=== PATIENT | male | born 1970 | race Caucasian/White ===

== ENCOUNTER 2021-05-27 17:41 | Emergency (ER) | payer OTHER ==
[2021-05-27] MEDS ORDERED: cephALEXin 250 MG CAPSULE PO STA (18:12)
[2021-05-27] MEDS ORDERED: SULFAMETH/TRIMETH DS 800/160 MG TABLET PO STA (18:12)
[2021-05-27] MEDS ORDERED: HYDROcod/ACETAM 5/325 MG TABLET PO STA (18:12)
[2021-05-27] MEDS ORDERED: BUPIVACAINE 0.5% PF 10 ML VIAL SUBQ STA (18:13)
--- NOTE | 2021-05-27 18:38 | ED Physician Documentation ---
History of Present Illness - Stated complaint Stated Complaint: RT THUMB INJ - Chief complaint Chief Complaint: Laceration - History obtained from History obtained from: Patient - History of Present Illness Timing: Yesterday Pain level max: 8 Pain level now: 6 - Additonal information Additional information: 50-year-old male with a right thumb injury on a computer desk drawer. He states that a plastic splinter was in his hand he removed it. Today the thumb is red, swollen and streaks of red or going up the forearm. He went to the walk-in clinic and they sent him here for further evaluation. Unknown last tetanus. No fevers. No chills. Worse with movement, better with rest. Review of Systems Constitutional: denies: Fever, Chills GI: denies: Vomiting, Diarrhea Musculoskeletal: denies: Neck pain, Back pain Neurologic: denies: Headache PD PAST MEDICAL HISTORY - Past Medical History Past Medical History: Yes - Past Surgical History Past Surgical History: Yes - Present Medications Home Medications: Ambulatory Orders Medication Instructions Recorded Confirmed HYDROcod/ACETAM 5/325 [Vicodin 1 - 2 ea PO Q6H PRN #15 tablet 05/21/14 5/325] Ceasar/Polymyx B Sulf/Dexameth 2 drops EACHEYE TID #5 ml 05/21/14 [Maxitrol Eye Drops] Sertraline HCl [Zoloft] 200 mg QPM 05/21/14 05/21/14 HYDROcod/ACETAM 5/325 [[place] 5/325] 1 - 2 ea PO Q6H PRN #14 tablet 05/27/21 Sulfamethox/Trimeth 800/160 1 each PO BID #14 tablet 05/27/21 [Bactrim Ds 800/160] cephALEXin [Keflex] 500 mg PO Q6H #28 cap 05/27/21 - Allergies Allergies/Adverse Reactions: Allergies Allergy/AdvReac Type Severity Reaction Status Date / Time doxycycline Allergy Nausea Verified 05/21/14 17:19 - Social History Does the pt smoke?: No Smoking Status: Never smoker Does the pt drink ETOH?: No - Immunizations Immunizations are current?: Yes PD ED PE NORMAL - Vitals Vital signs reviewed: Yes - General General: Alert and oriented X 3, No acute distress - Derm Derm: Warm and dry - Extremities Extremities: Other (Erythema and swelling to the right thumb, mainly over the distal aspect of the thumb, medial surface. There are faint red streaks going up the forearm to about the mid forearm. There is a small pustule on the medial aspect of the thumb. Neurovascularly intact.) - Neuro Neuro: Alert and oriented X 3 - Psych Psych: Normal mood Results - Vitals Vitals: Vital Signs - 24 hr 05/27/21 05/27/21 17:51 18:49 Temperature 36.8 C 36.3 C L Heart Rate 128 H 101 H Respiratory 14 16 Rate Blood Pressure 148/100 H 143/99 H O2 Saturation 98 97 Oxygen O2 Source Room air Procedures - Abscess I&D (location) Right thumb Preparation: Alcohol, Marcaine 0.5% Incision: Incised with scalpel, Purulent drainage Other: Pt tolerated well, Dressing applied, Antibiotic prescribed PD MEDICAL DECISION MAKING - ED course Complexity details: considered differential, d/w patient ED course: A small abscess is present on the medial aspect of the thumb, this was incised, purulence drained. Pad of the finger is soft. Does not appear consistent with a felon at this point. Excellent anesthesia achieved with a digital block. We will start on antibiotics and have him return tomorrow for a wound check. P atient counseled regarding signs and symptoms for which I believe and urgent re- evaluation would be necessary. Patient with good understanding of and agreement to plan and is comfortable going home at this time This document was made in part using voice recognition software. While efforts are made to proofread this document, sound alike and grammatical errors may occur. Departure - Departure Disposition: 01 Home, Self Care Clinical Impression: Abscess Cellulitis Qualifiers: Site of cellulitis: extremity Site of cellulitis of extremity: finger Laterality: right Qualified Code(s): L03.011 - Cellulitis of right finger Condition: Good Instructions: ED Infec Skin Cellulitis Follow-Up: Juan David Barreto MD [Primary Care Provider] - Within 1 week Prescriptions: Sulfamethox/Trimeth 800/160 [Bactrim Ds 800/160] 1 each PO BID #14 tablet cephALEXin [Keflex] 500 mg PO Q6H #28 cap HYDROcod/ACETAM 5/325 [[place] 5/325] 1 - 2 ea PO Q6H PRN #14 tablet PRN Reason: Pain Comments: Please return here tomorrow for a wound check. Continue the antibiotics coleen ght. Will prescribe pain medication for tonight as well. Soak the area in warm water when you are at home this will help it continue to drain. Return if you worsen. I am prescribing a short course of narcotic pain medication for you. These are potentially dangerous and addictive medications that should be used carefully. These medications may constipate you. Take an ueta-eos-idkepsf stool softener (docusate) twice daily with plenty of water while taking these medications. If you go 24 hours without a bowel movement, take zzev-[id number] miralax, per package instructions. Do not drink or drive while taking these medications. If you received narcotic or sedating medications while in the emergency department, do not drive for 24 hours. Store this medication in a safe, secure place and out of reach of children. It is a violation of federal law to give or sell this medication to another person or to use in a manner other than prescribed. The ED will not refill narcotic prescriptions, including prescriptions lost or stolen. To dispose of unwanted medications: 1. [facility] at [address] [place] [address] in [place] has a medication drop box. They accept prescription medications (in pill form) Tuesday through Tuesday 9:00 a.m. to 5:00 p.m. 2. The [facility] accepts prescription medications (in pill form only) for disposal year round. Call for more information. 3. Contact the [facility] for the next [facility] sponsored prescription drug collection event. , [phone], or [phone]; Discharge Date/Time: 05/27/21 18:54
[2021-05-27] MEDS ORDERED: TETANUS/DIPHTHERIA/PERTUSSIS 0.5 ML SYRINGE IM ONE (18:40)
[2021-05-27 18:50] VITALS: BP 143/99
== END 2021-05-27 18:54 | disposition home or self-care (01) ==
LOC: ED 17:41
DX: S61.021A Laceration with foreign body of right thumb without damage to nail, initial encounter (principal); L03.011 Cellulitis of right finger; W45.8XXA Other foreign body or object entering through skin, initial encounter; Y92.59 Other trade areas as the place of occurrence of the external cause; Y99.0 Civilian activity done for income or pay
CPT/HCPCS: 26010; 90471; 90715; 99283; 99284; A9270

== ENCOUNTER 2021-05-28 12:29 | Emergency (ER) | payer OTHER ==
[2021-05-28 12:55] VITALS: BP 135/84
--- NOTE | 2021-05-28 13:43 | ED Physician Documentation ---
PD HPI WOUND RECHECK - Stated complaint Stated Complaint: WOUND CHECK RT THUMB - Chief complaint Chief Complaint: Wound - Histroy obtained from History obtained from: Patient - History of Present Illness Location: Right Hand (right thumb) Timing - onset: How many days ago (2-3) Associated symptoms: Redness, Swelling Recently seen: Emergency Dept (seen yesterday and had incision with some drainage and told to recheck today. He states is it considerably better from just yesterday.) Review of Systems Constitutional: denies: Fever, Chills Neurologic: denies: Focal weakness, Numbness PD PAST MEDICAL HISTORY - Past Medical History Cardiovascular: None - Past Surgical History Past Surgical History: Yes - Present Medications Home Medications: Ambulatory Orders Medication Instructions Recorded Confirmed HYDROcod/ACETAM 5/325 [Vicodin 1 - 2 ea PO Q6H PRN #15 tablet 05/21/14 5/325] Ceasar/Polymyx B Sulf/Dexameth 2 drops EACHEYE TID #5 ml 05/21/14 [Maxitrol Eye Drops] Sertraline HCl [Zoloft] 200 mg QPM 05/21/14 05/21/14 HYDROcod/ACETAM 5/325 [[place] 5/325] 1 - 2 ea PO Q6H PRN #14 tablet 05/27/21 Sulfamethox/Trimeth 800/160 1 each PO BID #14 tablet 05/27/21 [Bactrim Ds 800/160] cephALEXin [Keflex] 500 mg PO Q6H #28 cap 05/27/21 - Allergies Allergies/Adverse Reactions: Allergies Allergy/AdvReac Type Severity Reaction Status Date / Time doxycycline Allergy Nausea Verified 05/21/14 17:19 - Social History Does the pt smoke?: No Smoking Status: Never smoker Does the pt drink ETOH?: No - Immunizations Immunizations are current?: Yes PD ED PE NORMAL - Vitals Vital signs reviewed: Yes - General General: Alert and oriented X 3, No acute distress, Well developed/nourished - Derm Derm: Normal color, Warm and dry - Extremities Extremities: Other (right thumb with considerably decreased redness and swelling. Lymphangitic streak on forearm yesterday is gone today. ) - Neuro Neuro: No motor deficit, No sensory deficit Results - Vitals Vitals: Vital Signs - 24 hr 05/28/21 12:53 Temperature 36.5 C Heart Rate 88 Respiratory 14 Rate Blood Pressure 135/84 H O2 Saturation 99 Oxygen O2 Source Room air PD MEDICAL DECISION MAKING - ED course Complexity details: considered differential (considerably improved from yesterday. ), d/w patient Departure - Departure Disposition: 01 Home, Self Care Clinical Impression: Finger infection Condition: Stable Record reviewed to determine appropriate education?: Yes Follow-Up: Juan David Barreto MD [Primary Care Provider] - Comments: This is looking much better already from yesterday. Continue with the previous antibiotics and treatment. Continue with some soaking or warm compresses to the area a few times a day. Follow-up for recheck if not continually improving to the point of healed well over the next several days and return if worsening. Discharge Date/Time: 05/28/21 14:09
== END 2021-05-28 14:09 | disposition home or self-care (01) ==
LOC: ED 12:29
DX: S61.021D Laceration with foreign body of right thumb without damage to nail, subsequent encounter (principal); L03.011 Cellulitis of right finger
CPT/HCPCS: 1040M; 99281; 99283

== ENCOUNTER 2022-02-14 22:42 | Outpatient (CLI) | payer OTHER | END 2022-02-14 22:43 | disposition critical access hospital (66) | LOC: EMS 22:42 | DX: R56.9 Unspecified convulsions (principal) | CPT/HCPCS: A0425; A0429 ==

== ENCOUNTER 2022-02-14 22:59 | Emergency (ER) | payer OTHER ==
[2022-02-14] MEDS ORDERED: LORazepam 2 MG/ML VIAL IVP STA (23:21)
[2022-02-14 23:35] LABS: BASOPHILS % (AUTO) 0.2 %; EOSINOPHILS # (AUTO) 0.1 10^3/uL (0.0-0.7); HCT - HEMATOCRIT 29.1 % (42.0-52.0); HGB - HEMOGLOBIN 9.7 g/dL (14.0-18.0); LYMPHOCYTES # (AUTO) 0.8 10^3/uL (1.5-3.5); LYMPHOCYTES % (AUTO) 15.4 %; MEAN CORPUSCULAR HEMOGLOBIN 31.3 pg (27.0-31.0); MEAN CORPUSCULAR HGB CONC 33.3 g/dL (32.0-36.0); MEAN CORPUSCULAR VOLUME 93.9 fL (80.0-94.0); MEAN PLATELET VOLUME 10.2 fL (7.4-11.4); MONOCYTES # (AUTO) 0.9 10^3/uL (0.0-1.0); NEUTROPHILS # (AUTO) 3.2 10^3/uL (1.5-6.6); NEUTROPHILS % (AUTO) 63.6 %; PLT - PLATELET COUNT 141 10^3/uL (130-450); RED CELL DISTRIBUTION WIDTH 14.6 % (12.0-15.0)
[2022-02-14] MEDS: THIAMINE INJ 100 MG, MAGNESIUM SULFATE 2 GM, MULTIVITAMIN 10 ML, FOLIC ACID INJ 1 MG in... IV ONE ×10 (23:35)
[2022-02-14] MEDS ORDERED: MAGNESIUM SULFATE 1 GM/2 ML VIAL ONE ×2 (23:36)
[2022-02-14] MEDS ORDERED: THIAMINE 100 MG/1 ML 2 ML MDV ONE ×2 (23:36)
[2022-02-14] MEDS ORDERED: FOLIC ACID 5 MG/1 ML 10ML MDV ONE (23:36)
[2022-02-14] MEDS ORDERED: MULTIVITAMIN IV 10 ML VIAL ONE (23:36)
[2022-02-14 23:49] LABS: ALBUMIN 2.9 g/dL (3.2-5.5); ALBUMIN/GLOBULIN RATIO 0.8 (1.0-2.2); BILIRUBIN,TOTAL 0.7 mg/dL (0.2-1.0); CALCIUM 8.4 mg/dL (8.5-10.3); TOTAL PROTEIN 6.6 g/dL (6.7-8.2)
[2022-02-14] MEDS ORDERED: POTASSIUM CHLORIDE 20 MEQ TABLET PO STA (23:57)
--- NOTE | 2022-02-15 00:16 | ED Physician Documentation ---
History of Present Illness - Stated complaint Stated Complaint: SEIZURE - Chief complaint Chief Complaint: Neuro - History obtained from History obtained from: Patient, Family, EMS - Additonal information Additional information: The patient comes to the emergency department chief complaint of seizure. The patient states that the last thing he remembers was that he was in the bathroom and suddenly, the lights began to look as though they were pulsating. He remembers his saying "Get down get down". He does not remember anything after that until he found himself waking up on the floor. states that she saw the patient stiffen and immediately began maneuvering him to the floor so he would not fall and hit his head on the sink. The patient according to had about 30 seconds of tonic-clonic type activity with a brief pause, then another 15 to 20 seconds at the same. After that, the patient began to wake up. She states patient seemed confused for a minute or 2 afterward and then quickly became himself again. Medics state that by the time they arrived, the patient was alert and oriented x4. Patient states he is feeling "great" now. He has a history of 1 other episode of presumed seizure activity which was 4, about 7 months ago. Is not clear exactly what caused the seizure, though patient states that both times, he has been under some extra stress and has not been getting enough sleep. He also thinks that spending a lot of time looking at screens increases his likelihood of having a seizure. Patient does admit to regular alcohol use, which he quantifies to be around 6 beers every evening. However, patient and his state that they both decided they needed to "get healthy" and so they stopped drinking cold turkey about 8 or 9 days ago. Patient denies feeling tremulous. No nausea or sweats. The patient was not put on any anticonvulsants when he was seen at the emergency department in [place] for his last seizure episode. He has not followed up with neurology. He does have a primary care physician. No other complaints at this time. Review of Systems Ten Systems: 10 systems reviewed and negative Constitutional: reports: Reviewed and negative Eyes: reports: Reviewed and negative Ears: reports: Reviewed and negative Nose: reports: Reviewed and negative Throat: reports: Reviewed and negative Cardiac: reports: Reviewed and negative Respiratory: reports: Reviewed and negative GI: reports: Reviewed and negative : reports: Reviewed and negative Skin: reports: Reviewed and negative Musculoskeletal: reports: Reviewed and negative Neurologic: reports: Syncope, Seizure Psychiatric: reports: Reviewed and negative Endocrine: reports: Reviewed and negative Immunocompromised: reports: Reviewed and negative PD PAST MEDICAL HISTORY - Past Medical History Past Medical History: Yes Cardiovascular: None Psych: Anxiety - Past Surgical History Past Surgical History: Yes General: Gastric surgery - Present Medications Home Medications: Ambulatory Orders Medication Instructions Recorded Confirmed Sertraline HCl [Zoloft] 200 mg QPM 05/21/14 02/14/22 DULoxetine [Cymbalta] 90 mg PO DAILY 02/14/22 02/14/22 Lorazepam [Ativan] 2 mg PO DAILY PRN 02/14/22 02/14/22 - Allergies Allergies/Adverse Reactions: Allergies Allergy/AdvReac Type Severity Reaction Status Date / Time doxycycline Allergy Nausea Verified 02/14/22 23:10 - Social History Does the pt smoke?: No Smoking Status: Never smoker Does the pt drink ETOH?: No Does the pt have substance abuse?: No - Immunizations Immunizations are current?: Yes - POLST Patient has POLST: No PD ED PE NORMAL - Vitals Vital signs reviewed: Yes - General General: Alert and oriented X 3, No acute distress, Well developed/nourished - HEENT HEENT: Atraumatic, PERRL, EOMI, Moist mucous membranes, Other (Shallow bite abby on tip of tongue and left side.) - Neck Neck: Supple, no meningeal sign, No bony TTP - Cardiac Cardiac: RRR, No murmur, Strong equal pulses - Respiratory Respiratory: No respiratory distress, Clear bilaterally - Abdomen Abdomen: Soft, Non tender, Non distended - Derm Derm: Normal color, Warm and dry, No rash - Extremities Extremities: No deformity, No edema, No calf tenderness / cord - Neuro Neuro: Alert and oriented X 3, consulting psychologist 2-12 intact, Normal speech, Other (Grossly intact) - Psych Psych: Normal mood, Normal affect Results - Vitals Vitals: Vital Signs - 24 hr 02/14/22 02/15/22 02/15/22 23:00 00:10 00:43 Temperature 36.9 C Heart Rate 114 H 116 H 111 H Respiratory 17 16 22 Rate Blood Pressure 141/92 H 145/88 H 142/83 H O2 Saturation 99 99 99 02/15/22 02/15/22 00:57 01:10 Temperature 37.0 C Heart Rate 108 H 103 H Respiratory 23 18 Rate Blood Pressure 161/87 H 140/83 H O2 Saturation 100 100 Oxygen O2 Source Room air - Labs Labs: Laboratory Tests 02/14/22 02/14/22 23:29 23:29 WBC 5.0 RBC 3.10 L Hgb 9.7 L Hct 29.1 L MCV 93.9 MCH 31.3 H MCHC 33.3 RDW 14.6 Plt Count 141 MPV 10.2 Neut # (Auto) 3.2 Lymph # (Auto) 0.8 L [place] # (Auto) 0.9 Eos # (Auto) 0.1 Baso # (Auto) 0.0 Absolute Nucleated RBC 0.00 Nucleated RBC % 0.0 Sodium 134 L Potassium 3.0 L Chloride 100 L Carbon Dioxide 23 Anion Gap 11.0 BUN 10 Creatinine 1.0 Estimated GFR (MDRD) 79 L Glucose 95 Calcium 8.4 L Total Bilirubin 0.7 AST 42 ALT 43 Alkaline Phosphatase 104 Total Protein 6.6 L Albumin 2.9 L Globulin 3.7 Albumin/Globulin Ratio 0.8 L Lipase 61 H PD MEDICAL DECISION MAKING - ED course Complexity details: reviewed results, re-evaluated patient, considered differential, d/w patient, d/w family ED course: The patient had already had work-up at another hospital for seizures and had had a CT of the head when this first came on, and was found to be negative. I did not feel this needed to be repeated. I did have labs done on the patient found that his potassium was low at 3.0, so I gave him a dose of potassium here in the emergency department. Also given a banana bag. I did find the patient was mildly tachycardic in the 1 teens and did appear slightly tremulous, so I gave him a dose of Ativan, as well. The patient was still feeling well on reevaluation and I felt he was stable for discharge home as labs were unremarkable other than potassium. I discussed with him the need to talk with his doctor about having referral to neurology for follow-up of seizures and to determine whether he should be on medications or not. Patient and stated that they would be willing to pursue this with the primary doctor. We have discussed the usual indications for return. Departure - Departure Disposition: 01 Home, Self Care Clinical Impression: Seizure Condition: Stable Instructions: ED Seizure Recurrent Comments: Your potassium was mildly low in the emergency department and you have been treated for this. You were also treated with a banana bag, which has given you some extra vitamins that you may be lacking from your regular drinking. Please call to make the next possible appointment with Dr. Barreto to discuss a neurology referral since you have now had 2 seizures. Although stress, screens, and lack of sleep may act as triggers, it is still abnormal to have seizures, and it is still best to get established with neurology, as you clearly have a lower threshold for seizures. Please continue to avoid alcohol intake. Discharge Date/Time: 02/15/22 01:15
[2022-02-15] MEDS: THIAMINE INJ 100 MG, MAGNESIUM SULFATE 2 GM, MULTIVITAMIN 10 ML, FOLIC ACID INJ 1 MG in... IV ONE ×5 (00:53)
[2022-02-15 01:16] VITALS: BP 140/83
== END 2022-02-15 01:15 | disposition home or self-care (01) ==
LOC: EDUNIT# → ED 22:59
DX: R56.9 Unspecified convulsions (principal)
CPT/HCPCS: 36415; 80053; 83690; 85025; 96365; 96366; 96375; 99284; A9270; J2060; J3411

== ENCOUNTER 2022-07-15 11:41 | Outpatient (CLI) | payer OTHER ==
--- NOTE | 2022-07-15 14:27 | XRAY Report ---
PROCEDURE: Shoulder 2 View RT INDICATIONS: RIGHT SHOULDER PAIN TECHNIQUE: 2 views of the shoulder were acquired. COMPARISON: None. FINDINGS: Bones: No fractures or dislocations. No suspicious bony lesions. Visualized ribs appear intact. M oderate to severe acromioclavicular degenerative narrowing. Soft tissues: No suspicious soft tissue calcifications. IMPRESSION: Moderate to severe acromioclavicular narrowing. Reviewed by: Belgica Rondon MD on 07/15/2022 2:26 PM PDT Approved by: Belgica Rondon MD on 07/15/2022 2:26 PM PDT Station ID: [id number]
== END 2022-07-15 11:42 | disposition home or self-care (01) ==
LOC: DI 11:41
PROVIDERS: ATTEND Student in an Organized Health Care Education/Training Program
DX: M19.011 Primary osteoarthritis, right shoulder (principal)

== ENCOUNTER 2024-05-22 08:08 | Outpatient (CLI) | payer OTHER ==
[2024-05-22 11:59] LABS: PARTIAL THROMBOPLASTIN TIME 24.5 secs (24.9-33.3)
[2024-05-22 12:30] LABS: % IRON SATURATION 3 % (20-50); ALBUMIN 4.3 g/dL (3.2-5.5); ALBUMIN/GLOBULIN RATIO 1.6 (1.0-2.2); ALKALINE PHOSPHATASE 76 IU/L (42-121); ALT ALANINE AMINOTRANSFERASE 19 IU/L (10-60); AST ASPARTATE AMINOTRANSFERASE 35 IU/L (10-42); BILIRUBIN,TOTAL 0.6 mg/dL (0.2-1.0); BUN - BLOOD UREA NITROGEN 8 mg/dL (6-20); CALCIUM 9.6 mg/dL (8.5-10.3); CARBON DIOXIDE - CO2 27 mmol/L (21-32); CHLORIDE 102 mmol/L (101-111); CHOL/HDL RATIO 2.1 (<5.0); CHOLESTEROL 173 mg/dL; CREATININE 0.9 mg/dL (0.6-1.3); GFR - MDRD 89 (>89); GLUCOSE 71 mg/dL (74-104); HDL CHOLESTEROL 84 mg/dL; IRON 18 ug/dL (50-212); LDL CHOLESTEROL,CALCULATED 67 mg/dL; LDL/HDL RATIO 0.8 (<3.6); POTASSIUM 3.9 mmol/L (3.5-4.5); SODIUM 136 mmol/L (135-145); TOTAL IRON BINDING CAPACITY 563 ug/dL (250-450); TRANSFERRIN 402 mg/dL (203-362); TRIGLYCERIDES 108 mg/dL; VLDL CHOLESTEROL 22 mg/dL
[2024-05-22 12:35] LABS: THYROID STIMULATING HORMONE 0.97 uIU/mL (0.34-5.60)
[2024-05-22 12:43] LABS: FERRITIN 6.1 ng/mL (23.9-336.2)
[2024-05-22 12:45] LABS: BASOPHILS % (AUTO) 0.8 %; EOSINOPHILS # (AUTO) 0.1 10^3/uL (0.0-0.7); EOSINOPHILS % (AUTO) 2.4 %; HCT - HEMATOCRIT 32.3 % (42.0-52.0); HGB - HEMOGLOBIN 9.2 g/dL (14.0-18.0); LYMPHOCYTES # (AUTO) 1.5 10^3/uL (1.5-3.5); LYMPHOCYTES % (AUTO) 40.3 %; MEAN CORPUSCULAR HEMOGLOBIN 19.3 pg (27.0-31.0); MEAN CORPUSCULAR HGB CONC 28.5 g/dL (32.0-36.0); MEAN CORPUSCULAR VOLUME 67.7 fL (80.0-94.0); MONOCYTES # (AUTO) 0.4 10^3/uL (0.0-1.0); MONOCYTES % (AUTO) 9.7 %; NEUTROPHILS # (AUTO) 1.7 10^3/uL (1.5-6.6); NEUTROPHILS % (AUTO) 46.5 %; PLT - PLATELET COUNT 255 10^3/uL (130-450); RED BLOOD COUNT 4.77 10^6/uL (4.70-6.10); RED CELL DISTRIBUTION WIDTH 20.5 % (12.0-15.0); WHITE BLOOD COUNT 3.7 x10^3/uL (4.8-10.8)
[2024-05-22 13:19] LABS: SLIDE REVIEW? Indicated
[2024-05-22 13:20] LABS: RBC MORPHOLOGY (MULTIPLE) 2+ HYPOCHROMASIA (NORMAL)
[2024-05-22 13:35] LABS: PT - PROTHROMBIN TIME 10.7 secs (9.9-12.6)
[2024-05-22 15:37] LABS: ESTIMATED AVERAGE GLUCOSE 105 mg/dL (70-100); HEMOGLOBIN A1c% 5.3 % (4.27-6.07)
== END 2024-05-22 08:09 | disposition home or self-care (01) ==
LOC: LAB.N 08:08
DX: R53.82 Chronic fatigue, unspecified (principal); Z12.5 Encounter for screening for malignant neoplasm of prostate; D68.2 Hereditary deficiency of other clotting factors
CPT/HCPCS: 36415; 80053; 80061; 82306; 82607; 82728; 82746; 83036; 83540; 83721; 84153; 84443; 84466; 85025; 85610; 85730

== ENCOUNTER 2024-06-25 07:04 | Outpatient (CLI) | payer OTHER | END 2024-06-25 07:05 | disposition home or self-care (01) | LOC: LAB.N 07:04 | DX: R53.82 Chronic fatigue, unspecified (principal); R68.82 Decreased libido | CPT/HCPCS: 36415; 84403 ==

== ENCOUNTER 2025-01-31 18:51 | Inpatient (IN) ==
--- OUTSIDE RECORDS SUMMARY | 2025-01-31 19:03 | EXTERNAL MEDICAL SUMMARY RPT | Continuity of Care Document ---
Author Organization [facility] Address [address] [place] [id number] Phone Problems date description facility 2024-11-29 08:33 Displaced bicondylar fracture of left tibia, initial encounter for closed fracture [facility] 2025-01-11 15:30 Essential (primary) hypertensio n [facility] 2025-01-11 15:33 Essential (primary) hypertensio n [facility] 2025-01-11 16:11 Essential (primary) hypertensio n [facility] 2025-01-12 00:04 Essential (primary) hypertensio n [facility] Results/Labs test date facility value unit notes Result panel 1 NUCLEATED RED BLOOD CELLS AUTO 2025-01-11 15:37 [facility] 0.0 /100wbc (missing) BASOPHILS # (AUTO) 2025-01-11 15:37 [facility] 0.0 10 3/ul (missing) NRBC ABSOLUTE COUNT (AUTO) 2025-01-11 15:37 [facility] 0.00 x10 3/ul (missing) EOSINOPHILS # (AUTO) 2025-01-11 15:37 [facility] 0.2 10 3/ul (missing) BILIRUBIN,TOTAL 2025-01-11 15:37 [facility] 0.2 mg /dl As of April 2023 testing method has changed, this may include reference ranges. MONOCYTES # (AUTO) 2025-01-11 15:37 [facility] 0.7 10 3/ul (missing) CREATININE 2025-01-11 15:37 [facility] 1.0 mg/dl As of April 2023 testing method has changed, this may include reference ranges. LDL/HDL RATIO 2025-01-11 15:37 [facility] 1.2 (mis sing) (missing) THYROID STIMULATING HORMONE 2025-01-11 15:37 [facility] 1.54 uiu/ml (missing) ALBUMIN/GLOBULIN RATIO 2025-01-11 [facility] 1.9 (missing) (missing) ESTIMATED AVERAGE GLUCOSE 2025-01-11 15:37 [facility] 108 mg/dl (missing) MEAN PLATELET VOLUME 2025-01-11 15:37 [facility] 11.5 fl (missing) HGB - HEMOGLOBIN 2025-01-11 15:37 [facility] 11.5 g /dl (missing) TRIGLYCERIDES 2025-01-11 15:37 [facility] 111 mg/d l Social History date description facility
[2025-01-31 19:11] LABS: BASOPHILS % (AUTO) 0.2 %; EOSINOPHILS # (AUTO) 0.1 10^3/uL (0.0-0.7); EOSINOPHILS % (AUTO) 1.2 %; HCT - HEMATOCRIT 34.9 % (42.0-52.0); HGB - HEMOGLOBIN 10.9 g/dL (14.0-18.0); LYMPHOCYTES # (AUTO) 2.7 10^3/uL (1.5-3.5); LYMPHOCYTES % (AUTO) 30.2 %; MEAN CORPUSCULAR HGB CONC 31.2 g/dL (32.0-36.0); MEAN CORPUSCULAR VOLUME 73.6 fL (80.0-94.0); MEAN PLATELET VOLUME 10.8 fL (7.4-11.4); MONOCYTES # (AUTO) 0.8 10^3/uL (0.0-1.0); MONOCYTES % (AUTO) 8.5 %; NEUTROPHILS # (AUTO) 5.3 10^3/uL (1.5-6.6); NEUTROPHILS % (AUTO) 59.6 %; PLT - PLATELET COUNT 139 10^3/uL (130-450); RED BLOOD COUNT 4.74 10^6/uL (4.70-6.10); RED CELL DISTRIBUTION WIDTH 15.8 % (12.0-15.0); WHITE BLOOD COUNT 8.9 x10^3/uL (4.8-10.8)
[2025-01-31 19:30] LABS: ALBUMIN 4.4 g/dL (3.2-5.5); ALBUMIN/GLOBULIN RATIO 1.7 (1.0-2.2); BILIRUBIN,TOTAL 0.4 mg/dL (0.2-1.0); CALCIUM 9.6 mg/dL (8.5-10.3); CREATININE 1.2 mg/dL (0.6-1.3)
[2025-01-31] MEDS: MORPHINE 2 MG/ML CARPUJECT IVP STA (19:43)
[2025-01-31] MEDS: ONDANSETRON 4 MG/2 ML VIAL IVP STA (20:01)
[2025-01-31] MEDS ORDERED: iohexoL-300 100 ML VIAL ONE (20:21)
[2025-01-31] MEDS: HYDROmorphone 0.5 MG/0.5 ML SYRINGE IVP STA ×2 (20:28→21:24)
[2025-01-31] MEDS: iohexoL-300 100 ML VIAL IVP ONE (20:42)
[2025-01-31] MEDS: SODIUM CHLORIDE 0.9% 1,000 ML IV STA (21:23)
[2025-01-31] MEDS: DROPERIDOL 5 MG/2 ML VIAL IVP STA (21:26)
--- NOTE | 2025-01-31 21:29 | CT Report ---
PROCEDURE: CT Abdomen/Pelvis W INDICATIONS: left flank pain, hx of gastric bypass CONTRAST: 100 ML OMNI TECHNIQUE: After the administration of intravenous contrast, a CT scan of the abdomen and pelvis was performed. Images were recorded and evaluated at appropriate window settings. Reformats: coronal and sagittal. F or radiation dose reduction, the following was used: automated exposure control, adjustment of mA and /or kV according to patient size. COMPARISON: CT of the thoracic spine dated 08/07/2013. FINDINGS: Image quality: Diagnostic. Lower chest: Unremarkable. Liver: No solid mass. Gallbladder: No radiopaque stones or wall thickening. Biliary tree: No intrahepatic or extrahepatic dilation, accounting for age. Spleen: No splenomegaly. Pancreas: No pancreatic ductal dilation. Adrenals: No adrenal nodule. Kidneys and ureters: No hydronephrosis. No renal cystic lesion which requires follow up. No solid mas s. Stomach, bowel and peritoneum: There is prior gastric bypass surgery. Focal segment of markedly diste nded bowel loop is seen in upper abdomen containing fecal matter and measures up to 10 cm in diameter best seen on series 4 image 32. There is twisting of the abdominal mesentery with abrupt caliber corwin nge of bowel loop best seen on series 4 image 42. Normal appendix is visualized. There is no peritone al free fluid of free air. No area of abnormal bowel wall thickening. Lymph nodes: No central or retroperitoneal adenopathy. Vessels: No infrarenal aortic aneurysm. Patent portal vein. PELVIS Reproductive organs: Unremarkable. Bladder: No abnormal wall thickening. Pelvic lymph nodes: No pelvic adenopathy by size criteria. Bones: No aggressive osseous abnormality. Other: No significant ventral or inguinal hernia. IMPRESSION: 1. 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 2. No obstructing renal stones or hydronephrosis. 3. No abscess collection. No free fluid of free air. Findings were discussed with provider at time of dictation. Reviewed by: Juan Hager MD on 01/31/2025 9:28 PM PDT Approved by: Juan Hager MD on 01/31/2025 9:28 PM PDT Station ID: [id number]
--- NOTE | 2025-01-31 21:52 | PROVIDER PROGRESS NOTE ---
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 pain at about 1130 this AM, last BM about noon. He is being taken to the operating room emergently tonight for probable right colon resection. Dr. Lawson contacted me asking medicine service to formally consult on this patient in the morning and to make any recommendations for his care postoperatively overnight. As stated above he has a history of alcohol use and alcohol withdrawal with seizures that could be related to his alcohol withdrawal. 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 Review of most recent PCP note dated 01/08/2025 shows that patient stated his last alcoholic beverage was in early November and that he was actively engaged in alcoholic Anonymous. Patient tells me this at the bedside as well this evening. I met with patient briefly at the beside this evening. Chronically crunches ice which is likely the root of his polydipsia and related to his chronic iron def anemia. Will check BMP in the AM and place patient on 1500ml fluid restriction to help with correction of Na. Goal will be to correct Na by no more than 8mEq per 24 hours Will ck iron studies in the AM and likely give Fe infusion while IP.
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
[2025-01-31] MEDS ORDERED: PROPOFOL 200 MG/20 ML VIAL IVP ONE ×2 (22:18→22:54)
[2025-01-31] MEDS ORDERED: ONDANSETRON 4 MG/2 ML VIAL ONE (22:18)
[2025-01-31] MEDS ORDERED: DEXAMETHASONE 4 MG/ML VIAL ONE (22:18)
[2025-01-31] MEDS ORDERED: ROCURONIUM 50 MG/5 ML VIAL ONE (22:18)
[2025-01-31] MEDS ORDERED: LIDOCAINE-PF 2% 10 ML AMP SUBQ ONE (22:18)
[2025-01-31] MEDS ORDERED: MIDAZOLAM 2 MG/2 ML VIAL ONE (22:26)
[2025-01-31] MEDS ORDERED: fentaNYL 100 MCG/2 ML VIAL ONE (22:26)
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
[2025-01-31] MEDS ORDERED: BUPIVACAINE 0.25% PF 30 ML VIAL ONE (22:45)
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
[2025-01-31] MEDS ORDERED: metroNIDAZOLE 500 MG/100 ML 500 MG/100 ML BAG IV SCH (23:02)
[2025-01-31] MEDS ORDERED: ceFAZolin 1 GM VIAL ONE (23:02)
[2025-01-31] MEDS ORDERED: GLYCOPYRROLATE 1 MG/5 ML VIAL ONE (23:34)
[2025-02-01] MEDS ORDERED: ROCURONIUM 50 MG/5 ML VIAL ONE (01:08)
[2025-02-01] MEDS ORDERED: ROPIVACAINE 0.5% PF 20 ML VIAL ONE (01:08)
[2025-02-01] MEDS ORDERED: ACETAMINOPHEN 1,000 MG/100 ML 1,000 MG/100 ML BAG IV ONE (01:08)
[2025-02-01] MEDS ORDERED: ONDANSETRON 4 MG/2 ML VIAL IVP PRN ×2 (01:13→01:17)
[2025-02-01] MEDS ORDERED: ATROPINE ABBOJECT 1 MG/10 ML SYRINGE IVP PRN (01:13)
[2025-02-01] MEDS ORDERED: ePHEDrine 50 MG/ML VIAL IVP PRN ×2 (01:13→01:17)
[2025-02-01] MEDS ORDERED: SUGAMMADEX 200 MG/2 ML VIAL IVP ONE (01:29)
[2025-02-01] MEDS ORDERED: ROPIVACAINE EP ONE ×2 (01:44→04:45)
[2025-02-01] MEDS: ROPIVACAINE 0.2% 200 MG/100 ML BAG EP ONE ×2 (01:58→14:20)
--- NOTE | 2025-02-01 02:49 | ANESTHESIA POST OP EVALUATION ---
Anesthesia Post Eval Post Anesthesia Eval Vitals: Last Vital Signs Temp 36.2 C L 02/01/25 02:40 Pulse 64 02/01/25 02:40 Resp 16 02/01/25 02:40 BP 147/101 H 02/01/25 02:40 Pulse Ox 97 02/01/25 02:40 CV Function Including HR & BP: Stable Pain Control: Satisfactory Nausea & Vomiting: Negative Mental Status: Baseline Respiratory Status: Airway Patent Hydration Status: Satisfactory Anesthesia Complications: None
[2025-02-01] MEDS ORDERED: DEXMEDETOMIDINE 200 MCG/2 ML VIAL IV ONE (04:40)
[2025-02-01 05:30] LABS: BASOPHILS % (AUTO) 0.2 %; EOSINOPHILS % (AUTO) 22.9 %; HCT - HEMATOCRIT 38.3 % (42.0-52.0); HGB - HEMOGLOBIN 12.3 g/dL (14.0-18.0); LYMPHOCYTES % (AUTO) 2.9 %; MEAN CORPUSCULAR HEMOGLOBIN 23.2 pg (27.0-31.0); MEAN CORPUSCULAR HGB CONC 32.1 g/dL (32.0-36.0); MEAN CORPUSCULAR VOLUME 72.3 fL (80.0-94.0); MONOCYTES % (AUTO) 7.3 %; NEUTROPHILS % (AUTO) 66.2 %; PLT - PLATELET COUNT 151 10^3/uL (130-450); RED CELL DISTRIBUTION WIDTH 15.7 % (12.0-15.0); WHITE BLOOD COUNT 18.4 x10^3/uL (4.8-10.8)
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
[2025-02-01 05:33] LABS: INR 1.1 (0.8-1.2); PT - PROTHROMBIN TIME 12.3 secs (9.9-12.6)
[2025-02-01 05:42] LABS: ABNORMAL LYMPHS % (MANUAL) 0 %
[2025-02-01 05:53] LABS: CALCIUM 8.8 mg/dL (8.5-10.3); MAGNESIUM 1.4 mg/dL (1.7-2.3); PHOSPHORUS 3.8 mg/dL (2.5-5.0); POTASSIUM 4.2 mmol/L (3.5-4.5)
[2025-02-01 06:54] LABS: BAND NEUTROPHILS % (MANUAL) 10 %; DIFFERENTIAL COMMENT MANUAL DIFFERENTIAL; LYMPHOCYTES # (MANUAL) 0.2 10^3/uL (1.5-3.5); LYMPHOCYTES % (MANUAL) 1 %; MONOCYTES # (MANUAL) 0.6 10^3/uL (0.0-1.0); NEUTROPHILS # (MANUAL) 17.7 10^3/uL (1.5-6.6); PLATELET ESTIMATE, MANUAL NORMAL (130-450,000) (NORMAL); PLATELET MORPHOLOGY NORMAL APPEARANCE (NORMAL); RBC MORPHOLOGY (MULTIPLE) NORMAL APPEARANCE (NORMAL); WBC MORPHOLOGY (MULTIPLE) NORMAL APPEARANCE (NORMAL)
--- OUTSIDE RECORDS SUMMARY | 2025-02-01 10:22 | EXTERNAL MEDICAL SUMMARY RPT | Continuity of Care Document ---
Author Organization [facility] Address [address] [place] [id number] Phone Problems date description facility 2024-11-29 08:33 Displaced bicondylar fracture of left tibia, [facility] 2025-01-11 15:30 [facility] 2025-01-11 15:33 [email or web address] 2025-01-11 16:11 [facility] 2025-01-12 00:04 Essential [facility]primary[email or web address] 2025-02-01 00:05 Hypo-osmolality and [facility]onatremi [facility] 2025-02-01 00:05 Alcohol abuse, in remission [facility] 2025-02-01 00:05 [facility] 2025-02-01 01:05 [facility] 2025-02-01 01:58 Iron deficiency anemia[facility] 2025-02-01 01:59 Iron deficiency anemia, [facility] 2025-02-01 02:38 Iron deficiency anemia, [facility] 2025-02-01 02:41 Iron deficiency anemia, [facility] 2025-02-01 04:04 Iron deficiency anemia, [facility] 2025-02-01 08:19 Iron deficiency anemia[facility] 2025-02-01 08:19 Hypo-osmolality and [facility]atremi [facility] 2025-02-01 08:19 [facility] abuse, [facility] 2025-02-01 08:19 Volvulus [email or web address] 2025-02-01 08:46 Hypo-osmolality and hyponatremi a [facility] 2025-02-01 08:46 Alcohol abuse, in remission [facility] 2025-02-01 08:46 Volvulus [facility] Results/Labs test date facility value unit notes Result panel 1 NUCLEATED RED BLOOD CELLS AUTO 2025-01-11 15:37 [facility] 0.0 /100wbc (missing) BASOPHILS # (AUTO) 2025-01-11 15:37 [facility] 0.0 10 3/ul (missing) NRBC ABSOLUTE COUNT (AUTO) 2025-01-11 15:37 [facility] 0.00 x10 3/ul (missing) EOSINOPHILS # (AUTO) 2025-01-11 15:37 [facility] 0.2 10 3/ul (missing) BILIRUBIN,TOTAL 2025-01-11 15:37 [facility] 0.2 mg /dl As of April 2023 testing method has changed, this may include reference ranges. MONOCYTES # (AUTO) 2025-01-11 15:37 [facility] 0.7 10 3/ul (missing) CREATININE 2025-01-11 15:37 [facility] 1.0 mg/dl As of April 2023 testing method has changed, this may include reference ranges. LDL/HDL RATIO 2025-01-11 15:37 [facility] 1.2 (mis sing) (missing) THYROID STIMULATING HORMONE 2025-01-11 15:37 [facility] 1.54 uiu/ml (missing) ALBUMIN/GLOBULIN RATIO 2025-01-11 15:37 [facility] 1.9 (missing) (missing) ESTIMATED AVERAGE GLUCOSE 2025-01-11 15:37 [facility] 108 mg/dl (missing) MEAN PLATELET VOLUME 2025-01-11 15:37 [facility] 11.5 fl (missing) HGB - HEMOGLOBIN 2025-01-11 15:37 [facility] 11.5 g /dl (missing) TRIGLYCERIDES 2025-01-11 15:37 [facility] 111 mg/d l Social History date description facility
[2025-02-01 10:26] LABS: % IRON SATURATION 17 % (20-50); IRON 82 ug/dL (50-212); TOTAL IRON BINDING CAPACITY 473 ug/dL (250-450); TRANSFERRIN 338 mg/dL (203-362)
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
[2025-02-01] MEDS ORDERED: cloNIDine 0.1 MG TABLET PO PRN (12:39)
--- NOTE | 2025-02-01 12:48 | PHARMACY PROGRESS NOTE ---
Best Possible Medication History Admit Date and Time: 02/01/25 [id number] Home Medications Medication Instructions Recorded Confirmed Type naltrexone 50 mg tablet 50 mg PO QDAY #30 tabs 08/04/24 02/01/25 Rx acetaminophen 500 mg tablet 1,000 mg PO Q6H PRN fever or pain 08/08/24 02/01/25 History ascorbic acid (vitamin C) 1,000 mg 1 g PO QDAY 08/08/24 02/01/25 History capsule duloxetine 30 mg capsule,delayed 90 mg PO QDAY 08/08/24 02/01/25 History release trazodone 100 mg tablet 100 mg PO HS 08/08/24 02/01/25 History clonidine HCl 0.1 mg tablet 0.1 mg PO Q6H PRN anxiety 01/08/25 02/01/25 History hydroxyzine pamoate 50 mg capsule 100 mg PO DAILY 01/08/25 02/01/25 History ibuprofen 200 mg capsule 200 mg PO Q6H PRN fever or pain 01/08/25 02/01/25 History mecobalamin (vitamin B12) 2,500 2,500 mcg PO QDAY 01/08/25 02/01/25 History mcg chewable tablet metoprolol succinate 25 mg capsule 25 mg PO QDAY 01/08/25 02/01/25 History sprinkle, ext. release 24 hr (Kapspargo Sprinkle) multivitamin 1 tab PO QAM 01/08/25 02/01/25 History quetiapine 50 mg tablet 50 mg PO BID 01/08/25 02/01/25 History folic acid 1 mg tablet 1 mg PO DAILY 02/01/25 02/01/25 History melatonin 1 mg tablet 1 mg PO HS PRN sleep 02/01/25 02/01/25 History Processed by: Pharmacy Medications reviewed in ED?: No Medication History completed: Yes Patient Interview: Completed Secondary Source(s): Insurance records [facility] Statement: Per [facility] patient interview and review of [employer] insurance records. As the person ultimately responsible for medication therapy, providers are able to order a medication from an existing home medication list in [facility] via the "Reconcile Routine" prior to Confirmation of that medication by manager decision support. Such practice is discouraged except when the physician, in their clinical judgment, deems that a medical need exists for a medication without regard to previous use.
[2025-02-01] MEDS: SODIUM CHLORIDE FLUSH 0.9% 10 ML SYRINGE IVP SCH (13:45)
[2025-02-01] MEDS: METOPROLOL SUCCINATE 25 MG TABLET PO SCH (13:46)
[2025-02-01] MEDS: ENOXAPARIN 40 MG/0.4 ML SYRINGE SUBQ SCH (13:46)
[2025-02-01] MEDS: FOLIC ACID 1 MG TABLET PO SCH (13:46)
[2025-02-01] MEDS: DULoxetine 30 MG CAPSULE PO SCH (13:46)
[2025-02-01] MEDS: SODIUM CHLORIDE 0.9% 1,000 ML IV SCH (13:47)
[2025-02-01] MEDS: MAGNESIUM SULFATE 2 GRAM 2 GM/50 ML BAG IV ONE (13:47)
[2025-02-01] MEDS: ceFAZolin (2G) 2 GM in SODIUM CHLORIDE 0.9% MINIBAG 100 ML IV ONE (14:00)
[2025-02-01] MEDS: LACTATED RINGERS 1,000 ML IV ONE (14:01)
[2025-02-01] MEDS: LACTATED RINGERS 1,000 ML IV SCH (14:23)
[2025-02-01] MEDS: FERRIC GLUCONATE 125 MG in SODIUM CHLORIDE 0.9% 100ML 100 ML IV ONE (14:24)
--- NOTE | 2025-02-01 16:18 | PROVIDER PROGRESS NOTE ---
Subjective General Admit Date: 02/01/25 Procedure Date: 02/01/25 Post Op Days: 0 Procedure Performed: exploratory laparotomy, right colectomy for cecal volvulus Other Other Information/Narrative: POD0. HDN/AF since surgery. Comfortable on swenson, pain well controlled with epidural. Tolerating sips/chips, no nausea, but no appetite or flatus yet. Wound Assessment Wound/Incisions: positive Dressing dry and intact Review of Systems Status of ROS: 10 or more systems reviewed and unremarkable except as noted in history and below Exam Exam Vital Signs: Vital Signs x48h Temp Pulse Resp BP Pulse Ox 02/01/25 15:57 37.2 C 78 18 117/64 95 Constitutional normal general appearance and no apparent distress Respiratory normal respiratory effort Cardiovascular normal heart rate noted Gastrointestinal abdomen soft to palpation and nondistended minimal periincisional ttp, no focal ttp Genitourinary light yellow urine in peoples Back/Pelvis epidural in place Extremities normal to inspection Psychiatry oriented x3 Skin skin color normal Impression/Plan Problem List (1) Cecal volvulus: Plan: 54yoM 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 Volvulized cecum was mildly dusky with serosal tearing in the OR, no perforation or stool contamination. POD-0. Doing well on the floor. - pain control with epidural and scheduled IV tylenol. To be managed by Anesthesia - sips/chips OK. ADAT when demonstrating ROBF/appetite (recall patient s/p RNY gastric bypass). - peoples in place until epidural removed - ppx lovenox started alread Patient transferred to Hospitalist service for primary team - hyponatremia/polydipsea as per primary - home medications as per primary (has resumed naltrexone) Weekend rounding by surgery will be signed out to Dr. Kinney. Komal Lawson DO, FACS General Surgeon, Jonah (2) Hyponatremia: (3) Alcohol abuse, in remission: (4) Elevated blood pressure reading: (5) Iron deficiency:
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
[2025-02-01] MEDS: QUEtiapine 25 MG TABLET PO SCH (20:40)
[2025-02-01] MEDS: traZODone 50 MG TABLET PO SCH (20:40)
[2025-02-01] MEDS: CYCLOBENZAPRINE 10 MG TABLET PO PRN (20:40)
[2025-02-01] MEDS: SIMETHICONE CHEW 80 MG TABLET PO SCH (20:41)
[2025-02-01] MEDS: SODIUM CHLORIDE 0.45% 1,000 ML IV SCH (20:45)
--- NOTE | 2025-02-01 21:51 | PROVIDER PROGRESS NOTE ---
Progress Note Progress Note Progress Note: Patient became acutely hypotensive to the 80s. He was feeling calm and resting. He had had some crampy abdominal pain this evening which was easily relieved with Flexeril. He was mildly tachycardic in the low 100s but he is on metoprolol. At the time of his hypotension I turned off the epidural and placed the patient in about 10 degrees of Trendelenburg. He was given a 500 cc bolus and responded with some rise in his blood pressure. He remains asymptomatic he is not dizzy he does not feel weak or sleepy. He is having some right shoulder pain which has been progressive through the afternoon and he feels like maybe he is getting ready to pass gas. Stat CBC and BMP were sent.Hemoglobin has dropped from 12.3 this morning to 9.6. With this change in his vital signs and the change of his hemoglobin I both ordered a stat CTA of the abdomen to look for any active bleeding and call Dr. Kinney who is on-call for general surgery. Dr. Kinney stated that we could transfuse for the patient's vital signs. Check hemoglobin every 4 hours. And continue to monitor. I will continue to manage this patient overnight. I have notified general surgery.
[2025-02-01] MEDS: SODIUM CHLORIDE 0.45% 500 ML IV SCH (21:55)
[2025-02-01 21:57] LABS: CALCIUM 8.4 mg/dL (8.5-10.3); CREATININE 1.2 mg/dL (0.6-1.3); POTASSIUM 4.1 mmol/L (3.5-4.5)
[2025-02-01 21:58] LABS: BASOPHILS % (AUTO) 0.1 %; EOSINOPHILS % (AUTO) 0.1 %; HCT - HEMATOCRIT 29.9 % (42.0-52.0); HGB - HEMOGLOBIN 9.6 g/dL (14.0-18.0); LYMPHOCYTES # (AUTO) 1.3 10^3/uL (1.5-3.5); LYMPHOCYTES % (AUTO) 7.9 %; MEAN CORPUSCULAR HEMOGLOBIN 23.2 pg (27.0-31.0); MEAN CORPUSCULAR HGB CONC 32.1 g/dL (32.0-36.0); MEAN CORPUSCULAR VOLUME 72.4 fL (80.0-94.0); MEAN PLATELET VOLUME 9.9 fL (7.4-11.4); MONOCYTES # (AUTO) 1.2 10^3/uL (0.0-1.0); MONOCYTES % (AUTO) 7.1 %; NEUTROPHILS # (AUTO) 14.1 10^3/uL (1.5-6.6); NEUTROPHILS % (AUTO) 84.3 %; PLT - PLATELET COUNT 120 10^3/uL (130-450); RED BLOOD COUNT 4.13 10^6/uL (4.70-6.10); WHITE BLOOD COUNT 16.7 x10^3/uL (4.8-10.8)
[2025-02-01] MEDS ORDERED: iohexoL-300 100 ML VIAL ONE (22:22)
--- NOTE | 2025-02-01 23:40 | CT Report ---
PROCEDURE: CT Angio Abdomen/Pelvis INDICATIONS: hypotens/tachy <24h post bowel resection CONTRAST: IV contrast TECHNIQUE: After the administration of intravenous contrast, 2.5 mm thick sections acquired from the diaphragm t o the symphysis. 10 mm maximum-intensity projection (MIP) reformats were then acquired. For radiati on dose reduction, the following was used: automated exposure control, adjustment of mA and/or kV ac cording to patient size. COMPARISON: 01/31/2025 FINDINGS: Image quality: Diagnostic Lower chest: Bibasilar mild opacities and small effusions. Trace hiatal hernia. Borderline cardiomegaly. Liver: Unremarkable Gallbladder and biliary system: Cholecystectomy clips, nondilated Pancreas: No ductal dilation Spleen: Nonenlarged Adrenals: No discrete nodules Kidneys: No solid mass. No hydronephrosis. Vessels and lymph nodes: No abdominal aortic aneurysm. Atherosclerotic calcifications. No pathologic lymph nodes by size criteria Bowel and peritoneum: Right colonic suture lines. Diffuse pneumoperitoneum. Small amount of hemoperit oneum Prominent fluid-filled loops of small and large bowel are present. No obstructing point. There is active extravasation from the central mesentery, also involving the inner rectus region (18/ 120). Body wall: Post surgical changes Pelvis: Mcleod in place. Bones: No aggressive appearing osseous finding. There are degenerative changes. IMPRESSION: There is active extravasation with contrast spreading in the central mesentery. There is a small amou nt of hemoperitoneum. This area is also involves the inner rectus. Report called to RAYMOND Peres at inpatient unit to convey to telehealth provider. Prominent fluid-filled loops of bowel following colon resection, likely ileus. Postsurgical pneumoperitoneum. Small pleural effusions. Other findings above. Reviewed by: Art Sprague MD on 02/01/2025 11:38 PM PDT Approved by: Art Sprague MD on 02/01/2025 11:38 PM PDT Station ID: [id number]
--- NOTE | 2025-02-02 00:02 | PROVIDER PROGRESS NOTE ---
Current Medications Current Medications Current Medications: Current Medications Generic Name Dose Route Start Last Admin Trade Name Freq PRN Reason Stop Dose Admin Clonidine HCl 0.1 mg 02/01/25 12:39 Clonidine 0.1 Mg Tablet PO Q6H PRN anxiety Cyclobenzaprine HCl 10 mg 02/01/25 20:14 02/01/25 20:40 Cyclobenzaprine 10 Mg Tablet PO 10 mg TID PRN Administration Spasms Duloxetine HCl 90 mg 02/01/25 13:00 02/01/25 13:46 Duloxetine 30 Mg Capsule PO 90 mg DAILY GADIEL Administration Enoxaparin Sodium 40 mg 02/01/25 11:00 02/01/25 13:46 Enoxaparin 40 Mg/0.4 Ml Syringe SUBQ 40 mg DAILY GADIEL Administration Ephedrine Sulfate 5 mg 02/01/25 01:17 Ephedrine 50 Mg/Ml Vial IVP 02/02/25 01:18 Q5M PRN For SBP<100;give until SBP>100 Folic Acid 1 mg 02/01/25 13:00 02/01/25 13:46 Folic Acid 1 Mg Tablet PO 1 mg DAILY GADIEL Administration Acetaminophen 1,000 mg in 100 mls @ 400 mls/hr 02/01/25 10:12 Acetaminophen IV Q6HR PRN Moderate Pain (Level 4-6) Ropivacaine 200 mg in 100 mls @ 6 mls/hr 02/01/25 20:00 Naropin 0.2% EP MAINTENANCE.IV GADIEL Protocol Sodium Chloride 1,000 mls @ 75 mls/hr 02/01/25 20:00 02/01/25 20:45 Normal Saline 0.45% IV 75 mls/hr .[id number] GADIEL Administration Metoprolol Succinate 25 mg 02/01/25 13:00 02/01/25 13:46 Metoprolol Succinate 25 Mg Tablet PO 25 mg DAILY GADIEL Administration Ondansetron HCl 4 mg 02/01/25 01:17 Ondansetron 4 Mg/2 Ml Vial IVP 02/02/25 01:18 Q6HR PRN Nausea / Vomiting Naltrexone 50mg 1 each 02/02/25 09:00 Tablets PO DAILY GADIEL Quetiapine Fumarate 50 mg 02/01/25 21:00 02/01/25 20:40 Quetiapine 25 Mg Tablet PO 50 mg BID GADIEL Administration Simethicone 80 mg 02/01/25 21:00 02/01/25 20:41 Simethicone Chew 80 Mg Tablet PO 80 mg 0900,1300,1800,2100 GADIEL Administration Sodium Chloride 10 ml 02/01/25 10:12 Sodium Chloride Flush 0.9% 10 Ml Syringe IVP PRN PRN NEEDED PER PROVIDER ORDERS Sodium Chloride 10 ml 02/01/25 17:00 02/01/25 13:45 Sodium Chloride Flush 0.9% 10 Ml Syringe IVP 10 ml 0100,0900,1700 GADIEL Administration Trazodone HCl 100 mg 02/01/25 21:00 02/01/25 20:40 Trazodone 50 Mg Tablet PO 100 mg HS GADIEL Administration Objective Vital Signs/Intake & Output Vital Signs: Vital Signs x48h Temp Pulse Resp BP Pulse Ox 02/01/25 23:50 87 88/55 L 95 02/01/25 23:35 93/57 L 02/01/25 23:06 96/54 L 02/01/25 23:02 36.7 C 74 24 96/56 L 94 02/01/25 22:15 87/54 L 02/01/25 22:10 75 86/57 L 02/01/25 22:05 76 85/53 L 02/01/25 22:00 80/51 L 02/01/25 21:55 81/51 L 02/01/25 21:50 79/51 L 02/01/25 21:45 81/50 L 02/01/25 21:40 82/58 L 02/01/25 21:20 36.9 C 100 18 72/43 L 100 Intake & Output: Intake & Output 01/29/25 01/30/25 01/31/25 02/01/25 23:59 23:59 23:59 23:59 Intake Total 2309 / 2309 Output Total 3225 / 3225 Balance -916 / -916 Weight (kg) 95 kg Lab Results 02/01/25 21:52 02/01/25 21:31 Other Labs: Lab Results x24hrs 02/01/25 02/01/25 02/01/25 Range/Units 22:29 21:52 21:32 WBC 16.7 H (4.8-10.8) x10^3/uL RBC 4.13 L (4.70-6.10) 10^6/uL Hgb 9.6 L (14.0-18.0) g/dL Hct 29.9 L (42.0-52.0) % MCV 72.4 L (80.0-94.0) fL MCH 23.2 L (27.0-31.0) pg MCHC 32.1 (32.0-36.0) g/dL RDW 16.0 H (12.0-15.0) % Plt Count 120 L (130-450) 10^3/uL MPV 9.9 (7.4-11.4) fL Neut # (Auto) 14.1 H (1.5-6.6) 10^3/uL Lymph # (Auto) 1.3 L (1.5-3.5) 10^3/uL [place] # (Auto) 1.2 H (0.0-1.0) 10^3/uL Eos # (Auto) 0.0 (0.0-0.7) 10^3/uL Baso # (Auto) 0.0 (0.0-0.1) 10^3/uL Absolute Nucleated RBC 0.00 x10^3/uL Nucleated RBC % 0.0 /100WBC Sodium (135-145) mmol/L Potassium (3.5-4.5) mmol/L Chloride (101-111) mmol/L Carbon Dioxide (21-32) mmol/L Anion Gap (6-13) BUN (6-20) mg/dL Creatinine (0.6-1.3) mg/dL Estimated GFR (MDRD) (>89) Glucose (74-104) mg/dL POC Whole Bld Glucose (70-100) mg/dL Calcium (8.5-10.3) mg/dL Iron (50-212) ug/dL TIBC (250-450) ug/dL % Saturation (20-50) % Transferrin (203-362) mg/dL Troponin I High Sens 3.2 (2.3-19.7) ng/L Urine Sodium mmol/L Blood Type O POSITIVE Blood Type Recheck O POSITIVE Antibody Screen NEGATIVE Crossmatch IS Only See Detail 02/01/25 02/01/25 02/01/25 Range/Units 21:31 15:53 14:42 WBC (4.8-10.8) x10^3/uL RBC (4.70-6.10) 10^6/uL Hgb (14.0-18.0) g/dL Hct (42.0-52.0) % MCV (80.0-94.0) fL MCH (27.0-31.0) pg MCHC (32.0-36.0) g/dL RDW (12.0-15.0) % Plt Count (130-450) 10^3/uL MPV (7.4-11.4) fL Neut # (Auto) (1.5-6.6) 10^3/uL Lymph # (Auto) (1.5-3.5) 10^3/uL [place] # (Auto) (0.0-1.0) 10^3/uL Eos # (Auto) (0.0-0.7) 10^3/uL Baso # (Auto) (0.0-0.1) 10^3/uL Absolute Nucleated RBC x10^3/uL Nucleated RBC % /100WBC Sodium 129 L 131 L (135-145) mmol/L Potassium 4.1 (3.5-4.5) mmol/L Chloride 100 L (101-111) mmol/L Carbon Dioxide 23 (21-32) mmol/L Anion Gap 6.0 (6-13) BUN 10 (6-20) mg/dL Creatinine 1.2 (0.6-1.3) mg/dL Estimated GFR (MDRD) 63 L (>89) Glucose 166 H (74-104) mg/dL POC Whole Bld Glucose (70-100) mg/dL Calcium 8.4 L (8.5-10.3) mg/dL Iron (50-212) ug/dL TIBC (250-450) ug/dL % Saturation (20-50) % Transferrin (203-362) mg/dL Troponin I High Sens (2.3-19.7) ng/L Urine Sodium 17.7 mmol/L Blood Type Blood Type Recheck Antibody Screen Crossmatch IS Only 02/01/25 02/01/25 Range/Units 10:03 01:52 WBC (4.8-10.8) x10^3/uL RBC (4.70-6.10) 10^6/uL Hgb (14.0-18.0) g/dL Hct (42.0-52.0) % MCV (80.0-94.0) fL MCH (27.0-31.0) pg MCHC (32.0-36.0) g/dL RDW (12.0-15.0) % Plt Count (130-450) 10^3/uL MPV (7.4-11.4) fL Neut # (Auto) (1.5-6.6) 10^3/uL Lymph # (Auto) (1.5-3.5) 10^3/uL [place] # (Auto) (0.0-1.0) 10^3/uL Eos # (Auto) (0.0-0.7) 10^3/uL Baso # (Auto) (0.0-0.1) 10^3/uL Absolute Nucleated RBC x10^3/uL Nucleated RBC % /100WBC Sodium 129 L (135-145) mmol/L Potassium (3.5-4.5) mmol/L Chloride (101-111) mmol/L Carbon Dioxide (21-32) mmol/L Anion Gap (6-13) BUN (6-20) mg/dL Creatinine (0.6-1.3) mg/dL Estimated GFR (MDRD) (>89) Glucose (74-104) mg/dL POC Whole Bld Glucose 148 (70-100) mg/dL Calcium (8.5-10.3) mg/dL Iron 82 (50-212) ug/dL TIBC 473 H (250-450) ug/dL % Saturation 17 L (20-50) % Transferrin 338 (203-362) mg/dL Troponin I High Sens (2.3-19.7) ng/L Urine Sodium mmol/L Blood Type Blood Type Recheck Antibody Screen Crossmatch IS Only Assessment/Plan Problem List (1) Cecal volvulus: (2) Hyponatremia: (3) Alcohol abuse, in remission: (4) Elevated blood pressure reading: (5) Iron deficiency: Impression: called for post op anemia and concern for post op bleeding. ct scan reviewed. only small hemoperitoneum and only small few mm of extravastation in the mesentery which appears contained. I believe taking him back to surgery for slight ooze puts him at far more risk than receiving a couple units of blood. very rarely when someone is taking back to surgery for bleeding is anything significant found. small rectus hematoma. recommend blood transfusion, serial h and h and observation. I believe morbity and mortality with surgery far outweighs this approach.
[2025-02-02] MEDS: ROPIVACAINE 0.2% 200 MG/100 ML BAG EP SCH (00:30)
[2025-02-02] MEDS: HYDROcod/ACETAM 5/325 MG TABLET PO PRN (01:00)
--- NOTE | 2025-02-02 04:07 | PROVIDER PROGRESS NOTE ---
Subjective Subjective Subjective: he appears well. alert and in no distress Current Medications Current Medications Current Medications: Current Medications Generic Name Dose Route Start Last Admin Trade Name Freq PRN Reason Stop Dose Admin Hydrocodone Bitart/Acetaminophen 1 tab 02/02/25 00:43 02/02/25 01:00 Hydrocod/Acetam 5/325 Mg Tablet PO 1 tab Q4HR PRN Administration Moderate Pain (Level 4-6) Clonidine HCl 0.1 mg 02/01/25 12:39 Clonidine 0.1 Mg Tablet PO Q6H PRN anxiety Cyclobenzaprine HCl 10 mg 02/01/25 20:14 02/02/25 02:45 Cyclobenzaprine 10 Mg Tablet PO 10 mg TID PRN Administration Spasms Duloxetine HCl 90 mg 02/01/25 13:00 02/01/25 13:46 Duloxetine 30 Mg Capsule PO 90 mg DAILY GADIEL Administration Enoxaparin Sodium 40 mg 02/01/25 11:00 02/01/25 13:46 Enoxaparin 40 Mg/0.4 Ml Syringe SUBQ 40 mg DAILY GADIEL Administration Folic Acid 1 mg 02/01/25 13:00 02/01/25 13:46 Folic Acid 1 Mg Tablet PO 1 mg DAILY GADIEL Administration Acetaminophen 1,000 mg in 100 mls @ 400 mls/hr 02/01/25 10:12 Acetaminophen IV Q6HR PRN Moderate Pain (Level 4-6) Ropivacaine 200 mg in 100 mls @ 6 mls/hr 02/01/25 20:00 02/02/25 00:30 Naropin 0.2% EP 6 mls/hr MAINTENANCE.IV GADIEL Administration Protocol Sodium Chloride 1,000 mls @ 75 mls/hr 02/01/25 20:00 02/01/25 20:45 Normal Saline 0.45% IV 75 mls/hr .[id number] GADIEL Administration Metoprolol Succinate 25 mg 02/01/25 13:00 02/01/25 13:46 Metoprolol Succinate 25 Mg Tablet PO 25 mg DAILY GADIEL Administration Naltrexone 50mg 1 each 02/02/25 09:00 Tablets PO DAILY GADIEL Quetiapine Fumarate 50 mg 02/01/25 21:00 02/01/25 20:40 Quetiapine 25 Mg Tablet PO 50 mg BID GADIEL Administration Simethicone 80 mg 02/01/25 21:00 02/01/25 20:41 Simethicone Chew 80 Mg Tablet PO 80 mg 0900,1300,1800,2100 GADIEL Administration Sodium Chloride 10 ml 02/01/25 10:12 Sodium Chloride Flush 0.9% 10 Ml Syringe IVP PRN PRN NEEDED PER PROVIDER ORDERS Sodium Chloride 10 ml 02/01/25 17:00 02/02/25 00:31 Sodium Chloride Flush 0.9% 10 Ml Syringe IVP 10 ml 0100,0900,1700 GADIEL Administration Trazodone HCl 100 mg 02/01/25 21:00 02/01/25 20:40 Trazodone 50 Mg Tablet PO 100 mg HS GADIEL Administration Objective Vital Signs/Intake & Output Reviewed Vital Signs: Yes Vital Signs: Vital Signs x48h Temp Pulse Resp BP Pulse Ox 02/02/25 03:51 107 H 85/62 L 02/02/25 03:40 101 H 85/62 L 02/02/25 03:20 102 H 91/65 02/02/25 03:00 99/67 02/02/25 02:48 36.5 C 97 22 96/65 96 02/02/25 02:21 36.6 C 100 93/65 95 02/02/25 01:00 89/59 L 02/02/25 00:45 87/55 L 02/02/25 00:26 37.3 C 93 24 84/54 L 96 02/02/25 00:26 37.3 C 93 24 84/54 L 96 02/02/25 00:08 36.9 C 91 22 87/57 L 95 02/02/25 00:08 36.9 C 91 22 87/57 L 95 02/01/25 23:50 87 88/55 L 95 02/01/25 23:35 93/57 L 02/01/25 23:06 96/54 L 02/01/25 23:02 36.7 C 74 24 96/56 L 94 02/01/25 22:15 87/54 L 02/01/25 22:10 75 86/57 L 02/01/25 22:05 76 85/53 L 02/01/25 22:00 80/51 L 02/01/25 21:55 81/51 L 02/01/25 21:50 79/51 L 02/01/25 21:45 81/50 L 02/01/25 21:40 82/58 L 02/01/25 21:20 36.9 C 100 18 72/43 L 100 Intake & Output: Intake & Output 01/30/25 01/31/25 02/01/25 02/02/25 23:59 23:59 23:59 23:59 Intake Total 2309 / 2309 314 / 314 Output Total 3225 / 3225 Balance -916 / -916 314 / 314 Weight (kg) 95 kg Objective General Appearance: positive No acute distress and Alert Abdomen: positive No distention and Other (abdomen is soft and non distended. dressing c/d/i) Neurologic/Psychiatric: positive Oriented x3 Lab Results 02/02/25 03:20 02/02/25 03:20 Other Labs: Lab Results x24hrs 02/02/25 02/01/25 02/01/25 Range/Units 03:20 22:29 21:52 WBC 16.7 H (4.8-10.8) x10^3/uL RBC 4.13 L (4.70-6.10) 10^6/uL Hgb 10.1 L 9.6 L (14.0-18.0) g/dL Hct 29.9 L (42.0-52.0) % MCV 72.4 L (80.0-94.0) fL MCH 23.2 L (27.0-31.0) pg MCHC 32.1 (32.0-36.0) g/dL RDW 16.0 H (12.0-15.0) % Plt Count 120 L (130-450) 10^3/uL MPV 9.9 (7.4-11.4) fL Neut # (Auto) 14.1 H (1.5-6.6) 10^3/uL Lymph # (Auto) 1.3 L (1.5-3.5) 10^3/uL [place] # (Auto) 1.2 H (0.0-1.0) 10^3/uL Eos # (Auto) 0.0 (0.0-0.7) 10^3/uL Baso # (Auto) 0.0 (0.0-0.1) 10^3/uL Absolute Nucleated RBC 0.00 x10^3/uL Nucleated RBC % 0.0 /100WBC Sodium 127 L (135-145) mmol/L Potassium (3.5-4.5) mmol/L Chloride (101-111) mmol/L Carbon Dioxide (21-32) mmol/L Anion Gap (6-13) BUN (6-20) mg/dL Creatinine (0.6-1.3) mg/dL Estimated GFR (MDRD) (>89) Glucose (74-104) mg/dL Calcium (8.5-10.3) mg/dL Iron (50-212) ug/dL TIBC (250-450) ug/dL % Saturation (20-50) % Transferrin (203-362) mg/dL Troponin I High Sens (2.3-19.7) ng/L Urine Sodium mmol/L Blood Type O POSITIVE Blood Type Recheck O POSITIVE Antibody Screen NEGATIVE Crossmatch IS Only See Detail 02/01/25 02/01/25 02/01/25 Range/Units 21:32 21:31 15:53 WBC (4.8-10.8) x10^3/uL RBC (4.70-6.10) 10^6/uL Hgb (14.0-18.0) g/dL Hct (42.0-52.0) % MCV (80.0-94.0) fL MCH (27.0-31.0) pg MCHC (32.0-36.0) g/dL RDW (12.0-15.0) % Plt Count (130-450) 10^3/uL MPV (7.4-11.4) fL Neut # (Auto) (1.5-6.6) 10^3/uL Lymph # (Auto) (1.5-3.5) 10^3/uL [place] # (Auto) (0.0-1.0) 10^3/uL Eos # (Auto) (0.0-0.7) 10^3/uL Baso # (Auto) (0.0-0.1) 10^3/uL Absolute Nucleated RBC x10^3/uL Nucleated RBC % /100WBC Sodium 129 L 131 L (135-145) mmol/L Potassium 4.1 (3.5-4.5) mmol/L Chloride 100 L (101-111) mmol/L Carbon Dioxide 23 (21-32) mmol/L Anion Gap 6.0 (6-13) BUN 10 (6-20) mg/dL Creatinine 1.2 (0.6-1.3) mg/dL Estimated GFR (MDRD) 63 L (>89) Glucose 166 H (74-104) mg/dL Calcium 8.4 L (8.5-10.3) mg/dL Iron (50-212) ug/dL TIBC (250-450) ug/dL % Saturation (20-50) % Transferrin (203-362) mg/dL Troponin I High Sens 3.2 (2.3-19.7) ng/L Urine Sodium mmol/L Blood Type Blood Type Recheck Antibody Screen Crossmatch IS Only 02/01/25 02/01/25 Range/Units 14:42 10:03 WBC (4.8-10.8) x10^3/uL RBC (4.70-6.10) 10^6/uL Hgb (14.0-18.0) g/dL Hct (42.0-52.0) % MCV (80.0-94.0) fL MCH (27.0-31.0) pg MCHC (32.0-36.0) g/dL RDW (12.0-15.0) % Plt Count (130-450) 10^3/uL MPV (7.4-11.4) fL Neut # (Auto) (1.5-6.6) 10^3/uL Lymph # (Auto) (1.5-3.5) 10^3/uL [place] # (Auto) (0.0-1.0) 10^3/uL Eos # (Auto) (0.0-0.7) 10^3/uL Baso # (Auto) (0.0-0.1) 10^3/uL Absolute Nucleated RBC x10^3/uL Nucleated RBC % /100WBC Sodium 129 L (135-145) mmol/L Potassium (3.5-4.5) mmol/L Chloride (101-111) mmol/L Carbon Dioxide (21-32) mmol/L Anion Gap (6-13) BUN (6-20) mg/dL Creatinine (0.6-1.3) mg/dL Estimated GFR (MDRD) (>89) Glucose (74-104) mg/dL Calcium (8.5-10.3) mg/dL Iron 82 (50-212) ug/dL TIBC 473 H (250-450) ug/dL % Saturation 17 L (20-50) % Transferrin 338 (203-362) mg/dL Troponin I High Sens (2.3-19.7) ng/L Urine Sodium 17.7 mmol/L Blood Type Blood Type Recheck Antibody Screen Crossmatch IS Only Diagnostic Imaging Diagnostic Imaging Results: positive Read independently Diagnostic Imaging Comments: small free fluid in abdomen 1 day after surgery. small blood/ extravasation within the mesentary without free extravastation. perhaps small blood in the bowel however he is not having a lower gi bleed clinically Assessment/Plan Problem List (1) Cecal volvulus: Impression: hypotension after surgery. ct scan no free extravastion of blood. he has small contained extravastion within the mesentary. benign soft non distended abdomen. no bloody bms. he has good urine output. again I believe taking him back to surgery for exploration and redoing his surgical anastomosis has far greater risk or morbidity and mortality than observation, serial h and h, blood transfusion. pt was understanding (2) Hyponatremia: (3) Alcohol abuse, in remission: (4) Elevated blood pressure reading: (5) Iron deficiency:
[2025-02-02] MEDS: ACETAMINOPHEN 1,000 MG/100 ML 1,000 MG/100 ML BAG IV PRN (06:44)
[2025-02-02] MEDS: LACTATED RINGERS 1,000 ML IV SCH (08:02)
[2025-02-02 08:11] LABS: INR 1.3 (0.8-1.2); PT - PROTHROMBIN TIME 14.5 secs (9.9-12.6)
[2025-02-02 08:22] LABS: BASOPHILS % (AUTO) 0.2 %; EOSINOPHILS % (AUTO) 0.1 %; HCT - HEMATOCRIT 31.1 % (42.0-52.0); HGB - HEMOGLOBIN 10.3 g/dL (14.0-18.0); LYMPHOCYTES # (AUTO) 1.3 10^3/uL (1.5-3.5); LYMPHOCYTES % (AUTO) 6.4 %; MEAN CORPUSCULAR HEMOGLOBIN 25.1 pg (27.0-31.0); MEAN CORPUSCULAR HGB CONC 33.1 g/dL (32.0-36.0); MEAN CORPUSCULAR VOLUME 75.9 fL (80.0-94.0); MONOCYTES # (AUTO) 1.9 10^3/uL (0.0-1.0); NEUTROPHILS # (AUTO) 17.6 10^3/uL (1.5-6.6); NEUTROPHILS % (AUTO) 83.8 %; PLT - PLATELET COUNT 124 10^3/uL (130-450); RED CELL DISTRIBUTION WIDTH 18.6 % (12.0-15.0)
[2025-02-02 08:27] LABS: ALBUMIN 3.4 g/dL (3.2-5.5); ALBUMIN/GLOBULIN RATIO 1.4 (1.0-2.2); BILIRUBIN,TOTAL 0.7 mg/dL (0.2-1.0); CALCIUM 8.4 mg/dL (8.5-10.3); POTASSIUM 4.2 mmol/L (3.5-4.5); TOTAL PROTEIN 5.9 g/dL (6.4-8.9)
[2025-02-02 08:44] LABS: SLIDE REVIEW? Indicated
[2025-02-02 08:54] LABS: PLATELET ESTIMATE, MANUAL DECREASED (<130,000) (NORMAL); PLATELET MORPHOLOGY NORMAL APPEARANCE (NORMAL); RBC MORPHOLOGY (MULTIPLE) NORMAL APPEARANCE (NORMAL)
[2025-02-02] MEDS: HYDROmorphone 0.5 MG/0.5 ML SYRINGE IVP PRN ×2 (11:04→14:43)
[2025-02-02] MEDS: NALTREXONE 50 MG PO SCH (11:20)
[2025-02-02] MEDS: DEXMEDETOMIDINE 400 MCG/100 ML 100 ML IV SCH (12:40)
--- NOTE | 2025-02-02 13:05 | MISCELLANEOUS PROVIDER NOTE ---
Miscellaneous Provider Note - Note: Epidural rounds, POD 3. Patient asleep upon entering room. I did awake for as sessment. Denies pain. BLE do feel "a little weak", as before. Epidural site unremarkable. Patient states he just got IV pain medication around an hour ago for breakthrough pain event. Pain now gone. Afebrile, tachy@110, SATS 98% on RA. No changes to epidural rate/mixture at this time.
--- NOTE | 2025-02-02 13:58 | PROVIDER PROGRESS NOTE ---
Subjective Subjective Pt reports feeling: Improved Current Medications Current Medications Current Medications: Current Medications Generic Name Dose Route Start Last Admin Trade Name Freq PRN Reason Stop Dose Admin Clonidine HCl 0.1 mg 02/01/25 12:39 Clonidine 0.1 Mg Tablet PO Q6H PRN anxiety Cyclobenzaprine HCl 10 mg 02/01/25 20:14 02/02/25 11:03 Cyclobenzaprine 10 Mg Tablet PO 10 mg TID PRN Administration Spasms Duloxetine HCl 90 mg 02/01/25 13:00 02/02/25 11:07 Duloxetine 30 Mg Capsule PO 90 mg DAILY GADIEL Administration Folic Acid 1 mg 02/01/25 13:00 02/02/25 11:03 Folic Acid 1 Mg Tablet PO 1 mg DAILY GADIEL Administration Hydromorphone HCl 1 mg 02/02/25 12:18 Hydromorphone 0.5 Mg/0.5 Ml Syringe IVP Q2H PRN Severe Pain (Level 7-10) Acetaminophen 1,000 mg in 100 mls @ 400 mls/hr 02/01/25 10:12 02/02/25 07:00 Acetaminophen IV Infused Q6HR PRN Infusion Moderate Pain (Level 4-6) Ropivacaine 200 mg in 100 mls @ 6 mls/hr 02/01/25 20:00 02/02/25 00:30 Naropin 0.2% EP 6 mls/hr MAINTENANCE.IV GADIEL Administration Protocol Lactated Ringer's 1,000 mls @ 100 mls/hr 02/02/25 08:00 02/02/25 08:02 Lr IV 100 mls/hr .Q10H GADIEL Administration Dexmedetomidine/Sodium Chloride 100 mls @ 4.75 mls/hr 02/02/25 13:00 02/02/25 12:40 Precedex Premix IV 0.2 mcg/kg/hr .Q21H4M GADIEL 4.75 mls/hr Administration Protocol 0.2 MCG/KG/HR Quetiapine Fumarate 50 mg 02/01/25 21:00 02/02/25 11:03 Quetiapine 25 Mg Tablet PO 50 mg BID GADIEL Administration Simethicone 80 mg 02/01/25 21:00 02/02/25 12:40 Simethicone Chew 80 Mg Tablet PO 80 mg 0900,1300,1800,2100 GADIEL Administration Sodium Chloride 10 ml 02/01/25 10:12 Sodium Chloride Flush 0.9% 10 Ml Syringe IVP PRN PRN NEEDED PER PROVIDER ORDERS Sodium Chloride 10 ml 02/01/25 17:00 02/02/25 11:04 Sodium Chloride Flush 0.9% 10 Ml Syringe IVP 10 ml 0100,0900,1700 GADIEL Administration Trazodone HCl 100 mg 02/01/25 21:00 02/01/25 20:40 Trazodone 50 Mg Tablet PO 100 mg HS GADIEL Administration Objective Vital Signs/Intake & Output Reviewed Vital Signs: Yes Vital Signs: Vital Signs x48h Temp Pulse Pulse Resp BP BP Pulse Ox 02/02/25 13:31 36.3 C L 119 H 20 83/66 L 97 02/02/25 13:00 124 H 23 84/53 L 97 02/02/25 12:00 36.5 C 125 H 20 98/73 98 02/02/25 11:00 115 H 24 115/81 98 02/02/25 10:00 36.4 C L 108 H 24 96/69 100 02/02/25 08:11 36.7 C 107 H 20 116/81 97 02/02/25 06:39 36.3 C L 108 H 22 107/78 98 02/02/25 06:36 108 H 111/77 02/02/25 06:15 110 H 107/75 02/02/25 06:00 102/73 Intake & Output: Intake & Output 01/30/25 01/31/25 02/01/25 02/02/25 23:59 23:59 23:59 23:59 Intake Total 2309 / 2309 1708 / 1708 Output Total 3225 / 3225 540 / 540 Balance -916 / -916 1168 / 1168 Weight (kg) 95 kg Objective General Appearance: positive No acute distress and Alert Respiratory: positive No respiratory distress Abdomen: positive Other (soft. mild distension) Neurologic/Psychiatric: positive Oriented x3 Lab Results 02/02/25 10:06 02/02/25 10:06 Other Labs: Lab Results x24hrs 02/02/25 02/02/25 02/02/25 Range/Units Unknown 10:06 10:02 WBC (4.8-10.8) x10^3/uL RBC (4.70-6.10) 10^6/uL Hgb 10.3 L (14.0-18.0) g/dL Hct (42.0-52.0) % MCV (80.0-94.0) fL MCH (27.0-31.0) pg MCHC (32.0-36.0) g/dL RDW (12.0-15.0) % Plt Count (130-450) 10^3/uL MPV (7.4-11.4) fL Neut # (Auto) (1.5-6.6) 10^3/uL Lymph # (Auto) (1.5-3.5) 10^3/uL [place] # (Auto) (0.0-1.0) 10^3/uL Eos # (Auto) (0.0-0.7) 10^3/uL Baso # (Auto) (0.0-0.1) 10^3/uL Absolute Nucleated RBC x10^3/uL Nucleated RBC % /100WBC Manual Slide Review Platelet Estimate (NORMAL) Platelet Morphology (NORMAL) RBC Morph Micro Appear (NORMAL) PT 14.5 H (9.9-12.6) secs INR 1.3 H (0.8-1.2) Sodium 126 L (135-145) mmol/L Potassium (3.5-4.5) mmol/L Chloride (101-111) mmol/L Carbon Dioxide (21-32) mmol/L Anion Gap (6-13) BUN (6-20) mg/dL Creatinine (0.6-1.3) mg/dL Estimated GFR (MDRD) (>89) Glucose (74-104) mg/dL Lactic Acid (0.5-2.2) mmol/L Calcium (8.5-10.3) mg/dL Total Bilirubin (0.2-1.0) mg/dL AST (10-42) IU/L ALT (10-60) IU/L Alkaline Phosphatase (42-121) IU/L Troponin I High Sens (2.3-19.7) ng/L Total Protein (6.4-8.9) g/dL Albumin (3.2-5.5) g/dL Globulin (2.1-4.2) g/dL Albumin/Globulin Ratio (1.0-2.2) Urine Sodium mmol/L Nasal Screen MRSA (PCR) NEGATIVE (NEGATIVE) Blood Type Blood Type Recheck Antibody Screen Crossmatch IS Only 02/02/25 02/02/25 02/02/25 Range/Units 07:55 07:40 03:20 WBC 21.0 H (4.8-10.8) x10^3/uL RBC 4.10 L (4.70-6.10) 10^6/uL Hgb 10.3 L 10.4 L 10.1 L (14.0-18.0) g/dL Hct 31.1 L (42.0-52.0) % MCV 75.9 L (80.0-94.0) fL MCH 25.1 L (27.0-31.0) pg MCHC 33.1 (32.0-36.0) g/dL RDW 18.6 H (12.0-15.0) % Plt Count 124 L (130-450) 10^3/uL MPV 11.0 (7.4-11.4) fL Neut # (Auto) 17.6 H (1.5-6.6) 10^3/uL Lymph # (Auto) 1.3 L (1.5-3.5) 10^3/uL Emanuel # (Auto) 1.9 H (0.0-1.0) 10^3/uL Eos # (Auto) 0.0 (0.0-0.7) 10^3/uL Baso # (Auto) 0.0 (0.0-0.1) 10^3/uL Absolute Nucleated RBC 0.00 x10^3/uL Nucleated RBC % 0.0 /100WBC Manual Slide Review Indicated Platelet Estimate DECREASED (<130,000) (NORMAL) Platelet Morphology NORMAL APPEARANCE (NORMAL) RBC Morph Micro Appear NORMAL APPEARANCE (NORMAL) PT (9.9-12.6) secs INR (0.8-1.2) Sodium 126 L 127 L (135-145) mmol/L Potassium 4.2 (3.5-4.5) mmol/L Chloride 98 L (101-111) mmol/L Carbon Dioxide 22 (21-32) mmol/L Anion Gap 6.0 (6-13) BUN 10 (6-20) mg/dL Creatinine 1.0 (0.6-1.3) mg/dL Estimated GFR (MDRD) 78 L (>89) Glucose 133 H (74-104) mg/dL Lactic Acid 0.9 (0.5-2.2) mmol/L Calcium 8.4 L (8.5-10.3) mg/dL Total Bilirubin 0.7 (0.2-1.0) mg/dL AST 13 (10-42) IU/L ALT 8 L (10-60) IU/L Alkaline Phosphatase 68 (42-121) IU/L Troponin I High Sens (2.3-19.7) ng/L Total Protein 5.9 L (6.4-8.9) g/dL Albumin 3.4 (3.2-5.5) g/dL Globulin 2.5 (2.1-4.2) g/dL Albumin/Globulin Ratio 1.4 (1.0-2.2) Urine Sodium mmol/L Nasal Screen MRSA (PCR) (NEGATIVE) Blood Type Blood Type Recheck Antibody Screen Crossmatch IS Only 02/01/25 02/01/25 02/01/25 Range/Units 22:29 21:52 21:32 WBC 16.7 H (4.8-10.8) x10^3/uL RBC 4.13 L (4.70-6.10) 10^6/uL Hgb 9.6 L (14.0-18.0) g/dL Hct 29.9 L (42.0-52.0) % MCV 72.4 L (80.0-94.0) fL MCH 23.2 L (27.0-31.0) pg MCHC 32.1 (32.0-36.0) g/dL RDW 16.0 H (12.0-15.0) % Plt Count 120 L (130-450) 10^3/uL MPV 9.9 (7.4-11.4) fL Neut # (Auto) 14.1 H (1.5-6.6) 10^3/uL Lymph # (Auto) 1.3 L (1.5-3.5) 10^3/uL Emanuel # (Auto) 1.2 H (0.0-1.0) 10^3/uL Eos # (Auto) 0.0 (0.0-0.7) 10^3/uL Baso # (Auto) 0.0 (0.0-0.1) 10^3/uL Absolute Nucleated RBC 0.00 x10^3/uL Nucleated RBC % 0.0 /100WBC Manual Slide Review Platelet Estimate (NORMAL) Platelet Morphology (NORMAL) RBC Morph Micro Appear (NORMAL) PT (9.9-12.6) secs INR (0.8-1.2) Sodium (135-145) mmol/L Potassium (3.5-4.5) mmol/L Chloride (101-111) mmol/L Carbon Dioxide (21-32) mmol/L Anion Gap (6-13) BUN (6-20) mg/dL Creatinine (0.6-1.3) mg/dL Estimated GFR (MDRD) (>89) Glucose (74-104) mg/dL Lactic Acid (0.5-2.2) mmol/L Calcium (8.5-10.3) mg/dL Total Bilirubin (0.2-1.0) mg/dL AST (10-42) IU/L ALT (10-60) IU/L Alkaline Phosphatase (42-121) IU/L Troponin I High Sens 3.2 (2.3-19.7) ng/L Total Protein (6.4-8.9) g/dL Albumin (3.2-5.5) g/dL Globulin (2.1-4.2) g/dL Albumin/Globulin Ratio (1.0-2.2) Urine Sodium mmol/L Nasal Screen MRSA (PCR) (NEGATIVE) Blood Type O POSITIVE Blood Type Recheck O POSITIVE Antibody Screen NEGATIVE Crossmatch IS Only See Detail 02/01/25 02/01/25 02/01/25 Range/Units 21:31 15:53 14:42 WBC (4.8-10.8) x10^3/uL RBC (4.70-6.10) 10^6/uL Hgb (14.0-18.0) g/dL Hct (42.0-52.0) % MCV (80.0-94.0) fL MCH (27.0-31.0) pg MCHC (32.0-36.0) g/dL RDW (12.0-15.0) % Plt Count (130-450) 10^3/uL MPV (7.4-11.4) fL Neut # (Auto) (1.5-6.6) 10^3/uL Lymph # (Auto) (1.5-3.5) 10^3/uL Emanuel # (Auto) (0.0-1.0) 10^3/uL Eos # (Auto) (0.0-0.7) 10^3/uL Baso # (Auto) (0.0-0.1) 10^3/uL Absolute Nucleated RBC x10^3/uL Nucleated RBC % /100WBC Manual Slide Review Platelet Estimate (NORMAL) Platelet Morphology (NORMAL) RBC Morph Micro Appear (NORMAL) PT (9.9-12.6) secs INR (0.8-1.2) Sodium 129 L 131 L (135-145) mmol/L Potassium 4.1 (3.5-4.5) mmol/L Chloride 100 L (101-111) mmol/L Carbon Dioxide 23 (21-32) mmol/L Anion Gap 6.0 (6-13) BUN 10 (6-20) mg/dL Creatinine 1.2 (0.6-1.3) mg/dL Estimated GFR (MDRD) 63 L (>89) Glucose 166 H (74-104) mg/dL Lactic Acid (0.5-2.2) mmol/L Calcium 8.4 L (8.5-10.3) mg/dL Total Bilirubin (0.2-1.0) mg/dL AST (10-42) IU/L ALT (10-60) IU/L Alkaline Phosphatase (42-121) IU/L Troponin I High Sens (2.3-19.7) ng/L Total Protein (6.4-8.9) g/dL Albumin (3.2-5.5) g/dL Globulin (2.1-4.2) g/dL Albumin/Globulin Ratio (1.0-2.2) Urine Sodium 17.7 mmol/L Nasal Screen MRSA (PCR) (NEGATIVE) Blood Type Blood Type Recheck Antibody Screen Crossmatch IS Only Diagnostic Imaging Diagnostic Imaging Results: positive Read independently Assessment/Plan Problem List (1) Cecal volvulus: Impression: postop op bleeding late yesterday requiring 2 units. h and h stable now. clears as tolerated. ileus anticipated. good urine out put (2) Hyponatremia: (3) Alcohol abuse, in remission: (4) Elevated blood pressure reading: (5) Iron deficiency:
[2025-02-02 16:02] LABS: BASOPHILS % (AUTO) 0.2 %; EOSINOPHILS # (AUTO) 0.1 10^3/uL (0.0-0.7); EOSINOPHILS % (AUTO) 0.5 %; HCT - HEMATOCRIT 28.1 % (42.0-52.0); HGB - HEMOGLOBIN 9.2 g/dL (14.0-18.0); LYMPHOCYTES # (AUTO) 1.2 10^3/uL (1.5-3.5); LYMPHOCYTES % (AUTO) 6.8 %; MEAN CORPUSCULAR HEMOGLOBIN 25.3 pg (27.0-31.0); MEAN CORPUSCULAR HGB CONC 32.7 g/dL (32.0-36.0); MEAN CORPUSCULAR VOLUME 77.4 fL (80.0-94.0); MEAN PLATELET VOLUME 11.2 fL (7.4-11.4); MONOCYTES # (AUTO) 1.6 10^3/uL (0.0-1.0); MONOCYTES % (AUTO) 9.1 %; NEUTROPHILS # (AUTO) 14.2 10^3/uL (1.5-6.6); PLT - PLATELET COUNT 147 10^3/uL (130-450); RED BLOOD COUNT 3.63 10^6/uL (4.70-6.10); RED CELL DISTRIBUTION WIDTH 17.9 % (12.0-15.0); WHITE BLOOD COUNT 17.1 x10^3/uL (4.8-10.8)
[2025-02-02 16:05] LABS: SLIDE REVIEW? Indicated
[2025-02-02 16:15] LABS: PLATELET ESTIMATE, MANUAL NORMAL (130-450,000) (NORMAL); PLATELET MORPHOLOGY NORMAL APPEARANCE (NORMAL)
[2025-02-02 16:16] LABS: CALCIUM 8.8 mg/dL (8.5-10.3); CREATININE 1.1 mg/dL (0.6-1.3); PHOSPHORUS 3.3 mg/dL (2.5-5.0); POTASSIUM 4.4 mmol/L (3.5-4.5); RBC MORPHOLOGY (MULTIPLE) NORMAL APPEARANCE (NORMAL); WBC MORPHOLOGY (MULTIPLE) NORMAL APPEARANCE (NORMAL)
--- NOTE | 2025-02-02 16:46 | PROVIDER PROGRESS NOTE ---
Subjective Prog Note Date Prog Note Date: 02/02/25 Subjective Pt reports feeling: Improved Subjective: feeling better. PAin was an issue this AM, but improved this afternoon on precedex gtt in the ICU. He remains tachycardic (mild). he has not been OOB. he said that the pain to move from bed to bed was 11/10. no nausea, no vomiting. has minimal appetite, does not feel the need to crunch ice (which he does when his iron level is low). Current Medications Current Medications Current Medications: Current Medications Generic Name Dose Route Start Last Admin Trade Name Freq PRN Reason Stop Dose Admin Clonidine HCl 0.1 mg 02/01/25 12:39 Clonidine 0.1 Mg Tablet PO Q6H PRN anxiety Cyclobenzaprine HCl 10 mg 02/01/25 20:14 02/02/25 11:03 Cyclobenzaprine 10 Mg Tablet PO 10 mg TID PRN Administration Spasms Duloxetine HCl 90 mg 02/01/25 13:00 02/02/25 11:07 Duloxetine 30 Mg Capsule PO 90 mg DAILY GADIEL Administration Folic Acid 1 mg 02/01/25 13:00 02/02/25 11:03 Folic Acid 1 Mg Tablet PO 1 mg DAILY GADIEL Administration Hydromorphone HCl 1 mg 02/02/25 12:18 02/02/25 14:43 Hydromorphone 0.5 Mg/0.5 Ml Syringe IVP 1 mg Q2H PRN Administration Severe Pain (Level 7-10) Acetaminophen 1,000 mg in 100 mls @ 400 mls/hr 02/01/25 10:12 02/02/25 07:00 Acetaminophen IV Infused Q6HR PRN Infusion Moderate Pain (Level 4-6) Ropivacaine 200 mg in 100 mls @ 6 mls/hr 02/01/25 20:00 02/02/25 00:30 Naropin 0.2% EP 6 mls/hr MAINTENANCE.IV GADIEL Administration Protocol Lactated Ringer's 1,000 mls @ 100 mls/hr 02/02/25 08:00 02/02/25 08:02 Lr IV 100 mls/hr .Q10H GADIEL Administration Dexmedetomidine/Sodium Chloride 100 mls @ 4.75 mls/hr 02/02/25 13:00 02/02/25 14:54 Precedex Premix IV 0.4 mcg/kg/hr .Q21H4M GADIEL 9.5 mls/hr Titration Protocol 0.2 MCG/KG/HR Quetiapine Fumarate 50 mg 02/01/25 21:00 02/02/25 11:03 Quetiapine 25 Mg Tablet PO 50 mg BID GADIEL Administration Simethicone 80 mg 02/01/25 21:00 02/02/25 12:40 Simethicone Chew 80 Mg Tablet PO 80 mg 0900,1300,1800,2100 GADIEL Administration Sodium Chloride 10 ml 02/01/25 10:12 Sodium Chloride Flush 0.9% 10 Ml Syringe IVP PRN PRN NEEDED PER PROVIDER ORDERS Sodium Chloride 10 ml 02/01/25 17:00 02/02/25 11:04 Sodium Chloride Flush 0.9% 10 Ml Syringe IVP 10 ml 0100,0900,1700 GADIEL Administration Trazodone HCl 100 mg 02/01/25 21:00 02/01/25 20:40 Trazodone 50 Mg Tablet PO 100 mg HS GADIEL Administration Objective Vital Signs/Intake & Output Reviewed Vital Signs: Yes Vital Signs: Vital Signs x48h Temp Pulse Resp BP Pulse Ox 02/02/25 16:00 36.4 C L 107 H 23 100/68 96 02/02/25 15:00 112 H 23 105/72 98 02/02/25 14:12 36.4 C L 121 H 27 H 101/64 95 02/02/25 14:00 36.5 C 23 101/64 95 02/02/25 13:51 36.3 C L 109 H 22 108/70 96 02/02/25 13:31 36.3 C L 119 H 20 83/66 L 97 02/02/25 13:00 124 H 23 84/53 L 97 02/02/25 12:00 36.5 C 125 H 20 98/73 98 02/02/25 11:00 115 H 24 115/81 98 02/02/25 10:00 36.4 C L 108 H 24 96/69 100 Intake & Output: Intake & Output 01/30/25 01/31/25 02/01/25 02/02/25 23:59 23:59 23:59 23:59 Intake Total 2309 / 2309 1899 / 1899 Output Total 3225 / 3225 635 / 635 Balance -916 / -916 1264 / 1264 Weight (kg) 95 kg Objective General Appearance: positive No acute distress and Alert Eyes Bilateral: positive Normal inspection and Conjunctivae nml ENT: positive ENT inspection nml Respiratory: positive Chest non-tender and Breath sounds nml Cardiovascular: positive Regular rate & rhythm Abdomen: positive No distention and Other (appropriately tender, not distended or firm. ) Skin: positive Color nml and No rash Extremities: positive Non-tender and No pedal edema Neurologic/Psychiatric: positive Oriented x3 Lab Results 02/02/25 10:06 02/02/25 10:06 Other Labs: Lab Results x24hrs 02/02/25 02/02/25 02/02/25 Range/Units Unknown 10:06 10:02 WBC (4.8-10.8) x10^3/uL RBC (4.70-6.10) 10^6/uL Hgb 10.3 L (14.0-18.0) g/dL Hct (42.0-52.0) % MCV (80.0-94.0) fL MCH (27.0-31.0) pg MCHC (32.0-36.0) g/dL RDW (12.0-15.0) % Plt Count (130-450) 10^3/uL MPV (7.4-11.4) fL Neut # (Auto) (1.5-6.6) 10^3/uL Lymph # (Auto) (1.5-3.5) 10^3/uL Christian # (Auto) (0.0-1.0) 10^3/uL Eos # (Auto) (0.0-0.7) 10^3/uL Baso # (Auto) (0.0-0.1) 10^3/uL Absolute Nucleated RBC x10^3/uL Nucleated RBC % /100WBC Manual Slide Review Platelet Estimate (NORMAL) Platelet Morphology (NORMAL) RBC Morph Micro Appear (NORMAL) PT 14.5 H (9.9-12.6) secs INR 1.3 H (0.8-1.2) Sodium 126 L (135-145) mmol/L Potassium (3.5-4.5) mmol/L Chloride (101-111) mmol/L Carbon Dioxide (21-32) mmol/L Anion Gap (6-13) BUN (6-20) mg/dL Creatinine (0.6-1.3) mg/dL Estimated GFR (MDRD) (>89) Glucose (74-104) mg/dL Lactic Acid (0.5-2.2) mmol/L Calcium (8.5-10.3) mg/dL Total Bilirubin (0.2-1.0) mg/dL AST (10-42) IU/L ALT (10-60) IU/L Alkaline Phosphatase (42-121) IU/L Troponin I High Sens (2.3-19.7) ng/L Total Protein (6.4-8.9) g/dL Albumin (3.2-5.5) g/dL Globulin (2.1-4.2) g/dL Albumin/Globulin Ratio (1.0-2.2) Nasal Screen MRSA (PCR) NEGATIVE (NEGATIVE) Blood Type Blood Type Recheck Antibody Screen Crossmatch IS Only 02/02/25 02/02/25 02/02/25 Range/Units 07:55 07:40 03:20 WBC 21.0 H (4.8-10.8) x10^3/uL RBC 4.10 L (4.70-6.10) 10^6/uL Hgb 10.3 L 10.4 L 10.1 L (14.0-18.0) g/dL Hct 31.1 L (42.0-52.0) % MCV 75.9 L (80.0-94.0) fL MCH 25.1 L (27.0-31.0) pg MCHC 33.1 (32.0-36.0) g/dL RDW 18.6 H (12.0-15.0) % Plt Count 124 L (130-450) 10^3/uL MPV 11.0 (7.4-11.4) fL Neut # (Auto) 17.6 H (1.5-6.6) 10^3/uL Lymph # (Auto) 1.3 L (1.5-3.5) 10^3/uL Christian # (Auto) 1.9 H (0.0-1.0) 10^3/uL Eos # (Auto) 0.0 (0.0-0.7) 10^3/uL Baso # (Auto) 0.0 (0.0-0.1) 10^3/uL Absolute Nucleated RBC 0.00 x10^3/uL Nucleated RBC % 0.0 /100WBC Manual Slide Review Indicated Platelet Estimate DECREASED (<130,000) (NORMAL) Platelet Morphology NORMAL APPEARANCE (NORMAL) RBC Morph Micro Appear NORMAL APPEARANCE (NORMAL) PT (9.9-12.6) secs INR (0.8-1.2) Sodium 126 L 127 L (135-145) mmol/L Potassium 4.2 (3.5-4.5) mmol/L Chloride 98 L (101-111) mmol/L Carbon Dioxide 22 (21-32) mmol/L Anion Gap 6.0 (6-13) BUN 10 (6-20) mg/dL Creatinine 1.0 (0.6-1.3) mg/dL Estimated GFR (MDRD) 78 L (>89) Glucose 133 H (74-104) mg/dL Lactic Acid 0.9 (0.5-2.2) mmol/L Calcium 8.4 L (8.5-10.3) mg/dL Total Bilirubin 0.7 (0.2-1.0) mg/dL AST 13 (10-42) IU/L ALT 8 L (10-60) IU/L Alkaline Phosphatase 68 (42-121) IU/L Troponin I High Sens (2.3-19.7) ng/L Total Protein 5.9 L (6.4-8.9) g/dL Albumin 3.4 (3.2-5.5) g/dL Globulin 2.5 (2.1-4.2) g/dL Albumin/Globulin Ratio 1.4 (1.0-2.2) Nasal Screen MRSA (PCR) (NEGATIVE) Blood Type Blood Type Recheck Antibody Screen Crossmatch IS Only 02/01/25 02/01/25 02/01/25 Range/Units 22:29 21:52 21:32 WBC 16.7 H (4.8-10.8) x10^3/uL RBC 4.13 L (4.70-6.10) 10^6/uL Hgb 9.6 L (14.0-18.0) g/dL Hct 29.9 L (42.0-52.0) % MCV 72.4 L (80.0-94.0) fL MCH 23.2 L (27.0-31.0) pg MCHC 32.1 (32.0-36.0) g/dL RDW 16.0 H (12.0-15.0) % Plt Count 120 L (130-450) 10^3/uL MPV 9.9 (7.4-11.4) fL Neut # (Auto) 14.1 H (1.5-6.6) 10^3/uL Lymph # (Auto) 1.3 L (1.5-3.5) 10^3/uL Christian # (Auto) 1.2 H (0.0-1.0) 10^3/uL Eos # (Auto) 0.0 (0.0-0.7) 10^3/uL Baso # (Auto) 0.0 (0.0-0.1) 10^3/uL Absolute Nucleated RBC 0.00 x10^3/uL Nucleated RBC % 0.0 /100WBC Manual Slide Review Platelet Estimate (NORMAL) Platelet Morphology (NORMAL) RBC Morph Micro Appear (NORMAL) PT (9.9-12.6) secs INR (0.8-1.2) Sodium (135-145) mmol/L Potassium (3.5-4.5) mmol/L Chloride (101-111) mmol/L Carbon Dioxide (21-32) mmol/L Anion Gap (6-13) BUN (6-20) mg/dL Creatinine (0.6-1.3) mg/dL Estimated GFR (MDRD) (>89) Glucose (74-104) mg/dL Lactic Acid (0.5-2.2) mmol/L Calcium (8.5-10.3) mg/dL Total Bilirubin (0.2-1.0) mg/dL AST (10-42) IU/L ALT (10-60) IU/L Alkaline Phosphatase (42-121) IU/L Troponin I High Sens 3.2 (2.3-19.7) ng/L Total Protein (6.4-8.9) g/dL Albumin (3.2-5.5) g/dL Globulin (2.1-4.2) g/dL Albumin/Globulin Ratio (1.0-2.2) Nasal Screen MRSA (PCR) (NEGATIVE) Blood Type O POSITIVE Blood Type Recheck O POSITIVE Antibody Screen NEGATIVE Crossmatch IS Only See Detail 02/01/25 Range/Units 21:31 WBC (4.8-10.8) x10^3/uL RBC (4.70-6.10) 10^6/uL Hgb (14.0-18.0) g/dL Hct (42.0-52.0) % MCV (80.0-94.0) fL MCH (27.0-31.0) pg MCHC (32.0-36.0) g/dL RDW (12.0-15.0) % Plt Count (130-450) 10^3/uL MPV (7.4-11.4) fL Neut # (Auto) (1.5-6.6) 10^3/uL Lymph # (Auto) (1.5-3.5) 10^3/uL Christian # (Auto) (0.0-1.0) 10^3/uL Eos # (Auto) (0.0-0.7) 10^3/uL Baso # (Auto) (0.0-0.1) 10^3/uL Absolute Nucleated RBC x10^3/uL Nucleated RBC % /100WBC Manual Slide Review Platelet Estimate (NORMAL) Platelet Morphology (NORMAL) RBC Morph Micro Appear (NORMAL) PT (9.9-12.6) secs INR (0.8-1.2) Sodium 129 L (135-145) mmol/L Potassium 4.1 (3.5-4.5) mmol/L Chloride 100 L (101-111) mmol/L Carbon Dioxide 23 (21-32) mmol/L Anion Gap 6.0 (6-13) BUN 10 (6-20) mg/dL Creatinine 1.2 (0.6-1.3) mg/dL Estimated GFR (MDRD) 63 L (>89) Glucose 166 H (74-104) mg/dL Lactic Acid (0.5-2.2) mmol/L Calcium 8.4 L (8.5-10.3) mg/dL Total Bilirubin (0.2-1.0) mg/dL AST (10-42) IU/L ALT (10-60) IU/L Alkaline Phosphatase (42-121) IU/L Troponin I High Sens (2.3-19.7) ng/L Total Protein (6.4-8.9) g/dL Albumin (3.2-5.5) g/dL Globulin (2.1-4.2) g/dL Albumin/Globulin Ratio (1.0-2.2) Nasal Screen MRSA (PCR) (NEGATIVE) Blood Type Blood Type Recheck Antibody Screen Crossmatch IS Only Assessment/Plan Problem List (1) Hemorrhagic shock: Impression: Due to acute blood loss anemia in the post operative period. see below for explanation and contributing factors. Goal MAP >65. 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 Became hypotensive overnight, and was transfused 2 u prbcs. (I am holding DVT prophylaxis and antihypertensives). CTA did show no bleeding at the anastomosis, but some bleeding at the central mesentery and in the inner rectus. His hypotension improved wth crystalloid bolus and blood. Given his active bleeding, slightly low platelet count and need for pRBCs he was also transfused one unit of platelets for a more balanced approach to resuscitation. He remains with hypoactive bowel sounds, a non distended appropriately tender abdomen. He has tolerated a clear liquid diet and I would like to gently advance him to full liquids at this time. He remains on free water restriction I am using the epidural for post operative pain control. Ropivacaine at 6cc/hr. I will use this for the first 72h then plan to dc the catheter. I have started a precedex gtt and this has been very useful as well to help him manage with post op pain and anxiety. Discussed today with Dr Kinney. Will CTM labs as below. Discussed overall plan of care today with at bedside. (3) Anemia associated with acute blood loss: Impression: 2 U pRBCs resulted in a little less than a 1g rise in Hgb. WRT Hgb, I think the 12.3 is likely slightly hemoconcentrated, as I had requested that his intraop fluids be kept low due to his hyponatremia. There was bleeding,as mentioned above on CTA. otherwise, he remains mildly tachcardic and mildly hypotensive- MAPs OK but SBP on the lower side, racheal compared to pre op. At this point after 2 u of pRBCs and one unit of platelet, will CTM his hgb q6h for another 24 hours, then assuming no large drop, resume daily CBC. Laboratory Tests 01/31/25 02/01/25 02/01/25 19:06 04:50 21:52 Hgb 10.9 L 12.3 L 9.6 L 02/02/25 02/02/25 02/02/25 03:20 07:40 07:55 Hgb 10.1 L 10.4 L 10.3 L (4) Hyponatremia: Impression: Chronically low. Likely related to his Pica I will check Na every 6 hours, to correct not more than 8mEq in 25 hours. Fluid balance 1400ml positive for the admission. most of this in the last 24 hours. as I expected, his Na has declined with treatment of his post operative hemorrhagic shock. Laboratory Tests 02/01/25 02/01/25 02/01/25 04:50 10:03 15:53 Sodium 126 L 129 L 131 L 02/01/25 02/02/25 02/02/25 21:31 03:20 07:55 Sodium 129 L 127 L 126 L 02/02/25 02/02/25 10:06 15:56 Sodium 126 L 128 L This afternoon, I am decreasing his rate of fluid to 50cc/hr. he is able to take PO. next Na check around 2200, and will adjust IVF from there. Since iron infusion, he has no desire to crunch ice. (5) Alcohol abuse, in remission: Impression: I am holding naloxone so that narcotics will work. Patient states he is doing fine with this. (6) Elevated blood pressure reading: Impression: Reading through the PCP notes, I do not see any listed dx of HTN. his blood pressures are certainly elevated in the OP environment. He is on metoprolol succinate 25 mg daily as well as clonidine. I had restarted these as he was hypertensive, but now with his acute hemorrhagic shock, I am holding these meds. I would recommend ambulatory blood pressure monitoring and PCP followup. (7) Iron deficiency: Impression: IV Ferrlecit given. will start PNV when he is taking po more consistently. (8) Nicotine addiction: Impression: He chews tobacco. Zyn pouches (6mg) noted at bedside. he uses about 5 of these daily when he is not able to chew. I also examined his chewing tobacco- no indication of the dosing on this packaging. I asked that these be removed. I have ordered nicoderm 21mg patch daily. I have spent 65 minutes in the care of this patient today. This includes time [id number], review and ordering of diagnostic imaging and laboratory studies and consultation with other providers. Monitoring the patient's signs symptoms, evaluation of medication effectiveness and patient's response to treatment.
[2025-02-02] MEDS: LACTATED RINGERS 1,000 ML IV ONE (21:35)
[2025-02-02] MEDS: ACETAMINOPHEN 1,000 MG/100 ML 1,000 MG/100 ML BAG IV SCH (21:36)
--- NOTE | 2025-02-02 21:48 | PROVIDER PROGRESS NOTE ---
Progress Note Progress Note Progress Note: end of shift note. pain treated with dilaudid. MAPs close to 60 afterwards. UOP a little low at 33cc for the hour MAPS are down, 75cc the hour before. Patient is asymptomatic. IV APAP not used today since early AM. Will schedule APAP for pain. will not use toradol d/t bleeding risk. 2200 labs: HGB 8.4, down from 9.2- not transfusable. Na 127 Vital signs with Hypotension and low UOP more of a concern than his hyponatremia. I will bolus with 1L LR. hestitant to start pressors, as patient with bowel anastomoses, and possibly just needs fluid to maintain better blood pressures. If not fluid responsive, would recommend starting norepineprine gtt.
[2025-02-03] MEDS: NICOTINE 21 MG PATCH TOP SCH (08:35)
--- NOTE | 2025-02-03 11:41 | PROVIDER PROGRESS NOTE ---
Subjective Prog Note Date Prog Note Date: 02/03/25 Subjective Pt reports feeling: Improved Subjective: has been out of bed and walked down the [address] a little way last PM. passed flatus x 4 overnight. no appetite. is bringing a flavor of yogurt that he likes today. Precedex is helping his pain. Current Medications Current Medications Current Medications: Current Medications Generic Name Dose Route Start Last Admin Trade Name Freq PRN Reason Stop Dose Admin Clonidine HCl 0.1 mg 02/01/25 12:39 Clonidine 0.1 Mg Tablet PO Q6H PRN anxiety Cyclobenzaprine HCl 10 mg 02/01/25 20:14 02/03/25 08:35 Cyclobenzaprine 10 Mg Tablet PO 10 mg TID PRN Administration Spasms Duloxetine HCl 90 mg 02/01/25 13:00 02/03/25 08:34 Duloxetine 30 Mg Capsule PO 90 mg DAILY GADIEL Administration Folic Acid 1 mg 02/01/25 13:00 02/03/25 08:35 Folic Acid 1 Mg Tablet PO 1 mg DAILY GADIEL Administration Hydromorphone HCl 1 mg 02/02/25 12:18 02/03/25 11:09 Hydromorphone 0.5 Mg/0.5 Ml Syringe IVP 1 mg Q2H PRN Administration Severe Pain (Level 7-10) Ropivacaine 200 mg in 100 mls @ 6 mls/hr 02/01/25 20:00 02/03/25 10:12 Naropin 0.2% EP 6 mls/hr MAINTENANCE.IV GADIEL Administration Protocol Lactated Ringer's 1,000 mls @ 50 mls/hr 02/02/25 08:00 02/03/25 10:12 Lr IV 100 mls/hr .Q20H GADIEL Administration Dexmedetomidine/Sodium Chloride 100 mls @ 4.75 mls/hr 02/02/25 13:00 02/03/25 02:09 Precedex Premix IV 0.02 mcg/kg/hr .Q21H4M GADIEL 0.48 mls/hr Titration Protocol 0.2 MCG/KG/HR Acetaminophen 1,000 mg in 100 mls @ 400 mls/hr 02/02/25 22:00 02/03/25 05:50 Acetaminophen IV Infused Q8H GADIEL Infusion Nicotine 1 patch 02/03/25 09:00 02/03/25 08:35 Nicotine 21 Mg Patch TOP 1 patch DAILY GADIEL Administration Quetiapine Fumarate 50 mg 02/01/25 21:00 02/03/25 08:35 Quetiapine 25 Mg Tablet PO 50 mg BID GADIEL Administration Simethicone 80 mg 02/01/25 21:00 02/03/25 08:39 Simethicone Chew 80 Mg Tablet PO 80 mg 0900,1300,1800,2100 GADIEL Administration Sodium Chloride 10 ml 02/01/25 10:12 Sodium Chloride Flush 0.9% 10 Ml Syringe IVP PRN PRN NEEDED PER PROVIDER ORDERS Sodium Chloride 10 ml 02/01/25 17:00 02/03/25 08:43 Sodium Chloride Flush 0.9% 10 Ml Syringe IVP 10 ml 0100,0900,1700 GADIEL Administration Trazodone HCl 100 mg 02/01/25 21:00 02/02/25 20:18 Trazodone 50 Mg Tablet PO 100 mg HS GADIEL Administration Objective Vital Signs/Intake & Output Reviewed Vital Signs: Yes Vital Signs: Vital Signs x48h Temp Pulse Resp BP Pulse Ox O2 Flow Rate 02/03/25 11:00 120 H 21 93/73 95 02/03/25 10:00 115 H 19 104/69 93 02/03/25 09:00 110 H 16 95/63 94 02/03/25 08:00 36.7 C 103 H 23 133/86 H 92 2 02/03/25 07:00 107 H 22 100/79 95 2 02/03/25 06:00 102 H 17 112/71 95 2 02/03/25 06:00 99 20 112/71 95 2 02/03/25 05:00 36.6 C 104 H 22 117/72 95 2 02/03/25 04:00 102 H 24 113/72 95 2 Intake & Output: Intake & Output 01/31/25 02/01/25 02/02/25 02/03/25 23:59 23:59 23:59 23:59 Intake Total 2309 / 2309 4254 / 4254 1785 / 1785 Output Total 3225 / 3225 916 / 916 1945 / 1945 Balance -916 / -916 3338 / 3338 -160 / -160 Weight (kg) 95 kg Objective General Appearance: positive No acute distress and Alert Eyes Bilateral: positive Normal inspection and Conjunctivae nml ENT: positive ENT inspection nml Respiratory: positive Chest non-tender and Breath sounds nml Cardiovascular: positive Regular rate & rhythm Abdomen: positive No distention and Other (appropriately tender, not distended or firm. ) Skin: positive Color nml and No rash Extremities: positive Non-tender and No pedal edema Neurologic/Psychiatric: positive Oriented x3 Lab Results 02/03/25 10:50 02/03/25 10:50 Other Labs: Lab Results x24hrs 02/03/25 02/03/25 02/02/25 Range/Units 10:50 04:27 21:18 Hgb 8.5 L 8.2 L 8.4 L (14.0-18.0) g/dL Sodium 131 L 130 L 127 L (135-145) mmol/L Nasal Screen MRSA (PCR) (NEGATIVE) Blood Type Antibody Screen Crossmatch IS Only 02/02/25 02/01/25 Range/Units 10:02 22:29 Hgb (14.0-18.0) g/dL Sodium (135-145) mmol/L Nasal Screen MRSA (PCR) NEGATIVE (NEGATIVE) Blood Type O POSITIVE Antibody Screen NEGATIVE Crossmatch IS Only See Detail Assessment/Plan Problem List (1) Hemorrhagic shock: Impression: Almost resolved. Due to acute blood loss anemia in the post operative period. see below for explanation and contributing factors. Goal MAP >65. BPs are labile but improving I gave him a 1L bolus yesterday evening as he was back down in the 80's with MAP hovering around 60 and UOP that was around 30cc/h. I have not treated him with pressors, instead have chosen to use blood and crystalloid as that is what he needed. He did improve after crystalloid bolus last evening and did well overnight w the exception of needing some supplemental O2 for sat of 88% on RA. This was the first time in 2 nights he had been able to sleep, probably sleeping very deeply with some apnea. 02/03/25 06:00 02/03/25 07:00 02/03/25 08:00 Pulse Rate [Monitoring electrodes] 107 H 103 H Blood Pressure [Right Brachial artery] 112/71 100/79 133/86 H 02/03/25 09:00 02/03/25 10:00 02/03/25 11:00 Pulse Rate [Monitoring electrodes] 110 H 115 H 120 H Blood Pressure [Right Brachial artery] 95/63 104/69 93/73 I will leave him in the ICU through today as we will be busy with pain control, as the epidural comes off, may need to continue to use the precedex gtt. Hgb q8h. CBC in the AM. Trying to avoid iatrogenic anemia (2) Cecal volvulus: Impression: POD #2 right colectomy to treat cecal volvulus. Became hypotensive , and was transfused 2 u prbcs. (I am holding DVT prophylaxis and antihypertensives). I will restart DVT propylaxis this evening after epidural is out. CTA did show no bleeding at the anastomosis, but some bleeding at the central mesentery and in the inner rectus. His hypotension improved wth crystalloid bolus and blood. Given his active bleeding, slightly low platelet count and need for pRBCs he was also transfused one unit of platelets for a more balanced approach to resuscitation. He on full liquids with no appetite. He has passed flatus x4 overnight. his abdomen is soft and appropriately tender. dressing is dry. I am using the epidural for post operative pain control. Ropivacaine at 6cc/hr. Discussed briefly with Félix Garduno, BONI this AM, who will dc the epidural this afternoon. I have started a precedex gtt and this has been very useful as well to help him manage with post op pain and anxiety. He is on scheduled APAP and I am starting gabapentin today. I have added PRN oxycodone and there is PRN dilaudid ordered as well. discussed with Dr Kinney, Gen Surg who has nothing to add to the plan. (3) Anemia associated with acute blood loss: Impression: 2 U pRBCs resulted in a little less than a 1g rise in Hgb. WRT Hgb, I think the 12.3 is likely slightly hemoconcentrated, as I had requested that his intraop fluids be kept low due to his hyponatremia. There was bleeding,as mentioned above on CTA. At this point after 2 u of pRBCs and one unit of platelet, will CTM his hgb q8h for another 24 hours, then assuming no large drop, resume daily CBC. Laboratory Tests 02/02/25 02/02/25 02/02/25 07:55 10:06 15:56 Hgb 10.3 L 10.3 L 9.2 L 02/02/25 02/03/25 02/03/25 21:18 04:27 10:50 Hgb 8.4 L 8.2 L 8.5 L (4) Hyponatremia: Impression: Chronically low. Likely related to his Pica I will check Na every 8 hours, to correct not more than 8mEq in 24 hours. Fluid balance 2200 ml positive for the admission. I expect this to come down as I am able to take the patient off drips and as his shock improves. Despite all of this fluid, his sodium is slowly improving. 2 Laboratory Tests 02/01/25 02/01/25 02/01/25 04:50 10:03 15:53 Sodium 126 L 129 L 131 L 02/01/25 02/02/25 02/02/25 21:31 03:20 07:55 Sodium 129 L 127 L 126 L 02/02/25 02/02/25 10:06 15:56 Sodium 126 L 128 L This afternoon, I am decreasing his rate of fluid to 50cc/hr. he is able to take PO. next Na check around 2200, and will adjust IVF from there. Since iron infusion, he has no desire to crunch ice. (5) Alcohol abuse, in remission: Impression: I am holding naloxone so that narcotics will work. Patient states he is doing fine with this. (6) Elevated blood pressure reading: Impression: Reading through the PCP notes, I do not see any listed dx of HTN. his blood pressures are certainly elevated in the OP environment. He is on metoprolol succinate 25 mg daily as well as clonidine. I had restarted these as he was hypertensive, but now with his acute hemorrhagic shock, I am holding these meds. I am using IVP metoprolol as heart rate has gone up significantly I would recommend ambulatory blood pressure monitoring and PCP followup. (7) Iron deficiency: Impression: IV Ferrlecit given. will start PNV when he is taking po more consistently. (8) Nicotine addiction: Impression: He chews tobacco. Zyn pouches (6mg) noted at bedside. he uses about 5 of these daily when he is not able to chew. I also examined his chewing tobacco- no indication of the dosing on this packaging. I asked that these be removed. I have ordered nicoderm 21mg patch daily. I have spent 52 minutes in the care of this patient today. This includes time [id number], review and ordering of diagnostic imaging and laboratory studies and consultation with other providers. Monitoring the patient's signs symptoms, evaluation of medication effectiveness and patient's response to treatment.
--- NOTE | 2025-02-03 12:52 | MISCELLANEOUS PROVIDER NOTE ---
Miscellaneous Provider Note - Note: Epidural rounds POD 4. Patient resting in bed, family at bedside. Appears com fortable, states he has been better. Persistent low BPs per staff/provider. Epidural discontinued at this point, easily removed, tip intact, no redness/swelling. No bandaid needed. Pt states pain medication he is now receiving is effective.
[2025-02-03] MEDS: oxyCODONE 5 MG TABLET PO PRN (13:06)
[2025-02-03] MEDS: GABAPENTIN 100 MG CAPSULE PO SCH (13:21)
[2025-02-03] MEDS: ACETAMINOPHEN 500 MG TABLET PO SCH (13:21)
[2025-02-03] MEDS: METOPROLOL 5 MG/5 ML VIAL IVP SCH (14:50)
--- NOTE | 2025-02-03 15:26 | PROVIDER PROGRESS NOTE ---
Subjective Subjective Pt reports feeling: Improved Subjective: tolerating liquids. passing gas. feeling better Current Medications Current Medications Current Medications: Current Medications Generic Name Dose Route Start Last Admin Trade Name Freq PRN Reason Stop Dose Admin Acetaminophen 1,000 mg 02/03/25 14:00 02/03/25 13:21 Acetaminophen 500 Mg Tablet PO 1,000 mg Q8HR GADIEL Administration Cyclobenzaprine HCl 10 mg 02/01/25 20:14 02/03/25 13:21 Cyclobenzaprine 10 Mg Tablet PO 10 mg TID PRN Administration Spasms Duloxetine HCl 90 mg 02/01/25 13:00 02/03/25 08:34 Duloxetine 30 Mg Capsule PO 90 mg DAILY GADIEL Administration Enoxaparin Sodium 40 mg 02/03/25 21:00 Enoxaparin 40 Mg/0.4 Ml Syringe SUBQ DAILY GADIEL Folic Acid 1 mg 02/01/25 13:00 02/03/25 08:35 Folic Acid 1 Mg Tablet PO 1 mg DAILY GADIEL Administration Gabapentin 100 mg 02/03/25 14:00 02/03/25 13:21 Gabapentin 100 Mg Capsule PO 100 mg TID GADIEL Administration Hydromorphone HCl 1 mg 02/02/25 12:18 02/03/25 13:22 Hydromorphone 0.5 Mg/0.5 Ml Syringe IVP 1 mg Q2H PRN Administration Severe Pain (Level 7-10) Lactated Ringer's 1,000 mls @ 50 mls/hr 02/02/25 08:00 02/03/25 10:12 Lr IV 100 mls/hr .Q20H GADIEL Administration Dexmedetomidine/Sodium Chloride 100 mls @ 4.75 mls/hr 02/02/25 13:00 02/03/25 02:09 Precedex Premix IV 0.02 mcg/kg/hr .Q21H4M GADIEL 0.48 mls/hr Titration Protocol 0.2 MCG/KG/HR Metoprolol Tartrate 5 mg 02/03/25 15:00 02/03/25 14:50 Metoprolol 5 Mg/5 Ml Vial IVP 5 mg Q6H GADIEL Administration Nicotine 1 patch 02/03/25 09:00 02/03/25 08:35 Nicotine 21 Mg Patch TOP 1 patch DAILY GADIEL Administration Oxycodone HCl 5 mg 02/03/25 11:43 02/03/25 13:06 Oxycodone 5 Mg Tablet PO 5 mg Q4HR PRN Administration Moderate Pain (Level 4-6) Quetiapine Fumarate 50 mg 02/01/25 21:00 02/03/25 08:35 Quetiapine 25 Mg Tablet PO 50 mg BID GADIEL Administration Simethicone 80 mg 02/01/25 21:00 02/03/25 13:21 Simethicone Chew 80 Mg Tablet PO 80 mg 0900,1300,1800,2100 GADIEL Administration Sodium Chloride 10 ml 02/01/25 10:12 Sodium Chloride Flush 0.9% 10 Ml Syringe IVP PRN PRN NEEDED PER PROVIDER ORDERS Sodium Chloride 10 ml 02/01/25 17:00 02/03/25 08:43 Sodium Chloride Flush 0.9% 10 Ml Syringe IVP 10 ml 0100,0900,1700 GADIEL Administration Trazodone HCl 100 mg 02/01/25 21:00 02/02/25 20:18 Trazodone 50 Mg Tablet PO 100 mg HS GADIEL Administration Objective Vital Signs/Intake & Output Reviewed Vital Signs: Yes Vital Signs: Vital Signs x48h Temp Pulse Pulse Resp BP BP Pulse Ox 02/03/25 15:00 107 H 24 111/73 92 02/03/25 14:50 105 H 99/71 02/03/25 14:00 128 H 21 108/76 92 02/03/25 13:00 121 H 29 H 125/80 95 02/03/25 12:00 119 H 21 99/60 95 02/03/25 11:00 120 H 21 93/73 95 02/03/25 10:00 115 H 19 104/69 93 02/03/25 09:00 110 H 16 95/63 94 02/03/25 08:00 36.7 C 103 H 23 133/86 H 92 O2 Flow Rate 02/03/25 15:00 02/03/25 14:50 02/03/25 14:00 02/03/25 13:00 02/03/25 12:00 02/03/25 11:00 02/03/25 10:00 02/03/25 09:00 02/03/25 08:00 2 Intake & Output: Intake & Output 01/31/25 02/01/25 02/02/25 02/03/25 23:59 23:59 23:59 23:59 Intake Total 2309 / 2309 4254 / 4254 2260 / 2260 Output Total 3225 / 3225 916 / 916 2069 / 2069 Balance -916 / -916 3338 / 3338 190 / 190 Weight (kg) 95 kg Objective General Appearance: positive No acute distress and Alert Respiratory: positive No respiratory distress Abdomen: positive Other (minimal distension. dressing c/d/i. 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 agree with keeping the diet light/ soft . hgb stable (3) Anemia associated with acute blood loss: (4) Hyponatremia: (5) Alcohol abuse, in remission: (6) Elevated blood pressure reading: (7) Iron deficiency: (8) Nicotine addiction:
[2025-02-03 20:20] LABS: BASOPHILS % (AUTO) 0.3 %; EOSINOPHILS % (AUTO) 0.3 %; HCT - HEMATOCRIT 30.5 % (42.0-52.0); HGB - HEMOGLOBIN 9.3 g/dL (14.0-18.0); LYMPHOCYTES % (AUTO) 7.4 %; MEAN CORPUSCULAR HEMOGLOBIN 24.7 pg (27.0-31.0); MEAN CORPUSCULAR HGB CONC 30.5 g/dL (32.0-36.0); MEAN CORPUSCULAR VOLUME 80.9 fL (80.0-94.0); MEAN PLATELET VOLUME 11.1 fL (7.4-11.4); MONOCYTES # (AUTO) 0.9 10^3/uL (0.0-1.0); MONOCYTES % (AUTO) 6.2 %; NEUTROPHILS # (AUTO) 11.9 10^3/uL (1.5-6.6); NEUTROPHILS % (AUTO) 85.4 %; PLT - PLATELET COUNT 179 10^3/uL (130-450); RED BLOOD COUNT 3.77 10^6/uL (4.70-6.10); RED CELL DISTRIBUTION WIDTH 18.9 % (12.0-15.0); WHITE BLOOD COUNT 13.9 x10^3/uL (4.8-10.8)
[2025-02-03 20:29] LABS: CALCIUM 9.2 mg/dL (8.5-10.3); POTASSIUM 4.2 mmol/L (3.5-4.5)
[2025-02-03] MEDS: ENOXAPARIN 40 MG/0.4 ML SYRINGE SUBQ SCH (21:04)
[2025-02-04] MEDS: SODIUM CHLORIDE FLUSH 0.9% 10 ML SYRINGE IVP PRN (03:06)
--- NOTE | 2025-02-04 06:48 | PROVIDER PROGRESS NOTE ---
Subjective General Admit Date: 02/01/25 Procedure Date: 02/01/25 Post Op Days: 3 Procedure Performed: exploratory laparotomy, right colectomy for cecal volvulus Other Other Information/Narrative: Pain controlled with precedex. +ambulation +void +flatus, no BM yet. Tolerating full liquids, not much appetite, some nausea but no vomiting. Using IS some. Wound Assessment Wound/Incisions: positive Dressing dry and intact Exam Exam Vital Signs: Vital Signs x48h Temp Pulse Pulse Resp BP BP Pulse Ox 02/04/25 07:00 114 H 27 H 125/81 94 02/04/25 06:00 97.7 F 113 H 24 99/78 94 02/04/25 05:00 106 H 25 H 117/81 94 02/04/25 04:00 103 H 28 H 114/79 96 02/04/25 03:05 103 H 106/76 02/04/25 03:00 103 H 21 106/76 97 02/04/25 02:00 102 H 21 100/72 96 02/04/25 01:55 02/04/25 01:00 109 H 19 94/67 96 O2 Flow Rate 02/04/25 07:00 2 02/04/25 06:00 2 02/04/25 05:00 2 02/04/25 04:00 2 02/04/25 03:05 02/04/25 03:00 2 02/04/25 02:00 2 02/04/25 01:55 2 02/04/25 01:00 2 GEN: No acute distress, alert and oriented CV: tachycardia 100s-110s PULM: non labored, on 2L NC ABD: soft, appropriate incisional ttp, no r/g. Dressing c/d/i EXT: no clubbing, cyanosis, or edema Impression/Plan Problem List (1) Hemorrhagic shock: Plan: resolved (2) Cecal volvulus: (3) Anemia associated with acute blood loss: (4) Hyponatremia: (5) Alcohol abuse, in remission: (6) Elevated blood pressure reading: (7) Iron deficiency: (8) Nicotine addiction: Plan 54 y/o M admitted with cecal volvulus on 01/31, s/p exploratory laparotomy with right hemicolectomy and primary anastomosis overnight on 01/31-. Volvulized cecum was mildly dusky with serosal tearing in the OR, no perforation or stool contamination. POD#3. - epidural removed yesterday - mulitmodal pain regimen in use (patient previously on naltrexone). Consider adding PO ibuprofen if hgb stable this AM. Agree with transitioning to PO pain meds. - tolerating full liquid diet, ok to adat to soft diet. (note: patient s/p RNY gastric bypass). - peoples removed, then replaced for urinary retention - post op bleeding managed conservatively with transfusion and observation. Hgb stable for more than 12 hours, AM lab pending. - ppx lovenox, SCD's, PPI Patient transferred to Hospitalist service for primary team - hyponatremia/polydipsea as per primary - home medications as per primary Surgery will continue to follow closely.
[2025-02-04] MEDS: METOPROLOL SUCCINATE 25 MG TABLET PO SCH (08:37)
[2025-02-04] MEDS: PANTOPRAZOLE 40 MG TABLET PO SCH (08:38)
[2025-02-04 10:25] LABS: BASOPHILS # (AUTO) 0.1 10^3/uL (0.0-0.1); BASOPHILS % (AUTO) 0.4 %; EOSINOPHILS # (AUTO) 0.1 10^3/uL (0.0-0.7); EOSINOPHILS % (AUTO) 0.9 %; HCT - HEMATOCRIT 24.4 % (42.0-52.0); HGB - HEMOGLOBIN 7.8 g/dL (14.0-18.0); LYMPHOCYTES # (AUTO) 1.2 10^3/uL (1.5-3.5); LYMPHOCYTES % (AUTO) 8.6 %; MEAN CORPUSCULAR HEMOGLOBIN 24.9 pg (27.0-31.0); MEAN PLATELET VOLUME 13.1 fL (7.4-11.4); MONOCYTES # (AUTO) 1.3 10^3/uL (0.0-1.0); MONOCYTES % (AUTO) 9.4 %; NEUTROPHILS # (AUTO) 11.4 10^3/uL (1.5-6.6); NEUTROPHILS % (AUTO) 80.3 %; PLT - PLATELET COUNT 175 10^3/uL (130-450); RED BLOOD COUNT 3.13 10^6/uL (4.70-6.10); RED CELL DISTRIBUTION WIDTH 19.4 % (12.0-15.0); WHITE BLOOD COUNT 14.2 x10^3/uL (4.8-10.8)
[2025-02-04 10:31] LABS: CALCIUM 8.7 mg/dL (8.5-10.3); POTASSIUM 4.5 mmol/L (3.5-4.5)
[2025-02-04] MEDS ORDERED: KETOROLAC 15 MG/ML VIAL IVP PRN (15:01)
--- NOTE | 2025-02-04 15:04 | PROVIDER PROGRESS NOTE ---
Subjective Prog Note Date Prog Note Date: 02/03/25 Subjective Pt reports feeling: Improved Subjective: has been out of bed and walked down the [place] a little way last PM. passed flatus x 4 overnight. no appetite. is bringing a flavor of yogurt that he likes today. Precedex is helping his pain. Current Medications Current Medications Current Medications: Current Medications Generic Name Dose Route Start Last Admin Trade Name Freq PRN Reason Stop Dose Admin Acetaminophen 1,000 mg 02/03/25 14:00 02/04/25 14:00 Acetaminophen 500 Mg Tablet PO 1,000 mg Q8HR GADIEL Administration Cyclobenzaprine HCl 10 mg 02/01/25 20:14 02/03/25 13:21 Cyclobenzaprine 10 Mg Tablet PO 10 mg TID PRN Administration Spasms Duloxetine HCl 90 mg 02/01/25 13:00 02/04/25 08:37 Duloxetine 30 Mg Capsule PO 90 mg DAILY GADIEL Administration Enoxaparin Sodium 40 mg 02/03/25 21:00 02/04/25 08:39 Enoxaparin 40 Mg/0.4 Ml Syringe SUBQ 40 mg DAILY GADIEL Administration Folic Acid 1 mg 02/01/25 13:00 02/04/25 08:39 Folic Acid 1 Mg Tablet PO 1 mg DAILY GADIEL Administration Gabapentin 100 mg 02/03/25 14:00 02/04/25 14:00 Gabapentin 100 Mg Capsule PO 100 mg TID GADIEL Administration Hydromorphone HCl 1 mg 02/02/25 12:18 02/04/25 12:12 Hydromorphone 0.5 Mg/0.5 Ml Syringe IVP 1 mg Q2H PRN Administration Severe Pain (Level 7-10) Lactated Ringer's 1,000 mls @ 50 mls/hr 02/02/25 08:00 02/04/25 06:04 Lr IV 100 mls/hr .Q20H GADIEL Administration Ketorolac Tromethamine 15 mg 02/04/25 15:01 Ketorolac 15 Mg/Ml Vial IVP 02/09/25 15:00 Q6HR PRN Severe Pain (Level 7-10) Metoprolol Succinate 25 mg 02/04/25 09:00 02/04/25 08:37 Metoprolol Succinate 25 Mg Tablet PO 25 mg DAILY GADIEL Administration Metoprolol Tartrate 5 mg 02/03/25 15:00 02/04/25 14:00 Metoprolol 5 Mg/5 Ml Vial IVP 5 mg Q6H GADIEL Administration Metoprolol Tartrate 5 mg 02/03/25 21:12 Metoprolol 5 Mg/5 Ml Vial IVP Q6H PRN Tachycardia Nicotine 1 patch 02/03/25 09:00 02/04/25 08:37 Nicotine 21 Mg Patch TOP 1 patch DAILY GADIEL Administration Ondansetron HCl 4 mg 02/04/25 12:10 Ondansetron 4 Mg/2 Ml Vial IVP Q6HR PRN Nausea / Vomiting Oxycodone HCl 5 mg 02/03/25 11:43 02/04/25 08:38 Oxycodone 5 Mg Tablet PO 5 mg Q4HR PRN Administration Moderate Pain (Level 4-6) Pantoprazole Sodium 40 mg 02/04/25 07:00 02/04/25 08:38 Pantoprazole 40 Mg Tablet PO 40 mg QDAC GADIEL Administration Quetiapine Fumarate 50 mg 02/01/25 21:00 02/04/25 08:37 Quetiapine 25 Mg Tablet PO 50 mg BID GADIEL Administration Simethicone 80 mg 02/01/25 21:00 02/04/25 12:25 Simethicone Chew 80 Mg Tablet PO 80 mg 0900,1300,1800,2100 GADIEL Administration Sodium Chloride 10 ml 02/01/25 10:12 02/04/25 03:06 Sodium Chloride Flush 0.9% 10 Ml Syringe IVP 10 ml PRN PRN Administration NEEDED PER PROVIDER ORDERS Sodium Chloride 10 ml 02/01/25 17:00 02/04/25 14:00 Sodium Chloride Flush 0.9% 10 Ml Syringe IVP 10 ml 0100,0900,1700 GDAIEL Administration Trazodone HCl 100 mg 02/01/25 21:00 02/03/25 21:05 Trazodone 50 Mg Tablet PO 100 mg HS GADIEL Administration Objective Vital Signs/Intake & Output Reviewed Vital Signs: Yes Vital Signs: Vital Signs x48h Temp Pulse Pulse Resp BP BP Pulse Ox 02/04/25 14:00 118 H 33 H 109/78 95 02/04/25 14:00 118 H 109/78 02/04/25 13:18 95 02/04/25 13:10 86 L 02/04/25 13:00 125 H 24 112/72 91 L 02/04/25 12:00 36.7 C 126 H 29 H 96 02/04/25 11:00 109 H 19 113/76 96 02/04/25 10:00 72 14 145/74 H 98 02/04/25 09:00 76 14 130/82 98 02/04/25 08:37 138 H 110/89 02/04/25 08:00 02/04/25 08:00 36.8 C 110 H 22 129/85 94 O2 Flow Rate 02/04/25 14:00 2 02/04/25 14:00 02/04/25 13:18 2 02/04/25 13:10 02/04/25 13:00 02/04/25 12:00 2 02/04/25 11:00 02/04/25 10:00 02/04/25 09:00 02/04/25 08:37 02/04/25 08:00 2 02/04/25 08:00 2 Intake & Output: Intake & Output 02/01/25 02/02/25 02/03/25 02/04/25 23:59 23:59 23:59 23:59 Intake Total 2309 / 2309 4254 / 4254 4081 / 4081 50 / 50 Output Total 3225 / 3225 916 / 916 2115 / 2115 845 / 845 Balance -916 / -916 3338 / 3338 1966 / 1966 -795 / -795 Objective General Appearance: positive No acute distress and Alert Eyes Bilateral: positive Normal inspection and Conjunctivae nml ENT: positive ENT inspection nml Respiratory: positive Chest non-tender and Breath sounds nml Cardiovascular: positive Regular rate & rhythm Skin: positive Color nml and No rash Extremities: positive Non-tender and No pedal edema Neurologic/Psychiatric: positive Oriented x3 Lab Results 02/04/25 04:37 02/04/25 04:37 Other Labs: Lab Results x24hrs 02/04/25 02/03/25 Range/Units 04:37 20:09 WBC 14.2 H 13.9 H (4.8-10.8) x10^3/uL RBC 3.13 L 3.77 L (4.70-6.10) 10^6/uL Hgb 7.8 L 9.3 L (14.0-18.0) g/dL Hct 24.4 L 30.5 L (42.0-52.0) % MCV 78.0 L 80.9 (80.0-94.0) fL MCH 24.9 L 24.7 L (27.0-31.0) pg MCHC 32.0 30.5 L (32.0-36.0) g/dL RDW 19.4 H 18.9 H (12.0-15.0) % Plt Count 175 179 (130-450) 10^3/uL MPV 13.1 H 11.1 (7.4-11.4) fL Neut # (Auto) 11.4 H 11.9 H (1.5-6.6) 10^3/uL Lymph # (Auto) 1.2 L 1.0 L (1.5-3.5) 10^3/uL [place] # (Auto) 1.3 H 0.9 (0.0-1.0) 10^3/uL Eos # (Auto) 0.1 0.0 (0.0-0.7) 10^3/uL Baso # (Auto) 0.1 0.0 (0.0-0.1) 10^3/uL Absolute Nucleated RBC 0.00 0.00 x10^3/uL Nucleated RBC % 0.0 0.0 /100WBC Sodium 130 L 129 L (135-145) mmol/L Potassium 4.5 4.2 (3.5-4.5) mmol/L Chloride 96 L 97 L (101-111) mmol/L Carbon Dioxide 26 23 (21-32) mmol/L Anion Gap 8.0 9.0 (6-13) BUN 11 10 (6-20) mg/dL Creatinine 1.0 1.0 (0.6-1.3) mg/dL Estimated GFR (MDRD) 78 L 78 L (>89) Glucose 111 H 115 H (74-104) mg/dL Calcium 8.7 9.2 (8.5-10.3) mg/dL Vitamin B12 1215 H (180-914) pg/mL Folate 16.4 (5.90 - >24.8) ng/mL Assessment/Plan Problem List (1) Cecal volvulus: Impression: POD #3 right colectomy to treat cecal volvulus. Became hypotensive , and was transfused 2 u prbcs. CTA did show no bleeding at the anastomosis, but some bleeding at the central mesentery and in the inner rectus. His hypotension improved wth crystalloid bolus and blood. Given his active bleeding, slightly low platelet count and need for pRBCs he was also transfused one unit of platelets for a more balanced approach to resuscitation. DVT prophylaxis restarted- he has no personal hx of DVT, but family hx thromboembolic disease exists. He on full liquids with no appetite. His abdomen has become distended and quiet through the day today. he is trying to walk, and chew gum to stimulate return of bowel fxn . post op pain control now with narcotics, IV APAP and flexeril (which pt says helps lots). Strongly considered Toradol at 15mg per dose, but discussed with pharmacist and given patient risk fx (post op bleeding, RNYGB) ultimately decided against this. Discussed with Dr Morrison, the rounding general surgeon today. appreciate her input. (2) Hemorrhagic shock: Impression: Almost resolved. Due to acute blood loss anemia in the post operative period. see below for explanation and contributing factors. Goal MAP >65. BPs are improving He is now med surg status. CBC in the AM. Trying to avoid iatrogenic anemia (3) Anemia associated with acute blood loss: Impression: 2 U pRBCs resulted in a little less than a 1g rise in Hgb. WRT Hgb, I think the 12.3 is likely slightly hemoconcentrated, as I had requested that his intraop fluids be kept low due to his hyponatremia. There was bleeding,as mentioned above on CTA. At this point after 2 u of pRBCs and one unit of platelet, no large drops, resume daily CBC. Laboratory Tests 02/02/25 02/02/25 02/02/25 07:55 10:06 15:56 Hgb 10.3 L 10.3 L 9.2 L 02/02/25 02/03/25 02/03/25 21:18 04:27 10:50 Hgb 8.4 L 8.2 L 8.5 L Laboratory Tests 02/03/25 02/04/25 20:09 04:37 Hgb 9.3 L 7.8 L (4) Hyponatremia: Impression: Chronically low. Likely related to his Pica Fluid balance 3850 ml positive for the admission. Despite all of this fluid, his sodium is slowly improving. Fh=613 this AM. I will not check again till the AM. I am stopping his IVF 2 Since iron infusion, he has no desire to crunch ice. (5) Alcohol abuse, in remission: Impression: I am holding naloxone so that narcotics will work. Patient states he is doing fine with this. (6) Elevated blood pressure reading: Impression: Reading through the PCP notes, I do not see any listed dx of HTN. his blood pressures are certainly elevated in the OP environment. He is on metoprolol succinate 25 mg daily as well as clonidine. I had restarted these as he was hypertensive, but now with his acute hemorrhagic shock, I am holding these meds. I am using IVP metoprolol as heart rate has gone up significantly, then today restarting metoprolol succinate at home dose plus IV PRN, and scheduled with hold parameters. I would recommend ambulatory blood pressure monitoring and PCP followup. (7) Iron deficiency: Impression: IV Ferrlecit given. will start PNV when he is taking po more consistently. (8) Nicotine addiction: Impression: He chews tobacco. Zyn pouches (6mg) noted at bedside. he uses about 5 of these daily when he is not able to chew. I also examined his chewing tobacco- no indication of the dosing on this packaging. I asked that these be removed. I have ordered nicoderm 21mg patch daily. I have spent 55 minutes in the care of this patient today. This includes time [id number], review and ordering of diagnostic imaging and laboratory studies and consultation with other providers. Monitoring the patient's signs symptoms, evaluation of medication effectiveness and patient's response to treatment.
--- NOTE | 2025-02-05 07:12 | PROVIDER PROGRESS NOTE ---
Subjective General Admit Date: 02/01/25 Procedure Date: 02/01/25 Post Op Days: 4 Procedure Performed: exploratory laparotomy, right colectomy for cecal volvulus Other Other Information/Narrative: Feeling much better today. +BM +abmulation Tolerating full liquids, no n/v. Appetite increasing. Wound Assessment Wound/Incisions: positive Dressing dry and intact Exam Exam Vital Signs: Vital Signs x48h Temp Pulse Pulse Resp BP BP Pulse Ox 02/05/25 08:19 120 H 124/85 02/05/25 08:16 98.1 F 120 H 20 124/85 91 L 02/05/25 05:00 125 H 24 140/95 H 95 GEN: No acute distress, alert and oriented CV: tachycardia 100s-120s PULM: non labored, on RA ABD: soft, appropriate incisional ttp, no r/g. Dressing c/d/i EXT: no clubbing, cyanosis, or edema Impression/Plan Problem List (1) Cecal volvulus: (2) Hemorrhagic shock: Plan: resolved (3) Anemia associated with acute blood loss: (4) Hyponatremia: (5) Alcohol abuse, in remission: (6) Elevated blood pressure reading: (7) Iron deficiency: (8) Nicotine addiction: Plan 54 y/o M admitted with cecal volvulus on 01/31, s/p exploratory laparotomy with right hemicolectomy and primary anastomosis overnight on 01/31-. Volvulized cecum was mildly dusky with serosal tearing in the OR, no perforation or stool contamination. POD#4. - epidural removed 02/03 - mulitmodal pain regimen in use (patient previously on naltrexone). Agree with transitioning to PO pain meds. - tolerating full liquid diet, ok to adat to soft diet. (note: patient s/p SAMRA gastric bypass). - peoples removed, then replaced for urinary retention. Ok to trial removal again from surgery standpoint. - post op bleeding managed conservatively with transfusion and observation. Hgb stable for more than 36 hours. - ppx lovenox, SCD's, PPI Patient transferred to Hospitalist service for primary team - hyponatremia/polydipsea as per primary - home medications as per primary Surgery will continue to follow closely, when pain controlled with PO meds, able to ambulate and void, ok to discharge from surgery perspective. F/u with Dr. Lawson in two weeks for staple removal.
[2025-02-05 10:40] LABS: BASOPHILS % (AUTO) 0.1 %; EOSINOPHILS # (AUTO) 0.1 10^3/uL (0.0-0.7); HCT - HEMATOCRIT 22.9 % (42.0-52.0); HGB - HEMOGLOBIN 7.7 g/dL (14.0-18.0); LYMPHOCYTES # (AUTO) 0.8 10^3/uL (1.5-3.5); LYMPHOCYTES % (AUTO) 8.4 %; MEAN CORPUSCULAR HEMOGLOBIN 25.6 pg (27.0-31.0); MEAN CORPUSCULAR HGB CONC 33.6 g/dL (32.0-36.0); MEAN CORPUSCULAR VOLUME 76.1 fL (80.0-94.0); MEAN PLATELET VOLUME 9.6 fL (7.4-11.4); MONOCYTES # (AUTO) 0.9 10^3/uL (0.0-1.0); MONOCYTES % (AUTO) 9.6 %; NEUTROPHILS # (AUTO) 7.4 10^3/uL (1.5-6.6); NEUTROPHILS % (AUTO) 80.1 %; PLT - PLATELET COUNT 183 10^3/uL (130-450); RED BLOOD COUNT 3.01 10^6/uL (4.70-6.10); RED CELL DISTRIBUTION WIDTH 19.3 % (12.0-15.0); WHITE BLOOD COUNT 9.3 x10^3/uL (4.8-10.8)
[2025-02-05] MEDS: METOPROLOL SUCCINATE 50 MG TABLET PO SCH (10:44)
[2025-02-05 10:51] LABS: CALCIUM 8.6 mg/dL (8.5-10.3); CREATININE 0.9 mg/dL (0.6-1.3); POTASSIUM 3.9 mmol/L (3.5-4.5)
--- NOTE | 2025-02-05 18:36 | PROVIDER PROGRESS NOTE ---
Subjective Prog Note Date Prog Note Date: 02/05/25 Subjective Subjective: he is doing well. small BM last night. abdomen feels better. he was able to eat some yogurt and berries this AM. He has been walking Current Medications Current Medications Current Medications: Current Medications Generic Name Dose Route Start Last Admin Trade Name Freq PRN Reason Stop Dose Admin Acetaminophen 1,000 mg 02/03/25 14:00 02/05/25 13:28 Acetaminophen 500 Mg Tablet PO 1,000 mg Q8HR GADIEL Administration Cyclobenzaprine HCl 10 mg 02/01/25 20:14 02/03/25 13:21 Cyclobenzaprine 10 Mg Tablet PO 10 mg TID PRN Administration Spasms Duloxetine HCl 90 mg 02/01/25 13:00 02/05/25 08:20 Duloxetine 30 Mg Capsule PO 90 mg DAILY GADIEL Administration Enoxaparin Sodium 40 mg 02/03/25 21:00 02/05/25 08:19 Enoxaparin 40 Mg/0.4 Ml Syringe SUBQ 40 mg DAILY GADIEL Administration Folic Acid 1 mg 02/01/25 13:00 02/05/25 08:20 Folic Acid 1 Mg Tablet PO 1 mg DAILY GADIEL Administration Gabapentin 100 mg 02/03/25 14:00 02/05/25 13:28 Gabapentin 100 Mg Capsule PO 100 mg TID GADIEL Administration Hydromorphone HCl 1 mg 02/02/25 12:18 02/05/25 16:48 Hydromorphone 0.5 Mg/0.5 Ml Syringe IVP 1 mg Q2H PRN Administration Severe Pain (Level 7-10) Metoprolol Succinate 50 mg 02/05/25 11:00 02/05/25 10:44 Metoprolol Succinate 50 Mg Tablet PO 50 mg DAILY GADIEL Administration Metoprolol Tartrate 5 mg 02/03/25 21:12 Metoprolol 5 Mg/5 Ml Vial IVP Q6H PRN Tachycardia Nicotine 1 patch 02/03/25 09:00 02/05/25 08:19 Nicotine 21 Mg Patch TOP 1 patch DAILY GADIEL Administration Ondansetron HCl 4 mg 02/04/25 12:10 Ondansetron 4 Mg/2 Ml Vial IVP Q6HR PRN Nausea / Vomiting Oxycodone HCl 5 mg 02/03/25 11:43 02/05/25 14:49 Oxycodone 5 Mg Tablet PO 5 mg Q4HR PRN Administration Moderate Pain (Level 4-6) Pantoprazole Sodium 40 mg 02/04/25 07:00 02/05/25 06:22 Pantoprazole 40 Mg Tablet PO 40 mg QDAC GADIEL Administration Quetiapine Fumarate 50 mg 02/01/25 21:00 02/05/25 08:20 Quetiapine 25 Mg Tablet PO 50 mg BID GADIEL Administration Simethicone 80 mg 02/01/25 21:00 02/05/25 13:29 Simethicone Chew 80 Mg Tablet PO 80 mg 0900,1300,1800,2100 GADIEL Administration Sodium Chloride 10 ml 02/01/25 10:12 02/04/25 21:05 Sodium Chloride Flush 0.9% 10 Ml Syringe IVP 10 ml PRN PRN Administration NEEDED PER PROVIDER ORDERS Sodium Chloride 10 ml 02/01/25 17:00 02/05/25 16:49 Sodium Chloride Flush 0.9% 10 Ml Syringe IVP 10 ml 0100,0900,1700 GADIEL Administration Trazodone HCl 100 mg 02/01/25 21:00 02/04/25 21:04 Trazodone 50 Mg Tablet PO 100 mg HS GADIEL Administration Objective Vital Signs/Intake & Output Reviewed Vital Signs: Yes Vital Signs: Vital Signs x48h Temp Pulse Resp BP Pulse Ox 02/05/25 15:37 36.5 C 18 129/93 H 94 02/05/25 12:00 36.9 C 125 H 13 129/87 91 L Intake & Output: Intake & Output 02/02/25 02/03/25 02/04/25 02/05/25 23:59 23:59 23:59 23:59 Intake Total 4254 / 4254 4081 / 4081 316 / 316 1495 / 1495 Output Total 916 / 916 2115 / 2115 1130 / 1130 855 / 855 Balance 3338 / 3338 1966 / 1966 -814 / -814 640 / 640 Objective General Appearance: positive No acute distress and Alert Eyes Bilateral: positive Normal inspection and Conjunctivae nml ENT: positive ENT inspection nml Respiratory: positive Chest non-tender and Breath sounds nml Cardiovascular: positive Regular rate & rhythm Skin: positive Color nml and No rash Extremities: positive Non-tender and No pedal edema Neurologic/Psychiatric: positive Oriented x3 Lab Results 02/05/25 10:34 04/22/25 10:34 Other Labs: Lab Results x24hrs 02/05/25 02/04/25 02/02/25 Range/Units 10:34 20:37 15:56 WBC 9.3 17.1 H (4.8-10.8) x10^3/uL RBC 3.01 L 3.63 L (4.70-6.10) 10^6/uL Hgb 7.7 L 9.2 L (14.0-18.0) g/dL Hct 22.9 L 28.1 L (42.0-52.0) % MCV 76.1 L 77.4 L (80.0-94.0) fL MCH 25.6 L 25.3 L (27.0-31.0) pg MCHC 33.6 32.7 (32.0-36.0) g/dL RDW 19.3 H 17.9 H (12.0-15.0) % Plt Count 183 147 (130-450) 10^3/uL MPV 9.6 11.2 (7.4-11.4) fL Neut # (Auto) 7.4 H 14.2 H (1.5-6.6) 10^3/uL Lymph # (Auto) 0.8 L 1.2 L (1.5-3.5) 10^3/uL Gaines # (Auto) 0.9 1.6 H (0.0-1.0) 10^3/uL Eos # (Auto) 0.1 0.1 (0.0-0.7) 10^3/uL Baso # (Auto) 0.0 0.0 (0.0-0.1) 10^3/uL Absolute Nucleated RBC 0.00 0.00 x10^3/uL Total Counted Band Neuts % (Manual) (0 - 10) % Abnorm Lymph % (Manual) % Nucleated RBC % 0.0 0.0 /100WBC Neutrophils # (Manual) (1.5-6.6) 10^3/uL Lymphocytes # (Manual) (1.5-3.5) 10^3/uL Monocytes # (Manual) (0.0-1.0) 10^3/uL Eosinophils # (Manual) (0-0.7) 10^3/uL Basophils # (Manual) (0-0.1) 10^3/uL Differential Comment Manual Slide Review Indicated WBC Morphology NORMAL APPEARANCE (NORMAL) Platelet Estimate NORMAL (130-450,000) (NORMAL) Platelet Morphology NORMAL APPEARANCE (NORMAL) RBC Morph Micro Appear NORMAL APPEARANCE (NORMAL) PT (9.9-12.6) secs INR (0.8-1.2) Sodium 127 L 128 L 128 L (135-145) mmol/L Potassium 3.9 4.4 (3.5-4.5) mmol/L Chloride 93 L 97 L (101-111) mmol/L Carbon Dioxide 25 26 (21-32) mmol/L Anion Gap 9.0 5.0 L (6-13) BUN 15 11 (6-20) mg/dL Creatinine 0.9 1.1 (0.6-1.3) mg/dL Estimated GFR (MDRD) 88 L 70 L (>89) Glucose 135 H 130 H (74-104) mg/dL Calcium 8.6 8.8 (8.5-10.3) mg/dL Phosphorus 3.3 (2.5-5.0) mg/dL Magnesium 2.0 (1.7-2.3) mg/dL Crossmatch IS Only 02/01/25 02/01/25 Range/Units 22:29 04:50 WBC 18.4 H (4.8-10.8) x10^3/uL RBC 5.30 (4.70-6.10) 10^6/uL Hgb 12.3 L (14.0-18.0) g/dL Hct 38.3 L (42.0-52.0) % MCV 72.3 L (80.0-94.0) fL MCH 23.2 L (27.0-31.0) pg MCHC 32.1 (32.0-36.0) g/dL RDW 15.7 H (12.0-15.0) % Plt Count 151 (130-450) 10^3/uL MPV 11.0 (7.4-11.4) fL Neut # (Auto) (1.5-6.6) 10^3/uL Lymph # (Auto) (1.5-3.5) 10^3/uL Gaines # (Auto) (0.0-1.0) 10^3/uL Eos # (Auto) (0.0-0.7) 10^3/uL Baso # (Auto) (0.0-0.1) 10^3/uL Absolute Nucleated RBC x10^3/uL Total Counted 100 Band Neuts % (Manual) 10 (0 - 10) % Abnorm Lymph % (Manual) 0 % Nucleated RBC % /100WBC Neutrophils # (Manual) 17.7 H (1.5-6.6) 10^3/uL Lymphocytes # (Manual) 0.2 L (1.5-3.5) 10^3/uL Monocytes # (Manual) 0.6 (0.0-1.0) 10^3/uL Eosinophils # (Manual) 0.0 (0-0.7) 10^3/uL Basophils # (Manual) 0.0 (0-0.1) 10^3/uL Differential Comment MANUAL DIFFERENTIAL Manual Slide Review WBC Morphology NORMAL APPEARANCE (NORMAL) Platelet Estimate NORMAL (130-450,000) (NORMAL) Platelet Morphology NORMAL APPEARANCE (NORMAL) RBC Morph Micro Appear NORMAL APPEARANCE (NORMAL) PT 12.3 (9.9-12.6) secs INR 1.1 (0.8-1.2) Sodium 126 L (135-145) mmol/L Potassium 4.2 (3.5-4.5) mmol/L Chloride 94 L (101-111) mmol/L Carbon Dioxide 23 (21-32) mmol/L Anion Gap 9.0 (6-13) BUN 8 (6-20) mg/dL Creatinine 1.0 (0.6-1.3) mg/dL Estimated GFR (MDRD) 78 L (>89) Glucose 164 H (74-104) mg/dL Calcium 8.8 (8.5-10.3) mg/dL Phosphorus 3.8 (2.5-5.0) mg/dL Magnesium 1.4 L (1.7-2.3) mg/dL Crossmatch IS Only See Detail Assessment/Plan Problem List (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 Became hypotensive , and was transfused 2 u prbcs. CTA did show no bleeding at the anastomosis, but some bleeding at the central mesentery and in the inner rectus. His hypotension improved wth crystalloid bolus and blood. Given his active bleeding, slightly low platelet count and need for pRBCs he was also transfused one unit of platelets for a more balanced approach to resuscitation. DVT prophylaxis restarted- he has no personal hx of DVT, but family hx thromboembolic disease exists. He has had return of bowel function with BM overnight. post op pain control now with narcotics, IV APAP and flexeril (which pt says helps lots). Strongly considered Toradol at 15mg per dose, but discussed with pharmacist and given patient risk fx (post op bleeding, RNYGB) ultimately decided against this. Discussed with Dr Morrison, the rounding general surgeon today. appreciate her input. He is clear for dc from standpoint of general surgery (2) Hemorrhagic shock: Impression: Almost resolved. Due to acute blood loss anemia in the post operative period. see below for explanation and contributing factors. Goal MAP >65. BPs are improving He is now med surg status. CBC in the AM. Trying to avoid iatrogenic anemia (3) Anemia associated with acute blood loss: Impression: 2 U pRBCs resulted in a little less than a 1g rise in Hgb. WRT Hgb, I think the 12.3 is likely slightly hemoconcentrated, as I had requested that his intraop fluids be kept low due to his hyponatremia. There was bleeding,as mentioned above on CTA. At this point after 2 u of pRBCs and one unit of platelet, no large drops, resume daily CBC. hemoglobin is very stable 7.8 yesterday, 7.7 today Laboratory Tests 02/02/25 02/02/25 02/02/25 07:55 10:06 15:56 Hgb 10.3 L 10.3 L 9.2 L 02/02/25 02/03/25 02/03/25 21:18 04:27 10:50 Hgb 8.4 L 8.2 L 8.5 L Laboratory Tests 02/03/25 02/04/25 20:09 04:37 Hgb 9.3 L 7.8 L (4) Hyponatremia: Impression: Chronically low. Likely related to his Pica Fluid balance 4214 ml positive for the admission. Despite all of this fluid, his sodium is slowly improving. has been as high as 131, and as low as 126. Given that his normal value is 126, I do not think he needs to be 130 for discharge to home. Discussed free water restriction with patient and . discussed things that are good to drink (Gatorade, Liquid IV) and bad (plain water). 2 Since iron infusion, he has no desire to crunch ice. (5) Alcohol abuse, in remission: Impression: I am holding naloxone so that narcotics will work. Patient states he is doing fine with this. He will dc to home on oxycodone, and will need to transition off of this and back onto Naltrexone. He has never had a problem with opiate addiction, and he has had several courses of them in his lifetime. (6) Elevated blood pressure reading: Impression: Reading through the PCP notes, I do not see any listed dx of HTN. his blood pressures are certainly elevated in the OP environment. He is on metoprolol succinate 25 mg daily as well as clonidine. I had restarted these as he was hypertensive, but with his acute hemorrhagic shock, I had held these meds.I have moved him over onto po metoprolol and off scheduled IV metoprolol, although there is PRN metoprolol for tachycardia. This has been sinus tachycardia. I would recommend ambulatory blood pressure monitoring and PCP followup. (7) Iron deficiency: Impression: IV Ferrlecit given. dc to home on PNV (8) Nicotine addiction: Impression: He chews tobacco. Zyn pouches (6mg) noted at bedside. he uses about 5 of these daily when he is not able to chew. I also examined his chewing tobacco- no indication of the dosing on this packaging. I asked that these be removed. I have ordered nicoderm 21mg patch daily. I have spent 36 minutes in the care of this patient today. This includes time [id number], review and ordering of diagnostic imaging and laboratory studies and consultation with other providers. Monitoring the patient's signs symptoms, evaluation of medication effectiveness and patient's response to treatment.
[2025-02-06 05:48] LABS: BASOPHILS % (AUTO) 0.2 %; EOSINOPHILS % (AUTO) 0.7 %; HCT - HEMATOCRIT 24.4 % (42.0-52.0); HGB - HEMOGLOBIN 8.1 g/dL (14.0-18.0); LYMPHOCYTES % (AUTO) 7.8 %; MEAN CORPUSCULAR HEMOGLOBIN 25.1 pg (27.0-31.0); MEAN CORPUSCULAR HGB CONC 33.2 g/dL (32.0-36.0); MEAN CORPUSCULAR VOLUME 75.5 fL (80.0-94.0); MEAN PLATELET VOLUME 9.8 fL (7.4-11.4); MONOCYTES % (AUTO) 16.3 %; NEUTROPHILS % (AUTO) 73.7 %; PLT - PLATELET COUNT 208 10^3/uL (130-450); RED BLOOD COUNT 3.23 10^6/uL (4.70-6.10); RED CELL DISTRIBUTION WIDTH 19.1 % (12.0-15.0); WHITE BLOOD COUNT 12.1 x10^3/uL (4.8-10.8)
[2025-02-06 05:56] LABS: ABNORMAL LYMPHS % (MANUAL) 0 %
[2025-02-06 06:03] LABS: CALCIUM 8.8 mg/dL (8.5-10.3); CREATININE 0.8 mg/dL (0.6-1.3); POTASSIUM 4.9 mmol/L (3.5-4.5)
[2025-02-06 06:23] LABS: BAND NEUTROPHILS % (MANUAL) 20 %; EOSINOPHILS # (MANUAL) 0.1 10^3/uL (0-0.7); LYMPHOCYTES % (MANUAL) 8 %; METAMYELOCYTES % (MANUAL) 1 %; MONOCYTES # (MANUAL) 1.5 10^3/uL (0.0-1.0); MYELOCYTES % (MANUAL) 1 %; NEUTROPHILS # (MANUAL) 9.3 10^3/uL (1.5-6.6)
[2025-02-06 06:24] LABS: DIFFERENTIAL COMMENT MANUAL DIFFERENTIAL; PLATELET ESTIMATE, MANUAL NORMAL (130-450,000) (NORMAL); PLATELET MORPHOLOGY NORMAL APPEARANCE (NORMAL); WBC MORPHOLOGY (MULTIPLE) NORMAL APPEARANCE (NORMAL)
[2025-02-06] MEDS: PRENATAL VITAMIN TABLET PO SCH (08:42)
[2025-02-06] MEDS: SODIUM CHLORIDE 1 GM TABLET PO SCH (10:15)
[2025-02-06] MEDS: ONDANSETRON 4 MG/2 ML VIAL IVP PRN (10:20)
--- NOTE | 2025-02-06 11:41 | XRAY Report ---
PROCEDURE: XR Chest 1V INDICATIONS: hypoxia TECHNIQUE: One view of the chest was acquired. COMPARISON: None. FINDINGS: Surgical changes and devices: None. Lungs and pleura: No pleural effusions or pneumothorax. Submaximal inspiration with bibasilar atelec tasis.. Mediastinum: Mediastinal contours appear normal. Heart size is normal. Bones and chest wall: No suspicious bony lesions. Overlying soft tissues appear unremarkable. Upper abdomen: Dilated loops of bowel. Question ileus versus bowel obstruction. Question trace residu al free air from recent surgery IMPRESSION: 1. Submaximal inspiration with bibasilar atelectasis. 2. Question minimal residual free air from recent surgery. 3. Diffuse dilated loops of bowel. Consider ileus versus bowel obstruction. Reviewed by: Garrett Mcdonald MD on 02/06/2025 11:40 AM PDT Approved by: Garrett Mcdonald MD on 02/06/2025 11:40 AM PDT Station ID: [id number]
[2025-02-06] MEDS: IPRATROPIUM/ALBUTEROL 3 ML NEB INH STA (12:17)
[2025-02-06] MEDS ORDERED: iohexoL-300 100 ML VIAL ONE (12:30)
[2025-02-06] MEDS: methylPREDNISolone SUCCINATE 125 MG/2 ML VIAL IVP STA (14:32)
--- NOTE | 2025-02-06 14:46 | PROVIDER PROGRESS NOTE ---
Subjective Prog Note Date Prog Note Date: 02/06/25 Subjective Pt reports feeling: Worse Subjective: Endorsing dyspnea and wheezing Current Medications Current Medications Current Medications: Current Medications Generic Name Dose Route Start Last Admin Trade Name Freq PRN Reason Stop Dose Admin Acetaminophen 1,000 mg 02/03/25 14:00 02/06/25 14:31 Acetaminophen 500 Mg Tablet PO 1,000 mg Q8HR GADIEL Administration Cyclobenzaprine HCl 10 mg 02/01/25 20:14 02/03/25 13:21 Cyclobenzaprine 10 Mg Tablet PO 10 mg TID PRN Administration Spasms Duloxetine HCl 90 mg 02/01/25 13:00 02/06/25 08:36 Duloxetine 30 Mg Capsule PO 90 mg DAILY GADIEL Administration Enoxaparin Sodium 40 mg 02/03/25 21:00 02/06/25 08:36 Enoxaparin 40 Mg/0.4 Ml Syringe SUBQ 40 mg DAILY GADIEL Administration Gabapentin 100 mg 02/03/25 14:00 02/06/25 14:32 Gabapentin 100 Mg Capsule PO 100 mg TID GADIEL Administration Hydromorphone HCl 1 mg 02/02/25 12:18 02/06/25 00:47 Hydromorphone 0.5 Mg/0.5 Ml Syringe IVP 1 mg Q2H PRN Administration Severe Pain (Level 7-10) Lorazepam 0.5 mg 02/06/25 10:16 Lorazepam 2 Mg/Ml Vial IVP Q2H PRN Seizure Metoprolol Succinate 50 mg 02/05/25 11:00 02/06/25 08:36 Metoprolol Succinate 50 Mg Tablet PO 50 mg DAILY GADIEL Administration Metoprolol Tartrate 5 mg 02/03/25 21:12 Metoprolol 5 Mg/5 Ml Vial IVP Q6H PRN Tachycardia Nicotine 1 patch 02/03/25 09:00 02/06/25 08:36 Nicotine 21 Mg Patch TOP 1 patch DAILY GADIEL Administration Ondansetron HCl 4 mg 02/04/25 12:10 02/06/25 10:20 Ondansetron 4 Mg/2 Ml Vial IVP 4 mg Q6HR PRN Administration Nausea / Vomiting Oxycodone HCl 5 mg 02/03/25 11:43 02/06/25 05:53 Oxycodone 5 Mg Tablet PO 5 mg Q4HR PRN Administration Moderate Pain (Level 4-6) Pantoprazole Sodium 40 mg 02/04/25 07:00 02/06/25 06:54 Pantoprazole 40 Mg Tablet PO 40 mg QDAC GADIEL Administration Multivit/Folic Acid/Iron 1 tab 02/06/25 09:20 02/06/25 08:42 Vitamin Tablet PO 1 tab DAILYWM GADIEL Administration Quetiapine Fumarate 50 mg 02/01/25 21:00 02/06/25 08:36 Quetiapine 25 Mg Tablet PO 50 mg BID GADIEL Administration Simethicone 80 mg 02/01/25 21:00 02/06/25 14:32 Simethicone Chew 80 Mg Tablet PO 80 mg 0900,1300,1800,2100 GADIEL Administration Sodium Chloride 10 ml 02/01/25 10:12 02/04/25 21:05 Sodium Chloride Flush 0.9% 10 Ml Syringe IVP 10 ml PRN PRN Administration NEEDED PER PROVIDER ORDERS Sodium Chloride 10 ml 02/01/25 17:00 02/06/25 14:32 Sodium Chloride Flush 0.9% 10 Ml Syringe IVP 10 ml 0100,0900,1700 GADIEL Administration Sodium Chloride 2 gm 02/06/25 10:00 02/06/25 10:15 Sodium Chloride 1 Gm Tablet PO 2 gm BID GADIEL Administration Trazodone HCl 100 mg 02/01/25 21:00 02/05/25 21:26 Trazodone 50 Mg Tablet PO 100 mg HS GADIEL Administration Objective Vital Signs/Intake & Output Reviewed Vital Signs: Yes Vital Signs: Vital Signs x48h Temp Pulse Pulse Pulse Resp BP Pulse Ox 02/06/25 12:20 122 H 18 02/06/25 10:29 123 H 18 153/103 H 94 02/06/25 10:06 36.7 C 134 H 16 149/98 H 93 02/06/25 08:52 02/06/25 08:37 127 H 163/99 H 94 02/06/25 08:05 36.5 C 124 H 24 144/94 H 94 02/06/25 07:59 120 H 95 O2 Flow Rate 02/06/25 12:20 1 02/06/25 10:29 3 02/06/25 10:06 3 02/06/25 08:52 3 02/06/25 08:37 3 02/06/25 08:05 5 02/06/25 07:59 3 Intake & Output: Intake & Output 02/03/25 02/04/25 02/05/25 02/06/25 23:59 23:59 23:59 23:59 Intake Total 4081 / 4081 316 / 316 1745 / 1745 620 / 620 Output Total 2114 / 5 1130 / 1130 855 / 855 425 / 425 Balance 1966 / 1966 -814 / -814 890 / 890 195 / 195 Objective General Appearance: positive No acute distress and Alert Eyes Bilateral: positive Normal inspection and Conjunctivae nml ENT: positive ENT inspection nml Respiratory: positive Chest non-tender and Wheezes Cardiovascular: positive Tachycardia Abdomen: positive No distention and Tenderness Skin: positive Color nml and No rash Extremities: positive Non-tender and No pedal edema Neurologic/Psychiatric: positive Oriented x3 Lab Results 02/06/25 05:22 02/06/25 05:22 Other Labs: Lab Results x24hrs 02/06/25 02/06/25 02/06/25 Range/Units 11:14 05:22 05:22 WBC (4.8-10.8) x10^3/uL RBC (4.70-6.10) 10^6/uL Hgb (14.0-18.0) g/dL Hct (42.0-52.0) % MCV (80.0-94.0) fL MCH (27.0-31.0) pg MCHC (32.0-36.0) g/dL RDW (12.0-15.0) % Plt Count (130-450) 10^3/uL MPV (7.4-11.4) fL Neut # (Auto) (1.5-6.6) 10^3/uL Lymph # (Auto) (1.5-3.5) 10^3/uL Kleberg # (Auto) (0.0-1.0) 10^3/uL Eos # (Auto) (0.0-0.7) 10^3/uL Baso # (Auto) (0.0-0.1) 10^3/uL Absolute Nucleated RBC x10^3/uL Total Counted Band Neuts % (Manual) (0 - 10) % Abnorm Lymph % (Manual) % Metamyelocytes % ( - 0) % Myelocytes % ( - 0) % Nucleated RBC % /100WBC Neutrophils # (Manual) (1.5-6.6) 10^3/uL Lymphocytes # (Manual) (1.5-3.5) 10^3/uL Monocytes # (Manual) (0.0-1.0) 10^3/uL Eosinophils # (Manual) (0-0.7) 10^3/uL Basophils # (Manual) (0-0.1) 10^3/uL Differential Comment Manual Slide Review WBC Morphology (NORMAL) Platelet Estimate (NORMAL) Platelet Morphology (NORMAL) RBC Morph Micro Appear 1+ OVALOCYTES 2+ HYPOCHROMASIA (NORMAL) PT (9.9-12.6) secs INR (0.8-1.2) D-Dimer > 1050.0 H (200.0-255.0) ng/mL Sodium 128 L (135-145) mmol/L Potassium 4.9 H (3.5-4.5) mmol/L Chloride 93 L (101-111) mmol/L Carbon Dioxide 27 (21-32) mmol/L Anion Gap 8.0 (6-13) BUN 14 (6-20) mg/dL Creatinine 0.8 (0.6-1.3) mg/dL Estimated GFR (MDRD) 101 (>89) Glucose 114 H (74-104) mg/dL Calcium 8.8 (8.5-10.3) mg/dL Phosphorus (2.5-5.0) mg/dL Magnesium (1.7-2.3) mg/dL 02/06/25 02/02/25 02/01/25 Range/Units 05:22 15:56 04:50 WBC 12.1 H 17.1 H 18.4 H (4.8-10.8) x10^3/uL RBC 3.23 L 3.63 L 5.30 (4.70-6.10) 10^6/uL Hgb 8.1 L 9.2 L 12.3 L (14.0-18.0) g/dL Hct 24.4 L 28.1 L 38.3 L (42.0-52.0) % MCV 75.5 L 77.4 L 72.3 L (80.0-94.0) fL MCH 25.1 L 25.3 L 23.2 L (27.0-31.0) pg MCHC 33.2 32.7 32.1 (32.0-36.0) g/dL RDW 19.1 H 17.9 H 15.7 H (12.0-15.0) % Plt Count 208 147 151 (130-450) 10^3/uL MPV 9.8 11.2 11.0 (7.4-11.4) fL Neut # (Auto) Not Reportable 14.2 H (1.5-6.6) 10^3/uL Lymph # (Auto) Not Reportable 1.2 L (1.5-3.5) 10^3/uL Kleberg # (Auto) Not Reportable 1.6 H (0.0-1.0) 10^3/uL Eos # (Auto) Not Reportable 0.1 (0.0-0.7) 10^3/uL Baso # (Auto) Not Reportable 0.0 (0.0-0.1) 10^3/uL Absolute Nucleated RBC Not Reportable 0.00 x10^3/uL Total Counted 100 100 Band Neuts % (Manual) 20 H 10 (0 - 10) % Abnorm Lymph % (Manual) 0 0 % Metamyelocytes % 1 H ( - 0) % Myelocytes % 1 H ( - 0) % Nucleated RBC % Not Reportable 0.0 /100WBC Neutrophils # (Manual) 9.3 H 17.7 H (1.5-6.6) 10^3/uL Lymphocytes # (Manual) 1.0 L 0.2 L (1.5-3.5) 10^3/uL Monocytes # (Manual) 1.5 H 0.6 (0.0-1.0) 10^3/uL Eosinophils # (Manual) 0.1 0.0 (0-0.7) 10^3/uL Basophils # (Manual) 0.0 0.0 (0-0.1) 10^3/uL Differential Comment MANUAL DIFFERENTIAL MANUAL DIFFERENTIAL Manual Slide Review Indicated WBC Morphology NORMAL APPEARANCE NORMAL APPEARANCE NORMAL APPEARANCE (NORMAL) Platelet Estimate NORMAL (130-450,000) NORMAL (130-450,000) NORMAL (130- 450,000) (NORMAL) Platelet Morphology NORMAL APPEARANCE NORMAL APPEARANCE NORMAL APPEARANCE (NORMAL) RBC Morph Micro Appear 1+ ANISOCYTOSIS NORMAL APPEARANCE NORMAL APPEARANCE (NORMAL) PT 12.3 (9.9-12.6) secs INR 1.1 (0.8-1.2) D-Dimer (200.0-255.0) ng/mL Sodium 128 L 126 L (135-145) mmol/L Potassium 4.4 4.2 (3.5-4.5) mmol/L Chloride 97 L 94 L (101-111) mmol/L Carbon Dioxide 26 23 (21-32) mmol/L Anion Gap 5.0 L 9.0 (6-13) BUN 11 8 (6-20) mg/dL Creatinine 1.1 1.0 (0.6-1.3) mg/dL Estimated GFR (MDRD) 70 L 78 L (>89) Glucose 130 H 164 H (74-104) mg/dL Calcium 8.8 8.8 (8.5-10.3) mg/dL Phosphorus 3.3 3.8 (2.5-5.0) mg/dL Magnesium 2.0 1.4 L (1.7-2.3) mg/dL Assessment/Plan Problem List (1) Acute hypoxic respiratory failure: Impression: Has been needing oxygen at night. Today, he requires oxygen while awake and with ambulation. Audible wheezes. I do not see any mention of COPD on his chart, but he does have a smoking history. I ordered 125 mg Solu-Medrol IV push and a DuoNeb. He has a PERC score of 3 and a positive D-dimer so I am sending him for a CTA chest. I am ordering prednisone 40 mg daily burst I am ordering DuoNeb RT 4 times daily prn No infectious concern from chest x-ray (2) Cecal volvulus: Impression: Postop day 5 right colectomy for cecal volvulus. Has needed 2 units PRBC and 1 unit of platelet for postop bleeding in the central mesentery. His bleeding has resolved and his DVT prophylaxis has been restarted. Is having bowel movements, okay for soft diet. I have transitioned his pain medicine over to oral Tylenol, Flexeril and IV hydromorphone 0.5 mg every 2 hours as needed (3) Hemorrhagic shock: Impression: Blood pressure stable now. Hemoglobin trending back up. Today his hemoglobin is 8.1 (4) Anemia associated with acute blood loss: Impression: Anemia improving as above (5) Hyponatremia: Impression: Chronically low. Likely related to his Pica Has received large amounts of fluids during the admission. Sodium is still low regardless. I have started salt tabs. has been as high as 131, and as low as 126. Given that his normal value is 126, I do not think he needs to be 130 for discharge to home. Discussed free water restriction with patient and . discussed things that are good to drink (Gatorade, Liquid IV) and bad (plain water). Pica resolved after iron infusion (6) Alcohol abuse, in remission: Impression: Restarting home dose naltrexone. He has only needed 1 dose each of his IV and oral narcotics. I am changing his Flexeril to scheduled to help with pain control (7) Elevated blood pressure reading: Impression: Reading through the PCP notes, I do not see any listed dx of HTN. his blood pressures are certainly elevated in the OP environment. He is on metoprolol succinate 25 mg daily as well as clonidine. I had restarted these as he was hypertensive, but with his acute hemorrhagic shock, I had held these meds.I have moved him over onto po metoprolol and off scheduled IV metoprolol, although there is PRN metoprolol for tachycardia. This has been sinus tachycardia. I would recommend ambulatory blood pressure monitoring and PCP followup. (8) Iron deficiency: Impression: IV Ferrlecit given. dc to home on PNV (9) Nicotine addiction: Impression: Uses Nithin pouches. Continue nicotine patch
--- NOTE | 2025-02-06 21:32 | CT Report ---
PROCEDURE: CT Angio Chest INDICATIONS: Rule out PE TECHNIQUE: Helical axial CT of the chest was obtained during the angiographic phase of an intravenou s contrast injection. Multiplanar and MIP reformats utilized. Radiation dose reduction was achieved u tilizing automated exposure control or adjustment of mA and/or kV according to patient size. COMPARISON: 02/01/2025 FINDINGS: Vasculature: No evidence of pulmonary embolism, aortic dissection or aneurysm. Lungs and pleura: Left lower lobe calcified granuloma. Moderate left pleural effusion and smaller rig ht-sided pleural effusion associated with compressive atelectasis. Patchy bilateral pulmonary infiltr ates Mediastinum: Heart size is enlarged. No pericardial effusion. No large vessel abnormality. No mediast inal adenopathy by size criteria. Chest wall and lower neck: Thyroid is unremarkable. No axillary or supraclavicular adenopathy by size . Bones: No aggressive osseous abnormality. Upper Abdomen: Small bowel obstruction and free air, improving from the prior exam. Prior gastric mariana janeth and cholecystectomy. IMPRESSION: No evidence of pulmonary embolism, aortic dissection or aneurysm Patchy bilateral pulmonary atelectasis and or infiltrates present. Associated bilateral pleural effus ions greater on the left. Small bowel obstruction and persistent but improving pneumoperitoneum Reviewed by: Han Cabrera MD on 02/06/2025 8:30 PM AKDT Approved by: Han Cabrera MD on 02/06/2025 8:30 PM AKDT Station ID: [id number]
[2025-02-06] MEDS: cefTRIAXone 1 GM VIAL IVP SCH (22:10)
[2025-02-06] MEDS: CYCLOBENZAPRINE 10 MG TABLET PO SCH (22:11)
[2025-02-06] MEDS: AZITHROMYCIN 250 MG TABLET PO SCH (22:11)
[2025-02-06] MEDS: IPRATROPIUM/ALBUTEROL 3 ML NEB INH PRN (23:36)
--- NOTE | 2025-02-07 01:01 | PROVIDER PROGRESS NOTE ---
Regulatory Compliance Specialist Note Regulatory Compliance Specialist Note Regulatory Compliance Specialist Note: per rn "Pt had a right colectomy anastomosis on 01/31/25, had since developed active bleeding from the messentery and pneumoperitoneum. Pt has received multiple blood transfusions to correct blood loss. Pt has had new shortness of breath all day and is now on 4L via NC. Pt had a chest CT today that was read at 2114 which indicated bilateral pulmonary atelectasis and infiltrates present along with bilateral pleural effusions, improving pneumoperitoneum. Notified of reading at 2129 who started pt on abx. Pt now aubilbly wheezing and has tightness in chest. Now meeting sepsis criteria for WBC of 12.1, RR 24-26, and pulse consistently in the 110's. Can we please have orders for blood cultures, lactic, CBC, and any other orders you would like. Thank you!" cbc, cmp, mag, lactic acid, troponin, procalcitonin, covid, flu, rsv, resp panel, blood cultures ordered duoneb x 1 lopressor 2.5 mg iv x1
[2025-02-07] MEDS: IPRATROPIUM/ALBUTEROL 3 ML NEB INH ONE (01:15)
[2025-02-07] MEDS: METOPROLOL 5 MG/5 ML VIAL IVP ONE ×2 (01:23→01:44)
[2025-02-07 01:28] LABS: BASOPHILS % (AUTO) 0.4 %; EOSINOPHILS % (AUTO) 0.2 %; HCT - HEMATOCRIT 25.6 % (42.0-52.0); HGB - HEMOGLOBIN 8.2 g/dL (14.0-18.0); LYMPHOCYTES % (AUTO) 3.5 %; MEAN CORPUSCULAR HEMOGLOBIN 24.6 pg (27.0-31.0); MEAN CORPUSCULAR VOLUME 76.6 fL (80.0-94.0); MEAN PLATELET VOLUME 9.9 fL (7.4-11.4); MONOCYTES % (AUTO) 8.3 %; NEUTROPHILS % (AUTO) 86.4 %; PLT - PLATELET COUNT 257 10^3/uL (130-450); RED BLOOD COUNT 3.34 10^6/uL (4.70-6.10); RED CELL DISTRIBUTION WIDTH 19.1 % (12.0-15.0)
[2025-02-07 01:32] LABS: ABNORMAL LYMPHS % (MANUAL) 0 %
[2025-02-07 01:46] LABS: ALBUMIN 3.4 g/dL (3.2-5.5); BILIRUBIN,TOTAL 0.5 mg/dL (0.2-1.0); CALCIUM 8.9 mg/dL (8.5-10.3); CREATININE 0.7 mg/dL (0.6-1.3); POTASSIUM 4.4 mmol/L (3.5-4.5); TOTAL PROTEIN 6.9 g/dL (6.4-8.9)
[2025-02-07 01:59] LABS: BAND NEUTROPHILS % (MANUAL) 15 %; LYMPHOCYTES # (MANUAL) 0.8 10^3/uL (1.5-3.5); LYMPHOCYTES % (MANUAL) 6 %; MONOCYTES # (MANUAL) 1.2 10^3/uL (0.0-1.0); NEUTROPHILS # (MANUAL) 11.1 10^3/uL (1.5-6.6); PLATELET MORPHOLOGY NORMAL APPEARANCE (NORMAL)
[2025-02-07 02:00] LABS: DIFFERENTIAL COMMENT MANUAL DIFFERENTIAL; PLATELET ESTIMATE, MANUAL NORMAL (130-450,000) (NORMAL); WBC MORPHOLOGY (MULTIPLE) NORMAL APPEARANCE (NORMAL)
[2025-02-07 02:39] LABS: B. PARAPERTUSSIS- RESP PCR PAN NOT DETECTED; B. PERTUSSIS- RESP PCR PANEL NOT DETECTED; C. PNEUMONIAE- RESP PCR PANEL NOT DETECTED; CORONAVIRUS 229E-RESP PCR NOT DETECTED; CORONAVIRUS HKU1-RESP PCR NOT DETECTED; CORONAVIRUS NL63-RESP PCR NOT DETECTED; CORONAVIRUS OC43-RESP PCR NOT DETECTED; HUMAN METAPNEUMOVIRUS NOT DETECTED; INFLUENZA A- RESP PCR PANEL NOT DETECTED; INFLUENZA B - RESP PCR PANEL NOT DETECTED; M. PNEUMONIAE- RESP PCR PANEL NOT DETECTED; PARAINFLUENZA VIRUS 1 NOT DETECTED; PARAINFLUENZA VIRUS 2 NOT DETECTED; PARAINFLUENZA VIRUS 4 NOT DETECTED; RHINOVIRUS/ENTEROVIRUS NOT DETECTED; RSV- RESP PCR PANEL NOT DETECTED; SARS-CoV-2 -RESP PCR PANEL NOT DETECTED
[2025-02-07 06:09] LABS: CALCIUM 9.1 mg/dL (8.5-10.3); CREATININE 0.8 mg/dL (0.6-1.3); POTASSIUM 4.9 mmol/L (3.5-4.5)
[2025-02-07] MEDS: predniSONE 20 MG TABLET PO SCH (08:17)
[2025-02-07] MEDS: FUROSEMIDE 20 MG/2 ML VIAL IVP ONE (08:20)
--- NOTE | 2025-02-07 12:44 | PROVIDER PROGRESS NOTE ---
Subjective Prog Note Date Prog Note Date: 02/07/25 Subjective Pt reports feeling: Improved Current Medications Current Medications Current Medications: Current Medications Generic Name Dose Route Start Last Admin Trade Name Freq PRN Reason Stop Dose Admin Acetaminophen 1,000 mg 02/03/25 14:00 02/07/25 05:45 Acetaminophen 500 Mg Tablet PO 1,000 mg Q8HR GADIEL Administration Albuterol/Ipratropium 3 ml 02/06/25 14:52 02/06/25 23:36 Ipratropium/Albuterol 3 Ml Neb INH 3 ml RTQID PRN Administration Shortness of Air/Wheezing Azithromycin 500 mg 02/06/25 21:45 02/07/25 08:17 Azithromycin 250 Mg Tablet PO 500 mg DAILY GADIEL Administration Ceftriaxone Sodium 1 gm 02/06/25 22:00 02/06/25 22:10 Ceftriaxone 1 Gm Vial IVP 1 gm Q24H GADIEL Administration Cyclobenzaprine HCl 10 mg 02/06/25 22:00 02/07/25 05:46 Cyclobenzaprine 10 Mg Tablet PO 10 mg TID GADIEL Administration Duloxetine HCl 90 mg 02/01/25 13:00 02/07/25 08:18 Duloxetine 30 Mg Capsule PO 90 mg DAILY GADIEL Administration Enoxaparin Sodium 40 mg 02/03/25 21:00 02/07/25 08:16 Enoxaparin 40 Mg/0.4 Ml Syringe SUBQ 40 mg DAILY GADIEL Administration Gabapentin 100 mg 02/03/25 14:00 02/07/25 05:45 Gabapentin 100 Mg Capsule PO 100 mg TID GADIEL Administration Lorazepam 0.5 mg 02/06/25 10:16 Lorazepam 2 Mg/Ml Vial IVP Q2H PRN Seizure Metoprolol Succinate 50 mg 02/05/25 11:00 02/07/25 08:17 Metoprolol Succinate 50 Mg Tablet PO 50 mg DAILY GADIEL Administration Metoprolol Tartrate 5 mg 02/03/25 21:12 Metoprolol 5 Mg/5 Ml Vial IVP Q6H PRN Tachycardia Nicotine 1 patch 02/03/25 09:00 02/07/25 08:17 Nicotine 21 Mg Patch TOP 1 patch DAILY GADIEL Administration Ondansetron HCl 4 mg 02/04/25 12:10 02/06/25 10:20 Ondansetron 4 Mg/2 Ml Vial IVP 4 mg Q6HR PRN Administration Nausea / Vomiting Oxycodone HCl 5 mg 02/03/25 11:43 02/07/25 12:14 Oxycodone 5 Mg Tablet PO 5 mg Q4HR PRN Administration Moderate Pain (Level 4-6) Pantoprazole Sodium 40 mg 02/04/25 07:00 02/07/25 05:45 Pantoprazole 40 Mg Tablet PO 40 mg QDAC GADIEL Administration Prednisone 40 mg 02/07/25 08:00 02/07/25 08:17 Prednisone 20 Mg Tablet PO 40 mg DAILYWM GADIEL Administration Multivit/Folic Acid/Iron 1 tab 02/06/25 09:20 02/07/25 08:18 Vitamin Tablet PO 1 tab DAILYWM GADIEL Administration Quetiapine Fumarate 50 mg 02/01/25 21:00 02/07/25 08:17 Quetiapine 25 Mg Tablet PO 50 mg BID GADIEL Administration Simethicone 80 mg 02/01/25 21:00 02/07/25 12:14 Simethicone Chew 80 Mg Tablet PO 80 mg 0900,1300,1800,2100 GADIEL Administration Sodium Chloride 10 ml 02/01/25 10:12 02/04/25 21:05 Sodium Chloride Flush 0.9% 10 Ml Syringe IVP 10 ml PRN PRN Administration NEEDED PER PROVIDER ORDERS Sodium Chloride 10 ml 02/01/25 17:00 02/07/25 08:18 Sodium Chloride Flush 0.9% 10 Ml Syringe IVP 10 ml 0100,0900,1700 GADIEL Administration Sodium Chloride 2 gm 02/06/25 10:00 02/07/25 08:20 Sodium Chloride 1 Gm Tablet PO 2 gm BID GADIEL Administration Trazodone HCl 100 mg 02/01/25 21:00 02/06/25 20:53 Trazodone 50 Mg Tablet PO 100 mg HS GADIEL Administration Objective Vital Signs/Intake & Output Reviewed Vital Signs: Yes Vital Signs: Vital Signs x48h Temp Pulse Resp BP Pulse Ox 02/07/25 08:29 36.3 C L 109 H 18 153/95 H 93 Intake & Output: Intake & Output 02/04/25 02/05/25 02/06/25 02/07/25 23:59 23:59 23:59 23:59 Intake Total 316 / 316 1745 / 1745 1120 / 1120 300 / 300 Output Total 1130 / 1130 855 / 855 775 / 775 175 / 175 Balance -814 / -814 890 / 890 345 / 345 125 / 125 Objective General Appearance: positive No acute distress and Alert Eyes Bilateral: positive Normal inspection and Conjunctivae nml ENT: positive ENT inspection nml Respiratory: positive Chest non-tender and Wheezes (Improved) Cardiovascular: positive Tachycardia Abdomen: positive No distention and Tenderness Skin: positive Color nml and No rash Extremities: positive Non-tender and No pedal edema Neurologic/Psychiatric: positive Oriented x3 Lab Results 02/07/25 01:15 02/07/25 05:24 Other Labs: Lab Results x24hrs 02/07/25 02/07/25 02/07/25 Range/Units 05:24 01:35 01:15 WBC (4.8-10.8) x10^3/uL RBC (4.70-6.10) 10^6/uL Hgb (14.0-18.0) g/dL Hct (42.0-52.0) % MCV (80.0-94.0) fL MCH (27.0-31.0) pg MCHC (32.0-36.0) g/dL RDW (12.0-15.0) % Plt Count (130-450) 10^3/uL MPV (7.4-11.4) fL Neut # (Auto) Lymph # (Auto) Fergus # (Auto) Eos # (Auto) Baso # (Auto) Absolute Nucleated RBC Total Counted Band Neuts % (Manual) (0 - 10) % Abnorm Lymph % (Manual) % Nucleated RBC % Neutrophils # (Manual) (1.5-6.6) 10^3/uL Lymphocytes # (Manual) (1.5-3.5) 10^3/uL Monocytes # (Manual) (0.0-1.0) 10^3/uL Eosinophils # (Manual) (0-0.7) 10^3/uL Basophils # (Manual) (0-0.1) 10^3/uL Differential Comment WBC Morphology (NORMAL) Platelet Estimate (NORMAL) Platelet Morphology (NORMAL) RBC Morph Micro Appear 1+ HYPOCHROMASIA (NORMAL) Sodium 127 L 127 L (135-145) mmol/L Potassium 4.9 H 4.4 (3.5-4.5) mmol/L Chloride 93 L 91 L (101-111) mmol/L Carbon Dioxide 28 25 (21-32) mmol/L Anion Gap 6.0 11.0 (6-13) BUN 12 13 (6-20) mg/dL Creatinine 0.8 0.7 (0.6-1.3) mg/dL Estimated GFR (MDRD) 101 118 (>89) Glucose 159 H 149 H (74-104) mg/dL Lactic Acid 0.8 (0.5-2.2) mmol/L Calcium 9.1 8.9 (8.5-10.3) mg/dL Magnesium 2.0 (1.7-2.3) mg/dL Total Bilirubin 0.5 (0.2-1.0) mg/dL AST 11 (10-42) IU/L ALT 9 L (10-60) IU/L Alkaline Phosphatase 101 (42-121) IU/L Total Protein 6.9 (6.4-8.9) g/dL Albumin 3.4 (3.2-5.5) g/dL Globulin 3.5 (2.1-4.2) g/dL Albumin/Globulin Ratio 1.0 (1.0-2.2) Procalcitonin Immunoas 0.77 H (<0.5) ng/mL Nasal Adenovirus (PCR) NOT DETECTED Nasal B. parapertussis DNA (PCR) NOT DETECTED Nasal Coronavir 229E PCR NOT DETECTED Nasal Coronavir HKU1 PCR NOT DETECTED Nasal Coronavir NL63 PCR NOT DETECTED Nasal Coronavir OC43 PCR NOT DETECTED Nasal Enterovir/Rhinovir PCR NOT DETECTED Nasal Influenza B PCR NOT DETECTED Nasal Influenza A PCR NOT DETECTED Nasal Parainfluen 1 PCR NOT DETECTED Nasal Parainfluen 2 PCR NOT DETECTED Nasal Parainfluen 3 PCR NOT DETECTED Nasal Parainfluen 4 PCR NOT DETECTED Nasal RSV (PCR) NOT DETECTED Nasal B.pertussis DNA PCR NOT DETECTED Nasal C.pneumoniae (PCR) NOT DETECTED Moshe Human Metapneumo PCR NOT DETECTED Nasal M.pneumoniae (PCR) NOT DETECTED Nasal SARS-CoV-2 (PCR) NOT DETECTED 02/07/25 02/07/25 Range/Units 01:15 01:15 WBC 13.0 H (4.8-10.8) x10^3/uL RBC 3.34 L (4.70-6.10) 10^6/uL Hgb 8.2 L (14.0-18.0) g/dL Hct 25.6 L (42.0-52.0) % MCV 76.6 L (80.0-94.0) fL MCH 24.6 L (27.0-31.0) pg MCHC 32.0 (32.0-36.0) g/dL RDW 19.1 H (12.0-15.0) % Plt Count 257 (130-450) 10^3/uL MPV 9.9 (7.4-11.4) fL Neut # (Auto) Not Reportable Lymph # (Auto) Not Reportable Fergus # (Auto) Not Reportable Eos # (Auto) Not Reportable Baso # (Auto) Not Reportable Absolute Nucleated RBC Not Reportable Total Counted 100 Band Neuts % (Manual) 15 H (0 - 10) % Abnorm Lymph % (Manual) 0 % Nucleated RBC % Not Reportable Neutrophils # (Manual) 11.1 H (1.5-6.6) 10^3/uL Lymphocytes # (Manual) 0.8 L (1.5-3.5) 10^3/uL Monocytes # (Manual) 1.2 H (0.0-1.0) 10^3/uL Eosinophils # (Manual) 0.0 (0-0.7) 10^3/uL Basophils # (Manual) 0.0 (0-0.1) 10^3/uL Differential Comment MANUAL DIFFERENTIAL WBC Morphology NORMAL APPEARANCE (NORMAL) Platelet Estimate NORMAL (130-450,000) (NORMAL) Platelet Morphology NORMAL APPEARANCE (NORMAL) RBC Morph Micro Appear 1+ MICROCYTOSIS 1+ ANISOCYTOSIS (NORMAL) Sodium (135-145) mmol/L Potassium (3.5-4.5) mmol/L Chloride (101-111) mmol/L Carbon Dioxide (21-32) mmol/L Anion Gap (6-13) BUN (6-20) mg/dL Creatinine (0.6-1.3) mg/dL Estimated GFR (MDRD) (>89) Glucose (74-104) mg/dL Lactic Acid (0.5-2.2) mmol/L Calcium (8.5-10.3) mg/dL Magnesium (1.7-2.3) mg/dL Total Bilirubin (0.2-1.0) mg/dL AST (10-42) IU/L ALT (10-60) IU/L Alkaline Phosphatase (42-121) IU/L Total Protein (6.4-8.9) g/dL Albumin (3.2-5.5) g/dL Globulin (2.1-4.2) g/dL Albumin/Globulin Ratio (1.0-2.2) Procalcitonin Immunoas (<0.5) ng/mL Nasal Adenovirus (PCR) Nasal B. parapertussis DNA (PCR) Nasal Coronavir 229E PCR Nasal Coronavir HKU1 PCR Nasal Coronavir NL63 PCR Nasal Coronavir OC43 PCR Nasal Enterovir/Rhinovir PCR Nasal Influenza B PCR Nasal Influenza A PCR Nasal Parainfluen 1 PCR Nasal Parainfluen 2 PCR Nasal Parainfluen 3 PCR Nasal Parainfluen 4 PCR Nasal RSV (PCR) Nasal B.pertussis DNA PCR Nasal C.pneumoniae (PCR) Moshe Human Metapneumo PCR Nasal M.pneumoniae (PCR) Nasal SARS-CoV-2 (PCR) Assessment/Plan Problem List (1) Acute hypoxic respiratory failure: Impression: Has been needing oxygen at night. Today, he requires oxygen while awake and with ambulation. Audible wheezes. I do not see any mention of COPD on his chart, but he does have a smoking history. I ordered 125 mg Solu-Medrol IV push and a DuoNeb. He has a PERC score of 3 and a positive D-dimer so I am sending him for a CTA chest. I am ordering prednisone 40 mg daily burst I am ordering DuoNeb RT 4 times daily prn No infectious concern from chest x-ray 02/07/2025: Since time of last note, his D-dimer resulted positive, so he underwent CTA chest. CTA chest showed patchy opacities concerning for infection and pleural effusions but was negative for PE. I am continuing his prednisone and DuoNebs. Procalcitonin positive, viral panel negative. I started him on Rocephin and azithromycin last night. He is feeling somewhat better today. 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 Has needed 2 units PRBC and 1 unit of platelet for postop bleeding in the central mesentery. His bleeding has resolved and his DVT prophylaxis has been restarted. Is having bowel movements, okay for soft diet. I have transitioned his pain medicine over to oral Tylenol, Flexeril and IV hydromorphone 0.5 mg every 2 hours as needed 02/07/2025: Reports good appetite and consistent bowel movements. Only needed 1 dose of IV Dilaudid last night and oxycodone this morning. I discontinued his Dilaudid so that we can make sure that his pain is managed on oral regimen. His has been asked to bring his home dose naltrexone in so that we can start that back. Patient would like to see if his pain can be managed with only his naltrexone and Tylenol in the outpatient setting so we will go ahead and attempt that here (3) Hemorrhagic shock: Impression: Blood pressure stable now. Hemoglobin trending back up. Today his hemoglobin is 8.2 (4) Anemia associated with acute blood loss: Impression: Anemia improving as above (5) Hyponatremia: Impression: Chronically low. Likely related to his Pica Has received large amounts of fluids during the admission. Sodium is still low regardless. I have started salt tabs. has been as high as 131, and as low as 126. Given that his normal value is 126, I do not think he needs to be 130 for discharge to home. Discussed free water restriction with patient and . discussed things that are good to drink (Gatorade, Liquid IV) and bad (plain water). Pica resolved after iron infusion (6) Alcohol abuse, in remission: Impression: Restarting home dose naltrexone. He has only needed 1 dose each of his IV and oral narcotics. I am changing his Flexeril to scheduled to help with pain control (7) Elevated blood pressure reading: Impression: Reading through the PCP notes, I do not see any listed dx of HTN. his blood pressures are certainly elevated in the OP environment. He is on metoprolol succinate 25 mg daily as well as clonidine. I had restarted these as he was hypertensive, but with his acute hemorrhagic shock, I had held these meds.I have moved him over onto po metoprolol and off scheduled IV metoprolol, although there is PRN metoprolol for tachycardia. This has been sinus tachycardia. I would recommend ambulatory blood pressure monitoring and PCP followup. (8) Iron deficiency: Impression: IV Ferrlecit given. dc to home on PNV (9) Nicotine addiction: Impression: Uses Nithin pouches. Continue nicotine patch
[2025-02-08] MEDS: METOPROLOL 5 MG/5 ML VIAL IVP PRN (03:11)
[2025-02-08] MEDS: LORazepam 2 MG/ML VIAL IVP PRN (04:12)
--- NOTE | 2025-02-08 04:26 | PROVIDER PROGRESS NOTE ---
[employer] Sheets Supervisor Note [employer] Supervisor Note [employer] Supervisor Note: per nurse "please can we order repeat labs- CBC and CMP and VBG and imaging for his effusions. RT did a breathing treatment and it made no difference. he is having acute confusion now and needs chest and abdomen imaging to evaluate bleeding from surgery and lung status. his blood on flashback with the PIV start looked very light colored and I am concerned about H/H dropping. Also can we draw a lactic" discussed with rn ct chest/abd/pelvis ordered also requested rn to update on-call gen surg regarding pt status as above and concern for possible surgical findings (imaging being done for clarity) continue close monitoring
[2025-02-08 04:32] LABS: BASOPHILS % (AUTO) 0.3 %; HCT - HEMATOCRIT 25.4 % (42.0-52.0); HGB - HEMOGLOBIN 8.3 g/dL (14.0-18.0); LYMPHOCYTES % (AUTO) 6.2 %; MEAN CORPUSCULAR HEMOGLOBIN 24.8 pg (27.0-31.0); MEAN CORPUSCULAR HGB CONC 32.7 g/dL (32.0-36.0); MEAN CORPUSCULAR VOLUME 75.8 fL (80.0-94.0); MEAN PLATELET VOLUME 10.1 fL (7.4-11.4); NEUTROPHILS % (AUTO) 82.8 %; PLT - PLATELET COUNT 374 10^3/uL (130-450); RED BLOOD COUNT 3.35 10^6/uL (4.70-6.10); RED CELL DISTRIBUTION WIDTH 19.3 % (12.0-15.0); WHITE BLOOD COUNT 20.4 x10^3/uL (4.8-10.8)
[2025-02-08 04:38] LABS: ABNORMAL LYMPHS % (MANUAL) 0 %
[2025-02-08 04:48] LABS: ALBUMIN 3.2 g/dL (3.2-5.5); ALBUMIN/GLOBULIN RATIO 1.1 (1.0-2.2); BILIRUBIN,TOTAL 0.5 mg/dL (0.2-1.0); CALCIUM 8.9 mg/dL (8.5-10.3); CREATININE 0.8 mg/dL (0.6-1.3); POTASSIUM 3.7 mmol/L (3.5-4.5); TOTAL PROTEIN 6.2 g/dL (6.4-8.9)
[2025-02-08 04:49] LABS: VBG PCO2 42.1 mmHg (41-51); VBG PH 7.485 (7.31-7.41)
[2025-02-08 04:50] LABS: VBG BASE EXCESS 6.6 mmol/L (-2 - +2); VBG PO2 49.9 mmHg (25-47); VBG TOTAL CO2 31.8 mmol/L (24-29)
[2025-02-08] MEDS ORDERED: LORazepam 2 MG/ML VIAL IVP SCH (05:00)
[2025-02-08 05:52] LABS: BAND NEUTROPHILS % (MANUAL) 17 %; LYMPHOCYTES # (MANUAL) 1.6 10^3/uL (1.5-3.5); LYMPHOCYTES % (MANUAL) 8 %; METAMYELOCYTES % (MANUAL) 3 %; MYELOCYTES % (MANUAL) 3 %; NEUTROPHILS # (MANUAL) 16.5 10^3/uL (1.5-6.6); PLATELET ESTIMATE, MANUAL NORMAL (130-450,000) (NORMAL); PLATELET MORPHOLOGY NORMAL APPEARANCE (NORMAL)
[2025-02-08 05:53] LABS: DIFFERENTIAL COMMENT MANUAL DIFFERENTIAL; WBC MORPHOLOGY (MULTIPLE) 1+ TOXIC GRANULATION (NORMAL)
[2025-02-08] MEDS: LORazepam 2 MG/ML VIAL IVP ONE ×3 (06:27→10:26)
--- NOTE | 2025-02-08 06:54 | PROVIDER PROGRESS NOTE ---
Drawbridge Operator Note Drawbridge Operator Note Drawbridge Operator Note: per rn "Pt admitted for Cecal Volvulus and had surgery for same on 02/01/25. His stat CT Abdomen/Pelvis shows the following critical findings: A high-grade small-bowel obstruction with increased dilatation of small-bowel loops. Increased ascites and hemoperitoneum with loculated pelvic collections noted. CT also mentions a large pocket of subacute blood is noted near the previously descreibed extravations site. This pocket measures approximately 7.3x5.4x5.6 cm." discussed with rn, who contact general surgery --> no emergent intervention at this time gen surg will evaluate pt this am pt still agitated --> repeat dose of ativan ordered
[2025-02-08] MEDS ORDERED: NITROGLYCERIN SL 0.4 MG TABLET SL ONE (07:12)
[2025-02-08] MEDS ORDERED: NITROGLYCERIN SL 0.4 MG TABLET SL PRN (07:19)
[2025-02-08] MEDS: LORazepam 2 MG/ML VIAL IVP SCH (07:45)
--- NOTE | 2025-02-08 07:51 | XRAY Report ---
PROCEDURE: XR Chest 1V INDICATIONS: SOB, chest pain TECHNIQUE: One view of the chest was acquired. COMPARISON: None. FINDINGS: Surgical changes and devices: Upper abdominal clips. Lungs and pleura: Submaximal inspiration. Focal infiltrate, right upper lobe medially. Patchy bibasi lar atelectasis. Mediastinum: Mediastinal contours appear normal. Heart size is normal. Bones and chest wall: No suspicious bony lesions. Overlying soft tissues appear unremarkable. IMPRESSION: Focal pneumonia, right upper lobe, bibasilar atelectasis. Progress films are recommended until clear. Reviewed by: Garrett Mcdonald MD on 02/08/2025 7:49 AM PDT Approved by: Garrett Mcdonald MD on 02/08/2025 7:49 AM PDT Station ID: [id number]
[2025-02-08] MEDS: FUROSEMIDE 20 MG/2 ML VIAL IVP ONE (08:15)
[2025-02-08] MEDS: HALOPERIDOL 5 MG/ML VIAL IM ONE (08:15)
--- NOTE | 2025-02-08 08:16 | CT Report ---
PROCEDURE: CT Abdomen/Pelvis WO INDICATIONS: nausea, vomiting, pain TECHNIQUE: A CT scan of the abdomen and pelvis was performed without the use of intravenous contrast. Images we re recorded and evaluated at appropriate window settings. Reformats: coronal and sagittal. For radiat ion dose reduction, the following was used: automated exposure control, adjustment of mA and/or kV ac cording to patient size. COMPARISON: CTA chest dated 02/06/2025, CT angiogram of the abdomen and pelvis dated 02/01/2025, CT ab domen and pelvis with contrast dated 01/31/2025. FINDINGS: Image quality: Diagnostic. Lower chest: Dense pneumonia and atelectasis in the left lung base. Small left pleural effusion and m inimal right pleural effusion. Minimal right basilar atelectasis. Liver: No contour-deforming mass. Gallbladder: Absent Biliary tree: No intrahepatic or extrahepatic dilation, accounting for age. Spleen: No splenomegaly. Pancreas: No pancreatic ductal dilation. Adrenals: No adrenal nodule. Kidneys and ureters: No hydronephrosis. No contour-deforming mass. Stomach, bowel and peritoneum: Recent resection of the cecum or cecal volvulus. Small bowel obstructi on. Small bowel loops measure up to 6.0 cm. There is air present in the transverse colon. At the leve l of the hepatic flexure, the colon becomes decompressed. There is a transition zone noted. In this p atient with recent demonstration of active extravasation, there is increased ascites with increased h emoperitoneum compared to the study and 02/01/2025. There is a hematoma present in the mesentery on im age 89 of series 10 measures 7.3 x 5.6 cm. In the deep pelvis there is a combination of hemorrhage a nd fluid. There is trace free air present. Lymph nodes: No central or retroperitoneal adenopathy. Vessels: No infrarenal aortic aneurysm. Reproductive organs: Unremarkable. Bladder: No abnormal bladder wall thickening. No calcified bladder stones. Pelvic lymph nodes: No adenopathy by size criteria. Bones: No aggressive osseous abnormality. Other: No significant ventral or inguinal hernia. IMPRESSION: 1. Dense left basilar pneumonia and atelectasis, small bilateral pleural effusions. 2.. There is trace residual free air present, presumably from previous surgery. 3. Findings consistent with high-grade small bowel obstruction. 4. In this patient with active extravasation on the study from 02/01/2025, there is increased hemoperi toneum. Findings are concordant with preliminary interpretation provided by [facility]. Reviewed by: Garrett Mcdonald MD on 02/08/2025 8:15 AM PDT Approved by: Garrett Mcdonald MD on 02/08/2025 8:15 AM PDT Station ID: [id number]
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
--- NOTE | 2025-02-08 09:01 | XRAY Report ---
PROCEDURE: XR Chest 1V INDICATIONS: NGT placement TECHNIQUE: One view of the chest was acquired. COMPARISON: 02/08/2025 chest film. FINDINGS: Surgical changes and devices: Tip of an NG tube projects just beyond the GE junction.. The image is of the lower chest and upper abdomen. Bibasilar atelectasis. Dilated abdominal bowel loo ps. IMPRESSION: NG tube tip projects slightly into the stomach. Consider advancement. Reviewed by: Garrett Mcdonald MD on 02/08/2025 9:00 AM PDT Approved by: Garrett Mcdonald MD on 02/08/2025 9:00 AM PDT Station ID: [id number]
[2025-02-08] MEDS: CEFEPIME 2 GM VIAL IVP SCH (09:27)
[2025-02-08] MEDS: SODIUM CHLORIDE 0.9% 1,000 ML IV SCH (09:28)
[2025-02-08] MEDS: VANCOMYCIN INJ 2 GM in SODIUM CHLORIDE 0.9% 500 ML IV ONE (09:29)
--- NOTE | 2025-02-08 09:50 | CT Report ---
PROCEDURE: CT Chest WO INDICATIONS: effusions, sob TECHNIQUE: A CT scan of the chest was performed. Intravenous contrast media was not administered. Images were re corded and evaluated at appropriate window settings. Reformats: axial MIP of the chest, coronal and s agittal. For radiation dose reduction, the following was used: automated exposure control, adjustment of mA and/or kV according to patient size. COMPARISON: CT angiogram of chest dated 02/06/2025. FINDINGS: Image quality: Diagnostic. Chest wall and lower neck: No thyroid nodule which requires sonographic follow up. No axillary or sup raclavicular adenopathy by size. Lungs and pleura: Small left greater than right bilateral pleural effusion is again seen. There is in terval improvement in right lower lung field aeration. Persistent airspace consolidation/atelectasis in left lower lobe not significantly changed. Calcified granuloma is again seen in superior segment o f left lower lobe. Several peripheral groundglass opacities are noted in right upper and right middle lobe not significantly changed from previous study. No pneumothorax. Mediastinum: Heart size is enlarged. Small pericardial effusion. No large vessel abnormality. No medi astinal adenopathy by size criteria. Small hiatal hernia. Bones: No aggressive osseous abnormality. Upper Abdomen: Please correlate with CT of abdomen and pelvis findings.. IMPRESSION: 1. Persistent left greater than right bilateral pleural effusion with bibasilar small infiltrates/ate lectasis. Right lung base aeration has improved compared to previous study. No pneumothorax. 2. No gross mediastinal or hilar lymphadenopathy. Cardiomegaly and trace pericardial effusion. Findings are concordant with preliminary interpretation provided by [facility]. Reviewed by: Juan Aiken MD on 02/08/2025 9:49 AM PDT Approved by: Juan Aiken MD on 02/08/2025 9:49 AM PDT Station ID: [id number]
--- NOTE | 2025-02-08 10:37 | XRAY Report ---
PROCEDURE: XR Chest for Line Placement INDICATIONS: NGT placement TECHNIQUE: One view of the chest was acquired. COMPARISON: Earlier on the same date. FINDINGS: Surgical changes and devices: Tip of NG tube not well visualized, does not appear to extend into the stomach. Lungs and pleura: No pleural effusions or pneumothorax. Patchy bibasilar atelectasis. Mediastinum: Mediastinal contours appear normal. Heart size is normal. Bones and chest wall: No suspicious bony lesions. Overlying soft tissues appear unremarkable. IMPRESSION: The tip of the NG tube does not appear to extend into the stomach. Reviewed by: Garrett Mcdonald MD on 02/08/2025 10:35 AM PDT Approved by: Garrett Mcdonald MD on 02/08/2025 10:35 AM PDT Station ID: [id number]
--- NOTE | 2025-02-08 11:38 | XRAY Report ---
PROCEDURE: XR Chest for Line Placement INDICATIONS: NGT placement TECHNIQUE: One view of the chest was acquired. COMPARISON: 02/08/2025 at 1007 hours. FINDINGS: Surgical changes and devices: NG tube still does not pass beyond the GE junction.. IMPRESSION: NG tube still remains in the distal esophagus. Reviewed by: Garrett Mcdonald MD on 02/08/2025 11:37 AM PDT Approved by: Garrett Mcdonald MD on 02/08/2025 11:37 AM PDT Station ID: [id number]
[2025-02-08] MEDS: METOPROLOL 5 MG/5 ML VIAL IVP SCH (12:10)
[2025-02-08] MEDS: HALOPERIDOL 5 MG/ML VIAL IVP ONE (12:11)
[2025-02-08] MEDS: ACETAMINOPHEN 1,000 MG/100 ML 1,000 MG/100 ML BAG IV SCH (12:11)
--- NOTE | 2025-02-08 12:44 | PROVIDER PROGRESS NOTE ---
Subjective Subjective Subjective: Overnight, patient became very confused and delirious. He was expressing visual hallucinations, trying to get out of bed, pulling at all of his lines. He also had worsening shortness of breath. Telehealth provider ordered repeat labs, as well as repeat chest CT and chest abdomen/pelvis. Lab work done at that time showed that his leukocytosis had increased from 13-20. Hemoglobin was stable. VBG showed slight alkalosis with a normal CO2. His sodium remains mildly low at 128. His creatinine is within normal limits. Chest abdomen and CT revealed basilar pneumonia atelectasis, small bilateral pleural effusions. High-grade small bowel obstruction was also noted. There is also some blood in his peritoneum. He was given IV Haldol with some resolution of his agitation. His was spoken with, Kalyan, at bedside. She states that he has had previous episodes of delirium with his last surgery. Of note, he remains on Seroquel and trazodone, of which the last dose he received was yesterday. When patient was seen this morning, he appeared significantly short of breath. His antibiotics were escalated to cover hospital-acquired pneumonia with vancomycin and cefepime. He was also given another dose of IV Lasix to keep him euvolemic with the pleural effusions. His shortness of breath is likely due to compression with the dilatation of his bowels. Surgery was at bedside, Dr. Lawson, and she was spoken with regarding the plan. NG tube was placed, will place to low intermittent suction when it is at an appropriate position. We have been advancing and repeating chest x-rays throughout the morning. Current Medications Current Medications Current Medications: Current Medications Generic Name Dose Route Start Last Admin Trade Name Freq PRN Reason Stop Dose Admin Albuterol/Ipratropium 3 ml 02/06/25 14:52 02/08/25 07:27 Ipratropium/Albuterol 3 Ml Neb INH 3 ml RTQID PRN Administration Shortness of Air/Wheezing Cefepime HCl 2 gm 02/08/25 08:00 02/08/25 09:27 Cefepime 2 Gm Vial IVP 2 gm TID GADIEL Administration Enoxaparin Sodium 40 mg 02/03/25 21:00 02/08/25 09:27 Enoxaparin 40 Mg/0.4 Ml Syringe SUBQ 40 mg DAILY GADIEL Administration Haloperidol 5 mg 02/08/25 21:00 Haloperidol 5 Mg/Ml Vial IVP QPM GADIEL Hydromorphone HCl 0.5 mg 02/08/25 12:23 Hydromorphone 0.5 Mg/0.5 Ml Syringe IVP Q4HR PRN Severe Pain (Level 7-10) Acetaminophen 1,000 mg in 100 mls @ 400 mls/hr 02/08/25 12:00 02/08/25 12:11 Acetaminophen IV 400 mls/hr Q6HR GADIEL Administration Sodium Chloride 1,000 mls @ 100 mls/hr 02/08/25 09:00 02/08/25 09:28 Normal Saline 0.9% IV 100 mls/hr .Q10H [facility] Administration Vancomycin HCl 1.75 gm/ Sodium 500 mls @ 250 mls/hr 02/08/25 21:00 Chloride IV Q12H [facility] Multivitamins 10 ml/ Zinc/ 2,011 mls @ 83 mls/hr 02/08/25 19:00 Copper/Manganese/Selenium 1 ml IV / Amino Acids/Electrolytes/ 1900 [facility] Dextrose Protocol Fat Emulsion Intravenous 250 mls @ 21 mls/hr 02/08/25 19:00 Intralipid 20% IV 1900 [facility] Metoprolol Tartrate 5 mg 02/03/25 21:12 02/08/25 07:20 Metoprolol 5 Mg/5 Ml Vial IVP 5 mg Q6H PRN Administration Tachycardia Metoprolol Tartrate 5 mg 02/08/25 12:00 02/08/25 12:10 Metoprolol 5 Mg/5 Ml Vial IVP 5 mg Q6HR [facility] Administration Nicotine 1 patch 02/03/25 09:00 02/08/25 09:28 Nicotine 21 Mg Patch TOP 1 patch DAILY [facility] Administration Nitroglycerin 0.4 mg 02/08/25 07:19 Nitroglycerin Sl 0.4 Mg Tablet SL Q5MIN PRN Chest Pain Ondansetron HCl 4 mg 02/04/25 12:10 02/06/25 10:20 Ondansetron 4 Mg/2 Ml Vial IVP 4 mg Q6HR PRN Administration Nausea / Vomiting Pantoprazole Sodium 40 mg 02/09/25 07:00 Pantoprazole 40 Mg Vial IVP QDAC GADIEL Sodium Chloride 10 ml 02/01/25 10:12 02/04/25 21:05 Sodium Chloride Flush 0.9% 10 Ml Syringe IVP 10 ml PRN PRN Administration NEEDED PER PROVIDER ORDERS Sodium Chloride 10 ml 02/01/25 17:00 02/08/25 09:28 Sodium Chloride Flush 0.9% 10 Ml Syringe IVP 10 ml 0100,0900,1700 GADIEL Administration Objective Vital Signs/Intake & Output Reviewed Vital Signs: Yes Vital Signs: Vital Signs x48h Temp Pulse Pulse Pulse Resp BP BP 02/08/25 12:10 137 H 02/08/25 10:12 98.1 F 127 H 28 H 127/83 02/08/25 08:01 139 H 02/08/25 07:40 02/08/25 07:40 134 H 28 H 02/08/25 07:20 146 H 180/120 H 02/08/25 07:14 02/08/25 06:45 99.0 F 134 H 28 H 02/08/25 05:01 98.6 F 119 H 24 02/08/25 04:54 125 H 22 BP Pulse Ox O2 Flow Rate 02/08/25 12:10 02/08/25 10:12 91 L 9 02/08/25 08:01 02/08/25 07:40 4 02/08/25 07:40 4 02/08/25 07:20 02/08/25 07:14 91 L 02/08/25 06:45 155/121 H 91 L 1 02/08/25 05:01 167/100 H 02/08/25 04:54 158/110 H Intake & Output: Intake & Output 02/05/25 02/06/25 02/07/25 02/08/25 23:59 23:59 23:59 23:59 Intake Total 1745 / 1745 1120 / 1120 670 / 670 500 / 500 Output Total 855 / 855 775 / 775 175 / 175 Balance 890 / 890 345 / 345 495 / 495 500 / 500 Objective General Appearance: positive Alert (A&O x 4, but easily distracted, seeing hallucinations) and Severe distress (shortness of breath, agitation) Eyes Bilateral: positive Normal inspection and Conjunctivae nml ENT: positive ENT inspection nml, Pharynx nml, No signs of dehydration and Other (NG tube in place at this time) Neck: positive Thyroid nml and No JVD Respiratory: positive Chest non-tender and Other (Diminished breath sounds bilaterally, mild Rales noted in bilateral lungs, left worse than right, some expiratory wheezing noted) Cardiovascular: positive Tachycardia and Other (Heart rate ranging from 92- 120, EKG repeated, does show sinus tachycardia) Abdomen: positive Tenderness (noted diffusely) and Other (midline incision in place, distension noted) Skin: positive Color nml and No rash Extremities: positive Non-tender and No pedal edema Neurologic/Psychiatric: positive Oriented x3 and Mood/affect nml Lab Results 02/08/25 04:23 02/08/25 04:23 Other Labs: Lab Results x24hrs 02/08/25 02/08/25 02/08/25 Range/Units 04:23 04:23 04:23 WBC (4.8-10.8) x10^3/uL RBC (4.70-6.10) 10^6/uL Hgb (14.0-18.0) g/dL Hct (42.0-52.0) % MCV (80.0-94.0) fL MCH (27.0-31.0) pg MCHC (32.0-36.0) g/dL RDW (12.0-15.0) % Plt Count (130-450) 10^3/uL MPV (7.4-11.4) fL Neut # (Auto) Lymph # (Auto) [place] # (Auto) Eos # (Auto) Baso # (Auto) Absolute Nucleated RBC Total Counted Band Neuts % (Manual) (0 - 10) % Abnorm Lymph % (Manual) % Metamyelocytes % ( - 0) % Myelocytes % ( - 0) % Nucleated RBC % Neutrophils # (Manual) (1.5-6.6) 10^3/uL Lymphocytes # (Manual) (1.5-3.5) 10^3/uL Monocytes # (Manual) (0.0-1.0) 10^3/uL Eosinophils # (Manual) (0-0.7) 10^3/uL Basophils # (Manual) (0-0.1) 10^3/uL Differential Comment WBC Morphology (NORMAL) Platelet Estimate (NORMAL) Platelet Morphology (NORMAL) RBC Morph Micro Appear 1+ OVALOCYTES 1+ MICROCYTOSIS 1+ HYPOCHROMASIA (NORMAL) VBG pH 7.485 H (7.31-7.41) VBG pCO2 42.1 (41-51) mmHg VBG pO2 49.9 H (25-47) mmHg VBG HCO3 30.6 H (23-28) mmol/L VBG Total CO2 31.8 H (24-29) mmol/L VBG O2 Saturation 79.0 (60-80) % VBG Base Excess 6.6 H (-2 - +2) mmol/L Sodium 128 L (135-145) mmol/L Potassium 3.7 (3.5-4.5) mmol/L Chloride 93 L (101-111) mmol/L Carbon Dioxide 27 (21-32) mmol/L Anion Gap 8.0 (6-13) BUN 16 (6-20) mg/dL Creatinine 0.8 (0.6-1.3) mg/dL Estimated GFR (MDRD) 101 (>89) Glucose 126 H (74-104) mg/dL Lactic Acid 0.9 (0.5-2.2) mmol/L Calcium 8.9 (8.5-10.3) mg/dL Total Bilirubin 0.5 (0.2-1.0) mg/dL AST 11 (10-42) IU/L ALT 9 L (10-60) IU/L Alkaline Phosphatase 94 (42-121) IU/L Troponin I High Sens 5.7 (2.3-19.7) ng/L Total Protein 6.2 L (6.4-8.9) g/dL Albumin 3.2 (3.2-5.5) g/dL Globulin 3.0 (2.1-4.2) g/dL Albumin/Globulin Ratio 1.1 (1.0-2.2) 04/25/25 Range/Units 04:23 WBC 20.4 H (4.8-10.8) x10^3/uL RBC 3.35 L (4.70-6.10) 10^6/uL Hgb 8.3 L (14.0-18.0) g/dL Hct 25.4 L (42.0-52.0) % MCV 75.8 L (80.0-94.0) fL MCH 24.8 L (27.0-31.0) pg MCHC 32.7 (32.0-36.0) g/dL RDW 19.3 H (12.0-15.0) % Plt Count 374 (130-450) 10^3/uL MPV 10.1 (7.4-11.4) fL Neut # (Auto) Not Reportable Lymph # (Auto) Not Reportable [place] # (Auto) Not Reportable Eos # (Auto) Not Reportable Baso # (Auto) Not Reportable Absolute Nucleated RBC Not Reportable Total Counted 100 Band Neuts % (Manual) 17 H (0 - 10) % Abnorm Lymph % (Manual) 0 % Metamyelocytes % 3 H ( - 0) % Myelocytes % 3 H ( - 0) % Nucleated RBC % Not Reportable Neutrophils # (Manual) 16.5 H (1.5-6.6) 10^3/uL Lymphocytes # (Manual) 1.6 (1.5-3.5) 10^3/uL Monocytes # (Manual) 1.0 (0.0-1.0) 10^3/uL Eosinophils # (Manual) 0.0 (0-0.7) 10^3/uL Basophils # (Manual) 0.0 (0-0.1) 10^3/uL Differential Comment MANUAL DIFFERENTIAL WBC Morphology 1+ TOXIC GRANULATION (NORMAL) Platelet Estimate NORMAL (130-450,000) (NORMAL) Platelet Morphology NORMAL APPEARANCE (NORMAL) RBC Morph Micro Appear 1+ ANISOCYTOSIS (NORMAL) VBG pH (7.31-7.41) VBG pCO2 (41-51) mmHg VBG pO2 (25-47) mmHg VBG HCO3 (23-28) mmol/L VBG Total CO2 (24-29) mmol/L VBG O2 Saturation (60-80) % VBG Base Excess (-2 - +2) mmol/L Sodium (135-145) mmol/L Potassium (3.5-4.5) mmol/L Chloride (101-111) mmol/L Carbon Dioxide (21-32) mmol/L Anion Gap (6-13) BUN (6-20) mg/dL Creatinine (0.6-1.3) mg/dL Estimated GFR (MDRD) (>89) Glucose (74-104) mg/dL Lactic Acid (0.5-2.2) mmol/L Calcium (8.5-10.3) mg/dL Total Bilirubin (0.2-1.0) mg/dL AST (10-42) IU/L ALT (10-60) IU/L Alkaline Phosphatase (42-121) IU/L Troponin I High Sens (2.3-19.7) ng/L Total Protein (6.4-8.9) g/dL Albumin (3.2-5.5) g/dL Globulin (2.1-4.2) g/dL Albumin/Globulin Ratio (1.0-2.2) Diagnostic Imaging Diagnostic Imaging Results: positive Final report reviewed Assessment/Plan Problem List (1) Small bowel obstruction due to postoperative adhesions: Impression: Patient with worsening distention overnight. Has not had a bowel movement in over 24 hours. Unclear if passing gases patient is now a poor historian. General Surgery following: Recommend n.p.o. status, NG tube in place, intermittent suction. Difficult placement of NG tube, continue serial chest x-rays until an appropriate position, then will place to low intermittent suction. NG tube now placed. Will transfer patient over to the ICU for closer monitoring as he remains tachycardic, as well as tachypneic. Continue IV Dilaudid as needed for pain, IV Tylenol for mild to moderate pain. Will initiate PPN as well as patient has had poor nutritional status for the past few days. 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 He also has a history of gastric bypass was discharged from inpatient alcohol rehab about 6 weeks ago. See complication as above. General surgery following. (3) Acute hypoxic respiratory failure: Impression: Patient requiring increasing oxygen; currently on oxy mask, 9 L, saturating around 91%. Large part of this is compression due to his large dilatation of his bowels, imaging shows atelectasis. CTA was done, negative for PE. Leukocytosis worsened overnight, and he also has an elevated procalcitonin. Will continue IV antibiotics for possible hospital-acquired pneumonia in setting of above. Continue vancomycin and cefepime at this time. Continue DuoNebs as needed. (4) Acute metabolic encephalopathy: Impression: Overnight, patient started experiencing visual hallucinations, and became increasingly confused and agitated. Overnight, Ativan was tried without relief. Patient did have good response to IV Haldol. spoken with, and has had episodes of delirium in the past. Continue strict delirium precautions: Lights on during the day, try to sleep only at night, family members at bedside to help reorient, Haldol scheduled at night. There are no focal neurological deficits, and when asked directly, patient is alert and oriented x 4. No concern for acute CVA or neurological event at this time. (5) Hyponatremia: Impression: Sodium improving slowly. Continue normal saline at 100 cc an hour. Plan to initiate PPN today. (6) Alcohol abuse, in remission: Impression: Patient has remote history of alcohol abuse, but has been sober for about 3 to 4 months. spoken with at bedside, and he did have Xanax prescribed at home. She said that he takes it sparingly. Unclear if current delirium is related to benzodiazepine withdrawal. Trialed Ativan without much relief. He does respond well to Haldol. Will have to hold Seroquel as patient is currently n.p.o., will schedule Haldol 5 PM nightly. Will use it sparingly throughout the day for delirium or agitation. Note that there is no QTc prolongation noted on EKG. (7) Elevated blood pressure reading: Impression: Patient has no noted history of hypertension, but he has been increasingly agitated while here which is resulted in hypertensive urgency. Oral metoprolol converted to IV metoprolol 5 mg scheduled every 6 hours. Patient has been tachycardic as well during his whole stay here. Repeat EKGs just show sinus tachycardia. Troponin is within normal limits. Pulmonary embolism is ruled out. Likely this is attributed to anxiety, agitation, possible benzodiazepine withdrawal. (8) Hemorrhagic shock: Impression: Blood pressure stable now. Hemoglobin trending back up. Today his hemoglobin is 8.2 (9) Anemia associated with acute blood loss: Impression: Hemoglobin is stable. No acute blood loss is noted. CT abdomen reviewed with surgeon. (10) Nicotine addiction: Impression: Continue nicotine patch while inpatient. Qualifiers: Nicotine product type: cigarettes Substance use status: unspecified nicotine-induced disorder Qualified Code(s): F17.219 - Nicotine dependence, cigarettes, with unspecified nicotine-induced disorders
--- NOTE | 2025-02-08 12:55 | XRAY Report ---
PROCEDURE: XR Chest for Line Placement INDICATIONS: NGT placement in the right spot TECHNIQUE: One view of the chest was acquired. COMPARISON: Multiple previous films on the same date. FINDINGS: The NG tube still does not appear to extend beyond the GE junction into the stomach. There is to be i n the distal esophagus. IMPRESSION: Persistent location of the NG tube in the distal esophagus. Reviewed by: Garrett Mcdonald MD on 02/08/2025 12:53 PM PDT Approved by: Garrett Mcdonald MD on 02/08/2025 12:53 PM PDT Station ID: [id number]
[2025-02-08] MEDS: HYDROmorphone 0.5 MG/0.5 ML SYRINGE IVP PRN (13:42)
[2025-02-08] MEDS ORDERED: PROPOFOL 200 MG/20 ML VIAL IVP ONE ×2 (14:55→18:49)
[2025-02-08] MEDS ORDERED: SUCCINYLCHOLINE 200 MG/10 ML VIAL ONE (14:56)
[2025-02-08] MEDS ORDERED: ROCURONIUM 50 MG/5 ML VIAL ONE ×2 (14:56→18:48)
[2025-02-08] MEDS ORDERED: PROPOFOL 1000 MG/100 ML 0 MG/0 ML BOTTLE IV ONE (14:56)
[2025-02-08] MEDS ORDERED: ETOMIDATE 40 MG/20 ML VIAL IVP ONE (14:56)
--- NOTE | 2025-02-08 15:18 | MISCELLANEOUS PROVIDER NOTE ---
Miscellaneous Provider Note - Note: Placed 18 gauge NG tube through LEFT nostril with return of gastric contents. Insufflation heard below diaphragm. Portable CXR shows NG tube below diaphragm. NG secured to nose and placed to LCS. Patient tolerated well.
[2025-02-08 15:34] LABS: ABG OXYGEN SATURATION 96 % (95-98); ABG PO2 96 mmHg (83-108)
[2025-02-08 15:35] LABS: ABG BASE EXCESS 4.7 mmol/L (-2.0-3.0); ABG HCO3 31.3 mmol/L (22.0-26.0); ABG TCO2 33.2 mmol/L (21.0-29.0)
--- NOTE | 2025-02-08 15:37 | XRAY Report ---
PROCEDURE: XR Chest 1V INDICATIONS: tube placement TECHNIQUE: One view of the chest was acquired. COMPARISON: Multiple prior studies from the same date. FINDINGS: Surgical changes and devices: The NG tube now extends into the stomach. IMPRESSION: NG tube now extends into the stomach Reviewed by: Garrett Mcdonald MD on 02/08/2025 3:36 PM PDT Approved by: Garrett Mcdonald MD on 02/08/2025 3:36 PM PDT Station ID: [id number]
[2025-02-08 15:38] LABS: ABG PCO2 63 mmHg (34-45)
[2025-02-08] MEDS: DEXMEDETOMIDINE 400 MCG/100 ML 100 ML IV PRN (16:55)
[2025-02-08 18:13] LABS: ABG PCO2 49 mmHg (34-45); ABG PH 7.38 (7.35-7.45); ABG PO2 77 mmHg (83-108)
[2025-02-08 18:14] LABS: ABG BASE EXCESS 3.6 mmol/L (-2.0-3.0); ABG HCO3 28.9 mmol/L (22.0-26.0); ABG OXYGEN SATURATION 93 % (95-98); ABG TCO2 30.4 mmol/L (21.0-29.0); ALLEN TEST POSITIVE
[2025-02-08] MEDS: HALOPERIDOL 5 MG/ML VIAL IVP SCH (18:19)
[2025-02-08] MEDS ORDERED: MIDAZOLAM 2 MG/2 ML VIAL ONE (18:48)
[2025-02-08] MEDS ORDERED: ATROPINE ABBOJECT 1 MG/10 ML SYRINGE IVP ONE (19:02)
[2025-02-08] MEDS: PROPOFOL 1000 MG/100 ML 1,000 MG/100 ML BOTTLE IV SCH (19:04)
--- NOTE | 2025-02-08 19:19 | ANESTHESIA PROCEDURE NOTE ---
Anesthesia Intubation Template Intubation Blade: positive Glidescope (4) Tube: Size-enter number (8.0), Cuffed and Marked at teeth-enter cm (22) Route: Oral Placement Confirmation: End tidal CO2, Direct visualization, Bilateral breath sounds and Other (pcxr) Complications: No complications (Airway with old blood, swollen, edema, cords difficult to visualize even after suction. Grade 2 view.)
--- NOTE | 2025-02-08 19:34 | XRAY Report ---
PROCEDURE: XR Chest for Line Placement INDICATIONS: Tube placement TECHNIQUE: One view of the chest was acquired. COMPARISON: Same day x-ray. FINDINGS: Surgical changes and devices: Endotracheal tube with tip approximately 2.5 cm above the eduardo. Ente ramona tube with tip and side-port projecting below the diaphragm. Lungs and pleura: Low lung volumes. Prominent interstitial markings. Mediastinum: Mediastinal contours appear normal. Heart size is enlarged. Bones and chest wall: No suspicious bony lesions. Overlying soft tissues appear unremarkable. IMPRESSION: Lines and tubes as above. Cardiomegaly with prominent interstitial markings, suggestive of pulmonary edema. Reviewed by: Reno Moura MD on 02/08/2025 7:32 PM PDT Approved by: Reno Moura MD on 02/08/2025 7:32 PM PDT Station ID: [id number]
[2025-02-08] MEDS: KETOROLAC 15 MG/ML VIAL IVP STA (19:46)
[2025-02-08] MEDS: metroNIDAZOLE 500 MG/100 ML 500 MG/100 ML BAG IV SCH (19:52)
[2025-02-08] MEDS: FAT EMULSION 20% 250 ML IV SCH (19:59)
[2025-02-08] MEDS: PPN (CLINIMIX E 4.25/5) 2,000 ML with MULTIVITAMIN 10 ML, TRACE ELEMENTS 1 ML IV SCH (19:59)
[2025-02-08] MEDS: LACTATED RINGERS 1,000 ML IV ONE ×3 (20:45→23:03)
[2025-02-08] MEDS ORDERED: SODIUM CHLORIDE 0.9% 500 ML IV ONE (21:11)
--- NOTE | 2025-02-08 21:16 | XRAY Report ---
PROCEDURE: XR Chest 1V INDICATIONS: Looking for free air TECHNIQUE: One view of the chest was acquired. COMPARISON: None. FINDINGS: Surgical changes and devices: Endotracheal tube tip projects over the midthoracic trachea. Feeding t ube passes below the diaphragm. Lungs and pleura: Low lung volumes. Mediastinum: Mediastinal contours appear normal. Heart size is normal. Bones and chest wall: No suspicious bony lesions. Overlying soft tissues appear unremarkable. IMPRESSION: Support devices project over the appropriate positions. Reviewed by: Jb Lowe MD on 02/08/2025 9:15 PM PDT Approved by: Jb Lowe MD on 02/08/2025 9:15 PM PDT Station ID: [id number]
--- NOTE | 2025-02-08 21:18 | XRAY Report ---
PROCEDURE: XR Abdomen 1 V INDICATIONS: Septic shock suspect pneumoperitoneum TECHNIQUE: One view of the abdomen acquired. COMPARISON: None. FINDINGS: Surgical changes and devices: Portacatheter projects of the pelvic inlet. Laparotomy. Bowel: Distended loops of small and large bowel. No jacobo pneumoperitoneum. Soft tissues: No suspicious abdominal calcifications. Visualized solid organ contours appear normal in size. Bones: No suspicious bony lesions. IMPRESSION: No jacobo pneumoperitoneum on this supine series. Mildly distended small and large bowel, probably adynamic ileus. Reviewed by: Jb Lowe MD on 02/08/2025 9:17 PM PDT Approved by: Jb Lowe MD on 02/08/2025 9:17 PM PDT Station ID: [id number]
[2025-02-08] MEDS: NOREPINEPHRINE/0.9 % NS 8 MG/250 ML BAG IV SCH (21:23)
[2025-02-08] MEDS: VANCOMYCIN INJ 1.75 GM in SODIUM CHLORIDE 0.9% 500 ML IV SCH (21:50)
[2025-02-08] MEDS: KETAMINE 500 MG/10 ML VIAL IVP STA (21:54)
[2025-02-08] MEDS: CHLORHEXIDINE GLUCONATE 15 ML UDC PO SCH (22:00)
--- NOTE | 2025-02-08 22:07 | ANESTHESIA PROCEDURE NOTE ---
Anesth Central Line Template Central Line Procedure Date: 02/08/25 Central Line Preparation: Unable to obtain consent, Time out completed, Ultrasound used and Sterile prep and drape Central line location: Right IJ Central line type: Triple lumen Central line catheter tip site resides: Superior vena cava (SVC) Central line aftercare: Chlorhexidine disc placed, Secured, Placement confirmed, No pneumothorax, No complications, Bundle checklist complete, Pt tolerated well and Other Other Info/Details: @0 cm cath, secured at 17cm, suture. Tegaderm dressing. PCXR
--- NOTE | 2025-02-08 22:09 | ANESTHESIA PROCEDURE NOTE ---
Diagnosis Diagnosis: septic shock requiring pressors Procedure Procedure: R radial [place] placement Consent for Procedure(s) Verified and Reviewed: Yes Vitals Height and Weight: Height 5 ft 11.75 in Body Mass Index 29.2 Vital Signs: Temp Pulse Resp BP Pulse Ox O2 Flow Rate 38.0 C H 112 H 26 H 82/71 L 97 91 02/08/25 21:00 02/08/25 21:00 02/08/25 21:00 02/08/25 21:00 02/08/25 21:00 02/08/25 19:10 Allergies Allergies: Allergies doxycycline Adverse Reaction (Severe, Verified 01/31/25 18:52) Nausea NSAIDS (Non-Steroidal Anti-Inflamma Adverse Reaction (Severe, Verified 01/31/25 18:52) Unknown unable to take due to gastric bypass Requesting Provider Requesting Provider: Rob Location Location: ICU [facility] ASA ASA classification: 4-Incapacitating disease Is this case an emergency?: Yes Monitoring Anes. Monitoring and Equipment: Non-invasive BP, Pulse oximetery and Sterile prep and drape Anes. Procedure Start Time: 21:35 Anes. Procedure Stop Time: 21:45 Procedure Notes Procedure Notes: R radial fatuma attempt x1. Secured with tegaderm, tape, good pleth. Anesthesia Epidural Template Exam Epidural Medication Information: Epidural Medications Medication Ropivicaine 0.2% Continuous Infusion Rate (mL/ 6 hr) Demand Dose Setting 0 Bolus Amount 0 Infused Amount 25
[2025-02-08 22:12] LABS: ABG PH 7.47 (7.35-7.45)
[2025-02-08 22:13] LABS: ABG BASE EXCESS 2.1 mmol/L (-2.0-3.0); ABG OXYGEN SATURATION 100 % (95-98); ABG PCO2 36 mmHg (34-45); ABG PO2 346 mmHg (83-108); ABG TCO2 27.1 mmol/L (21.0-29.0)
[2025-02-08 22:14] LABS: ABG RESPIRATORY RATE 14 b/min
--- NOTE | 2025-02-08 22:38 | XRAY Report ---
PROCEDURE: XR Chest for Line Placement INDICATIONS: Central line TECHNIQUE: One view of the chest was acquired. COMPARISON: Same day x-rays. FINDINGS: Surgical changes and devices: Endotracheal tube tip projects over the midthoracic trachea. Feeding t ube passes below the diaphragm. Right IJ centimeters catheter tip projects over the cavoatrial juncti on. Lungs and pleura: Low lung volumes. Mediastinum: Cardiomegaly. Normal contour otherwise. Bones and chest wall: No suspicious bony lesions. Overlying soft tissues appear unremarkable. IMPRESSION: Support devices project over the appropriate positions. Reviewed by: Jb Lowe MD on 02/08/2025 10:37 PM PDT Approved by: Jb Lowe MD on 02/08/2025 10:37 PM PDT Station ID: [id number]
[2025-02-09] MEDS: INSULIN REGULAR, HUMAN 300 UNIT/3 ML PEN SUBQ SCH (00:14)
[2025-02-09 04:33] LABS: BASOPHILS % (AUTO) 0.4 %; EOSINOPHILS % (AUTO) 0.1 %; HCT - HEMATOCRIT 25.4 % (42.0-52.0); HGB - HEMOGLOBIN 8.4 g/dL (14.0-18.0); LYMPHOCYTES % (AUTO) 4.6 %; MEAN CORPUSCULAR HEMOGLOBIN 24.7 pg (27.0-31.0); MEAN CORPUSCULAR HGB CONC 33.1 g/dL (32.0-36.0); MEAN CORPUSCULAR VOLUME 74.7 fL (80.0-94.0); MEAN PLATELET VOLUME 9.6 fL (7.4-11.4); MONOCYTES % (AUTO) 2.5 %; NEUTROPHILS % (AUTO) 89.8 %; PLT - PLATELET COUNT 427 10^3/uL (130-450); RED CELL DISTRIBUTION WIDTH 20.1 % (12.0-15.0); WHITE BLOOD COUNT 15.4 x10^3/uL (4.8-10.8)
[2025-02-09 04:37] LABS: SLIDE REVIEW? Indicated
[2025-02-09 04:38] LABS: ABNORMAL LYMPHS % (MANUAL) 0 %
[2025-02-09 04:40] LABS: CALCIUM, IONIZED 1.12 mmol/L (1.09-1.30); VBG PH 7.444 (7.31-7.41)
[2025-02-09 04:42] LABS: MAGNESIUM 1.7 mg/dL (1.7-2.3)
[2025-02-09 04:48] LABS: CALCIUM 7.6 mg/dL (8.5-10.3); CREATININE 1.1 mg/dL (0.6-1.3); PHOSPHORUS 3.9 mg/dL (2.5-5.0); POTASSIUM 4.6 mmol/L (3.5-4.5)
[2025-02-09 05:29] LABS: ABG BASE EXCESS -1.2 mmol/L (-2.0-3.0); ABG HCO3 21.9 mmol/L (22.0-26.0); ABG OXYGEN SATURATION 96 % (95-98); ABG PCO2 27 mmHg (34-45); ABG PH 7.52 (7.35-7.45); ABG PO2 75 mmHg (83-108); ABG TCO2 22.7 mmol/L (21.0-29.0)
[2025-02-09 05:31] LABS: ABG RESPIRATORY RATE 14 b/min
[2025-02-09 05:36] LABS: BAND NEUTROPHILS % (MANUAL) 55 %; LYMPHOCYTES # (MANUAL) 0.9 10^3/uL (1.5-3.5); LYMPHOCYTES % (MANUAL) 6 %; METAMYELOCYTES % (MANUAL) 8 %; MONOCYTES # (MANUAL) 0.2 10^3/uL (0.0-1.0); NEUTROPHILS # (MANUAL) 13.1 10^3/uL (1.5-6.6); NUCLEATED RBC (MANUAL) 2 %
[2025-02-09 05:43] LABS: PLATELET ESTIMATE, MANUAL NORMAL (130-450,000) (NORMAL); PLATELET MORPHOLOGY NORMAL APPEARANCE (NORMAL)
[2025-02-09 05:44] LABS: DIFFERENTIAL COMMENT MANUAL DIFFERENTIAL
[2025-02-09] MEDS: MAGNESIUM SULFATE 2 GRAM 2 GM/50 ML BAG IV ONE (05:46)
[2025-02-09 05:58] LABS: ABG MODE OF VENTILATION PC 18
[2025-02-09] MEDS: PANTOPRAZOLE 40 MG VIAL IVP SCH ×2 (06:22→06:23)
[2025-02-09] MEDS: fentaNYL 2,500 MCG/250 ML 2,500 MCG/250 ML BAG IV SCH (07:50)
[2025-02-09] MEDS: KETOROLAC 15 MG/ML VIAL IVP STA (08:29)
--- NOTE | 2025-02-09 08:58 | PROVIDER PROGRESS NOTE ---
Subjective Subjective Subjective: On the evening of 02/07, patient became very confused and delirious. He was expressing visual hallucinations, trying to get out of bed, pulling at all of his lines. He also had worsening shortness of breath. When patient was seen this morning, he appeared significantly short of breath. His antibiotics were escalated to cover hospital-acquired pneumonia with vancomycin and cefepime. He was also given another dose of IV Lasix to keep him euvolemic with the pleural effusions. His shortness of breath is likely due to compression with the dilatation of his bowels. NG tube was placed, placed to LIS. During the day, 02/08, he continued to worsen. His shortness of breath and his work of breathing increased to the point where he was tachypneic, tachycardic. As such, he was intubated for work of breathing. He was maintained on pressure control, with a PEEP of 5. His FiO2 was decreased to 100% to 30% throughout the evening. He then started spiking fevers. Flagyl was added. His blood pressure continued to drop. Central line and arterial line were placed. He was started on Levophed. This morning, patient had absent bowel tones. His abdomen was still soft, but there was not much output out of the NG tube. CT abdomen/pelvis was repeated at this time. This showed persistent and increasing free air under the right anterior abdominal wall, as well as the high-grade small bowel obstruction. General surgery was at bedside throughout the process, and plan is to take the patient to surgery emergently. Initially, plan was to transfer the patient, and Jp was spoken with, as well as [facility] and Phil [facility], but we have held transfer plan due to need for emergent surgery. During his whole process, his was at bedside, and she was updated periodically. This morning his daughter was also at bedside, and she was updated. Patient when seen this morning looked uncomfortable. He was tachypneic, breathing over the vent, as well as diaphoretic. Fentanyl was added. With the addition of this, he he appeared more calm. He is sedated and intubated, so is unable to follow commands. His pupils are equal and minimally reactive. Current Medications Current Medications Current Medications: Current Medications Generic Name Dose Route Start Last Admin Trade Name Freq PRN Reason Stop Dose Admin Albuterol/Ipratropium 3 ml 02/06/25 14:52 02/08/25 07:27 Ipratropium/Albuterol 3 Ml Neb INH 3 ml RTQID PRN Administration Shortness of Air/Wheezing Cefepime HCl 2 gm 02/08/25 08:00 02/09/25 05:30 Cefepime 2 Gm Vial IVP 2 gm TID GADIEL Administration Chlorhexidine Gluconate 15 ml 02/08/25 21:00 02/09/25 08:15 Chlorhexidine Gluconate 15 Ml Udc PO 15 ml BID GADIEL Administration Enoxaparin Sodium 40 mg 02/03/25 21:00 02/09/25 08:15 Enoxaparin 40 Mg/0.4 Ml Syringe SUBQ 40 mg DAILY GADIEL Administration Haloperidol 5 mg 02/08/25 21:00 02/08/25 18:19 Haloperidol 5 Mg/Ml Vial IVP 5 mg QPM GADIEL Administration Hydromorphone HCl 0.5 mg 02/08/25 12:23 02/09/25 02:43 Hydromorphone 0.5 Mg/0.5 Ml Syringe IVP 0.5 mg Q4HR PRN Administration Severe Pain (Level 7-10) Acetaminophen 1,000 mg in 100 mls @ 400 mls/hr 02/08/25 12:00 02/09/25 07:08 Acetaminophen IV Infused Q6HR GADIEL Infusion Sodium Chloride 1,000 mls @ 100 mls/hr 02/08/25 09:00 02/08/25 21:49 Normal Saline 0.9% IV 100 mls/hr .Q10H GADIEL Administration Vancomycin HCl 1.75 gm/ Sodium 500 mls @ 250 mls/hr 02/08/25 21:00 02/09/25 08:12 Chloride IV 250 mls/hr Q12H GADIEL Administration Multivitamins 10 ml/ Zinc/ 2,011 mls @ 83 mls/hr 02/08/25 19:00 02/08/25 19:59 Copper/Manganese/Selenium 1 ml IV 83 mls/hr / Amino Acids/Electrolytes/ 1900 GADIEL Administration Dextrose Protocol Fat Emulsion Intravenous 250 mls @ 21 mls/hr 02/08/25 19:00 02/09/25 08:30 Intralipid 20% IV Infused 1900 GADIEL Infusion Dexmedetomidine/Sodium Chloride 100 mls @ 4.75 mls/hr 02/08/25 16:47 02/09/25 07:33 Precedex Premix IV 1.5 mcg/kg/hr .Q21H4M PRN 35.63 mls/hr Agitation Administration Protocol 0.2 MCG/KG/HR Propofol 1,000 mg in 100 mls @ 5.7 mls/hr 02/08/25 19:00 02/09/25 08:50 Diprivan IV 61.4 mcg/kg/min .[id number] GADIEL 35 mls/hr Titration Protocol 10 MCG/KG/MIN Metronidazole 500 mg in 100 mls @ 100 mls/hr 02/08/25 20:00 02/09/25 05:16 Flagyl 500 Mg/100 Ml IV Infused Q8H GADIEL Infusion Norepinephrine/Sodium Chloride 8 mg in 250 mls @ 15 mls/hr 02/08/25 21:00 02/09/25 07:06 Levophed 8 Mg/250-0.9% Nacl IV 10 mcg/min .[id number] GADIEL 18.75 mls/hr Titration Protocol 8 MCG/MIN Fentanyl 2,500 mcg in 250 mls @ 10.5 mls/hr 02/09/25 08:00 02/09/25 07:50 Fentanyl IV 1 mcg/kg/hr .[id number] GADIEL 10.5 mls/hr Administration Protocol 1 MCG/KG/HR Dexmedetomidine HCl 1,000 mcg/ 250 mls @ 35.625 mls/hr 02/09/25 07:32 Sodium Chloride IV .Q7H2M PRN Agitation Protocol 1.5 MCG/KG/HR Insulin Human Regular 1 - 5 unit 02/09/25 00:00 02/09/25 05:59 Insulin Regular, Human 300 Unit/3 Ml Pen SUBQ Not Given Q6HR GADIEL Protocol Metoprolol Tartrate 5 mg 02/03/25 21:12 02/08/25 07:20 Metoprolol 5 Mg/5 Ml Vial IVP 5 mg Q6H PRN Administration Tachycardia Metoprolol Tartrate 5 mg 02/08/25 12:00 02/09/25 05:59 Metoprolol 5 Mg/5 Ml Vial IVP Not Given Q6HR GADIEL Nicotine 1 patch 02/03/25 09:00 02/09/25 08:15 Nicotine 21 Mg Patch TOP 1 patch DAILY GADIEL Administration Nitroglycerin 0.4 mg 02/08/25 07:19 Nitroglycerin Sl 0.4 Mg Tablet SL Q5MIN PRN Chest Pain Ondansetron HCl 4 mg 02/04/25 12:10 02/06/25 10:20 Ondansetron 4 Mg/2 Ml Vial IVP 4 mg Q6HR PRN Administration Nausea / Vomiting Pantoprazole Sodium 40 mg 02/09/25 07:00 02/09/25 06:22 Pantoprazole 40 Mg Vial IVP 40 mg QDAC GADIEL Administration Pantoprazole Sodium 40 mg 02/09/25 07:00 02/09/25 06:23 Pantoprazole 40 Mg Vial IVP Not Given QDAC GADIEL Sodium Chloride 10 ml 02/01/25 10:12 02/04/25 21:05 Sodium Chloride Flush 0.9% 10 Ml Syringe IVP 10 ml PRN PRN Administration NEEDED PER PROVIDER ORDERS Sodium Chloride 10 ml 02/01/25 17:00 02/09/25 08:16 Sodium Chloride Flush 0.9% 10 Ml Syringe IVP 10 ml 0100,0900,1700 GADIEL Administration Objective Vital Signs/Intake & Output Reviewed Vital Signs: Yes Vital Signs: Vital Signs x48h Temp Pulse Pulse Resp BP BP BP 02/09/25 08:00 101.1 F H 122 H 18 107/82 137/118 H 02/09/25 07:17 117 H 02/09/25 07:00 100.9 F H 107 H 23 92/57 L 90/54 L 02/09/25 06:00 101.1 F H 111 H 24 89/63 L 02/09/25 05:59 114 H 96/68 02/09/25 05:43 113 H 02/09/25 05:00 100.9 F H 117 H 23 105/76 02/09/25 04:00 100.9 F H 106 H 21 90/68 97/58 L 02/09/25 03:25 110 H 02/09/25 03:00 100.9 F H 108 H 22 95/53 L 93/51 L 02/09/25 02:15 102 H 02/09/25 02:00 100.0 F 102 H 24 94/71 96/59 L 02/09/25 01:00 99.5 F 98 26 H 90/69 94/57 L Pulse Ox 02/09/25 08:00 93 02/09/25 07:17 02/09/25 07:00 93 02/09/25 06:00 94 02/09/25 05:59 02/09/25 05:43 02/09/25 05:00 92 02/09/25 04:00 95 02/09/25 03:25 02/09/25 03:00 95 02/09/25 02:15 02/09/25 02:00 98 02/09/25 01:00 97 Intake & Output: Intake & Output 02/06/25 02/07/25 02/08/25 02/09/25 23:59 23:59 23:59 23:59 Intake Total 1120 / 1120 670 / 670 3867 / 3867 2695 / 2695 Output Total 775 / 775 175 / 175 250 / 250 190 / 190 Balance 345 / 345 495 / 495 3617 / 3617 2505 / 2505 Weight (kg) 105 kg Objective General Appearance: positive No acute distress and Other (Intubated, sedated; appears comfortable) Eyes Bilateral: positive Normal inspection, PERRL (mildly dilated; brisk, reactive) and Conjunctivae nml ENT: positive ENT inspection nml, Pharynx nml, No signs of dehydration and Other (NG tube in place at this time) Neck: positive Thyroid nml and No JVD Respiratory: positive Chest non-tender and Other (Diminished breath sounds bilaterally, mild Rales noted in bilateral lungs, left worse than right) Cardiovascular: positive Tachycardia and Other (Heart rate ranging from 92- 120, EKG repeated, does show sinus tachycardia) Abdomen: positive Other (Abdominal distention is worse than yesterday. Surgical karthikeyan in place with some mild crusting and erythema noted around them. Absent bowel sounds. No rigidity on exam.) Skin: positive Color nml, No rash, Warm and Dry Extremities: positive Nml appearance and No pedal edema Neurologic/Psychiatric: positive Other (Sedated) Lab Results 02/09/25 04:20 02/09/25 04:20 Other Labs: Lab Results x24hrs 02/09/25 02/09/25 02/09/25 Range/Units 05:20 04:20 04:20 WBC (4.8-10.8) x10^3/uL RBC (4.70-6.10) 10^6/uL Hgb (14.0-18.0) g/dL Hct (42.0-52.0) % MCV (80.0-94.0) fL MCH (27.0-31.0) pg MCHC (32.0-36.0) g/dL RDW (12.0-15.0) % Plt Count (130-450) 10^3/uL MPV (7.4-11.4) fL Neut # (Auto) Lymph # (Auto) Harvey # (Auto) Eos # (Auto) Baso # (Auto) Absolute Nucleated RBC Total Counted Band Neuts % (Manual) (0 - 10) % Abnorm Lymph % (Manual) % Metamyelocytes % ( - 0) % Nucleated RBC % Neutrophils # (Manual) (1.5-6.6) 10^3/uL Lymphocytes # (Manual) (1.5-3.5) 10^3/uL Monocytes # (Manual) (0.0-1.0) 10^3/uL Eosinophils # (Manual) (0-0.7) 10^3/uL Basophils # (Manual) (0-0.1) 10^3/uL Nucleated RBCs % Differential Comment Manual Slide Review WBC Morphology 1+ TOXIC GRANULATION (NORMAL) Platelet Estimate NORMAL (130-450,000) (NORMAL) Platelet Morphology NORMAL APPEARANCE (NORMAL) RBC Morph Micro Appear 1+ MICROCYTOSIS 1+ ANISOCYTOSIS (NORMAL) Bld Gas Analysis Time 0524 Sample Site A-LINE ABG pH 7.52 H (7.35-7.45) ABG pCO2 27 L (34-45) mmHg ABG pO2 75 L (83-108) mmHg ABG HCO3 21.9 L (22.0-26.0) mmol/L ABG Total CO2 22.7 (21.0-29.0) mmol/L ABG O2 Saturation 96 (95-98) % ABG Base Excess -1.2 (-2.0-3.0) mmol/L Ananda Test UNKNOWN VBG pH 7.444 H (7.31-7.41) Ionized Calcium 1.12 (1.09-1.30) mmol/L Respiration Rate 14 b/min O2 Delivery Device VENTILATOR O2 Liters/Min LPM Vent Mode PC 18 FiO2 30.00 PEEP 5 cmH2O Sodium 131 L (135-145) mmol/L Potassium 4.6 H (3.5-4.5) mmol/L Chloride 100 L (101-111) mmol/L Carbon Dioxide 25 (21-32) mmol/L Anion Gap 6.0 (6-13) BUN 32 H (6-20) mg/dL Creatinine 1.1 (0.6-1.3) mg/dL Estimated GFR (MDRD) 70 L (>89) Glucose 145 H (74-104) mg/dL Calcium 7.6 L (8.5-10.3) mg/dL Phosphorus 3.9 (2.5-5.0) mg/dL Magnesium 1.7 (1.7-2.3) mg/dL Prealbumin 6 L (17-34) mg/dL Triglycerides 153 mg/dL Nasal Screen MRSA (PCR) (NEGATIVE) 02/09/25 02/08/25 02/08/25 Range/Units 04:20 21:55 18:03 WBC 15.4 H (4.8-10.8) x10^3/uL RBC 3.40 L (4.70-6.10) 10^6/uL Hgb 8.4 L (14.0-18.0) g/dL Hct 25.4 L (42.0-52.0) % MCV 74.7 L (80.0-94.0) fL MCH 24.7 L (27.0-31.0) pg MCHC 33.1 (32.0-36.0) g/dL RDW 20.1 H (12.0-15.0) % Plt Count 427 (130-450) 10^3/uL MPV 9.6 (7.4-11.4) fL Neut # (Auto) Not Reportable Lymph # (Auto) Not Reportable Harvey # (Auto) Not Reportable Eos # (Auto) Not Reportable Baso # (Auto) Not Reportable Absolute Nucleated RBC Not Reportable Total Counted 100 Band Neuts % (Manual) 55 H (0 - 10) % Abnorm Lymph % (Manual) 0 % Metamyelocytes % 8 H ( - 0) % Nucleated RBC % Not Reportable Neutrophils # (Manual) 13.1 H (1.5-6.6) 10^3/uL Lymphocytes # (Manual) 0.9 L (1.5-3.5) 10^3/uL Monocytes # (Manual) 0.2 (0.0-1.0) 10^3/uL Eosinophils # (Manual) 0.0 (0-0.7) 10^3/uL Basophils # (Manual) 0.0 (0-0.1) 10^3/uL Nucleated RBCs 2 % Differential Comment MANUAL DIFFERENTIAL Manual Slide Review Indicated WBC Morphology 1+ DOHLE BODIES (NORMAL) Platelet Estimate (NORMAL) Platelet Morphology (NORMAL) RBC Morph Micro Appear (NORMAL) Bld Gas Analysis Time 2158 1807 Sample Site A-LINE RIGHT RADIAL ABG pH 7.47 H 7.38 (7.35-7.45) ABG pCO2 36 49 H (34-45) mmHg ABG pO2 346 H 77 L (83-108) mmHg ABG HCO3 26.0 28.9 H (22.0-26.0) mmol/L ABG Total CO2 27.1 30.4 H (21.0-29.0) mmol/L ABG O2 Saturation 100 H 93 L (95-98) % ABG Base Excess 2.1 3.6 H (-2.0-3.0) mmol/L Ananda Test NOT APPLICABLE POSITIVE VBG pH (7.31-7.41) Ionized Calcium (1.09-1.30) mmol/L Respiration Rate 14 b/min O2 Delivery Device VENTILATOR OXYMASK O2 Liters/Min 5.00 LPM Vent Mode FiO2 100.00 PEEP 5 cmH2O Sodium (135-145) mmol/L Potassium (3.5-4.5) mmol/L Chloride (101-111) mmol/L Carbon Dioxide (21-32) mmol/L Anion Gap (6-13) BUN (6-20) mg/dL Creatinine (0.6-1.3) mg/dL Estimated GFR (MDRD) (>89) Glucose (74-104) mg/dL Calcium (8.5-10.3) mg/dL Phosphorus (2.5-5.0) mg/dL Magnesium (1.7-2.3) mg/dL Prealbumin (17-34) mg/dL Triglycerides mg/dL Nasal Screen MRSA (PCR) (NEGATIVE) 02/08/25 02/08/25 Range/Units 15:03 11:05 WBC (4.8-10.8) x10^3/uL RBC (4.70-6.10) 10^6/uL Hgb (14.0-18.0) g/dL Hct (42.0-52.0) % MCV (80.0-94.0) fL MCH (27.0-31.0) pg MCHC (32.0-36.0) g/dL RDW (12.0-15.0) % Plt Count (130-450) 10^3/uL MPV (7.4-11.4) fL Neut # (Auto) Lymph # (Auto) Harvey # (Auto) Eos # (Auto) Baso # (Auto) Absolute Nucleated RBC Total Counted Band Neuts % (Manual) (0 - 10) % Abnorm Lymph % (Manual) % Metamyelocytes % ( - 0) % Nucleated RBC % Neutrophils # (Manual) (1.5-6.6) 10^3/uL Lymphocytes # (Manual) (1.5-3.5) 10^3/uL Monocytes # (Manual) (0.0-1.0) 10^3/uL Eosinophils # (Manual) (0-0.7) 10^3/uL Basophils # (Manual) (0-0.1) 10^3/uL Nucleated RBCs % Differential Comment Manual Slide Review WBC Morphology (NORMAL) Platelet Estimate (NORMAL) Platelet Morphology (NORMAL) RBC Morph Micro Appear (NORMAL) Bld Gas Analysis Time 1515 Sample Site RIGHT RADIAL ABG pH 7.30 L (7.35-7.45) ABG pCO2 63 H* (34-45) mmHg ABG pO2 96 (83-108) mmHg ABG HCO3 31.3 H (22.0-26.0) mmol/L ABG Total CO2 33.2 H (21.0-29.0) mmol/L ABG O2 Saturation 96 (95-98) % ABG Base Excess 4.7 H (-2.0-3.0) mmol/L Ananda Test NOT APPLICABLE VBG pH (7.31-7.41) Ionized Calcium (1.09-1.30) mmol/L Respiration Rate b/min O2 Delivery Device OXYMIZER O2 Liters/Min 15.00 LPM Vent Mode FiO2 PEEP cmH2O Sodium (135-145) mmol/L Potassium (3.5-4.5) mmol/L Chloride (101-111) mmol/L Carbon Dioxide (21-32) mmol/L Anion Gap (6-13) BUN (6-20) mg/dL Creatinine (0.6-1.3) mg/dL Estimated GFR (MDRD) (>89) Glucose (74-104) mg/dL Calcium (8.5-10.3) mg/dL Phosphorus (2.5-5.0) mg/dL Magnesium (1.7-2.3) mg/dL Prealbumin (17-34) mg/dL Triglycerides mg/dL Nasal Screen MRSA (PCR) NEGATIVE (NEGATIVE) Diagnostic Imaging Diagnostic Imaging Results: positive Final report reviewed Assessment/Plan Problem List (1) Pneumoperitoneum: Impression: Repeat CT abdomen this morning demonstrates increasing free air, high-grade small bowel obstruction. Spoke with general surgery, and family at bedside. Patient taken for emergent surgery. General surgery following, appreciate assistance and recommendations. (2) Acute hypoxic respiratory failure: Impression: Patient intubated yesterday due to increased work of breathing. PEEP of 5, FiO2 of 30%, inspiratory pressure of 11. He is breathing comfortably now after being sedated with Precedex, propofol, fentanyl. Will try to minimize fentanyl use with adynamic ileus, as well as small bowel obstruction. Large part of this is compression due to his large dilatation of his bowels, imaging shows atelectasis. CTA was done, negative for PE. Continue DuoNebs as needed. (3) Septic shock: Impression: Patient febrile, leukocytosis, and now intubated. CT abdomen did show hematoma in pelvic region, there is concern for infection around the site. He also has some patchy infiltrates in the lungs. Blood cultures from 02/07 showed no growth to date. These were repeated today. Continue broad-spectrum IV antibiotic coverage with cefepime, vancomycin, Flagyl at this time. Patient is requiring Levophed. Continue to titrate down as able. He received 3 L of IV fluids. Continue PPN and IV fluids at this time. (4) Small bowel obstruction due to postoperative adhesions: Impression: See above. 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 He also has a history of gastric bypass was discharged from inpatient alcohol rehab about 6 weeks ago. See complication as above. General surgery following. (6) Acute metabolic encephalopathy: Impression: Patient currently intubated and sedated. (7) Hyponatremia: Impression: Resolving, continue to monitor. (8) Alcohol abuse, in remission: Impression: Patient has remote history of alcohol abuse, but has been sober for about 3 to 4 months. spoken with at bedside, and he did have Xanax prescribed at home. She said that he takes it sparingly. Unclear if current delirium is related to benzodiazepine withdrawal. Trialed Ativan without much relief. He does respond well to Haldol. Will have to hold Seroquel as patient is currently n.p.o., will schedule Haldol 5 PM nightly. Will use it sparingly throughout the day for delirium or agitation. Note that there is no QTc prolongation noted on EKG. (9) Hemorrhagic shock: Impression: Hemoglobin stable. (10) Anemia associated with acute blood loss: Impression: Hemoglobin is stable. (11) Nicotine addiction: Impression: Continue nicotine patch while inpatient. Qualifiers: Nicotine product type: cigarettes Substance use status: unspecified nicotine-induced disorder Qualified Code(s): F17.219 - Nicotine dependence, cigarettes, with unspecified nicotine-induced disorders
[2025-02-09] MEDS ORDERED: iohexoL-300 100 ML VIAL ONE (10:17)
[2025-02-09] MEDS: DEXMEDETOMIDINE 1,000 MCG in SODIUM CHLORIDE 0.9% 240 ML IV PRN (10:31)
[2025-02-09] MEDS: iohexoL-300 100 ML VIAL IVP ONE (11:30)
--- NOTE | 2025-02-09 12:03 | CT Report ---
PROCEDURE: CT Angio Abdomen/Pelvis INDICATIONS: assess for active bleed / abscess TECHNIQUE: After the administration of intravenous contrast, 2.5 mm thick sections acquired from the diaphragm t o the symphysis. 10 mm maximum-intensity projection (MIP) reformats were then acquired. For radiati on dose reduction, the following was used: automated exposure control, adjustment of mA and/or kV ac cording to patient size. COMPARISON: 02/08/2025 FINDINGS: Abdominal aorta, major branches and bifurcation unremarkable. The proximal iliac vessels likewise unr emarkable. Mild atherosclerotic vascular calcification. No stenosis or aneurysm. No evidence of activ e bleeding. Enteric contrast is present throughout the colon. Right ileocolic anastomosis noted. Adjacent stipple d free air in the right pericolic gutter as well as adjacent to the anastomosis is similar to the rene or, however, free air adjacent to the anterior abdominal wall appears to have increased. Free fluid i n the right lower quadrant, central abdomen (image 4/061) as well as the pelvis. Proximal small bowel remains significantly distended to 6.4 cm in diameter. Distal small bowel decompressed. Prior gastric surgery. Skin karthikeyan noted to be degenerative disc di sease and arthropathy. IMPRESSION: No evidence of active bleeding. Persistent and increasing free air particularly under the right anterior abdominal wall. Fluid in the central peritoneal cavity also contains air without definitive the capsule. Early abscess would be p ossible. Additional free fluid right lower quadrant and pelvis. High-grade small bowel obstruction Reviewed by: Han Cabrera MD on 02/09/2025 11:02 AM SHYAM Approved by: Han Cabrera MD on 02/09/2025 11:02 AM SHYAM Station ID: [id number]
--- NOTE | 2025-02-09 13:00 | PROVIDER PROGRESS NOTE ---
Assessment/Plan Problem List (1) Small bowel obstruction due to postoperative adhesions: (2) Cecal volvulus: (3) Acute hypoxic respiratory failure: (4) Acute metabolic encephalopathy: (5) Hyponatremia: (6) Alcohol abuse, in remission: (7) Anemia associated with acute blood loss: (8) Nicotine addiction: Qualifiers: Nicotine product type: cigarettes Substance use status: unspecified nicotine-induced disorder Qualified Code(s): F17.219 - Nicotine dependence, cigarettes, with unspecified nicotine-induced disorders (9) Pneumoperitoneum of unknown etiology: Assessment/Plan: Increasing pneumoperitoneum along with fluid collection and sepsis requiring pressors necessitates surgical intervention. Although the patient's white blood cell count has decreased the bandemia and metamyelocytes have increased indicating an active infection. This was discussed at length with his and verbal and written consent was obtained. The patient cannot be consented as he is intubated and sedated. The possibility of bowel resection, ileostomy, drain placement was discussed at length with the patient's . I explained that the wound would be left open. We explained that this is an emergent procedure and there is a possibility of . The patient will be returned to the intensive care unit following this procedure. The patient will continue to be covered with IV antibiotics. CPT 88486 (10) Sepsis: Assessment/Plan: Increasing pneumoperitoneum along with fluid collection and sepsis requiring pressors necessitates surgical intervention. Although the patient's white blood cell count has decreased the bandemia and metamyelocytes have increased indicating an active infection. This was discussed at length with his and verbal and written consent was obtained. The patient cannot be consented as he is intubated and sedated. The possibility of bowel resection, ileostomy, drain placement was discussed at length with the patient's . I explained that the wound would be left open. We explained that this is an emergent procedure and there is a possibility of . The patient will be returned to the intensive care unit following this procedure. The patient will continue to be covered with IV antibiotics. CPT 75057 Current Meds Current Meds: Current Medications Generic Name Dose Route Start Last Admin Trade Name Freq PRN Reason Stop Dose Admin Albuterol/Ipratropium 3 ml 02/06/25 14:52 02/08/25 07:27 Ipratropium/Albuterol 3 Ml Neb INH 3 ml RTQID PRN Administration Shortness of Air/Wheezing Cefepime HCl 2 gm 02/08/25 08:00 02/09/25 05:30 Cefepime 2 Gm Vial IVP 2 gm TID GADIEL Administration Chlorhexidine Gluconate 15 ml 02/08/25 21:00 02/09/25 08:15 Chlorhexidine Gluconate 15 Ml Udc PO 15 ml BID GADIEL Administration Enoxaparin Sodium 40 mg 02/03/25 21:00 02/09/25 08:15 Enoxaparin 40 Mg/0.4 Ml Syringe SUBQ 40 mg DAILY GADIEL Administration Haloperidol 5 mg 02/08/25 21:00 02/08/25 18:19 Haloperidol 5 Mg/Ml Vial IVP 5 mg QPM GADIEL Administration Hydromorphone HCl 0.5 mg 02/08/25 12:23 02/09/25 02:43 Hydromorphone 0.5 Mg/0.5 Ml Syringe IVP 0.5 mg Q4HR PRN Administration Severe Pain (Level 7-10) Acetaminophen 1,000 mg in 100 mls @ 400 mls/hr 02/08/25 12:00 02/09/25 12:13 Acetaminophen IV Not Given Q6HR GADIEL Sodium Chloride 1,000 mls @ 100 mls/hr 02/08/25 09:00 02/08/25 21:49 Normal Saline 0.9% IV 100 mls/hr .Q10H GADIEL Administration Vancomycin HCl 1.75 gm/ Sodium 500 mls @ 250 mls/hr 02/08/25 21:00 02/09/25 12:00 Chloride IV Infused Q12H GADIEL Infusion Multivitamins 10 ml/ Zinc/ 2,011 mls @ 83 mls/hr 02/08/25 19:00 02/08/25 19:59 Copper/Manganese/Selenium 1 ml IV 83 mls/hr / Amino Acids/Electrolytes/ 1900 GADIEL Administration Dextrose Protocol Fat Emulsion Intravenous 250 mls @ 21 mls/hr 02/08/25 19:00 02/09/25 08:30 Intralipid 20% IV Infused 1900 GADIEL Infusion Propofol 1,000 mg in 100 mls @ 5.7 mls/hr 02/08/25 19:00 02/09/25 09:38 Diprivan IV 35.09 mcg/kg/min .[id number] GADIEL 20 mls/hr Administration Protocol 10 MCG/KG/MIN Metronidazole 500 mg in 100 mls @ 100 mls/hr 02/08/25 20:00 02/09/25 11:39 Flagyl 500 Mg/100 Ml IV 100 mls/hr Q8H GADIEL Administration Norepinephrine/Sodium Chloride 8 mg in 250 mls @ 15 mls/hr 02/08/25 21:00 02/09/25 11:32 Levophed 8 Mg/250-0.9% Nacl IV 10 mcg/min .[id number] GADIEL 18.75 mls/hr Administration Protocol 8 MCG/MIN Fentanyl 2,500 mcg in 250 mls @ 10.5 mls/hr 02/09/25 08:00 02/09/25 07:50 Fentanyl IV 1 mcg/kg/hr .[id number] GADIEL 10.5 mls/hr Administration Protocol 1 MCG/KG/HR Dexmedetomidine HCl 1,000 mcg/ 250 mls @ 35.625 mls/hr 02/09/25 07:32 02/09/25 11:59 Sodium Chloride IV 1.1 mcg/kg/hr .Q7H2M PRN 26.13 mls/hr Agitation Titration Protocol 1.5 MCG/KG/HR Insulin Human Regular 1 - 5 unit 02/09/25 00:00 02/09/25 11:48 Insulin Regular, Human 300 Unit/3 Ml Pen SUBQ Not Given Q6HR [facility] Protocol Nicotine 1 patch 02/03/25 09:00 02/09/25 08:15 Nicotine 21 Mg Patch TOP 1 patch DAILY GADIEL Administration Nitroglycerin 0.4 mg 02/08/25 07:19 Nitroglycerin Sl 0.4 Mg Tablet SL Q5MIN PRN Chest Pain Ondansetron HCl 4 mg 02/04/25 12:10 02/06/25 10:20 Ondansetron 4 Mg/2 Ml Vial IVP 4 mg Q6HR PRN Administration Nausea / Vomiting Pantoprazole Sodium 40 mg 02/09/25 07:00 02/09/25 06:22 Pantoprazole 40 Mg Vial IVP 40 mg QDAC GADIEL Administration Pantoprazole Sodium 40 mg 02/09/25 07:00 02/09/25 06:23 Pantoprazole 40 Mg Vial IVP Not Given QDAC GADIEL Sodium Chloride 10 ml 02/01/25 10:12 02/04/25 21:05 Sodium Chloride Flush 0.9% 10 Ml Syringe IVP 10 ml PRN PRN Administration NEEDED PER PROVIDER ORDERS Sodium Chloride 10 ml 02/01/25 17:00 02/09/25 08:16 Sodium Chloride Flush 0.9% 10 Ml Syringe IVP 10 ml [id number],1700 GADIEL Administration Lab Result 02/09/25 04:20 02/09/25 04:20 Subjective Subjective Patient Reports: Other (Intubated and sedated.) Objective Vital Signs: Vital Signs - 24 hr 02/08/25 13:42 02/08/25 15:11 02/08/25 15:58 Temperature 36.2 C L 37.1 C Temperature Source Axillary Pulse Rate Pulse Rate [Monitoring electrodes] 128 H 141 H Respiratory Rate 24 22 Blood Pressure Blood Pressure [Left Brachial artery] 146/95 H 146/113 H Blood Pressure [Right Radial artery] O2 Saturation 95 95 O2 Source Oxymask Oxymask If not protocol: Oxygen Flow, liters/minute 15 15 Fraction of Inspired Oxygen (FIO2) FiO2 (%) Sedation scale 3-Responsive to vigorous Pain Intensity 7 02/08/25 16:01 02/08/25 16:23 02/08/25 17:00 Temperature Temperature Source Pulse Rate 135 H Pulse Rate [Monitoring electrodes] 130 H 129 H Respiratory Rate 19 21 Blood Pressure 159/111 H Blood Pressure [Left Brachial artery] 159/112 H 157/96 H Blood Pressure [Right Radial artery] O2 Saturation 90 L 93 O2 Source Oxymask Oxymask If not protocol: Oxygen Flow, liters/minute 15 15 Fraction of Inspired Oxygen (FIO2) FiO2 (%) Sedation scale Pain Intensity 02/08/25 18:00 02/08/25 18:42 02/08/25 18:50 Temperature Temperature Source Pulse Rate Pulse Rate [Monitoring electrodes] 132 H 134 H 133 H Respiratory Rate 31 H 38 H Blood Pressure Blood Pressure [Left Brachial artery] 145/126 H 145/126 H Blood Pressure [Right Radial artery] O2 Saturation 84 L O2 Source Oxymask Oxymask If not protocol: Oxygen Flow, liters/minute 15 9 Fraction of Inspired Oxygen (FIO2) FiO2 (%) Sedation scale Pain Intensity 02/08/25 18:53 02/08/25 18:54 02/08/25 18:57 Temperature Temperature Source Pulse Rate Pulse Rate [Monitoring electrodes] 133 H 133 H 127 H Respiratory Rate 34 H 20 Blood Pressure Blood Pressure [Left Brachial artery] 142/89 H 142/89 H 123/89 Blood Pressure [Right Radial artery] O2 Saturation 88 L O2 Source Oxymask If not protocol: Oxygen Flow, liters/minute 9 Fraction of Inspired Oxygen (FIO2) FiO2 (%) Sedation scale Pain Intensity 02/08/25 18:57 02/08/25 19:02 02/08/25 19:03 Temperature Temperature Source Pulse Rate Pulse Rate [Monitoring electrodes] 135 H 97 120 H Respiratory Rate 18 Blood Pressure Blood Pressure [Left Brachial artery] 123/89 92/65 140/89 H Blood Pressure [Right Radial artery] O2 Saturation 87 L 90 L 98 O2 Source Mechanical ventilator Mechanical ventilator If not protocol: Oxygen Flow, liters/minute Fraction of Inspired Oxygen (FIO2) FiO2 (%) 100 100 Sedation scale 0-Fully awake Pain Intensity 02/08/25 19:04 02/08/25 19:05 02/08/25 19:06 Temperature Temperature Source Pulse Rate Pulse Rate [Monitoring electrodes] 121 H 122 H 123 H Respiratory Rate Blood Pressure Blood Pressure [Left Brachial artery] 131/81 H 119/81 Blood Pressure [Right Radial artery] O2 Saturation 97 O2 Source Mechanical ventilator Mechanical ventilator Mechanical ventilator If not protocol: Oxygen Flow, liters/minute 92 91 Fraction of Inspired Oxygen (FIO2) FiO2 (%) 100 100 100 Sedation scale Pain Intensity 02/08/25 19:08 02/08/25 19:10 02/08/25 19:12 Temperature 37.9 C Temperature Source Core Pulse Rate Pulse Rate [Monitoring electrodes] 125 H 127 H 127 H Respiratory Rate Blood Pressure Blood Pressure [Left Brachial artery] 109/77 101/72 98/70 Blood Pressure [Right Radial artery] O2 Saturation 92 95 O2 Source Mechanical ventilator Mechanical ventilator Mechanical ventilator If not protocol: Oxygen Flow, liters/minute 91 Fraction of Inspired Oxygen (FIO2) FiO2 (%) 100 100 100 Sedation scale Pain Intensity 02/08/25 19:14 02/08/25 19:16 02/08/25 19:18 Temperature 38.0 C H Temperature Source Core Pulse Rate Pulse Rate [Monitoring electrodes] 129 H 130 H 131 H Respiratory Rate Blood Pressure Blood Pressure [Left Brachial artery] 93/70 99/71 101/73 Blood Pressure [Right Radial artery] O2 Saturation 97 92 97 O2 Source Mechanical ventilator Mechanical ventilator Mechanical ventilator If not protocol: Oxygen Flow, liters/minute Fraction of Inspired Oxygen (FIO2) FiO2 (%) 100 100 100 Sedation scale 0-Fully awake Pain Intensity 02/08/25 19:35 02/08/25 19:46 02/08/25 20:00 Temperature 38.4 C H 38.4 C H Temperature Source Core Core Pulse Rate Pulse Rate [Monitoring electrodes] 132 H 123 H Respiratory Rate 15 19 Blood Pressure Blood Pressure [Left Brachial artery] 85/68 L 69/51 L Blood Pressure [Right Radial artery] O2 Saturation 98 93 O2 Source Mechanical ventilator Mechanical ventilator If not protocol: Oxygen Flow, liters/minute Fraction of Inspired Oxygen (FIO2) FiO2 (%) 100 100 Sedation scale 3-Responsive to vigorous Pain Intensity 0 02/08/25 21:00 02/08/25 21:25 02/08/25 22:00 Temperature 38.0 C H 37.5 C Temperature Source Core Core Pulse Rate 126 H Pulse Rate [Monitoring electrodes] 112 H 106 H Respiratory Rate 26 H 18 Blood Pressure Blood Pressure [Left Brachial artery] 82/71 L 93/69 Blood Pressure [Right Radial artery] O2 Saturation 97 100 O2 Source Mechanical ventilator Mechanical ventilator If not protocol: Oxygen Flow, liters/minute Fraction of Inspired Oxygen (FIO2) FiO2 (%) 100 60 Sedation scale 3-Responsive to vigorous 4-Responsive to painful Pain Intensity 02/08/25 22:15 02/08/25 22:30 02/08/25 23:00 Temperature 37.1 C Temperature Source Core Pulse Rate 105 H 106 H Pulse Rate [Monitoring electrodes] 100 Respiratory Rate 21 Blood Pressure Blood Pressure [Left Brachial artery] 92/66 Blood Pressure [Right Radial artery] 102/53 L O2 Saturation 94 O2 Source Mechanical ventilator If not protocol: Oxygen Flow, liters/minute Fraction of Inspired Oxygen (FIO2) 70 FiO2 (%) 40 Sedation scale 3-Responsive to vigorous Pain Intensity 02/08/25 23:41 02/08/25 23:44 02/09/25 00:00 Temperature 37.1 C Temperature Source Core Pulse Rate 106 H 105 H Pulse Rate [Monitoring electrodes] 102 H Respiratory Rate 22 Blood Pressure Blood Pressure [Left Brachial artery] 89/67 L Blood Pressure [Right Radial artery] 97/55 L O2 Saturation 94 O2 Source Mechanical ventilator If not protocol: Oxygen Flow, liters/minute Fraction of Inspired Oxygen (FIO2) 60 FiO2 (%) 40 Sedation scale 3-Responsive to vigorous Pain Intensity 02/09/25 00:14 02/09/25 01:00 02/09/25 02:00 Temperature 37.5 C 37.8 C Temperature Source Core Core Pulse Rate 100 Pulse Rate [Monitoring electrodes] 98 102 H Respiratory Rate 26 H 24 Blood Pressure 96/54 L Blood Pressure [Left Brachial artery] 90/69 94/71 Blood Pressure [Right Radial artery] 94/57 L 96/59 L O2 Saturation 97 98 O2 Source Mechanical ventilator Mechanical ventilator If not protocol: Oxygen Flow, liters/minute Fraction of Inspired Oxygen (FIO2) FiO2 (%) 40 40 Sedation scale 3-Responsive to vigorous 1-Arouses easily Pain Intensity 02/09/25 02:15 02/09/25 02:43 02/09/25 03:00 Temperature 38.3 C H Temperature Source Core Pulse Rate 102 H Pulse Rate [Monitoring electrodes] 108 H Respiratory Rate 22 Blood Pressure Blood Pressure [Left Brachial artery] 95/53 L Blood Pressure [Right Radial artery] 93/51 L O2 Saturation 95 O2 Source Mechanical ventilator If not protocol: Oxygen Flow, liters/minute Fraction of Inspired Oxygen (FIO2) 40 FiO2 (%) 30 Sedation scale 4-Responsive to painful Pain Intensity 10 02/09/25 03:25 02/09/25 04:00 02/09/25 05:00 Temperature 38.3 C H 38.3 C H Temperature Source Core Core Pulse Rate 110 H Pulse Rate [Monitoring electrodes] 106 H 117 H Respiratory Rate 21 23 Blood Pressure Blood Pressure [Left Brachial artery] 90/68 105/76 Blood Pressure [Right Radial artery] 97/58 L O2 Saturation 95 92 O2 Source Mechanical ventilator Mechanical ventilator If not protocol: Oxygen Flow, liters/minute Fraction of Inspired Oxygen (FIO2) 30 FiO2 (%) 30 30 Sedation scale 4-Responsive to painful 3-Responsive to vigorous Pain Intensity 02/09/25 05:43 02/09/25 05:59 02/09/25 06:00 Temperature 38.4 C H Temperature Source Core Pulse Rate 113 H 114 H Pulse Rate [Monitoring electrodes] 111 H Respiratory Rate 24 Blood Pressure 96/68 Blood Pressure [Left Brachial artery] 89/63 L Blood Pressure [Right Radial artery] O2 Saturation 94 O2 Source Mechanical ventilator If not protocol: Oxygen Flow, liters/minute Fraction of Inspired Oxygen (FIO2) 30 FiO2 (%) 30 Sedation scale 4-Responsive to painful Pain Intensity 02/09/25 07:00 02/09/25 07:17 02/09/25 08:00 Temperature 38.3 C H 38.4 C H Temperature Source Core Core Pulse Rate 117 H Pulse Rate [Monitoring electrodes] 107 H 122 H Respiratory Rate 23 18 Blood Pressure Blood Pressure [Left Brachial artery] 92/57 L 107/82 Blood Pressure [Right Radial artery] 90/54 L 137/118 H O2 Saturation 93 93 O2 Source Mechanical ventilator Mechanical ventilator If not protocol: Oxygen Flow, liters/minute Fraction of Inspired Oxygen (FIO2) 30 FiO2 (%) 30 30 Sedation scale 4-Responsive to painful Pain Intensity 02/09/25 09:00 02/09/25 09:00 02/09/25 10:00 Temperature 38.2 C H Temperature Source Core Pulse Rate 119 H Pulse Rate [Monitoring electrodes] 117 H 117 H Respiratory Rate 14 12 Blood Pressure Blood Pressure [Left Brachial artery] 98/75 103/78 Blood Pressure [Right Radial artery] 88/54 L 88/54 L O2 Saturation 95 95 O2 Source Mechanical ventilator Mechanical ventilator If not protocol: Oxygen Flow, liters/minute Fraction of Inspired Oxygen (FIO2) 30 FiO2 (%) 30 30 Sedation scale Pain Intensity 02/09/25 10:25 02/09/25 11:00 02/09/25 11:16 Temperature 37.7 C Temperature Source Core Pulse Rate 115 H Pulse Rate [Monitoring electrodes] 118 H Respiratory Rate 13 Blood Pressure Blood Pressure [Left Brachial artery] 105/75 Blood Pressure [Right Radial artery] 101/57 L O2 Saturation 95 O2 Source Mechanical ventilator If not protocol: Oxygen Flow, liters/minute Fraction of Inspired Oxygen (FIO2) 30 30 FiO2 (%) 50 Sedation scale Pain Intensity 02/09/25 12:00 02/09/25 12:29 Temperature 37.8 C Temperature Source Core Pulse Rate 124 H Pulse Rate [Monitoring electrodes] 124 H Respiratory Rate 14 Blood Pressure Blood Pressure [Left Brachial artery] Blood Pressure [Right Radial artery] 98/57 L O2 Saturation 95 O2 Source Mechanical ventilator If not protocol: Oxygen Flow, liters/minute Fraction of Inspired Oxygen (FIO2) 40 FiO2 (%) Sedation scale 3-Responsive to vigorous Pain Intensity Oxygen O2 Source Mechanical ventilator I&O (Last 24 Hrs): Intake and Output Totals x24h 02/07/25 02/08/25 02/09/25 23:59 23:59 23:59 Intake Total 670 / 670 3867 / 3867 3476 / 3476 Output Total 175 / 175 250 / 250 305 / 305 Balance 495 / 495 3617 / 3617 3171 / 3171 Comments/Notes: General: 54-year old male, appears older than stated age, intubated and sedated in room 2304 at [facility]'s ICU HEENT: Normocephalic, atraumatic, extraocular movement intact, mucous membranes pink and moist, sclera anicteric and not injected, pupils 3 mm bilaterally symmetric, I did not check for reaction Neck: Supple without mass or bruit Cardiac: Tachycardic without murmur Chest: Decreased bilaterally Abdomen: Soft but doughy, no bowel sounds, midline incision clean dry and intact with karthikeyan in place and no evidence of wound infection specifically no erythema, exudates, or ecchymosis Genitourinary: Deferred Rectal: Deferred Extremities: Cool to touch x 4, no edema Gait: Not evaluated Psychiatric: Intubated and sedatednonresponsive Results Results: Laboratory Results WBC 15.4 x10^3/uL (4.8-10.8) H 02/09/25 04:20 RBC 3.40 10^6/uL (4.70-6.10) L 02/09/25 04:20 Hgb 8.4 g/dL (14.0-18.0) L 02/09/25 04:20 Hct 25.4 % (42.0-52.0) L 02/09/25 04:20 MCV 74.7 fL (80.0-94.0) L 02/09/25 04:20 MCH 24.7 pg (27.0-31.0) L 02/09/25 04:20 MCHC 33.1 g/dL (32.0-36.0) 02/09/25 04:20 RDW 20.1 % (12.0-15.0) H 02/09/25 04:20 Plt Count 427 10^3/uL (130-450) 02/09/25 04:20 MPV 9.6 fL (7.4-11.4) 02/09/25 04:20 Neut # (Auto) Not Reportable 02/09/25 04:20 Lymph # (Auto) Not Reportable 02/09/25 04:20 Kings # (Auto) Not Reportable 02/09/25 04:20 Eos # (Auto) Not Reportable 02/09/25 04:20 Baso # (Auto) Not Reportable 02/09/25 04:20 Absolute Nucleated RBC Not Reportable 02/09/25 04:20 Total Counted 100 02/09/25 04:20 Band Neuts % (Manual) 55 % (0-10) H 02/09/25 04:20 Abnorm Lymph % (Manual) 0 % 02/09/25 04:20 Metamyelocytes % 8 % (-0) H 02/09/25 04:20 Myelocytes % 3 % (-0) H 02/08/25 04:23 Nucleated RBC % Not Reportable 02/09/25 04:20 Neutrophils # (Manual) 13.1 10^3/uL (1.5-6.6) H 02/09/25 04:20 Lymphocytes # (Manual) 0.9 10^3/uL (1.5-3.5) L 02/09/25 04:20 Monocytes # (Manual) 0.2 10^3/uL (0.0-1.0) 02/09/25 04:20 Eosinophils # (Manual) 0.0 10^3/uL (0-0.7) 02/09/25 04:20 Basophils # (Manual) 0.0 10^3/uL (0-0.1) 02/09/25 04:20 Nucleated RBCs 2 % 02/09/25 04:20 Differential Comment MANUAL DIFFERENTIAL 02/09/25 04:20 Manual Slide Review Indicated 02/09/25 04:20 WBC Morphology 1+ DOHLE BODIES (NORMAL) 1+ TOXIC GRANULATION (NORMAL) 02/09/25 04:20 WBC Morphology 1+ DOHLE BODIES (NORMAL) 1+ TOXIC GRANULATION (NORMAL) 02/09/25 04:20 Platelet Estimate NORMAL (130-450,000) (NORMAL) 02/09/25 04:20 Platelet Morphology NORMAL APPEARANCE (NORMAL) 02/09/25 04:20 RBC Morph Micro Appear 1+ ANISOCYTOSIS (NORMAL) 1+ MICROCYTOSIS (NORMAL) 02/09/25 04:20 RBC Morph Micro Appear 1+ ANISOCYTOSIS (NORMAL) 1+ MICROCYTOSIS (NORMAL) 02/09/25 04:20 PT 14.5 secs (9.9-12.6) H 02/02/25 Unknown INR 1.3 (0.8-1.2) H 02/02/25 Unknown D-Dimer > 1050.0 ng/mL (200.0-255.0) H 02/06/25 11:14 Bld Gas Analysis Time 52302/09/25 05:20 Sample Site A-LINE 02/09/25 05:20 ABG pH 7.52 (7.35-7.45) H 02/09/25 05:20 ABG pCO2 27 mmHg (34-45) L 02/09/25 05:20 ABG pO2 75 mmHg (83-108) L 02/09/25 05:20 ABG HCO3 21.9 mmol/L (22.0-26.0) L 02/09/25 05:20 ABG Total CO2 22.7 mmol/L (21.0-29.0) 02/09/25 05:20 ABG O2 Saturation 96 % (95-98) 02/09/25 05:20 ABG Base Excess -1.2 mmol/L (-2.0-3.0) 02/09/25 05:20 Ananda Test UNKNOWN 02/09/25 05:20 VBG pH 7.444 (7.31-7.41) H 02/09/25 04:20 VBG pCO2 42.1 mmHg (41-51) 02/08/25 04:23 VBG pO2 49.9 mmHg (25-47) H 02/08/25 04:23 VBG HCO3 30.6 mmol/L (23-28) H 02/08/25 04:23 VBG Total CO2 31.8 mmol/L (24-29) H 02/08/25 04:23 VBG O2 Saturation 79.0 % (60-80) 02/08/25 04:23 VBG Base Excess 6.6 mmol/L (-2 - +2) H 02/08/25 04:23 Ionized Calcium 1.12 mmol/L (1.09-1.30) 02/09/25 04:20 Respiration Rate 14 b/min 02/09/25 05:20 O2 Delivery Device VENTILATOR 02/09/25 05:20 O2 Liters/Min 5.00 LPM 02/08/25 18:03 Vent Mode PC 18 02/09/25 05:20 FiO2 30.00 04/26/25 05:20 PEEP 5 cmH2O 02/09/25 05:20 Sodium 131 mmol/L (135-145) L 02/09/25 04:20 Potassium 4.6 mmol/L (3.5-4.5) H 02/09/25 04:20 Chloride 100 mmol/L (101-111) L 02/09/25 04:20 Carbon Dioxide 25 mmol/L (21-32) 02/09/25 04:20 Anion Gap 6.0 (6-13) 02/09/25 04:20 BUN 32 mg/dL (6-20) H 02/09/25 04:20 Creatinine 1.1 mg/dL (0.6-1.3) 02/09/25 04:20 Estimated GFR (MDRD) 70 (>89) L 02/09/25 04:20 Glucose 145 mg/dL (74-104) H 02/09/25 04:20 POC Whole Bld Glucose 148 mg/dL (70-100) 02/01/25 01:52 Serum Osmolality 271 mOsmol/kg (275-295) L 02/01/25 10:03 Lactic Acid 0.9 mmol/L (0.5-2.2) 02/08/25 04:23 Calcium 7.6 mg/dL (8.5-10.3) L 02/09/25 04:20 Phosphorus 3.9 mg/dL (2.5-5.0) 02/09/25 04:20 Magnesium 1.7 mg/dL (1.7-2.3) 02/09/25 04:20 Iron 82 ug/dL (50-212) 02/01/25 10:03 TIBC 473 ug/dL (250-450) H 02/01/25 10:03 % Saturation 17 % (20-50) L 02/01/25 10:03 Transferrin 338 mg/dL (203-362) 02/01/25 10:03 Total Bilirubin 0.5 mg/dL (0.2-1.0) 02/08/25 04:23 AST 11 IU/L (10-42) 02/08/25 04:23 ALT 9 IU/L (10-60) L 02/08/25 04:23 Alkaline Phosphatase 94 IU/L (42-121) 02/08/25 04:23 Troponin I High Sens 5.7 ng/L (2.3-19.7) 02/08/25 04:23 Total Protein 6.2 g/dL (6.4-8.9) L 02/08/25 04:23 Albumin 3.2 g/dL (3.2-5.5) 02/08/25 04:23 Globulin 3.0 g/dL (2.1-4.2) 02/08/25 04:23 Albumin/Globulin Ratio 1.1 (1.0-2.2) 02/08/25 04:23 Prealbumin 6 mg/dL (17-34) L 02/09/25 04:20 Triglycerides 153 mg/dL 02/09/25 04:20 Lipase 13 U/L (11-82) 01/31/25 19:06 Vitamin B12 1215 pg/mL (180-914) H 02/04/25 04:37 Folate 16.4 ng/mL (5.90 - >24.8) 02/04/25 04:37 Procalcitonin Immunoas 0.77 ng/mL (<0.5) H 02/07/25 01:15 Urine Sodium 17.7 mmol/L 02/01/25 14:42 Nasal Adenovirus (PCR) NOT DETECTED 02/07/25 01:35 Nasal B. parapertussis DNA (PCR) NOT DETECTED 02/07/25 01:35 Nasal Coronavir 229E PCR NOT DETECTED 02/07/25 01:35 Nasal Coronavir HKU1 PCR NOT DETECTED 02/07/25 01:35 Nasal Coronavir NL63 PCR NOT DETECTED 02/07/25 01:35 Nasal Coronavir OC43 PCR NOT DETECTED 02/07/25 01:35 Nasal Enterovir/Rhinovir PCR NOT DETECTED 02/07/25 01:35 Nasal Influenza B PCR NOT DETECTED 02/07/25 01:35 Nasal Influenza A PCR NOT DETECTED 02/07/25 01:35 Nasal Parainfluen 1 PCR NOT DETECTED 02/07/25 01:35 Nasal Parainfluen 2 PCR NOT DETECTED 02/07/25 01:35 Nasal Parainfluen 3 PCR NOT DETECTED 02/07/25 01:35 Nasal Parainfluen 4 PCR NOT DETECTED 02/07/25 01:35 Nasal RSV (PCR) NOT DETECTED 02/07/25 01:35 Nasal Screen MRSA (PCR) NEGATIVE (NEGATIVE) 02/08/25 11:05 Nasal B.pertussis DNA PCR NOT DETECTED 02/07/25 01:35 Nasal C.pneumoniae (PCR) NOT DETECTED 02/07/25 01:35 Moshe Human Metapneumo PCR NOT DETECTED 02/07/25 01:35 Nasal M.pneumoniae (PCR) NOT DETECTED 02/07/25 01:35 Nasal SARS-CoV-2 (PCR) NOT DETECTED 02/07/25 01:35 Blood Type O POSITIVE 02/01/25 22:29 Blood Type Recheck O POSITIVE 02/01/25 21:52 Antibody Screen NEGATIVE 02/01/25 22:29 Crossmatch IS Only See Detail 02/01/25 22:29 ABX Reporting Has patient been on IV antibiotics over the past 48 hours?: Yes Current Medications Current Medications Current Medications: Current Medications Generic Name Dose Route Start Last Admin Trade Name Freq PRN Reason Stop Dose Admin Albuterol/Ipratropium 3 ml 02/06/25 14:52 02/08/25 07:27 Ipratropium/Albuterol 3 Ml Neb INH 3 ml RTQID PRN Administration Shortness of Air/Wheezing Cefepime HCl 2 gm 02/08/25 08:00 02/09/25 05:30 Cefepime 2 Gm Vial IVP 2 gm TID GADIEL Administration Chlorhexidine Gluconate 15 ml 02/08/25 21:00 02/09/25 08:15 Chlorhexidine Gluconate 15 Ml Udc PO 15 ml BID GADIEL Administration Enoxaparin Sodium 40 mg 02/03/25 21:00 02/09/25 08:15 Enoxaparin 40 Mg/0.4 Ml Syringe SUBQ 40 mg DAILY GADIEL Administration Haloperidol 5 mg 02/08/25 21:00 02/08/25 18:19 Haloperidol 5 Mg/Ml Vial IVP 5 mg QPM GADIEL Administration Hydromorphone HCl 0.5 mg 02/08/25 12:23 02/09/25 02:43 Hydromorphone 0.5 Mg/0.5 Ml Syringe IVP 0.5 mg Q4HR PRN Administration Severe Pain (Level 7-10) Acetaminophen 1,000 mg in 100 mls @ 400 mls/hr 02/08/25 12:00 02/09/25 12:13 Acetaminophen IV Not Given Q6HR GADIEL Sodium Chloride 1,000 mls @ 100 mls/hr 02/08/25 09:00 02/08/25 21:49 Normal Saline 0.9% IV 100 mls/hr .Q10H GADIEL Administration Vancomycin HCl 1.75 gm/ Sodium 500 mls @ 250 mls/hr 02/08/25 21:00 02/09/25 12:00 Chloride IV Infused Q12H GADIEL Infusion Multivitamins 10 ml/ Zinc/ 2,011 mls @ 83 mls/hr 02/08/25 19:00 02/08/25 19:59 Copper/Manganese/Selenium 1 ml IV 83 mls/hr / Amino Acids/Electrolytes/ 1900 GADIEL Administration Dextrose Protocol Fat Emulsion Intravenous 250 mls @ 21 mls/hr 02/08/25 19:00 02/09/25 08:30 Intralipid 20% IV Infused 1900 GADIEL Infusion Propofol 1,000 mg in 100 mls @ 5.7 mls/hr 02/08/25 19:00 02/09/25 09:38 Diprivan IV 35.09 mcg/kg/min .[id number] GADIEL 20 mls/hr Administration Protocol 10 MCG/KG/MIN Metronidazole 500 mg in 100 mls @ 100 mls/hr 02/08/25 20:00 02/09/25 11:39 Flagyl 500 Mg/100 Ml IV 100 mls/hr Q8H GADIEL Administration Norepinephrine/Sodium Chloride 8 mg in 250 mls @ 15 mls/hr 02/08/25 21:00 02/09/25 11:32 Levophed 8 Mg/250-0.9% Nacl IV 10 mcg/min .[id number] GADIEL 18.75 mls/hr Administration Protocol 8 MCG/MIN Fentanyl 2,500 mcg in 250 mls @ 10.5 mls/hr 02/09/25 08:00 02/09/25 07:50 Fentanyl IV 1 mcg/kg/hr .[id number] GADIEL 10.5 mls/hr Administration Protocol 1 MCG/KG/HR Dexmedetomidine HCl 1,000 mcg/ 250 mls @ 35.625 mls/hr 02/09/25 07:32 02/09/25 11:59 Sodium Chloride IV 1.1 mcg/kg/hr .Q7H2M PRN 26.13 mls/hr Agitation Titration Protocol 1.5 MCG/KG/HR Insulin Human Regular 1 - 5 unit 02/09/25 00:00 02/09/25 11:48 Insulin Regular, Human 300 Unit/3 Ml Pen SUBQ Not Given Q6HR [facility] Protocol Nicotine 1 patch 02/03/25 09:00 02/09/25 08:15 Nicotine 21 Mg Patch TOP 1 patch DAILY GADIEL Administration Nitroglycerin 0.4 mg 02/08/25 07:19 Nitroglycerin Sl 0.4 Mg Tablet SL Q5MIN PRN Chest Pain Ondansetron HCl 4 mg 02/04/25 12:10 02/06/25 10:20 Ondansetron 4 Mg/2 Ml Vial IVP 4 mg Q6HR PRN Administration Nausea / Vomiting Pantoprazole Sodium 40 mg 02/09/25 07:00 02/09/25 06:22 Pantoprazole 40 Mg Vial IVP 40 mg QDAC GADIEL Administration Pantoprazole Sodium 40 mg 02/09/25 07:00 02/09/25 06:23 Pantoprazole 40 Mg Vial IVP Not Given QDAC GADIEL Sodium Chloride 10 ml 02/01/25 10:12 02/04/25 21:05 Sodium Chloride Flush 0.9% 10 Ml Syringe IVP 10 ml PRN PRN Administration NEEDED PER PROVIDER ORDERS Sodium Chloride 10 ml 02/01/25 17:00 02/09/25 08:16 Sodium Chloride Flush 0.9% 10 Ml Syringe IVP 10 ml [id number] GADIEL Administration
[2025-02-09] MEDS ORDERED: PHENYLEPHRINE 10 MG/ML VIAL ONE ×3 (13:17→23:20)
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
[2025-02-09] MEDS ORDERED: fentaNYL 100 MCG/2 ML VIAL ONE (14:06)
[2025-02-09] MEDS ORDERED: DEXAMETHASONE 10 MG/ML VIAL ONE (16:42)
[2025-02-09] MEDS: PHENYLEPHRINE 20 MG in SODIUM CHLORIDE 0.9% 248 ML IV ONE ×3 (17:10→23:58)
--- NOTE | 2025-02-09 17:31 | OPERATIVE REPORT ---
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 Procedure: Exploratory laparotomy with extensive adhesiolysis Resection of ileocolostomy Blackwood's End ileostomy Partial omentectomy Placement of drains x 2 Bridle of nasogastric tube Extensive abdominal washout Fluids: 1900 mL EBL: 50 mL Urine output: 300 mL Drains: Javier drain x 2 one in the LEFT gutter and one in the RIGHT gutter Findings: Disrupted ileocolostomy Complications: None Surgeon/Dictated by: Sumeet Moreno MD Co-surgeon: Komal Lawson DO Laborer Cement Gun Placing: Roxana Berry CRNA Anesthesia type: General Endotracheal Procedure: After verbal and written informed consent was obtained from his due to the fact that the patient was intubated and sedated detailing the operation, the alternatives the operation including no operation, risks of infection, bleeding requiring transfusion with its risks, nerve injury, and , the patient was brought urgently to the operative suite and placed supine on the operating table. Great care was taken to avoid pressure points to prevent pressure necrosis or nerve injury. Monitoring devices were applied along with TEDs and pneumatic compression stockings (to prevent DVT). Intravenous lines as well as an arterial line and even intubation were already in place as the patient had been transferred to the OR from the intensive care unit. Anesthesia was maintained throughout the case. The patient was monitored for cardiac, blood pressure, and oxygen saturation continuously. The patient received intraoperative antibiotics. Roxana Berry CRNA sedated and anesthetized the patient for the entire procedure. The patient was prepped and draped in the usual sterile manner. A "time in" then confirmed that the patient was identified with 3 identifiers (name, date, and medical record number), the history and physical was updated and in the chart, the signed consent confirming the procedure was in the chart, the patient was in the correct position, the aforementioned prophylactic measures were in place or given, we had the correct personnel and equipment to complete the procedure and that anesthesia and the surgical team were given an opportunity to express any concerns. With the agreement of everyone in the room we proceeded with the operation. It was exceedingly clear prior to the start of this procedure that the patient's condition would necessitate a co-surgeon and I invited Dr. Komal Lawson to participate and she was kind enough to be present for the entire case. The skin karthikeyan were removed prior to the prep of the abdomen with Betadine. The fascial incision was then opened by cutting the suture holding the fascia together and removing the entirety of the suture. Upon entering the abdomen there was a significant amount of old blood as well as staining from bowel contents. The small bowel was massively distended. The patient had been operated on approximately 8 days ago and there were significant adhesions that had to be taken down primarily in a blunt fashion with finger fracture. Once these were taken down it was apparent that there were [address] 1 there appeared to be a mid small bowel obstruction due to adhesions and disruption of the ileocolostomy. These were actually into slightly different areas of the abdomen with the disruption of the ileocolostomy in the right upper quadrant and the internal hernia in the left mid abdomen. I addressed the small bowel obstruction first by freeing all of the adhesions from the ligament of Treitz all the way down to the anastomosis. This was done without any injury to the small bowel. There was some significant adherent old blood as well as bile staining on the small bowel but I did not feel that it was prudent to remove these due to fear of injury to the small bowel. Instead the abdomen was copiously irrigated throughout the case with warm sterile saline. This allowed us to remove much of the abdominal staining and old blood in the most gentle manner. Once the adhesions had all been taken down we directed our attention to the anastomosis which was located in the right upper quadrant. There were several dense adhesions in the right upper quadrant which upon taking them down allowed us access to the small bowel just proximal to the anastomosis in the colon just distal to the anastomosis. Many of these adhesions resulted in significant scarring of the omentum as the omentum was trying to walled off the disruption and as such the omentum was grossly stained with stool and blood and I opted to excise this portion of the omentum as I did not feel that I could adequately clean it and allow it to remain in the abdomen. With the stain omentum out of our way I was able to transect the distal ileum with application of a NICOLAS 75 stapler in a similar manner transect the proximal transverse colon thus isolatin g the disrupted anastomosis. The mesentery between these 2 spots was taken using serial application of the LigaSure. The stapled colonic line was marked by me with two 2-0 Prolene sutures which were left long in order to help identify the colon when it becomes time to takedown the ileostomy. At this point I removed my gown and gloves, and wearing a new set of labs placed an 18-gauge nasogastric tube through the patient's right nostril into his esophagus under direct vision of a glide scope. This was placed to 75 cm with the aid of Dr. Lawson guiding the nasogastric tube past his gastrojejunostomy. Once this was in place and the bowel was milked back prior to Dr. Lawson we removed over 3000 mL of feculent smelling gastric and small bowel contents. I also used a small red rubber catheter to bridle the nasogastric tube in place as we do not have a bridle kit. Once this was done I scrubbed back into the case. 19 Turkish Javier drains were placed on the right and left side and secured to the skin using a 3-0 nylon which was Gonzalo sandaled about the drain. The abdomen was then copiously irrigated with 9 L of warm sterile saline. In total I estimate that over 13 L of saline was used to irrigate the patient's abdomen. Once irrigation was complete the drains were placed in to the gutters. An ostomy site was selected to the right and slightly inferior to the patient's umbilicus. The skin was incised using a 10 blade scalpel and the subcutaneous tissues were removed using Bovie electrocautery. The anterior fascia was opened in a linear fashion and the posterior fascia was opened in a cruciate fashion large enough to admit 2 fingers. Notably the muscle was not incised. A Zarephath was then used to bring the terminal ileum up to the skin and this was left in place. The patient's fascia was then approximated using an oh looped PDS starting superiorly and inferiorly and running to just above the umbilicus where the knot was tied and dunked. The skin was loosely approximated with three 3-0 nylon sutures in a mattress fashion about the umbilicus and then one suture group home between the umbilicus and the xiphoid. The wound was packed with Betadine soaked gauze. The staple line was removed and the ileostomy was then matured using 2-0 and 3-0 Vicryl sutures in a circumferential manner. The skin was prepped with Mastisol and an ostomy appliance was applied. A dressing was then applied over the midline wound. The patient was then taken to the intensive care unit in critical condition having tolerated the procedure well. I discussed the patient's operative findi ngs and condition with the patient's who vocalized an understanding. I also stated that he still is in critical condition and that the next 24 to 48 hours will tell is an awful lot about his prognosis. Today's documentation has been created with the assistance of voice recognition software. Therefore, it may contain anomalous punctuation, anomalous independent mis-recognitions, word substitutions, insertions or omissions. Occasional wrong-word or phonetically similar substitutions may also occur all due to the inherent limitations of voice recognition software. I have attempted to correct the above but I recommend that the chart be read carefully to recognize, using context, where the substitutions, insertions or omissions may have occurred.
--- NOTE | 2025-02-09 18:00 | ANESTHESIA POST OP EVALUATION ---
Anesthesia Post Eval Post Anesthesia Eval Vitals: Last Vital Signs Temp 37.3 C 02/09/25 17:53 Pulse 121 H 02/09/25 17:53 Resp 13 02/09/25 17:53 BP 110/72 02/09/25 17:53 Pulse Ox 94 02/09/25 17:53 O2 Flow Rate 91 02/08/25 19:10 CV Function Including HR & BP: Additional Therapies Ordered (pt on levophed and neosynephrine gtts) Pain Control: Satisfactory Nausea & Vomiting: Negative Mental Status: Other (pt sedated) Respiratory Status: Other (pt intubated on ventilator) Hydration Status: Satisfactory Anesthesia Complications: None
[2025-02-09 18:14] LABS: HCT - HEMATOCRIT 26.7 % (42.0-52.0); HGB - HEMOGLOBIN 8.9 g/dL (14.0-18.0); MEAN CORPUSCULAR HEMOGLOBIN 24.9 pg (27.0-31.0); MEAN CORPUSCULAR HGB CONC 33.3 g/dL (32.0-36.0); MEAN CORPUSCULAR VOLUME 74.8 fL (80.0-94.0); MEAN PLATELET VOLUME 10.7 fL (7.4-11.4); RED BLOOD COUNT 3.57 10^6/uL (4.70-6.10); RED CELL DISTRIBUTION WIDTH 20.3 % (12.0-15.0); WHITE BLOOD COUNT 18.2 x10^3/uL (4.8-10.8)
[2025-02-09 18:38] LABS: ALBUMIN/GLOBULIN RATIO 1.1 (1.0-2.2); BILIRUBIN,TOTAL 0.5 mg/dL (0.2-1.0); CALCIUM 6.7 mg/dL (8.5-10.3); CREATININE 1.6 mg/dL (0.6-1.3); POTASSIUM 5.6 mmol/L (3.5-4.5); TOTAL PROTEIN 3.9 g/dL (6.4-8.9)
[2025-02-09] MEDS: SODIUM CHLORIDE 0.9% 500 ML IV ONE ×2 (18:55→20:01)
[2025-02-09] MEDS: SODIUM BICARBONATE ABBOJECT 50 MEQ/50 ML SYRINGE IVP ONE ×3 (19:20→19:31)
[2025-02-09] MEDS: CALCIUM GLUC 1,000MG/50ML-NACL 1,000 MG/50 ML BAG IV ONE ×2 (19:21→23:50)
[2025-02-09] MEDS: DEXTROSE 50% ABBOJECT 25 GM/50 ML SYRINGE IVP ONE (19:23)
[2025-02-09] MEDS: INSULIN REGULAR, HUMAN 300 UNIT/3 ML PEN IVP ONE (19:23)
[2025-02-09] MEDS: SODIUM CHLORIDE 0.9% 1,000 ML IV SCH (19:33)
[2025-02-09 19:45] LABS: ABG OXYGEN SATURATION 98 % (95-98); ABG PCO2 29 mmHg (34-45); ABG PH 7.33 (7.35-7.45); ABG PO2 87 mmHg (83-108); ABG TCO2 16.4 mmol/L (21.0-29.0)
--- NOTE | 2025-02-09 19:45 | XRAY Report ---
PROCEDURE: XR Chest for Line Placement INDICATIONS: ET tube placement TECHNIQUE: One view of the chest was acquired. COMPARISON: Chest radiograph 02/09/2025. FINDINGS: Surgical changes and devices: Endotracheal tube is seen with tip approximately 4.5 cm above the rodrigo na. Enteric tube traverses the diaphragm with tip below the [id number] of this exam. Right interna l jugular catheter is seen with tip projecting over the lower superior vena cava. Upper abdominal mariana gical clips. Lungs and pleura: Lung volumes bilaterally. Mild left basilar atelectasis. Mediastinum: Mediastinal contours appear normal. Heart size is normal. Bones and chest wall: No suspicious bony lesions. Overlying soft tissues appear unremarkable. IMPRESSION: Lines and tubes in appropriate positions. Reviewed by: Oscar Peres MD on 02/09/2025 7:43 PM PDT Approved by: Oscar Peres MD on 02/09/2025 7:43 PM PDT Station ID: [id number]
[2025-02-09 19:46] LABS: ABG BASE EXCESS -10.6 mmol/L (-2.0-3.0); ABG HCO3 15.5 mmol/L (22.0-26.0); ABG RESPIRATORY RATE 14 b/min
--- NOTE | 2025-02-09 20:01 | XRAY Report ---
PROCEDURE: XR Abdomen 1 V INDICATIONS: f/u dilatation TECHNIQUE: One view of the abdomen acquired. COMPARISON: None. FINDINGS: Surgical changes and devices: Catheter in the bladder. Skin karthikeyan. Diffusely dilated small bowel. Soft tissues: No suspicious abdominal calcifications. Visualized solid organ contours appear normal in size. Bones: No suspicious bony lesions. IMPRESSION: Small bowel obstruction versus postop ileus Note: This final report is concordant with the preliminary after-hours interpretation provided by [facility], [facility] Reviewed by: Han Cabrera MD on 02/09/2025 6:59 PM AKDT Approved by: Han Cabrera MD on 02/09/2025 6:59 PM AKDT Station ID: [id number]
--- NOTE | 2025-02-09 20:02 | XRAY Report ---
PROCEDURE: XR Chest 1V INDICATIONS: F/U dyspnea TECHNIQUE: One view of the chest was acquired. COMPARISON: 02/08/2025 FINDINGS: Surgical changes and devices: Stable tubes and lines are seen. Lungs and pleura: Low lung volumes can be seen. No pneumothorax or pleural effusion is seen. Mediastinum: Mediastinal contours appear normal. Heart size is normal. Bones and chest wall: No suspicious bony lesions. Overlying soft tissues appear unremarkable. IMPRESSION: Stable lung volumes. Stable support equipment. Reviewed by: Kelvin Newby MD on 02/09/2025 7:01 PM SHYAM Approved by: Kelvin Newby MD on 02/09/2025 7:01 PM SHYAM Station ID: [id number]
[2025-02-09] MEDS: MEROPENEM 1 GM VIAL IVP SCH (20:06)
[2025-02-09] MEDS: MIDAZOLAM DRIP 50 MG/50 ML 50 MG/50 ML BAG IV SCH (20:35)
--- NOTE | 2025-02-09 21:27 | MISCELLANEOUS PROVIDER NOTE ---
Miscellaneous Provider Note - Note: 1929: Notified of ABG Laboratory Tests 02/09/25 19:15 ABG pH 7.33 L ABG pCO2 29 L ABG pO2 87 ABG HCO3 15.5 L ABG Base Excess -10.6 L CO2 19 on most recent chemistry. This calculates to a 216 mEq bicarb deficit Ordered additional amp of bicarb for 100meq total correction IVP. Pressor needs improved after bicarb DC cefepime, flagyl. Started meropenem Ordered continued neosynephrine Ordered Versed gtt as he is still breath stacking Additional 500mL bolus from continuous NS bag Recheck BMP, H/H, ABG ordered Ordered random vanc level as requested by pharmacy as his renal status is declining 2129: ABG 7.307/41.5/82.5/20.97. Ordered 150mEq Sodium bicarb in 1L D5 at 200. NS to resume after bicarb is finished
[2025-02-09 21:32] LABS: ABG BASE EXCESS -5.5 mmol/L (-2.0-3.0); ABG OXYGEN SATURATION 95 % (95-98); ABG PCO2 42 mmHg (34-45); ABG PH 7.31 (7.35-7.45); ABG PO2 83 mmHg (83-108); ABG TCO2 22.2 mmol/L (21.0-29.0)
[2025-02-09 21:33] LABS: ABG RESPIRATORY RATE 14 b/min
[2025-02-09] MEDS: SODIUM BICARBONATE 150 MEQ in DEXTROSE 5% 1,000 ML IV SCH (21:52)
[2025-02-09 22:36] LABS: HCT - HEMATOCRIT 25.1 % (42.0-52.0)
[2025-02-09 22:55] LABS: CALCIUM 6.5 mg/dL (8.5-10.3); CREATININE 1.6 mg/dL (0.6-1.3); POTASSIUM 5.1 mmol/L (3.5-4.5)
[2025-02-09 22:57] LABS: VANCOMYCIN,RANDOM 22.7 ug/mL
[2025-02-09 23:08] LABS: CALCIUM, IONIZED 1.01 mmol/L (1.09-1.30); VBG PH 7.294 (7.31-7.41)
[2025-02-10] MEDS ORDERED: ALBUTEROL NEB 2.5 MG/3 ML INH ONE (00:38)
[2025-02-10] MEDS: CONCENTRATED ALBUTEROL NEB 2.5 MG/0.5 ML INH STA (00:54)
[2025-02-10] MEDS ORDERED: PHENYLEPHRINE 10 MG/ML VIAL ONE ×2 (02:51→05:48)
[2025-02-10] MEDS: PHENYLEPHRINE 20 MG in SODIUM CHLORIDE 0.9% 248 ML IV SCH (03:20)
[2025-02-10] MEDS ORDERED: SODIUM CHLORIDE 0.9% 250 ML IV ONE (03:27)
[2025-02-10 04:36] LABS: HCT - HEMATOCRIT 27.3 % (42.0-52.0); MEAN CORPUSCULAR HEMOGLOBIN 25.9 pg (27.0-31.0); MEAN CORPUSCULAR VOLUME 78.7 fL (80.0-94.0); MEAN PLATELET VOLUME 10.7 fL (7.4-11.4); RED BLOOD COUNT 3.47 10^6/uL (4.70-6.10); RED CELL DISTRIBUTION WIDTH 21.4 % (12.0-15.0)
[2025-02-10 04:45] LABS: CALCIUM, IONIZED 1.05 mmol/L (1.09-1.30)
[2025-02-10 04:51] LABS: MAGNESIUM 2.2 mg/dL (1.7-2.3)
[2025-02-10 04:57] LABS: ALBUMIN 1.7 g/dL (3.2-5.5); ALBUMIN/GLOBULIN RATIO 0.9 (1.0-2.2); BILIRUBIN,TOTAL 0.4 mg/dL (0.2-1.0); CALCIUM 6.6 mg/dL (8.5-10.3); CREATININE 1.4 mg/dL (0.6-1.3); POTASSIUM 5.5 mmol/L (3.5-4.5); TOTAL PROTEIN 3.5 g/dL (6.4-8.9)
[2025-02-10 05:23] LABS: ABG BASE EXCESS -1.6 mmol/L (-2.0-3.0); ABG OXYGEN SATURATION 95 % (95-98); ABG PCO2 50 mmHg (34-45); ABG PO2 74 mmHg (83-108); ABG TCO2 26.5 mmol/L (21.0-29.0)
[2025-02-10 05:24] LABS: ABG RESPIRATORY RATE 14 b/min
[2025-02-10] MEDS: CALCIUM GLUC 1,000MG/50ML-NACL 1,000 MG/50 ML BAG IV ONE (05:27)
[2025-02-10] MEDS: PANTOPRAZOLE 40 MG VIAL IVP SCH (06:24)
[2025-02-10 08:19] LABS: VANCOMYCIN,RANDOM 16.5 ug/mL
[2025-02-10] MEDS ORDERED: CHLORHEXIDINE GLUCONATE 15 ML UDC PO SCH (09:00)
[2025-02-10] MEDS: VANCOMYCIN INJ 1.75 GM in SODIUM CHLORIDE 0.9% 500 ML IV SCH (09:24)
--- NOTE | 2025-02-10 09:38 | PROVIDER PROGRESS NOTE ---
Assessment/Plan Problem List (1) Septic shock: Assessment/Plan: Postoperative day 1 s/p exploratory laparotomy with extensive adhesiolysis, resection of disrupted ileocolonic anastamosis, partial omentectomy, Mulu's, end ileostomy, abdominal washout, placement drain x2, placement of NG with bridle FEN The patient's input/output is [phone] but this number is almost certainly in error. I removed nearly 3 L of liquid stool out of the patient's nasogastric tube in the operating room and likely removed an additional 3 L of blood and stool from the patient's abdomen. He is currently receiving PPN, IV fluids, IV antibiotics, pressors, sedation all IV and ultimately over the next 24 to 48 hours we should be able to get a better handle on what the patient's input and output are. To the send placing the patient on meropenem is certainly helpful as this is an IV push antibiotic versus an IV piggyback. Electrolyte replacement is being performed via the ICU protocol. Again, as mentioned below I will be checking lactate levels to check for the appropriateness of the patient's fluid status. I wholeheartedly agree with the transfusion of 2 units of blood in this critically ill patient and septic shock. Everything can and should be done to support his oxygen transportation, blood pressure and splanchnic O2 delivery. ID There is no doubt that this patient is in septic shock necessitating pressor support. He is currently on meropenem and vancomycin. I am going to restart the counter on both of these antibiotics today so he is on day 10/26 of meropenem 1 g IV piggyback every 8 hours and day 1 of vancomycin 1.75 g every 24 hours. Vancomycin levels have been checked and are appropriate. Meropenem has excellent coverage against aerobic and anaerobic bacteria (even covering Pseudomonas) so metronidazole is not required unless C. difficile is being considered. As stated below I will be checking lactate levels. His white blood cell count is up today but I believe this is strictly reactive to the operation yesterday. I do not believe that this represents a new untreated infection. Respiratory Patient will continue on the ventilator today and O2 delivery can be decreased as the patient's oxygenation allows. Patient is currently too critically ill to consider extubation. Once the pressors are decreased or even stopped and the patient is clinically more stable we will extubate. Proper respiratory and mouth care is in order. Cardiac The plan is to decrease the phenylephrine and use the Levophed to support the patient's blood pressure. The reason for this is that the phenylephrine is a strict alpha 1 agonist and may decrease splanchnic flow and O2 delivery whereas the Levophed has activity on the alpha 1, alpha 2 and beta 1 receptors and thus should be the preferred agent in septic shock. The Levophed should be used to keep the mean arterial pressure above 65 and if the mean arterial blood pressure is above 75 then we can decrease the pressor support. There is some debate whether or not CVP is meaningful anymore as a measurement of preload and volume resuscitation but I am a believer and I would like to keep his CVP between 8 and 12. To additionally measure the patient's volume resuscitation I will measure his lactate levels. (2) Acute hypoxic respiratory failure: (3) Acute metabolic encephalopathy: (4) Hyponatremia: (5) Alcohol abuse, in remission: (6) Anemia associated with acute blood loss: (7) Nicotine addiction: Qualifiers: Nicotine product type: cigarettes Substance use status: unspecified nicotine-induced disorder Qualified Code(s): F17.219 - Nicotine dependence, cigarettes, with unspecified nicotine-induced disorders Current Meds Current Meds: Current Medications Generic Name Dose Route Start Last Admin Trade Name Freq PRN Reason Stop Dose Admin Albuterol/Ipratropium 3 ml 02/06/25 14:52 02/08/25 07:27 Ipratropium/Albuterol 3 Ml Neb INH 3 ml RTQID PRN Administration Shortness of Air/Wheezing Chlorhexidine Gluconate 15 ml 02/08/25 21:00 02/10/25 09:25 Chlorhexidine Gluconate 15 Ml Udc PO 15 ml BID GADIEL Administration Enoxaparin Sodium 40 mg 02/03/25 21:00 02/10/25 09:25 Enoxaparin 40 Mg/0.4 Ml Syringe SUBQ 40 mg DAILY GADIEL Administration Acetaminophen 1,000 mg in 100 mls @ 400 mls/hr 02/08/25 12:00 02/10/25 06:45 Acetaminophen IV Infused Q6HR GADIEL Infusion Multivitamins 10 ml/ Zinc/ 2,011 mls @ 83 mls/hr 02/08/25 19:00 02/09/25 19:32 Copper/Manganese/Selenium 1 ml IV 83 mls/hr / Amino Acids/Electrolytes/ 1900 GADIEL Administration Dextrose Protocol Fat Emulsion Intravenous 250 mls @ 21 mls/hr 02/08/25 19:00 02/09/25 19:32 Intralipid 20% IV 21 mls/hr 1900 GADIEL Administration Propofol 1,000 mg in 100 mls @ 5.7 mls/hr 02/08/25 19:00 02/10/25 07:37 Diprivan IV 40 mcg/kg/min .[id number] GADIEL 22.8 mls/hr Administration Protocol 10 MCG/KG/MIN Norepinephrine/Sodium Chloride 8 mg in 250 mls @ 15 mls/hr 02/08/25 21:00 02/10/25 08:21 Levophed 8 Mg/250-0.9% Nacl IV 4 mcg/min .[id number] GADIEL 7.5 mls/hr Titration Protocol 8 MCG/MIN Fentanyl 2,500 mcg in 250 mls @ 10.5 mls/hr 02/09/25 08:00 02/10/25 04:09 Fentanyl IV 2 mcg/kg/hr .[id number] GADIEL 21 mls/hr Administration Protocol 1 MCG/KG/HR Dexmedetomidine HCl 1,000 mcg/ 250 mls @ 35.625 mls/hr 02/09/25 07:32 02/10/25 04:50 Sodium Chloride IV 1.3 mcg/kg/hr .Q7H2M PRN 30.88 mls/hr Agitation Administration Protocol 1.5 MCG/KG/HR Sodium Chloride 1,000 mls @ 125 mls/hr 02/09/25 19:00 02/10/25 07:36 Normal Saline 0.9% IV 125 mls/hr .Q8H GADIEL Administration Midazolam HCl 50 mg in 50 mls @ 4.32 mls/hr 02/09/25 20:00 02/10/25 08:20 Versed Drip 50 Mg/50 Ml IV 0.03 mg/kg/hr .[id number] GADIEL 3 mls/hr Titration Protocol 0.04 MG/KG/HR Phenylephrine HCl 20 mg/ 250 mls @ 75 mls/hr 02/10/25 02:40 02/10/25 09:28 Sodium Chloride IV 15 mcg/min .[id number] GADIEL 11.25 mls/hr Titration Protocol 100 MCG/MIN Vancomycin HCl 1.75 gm/ Sodium 500 mls @ 250 mls/hr 02/10/25 09:00 02/10/25 09:24 Chloride IV 250 mls/hr Q24H GADIEL Administration Insulin Human Regular 1 - 5 unit 02/09/25 00:00 02/10/25 06:48 Insulin Regular, Human 300 Unit/3 Ml Pen SUBQ 1 unit Q6HR GADIEL Administration Protocol Meropenem 1 gm 02/09/25 20:00 02/10/25 04:47 Meropenem 1 Gm Vial IVP 1 gm Q8H GADIEL Administration Nicotine 1 patch 02/03/25 09:00 02/10/25 09:24 Nicotine 21 Mg Patch TOP 1 patch DAILY GADIEL Administration Ondansetron HCl 4 mg 02/04/25 12:10 02/06/25 10:20 Ondansetron 4 Mg/2 Ml Vial IVP 4 mg Q6HR PRN Administration Nausea / Vomiting Pantoprazole Sodium 40 mg 02/09/25 07:00 02/10/25 06:18 Pantoprazole 40 Mg Vial IVP 40 mg QDAC GADIEL Administration Sodium Chloride 10 ml 02/01/25 10:12 02/04/25 21:05 Sodium Chloride Flush 0.9% 10 Ml Syringe IVP 10 ml PRN PRN Administration NEEDED PER PROVIDER ORDERS Sodium Chloride 10 ml 02/01/25 17:00 02/10/25 09:25 Sodium Chloride Flush 0.9% 10 Ml Syringe IVP 10 ml [id number],1700 GADIEL Administration Lab Result 02/10/25 04:25 02/10/25 09:00 Additional Planning My Orders: My Active Orders 02/09/25 17:42 Drain Care [RC] QSHIFT Miscellaenous Nursing Order [RC] QSHIFT 02/09/25 18:00 NG Tube Care [RC] Q4HR Time Spent: Greater than 60 minutes Subjective Subjective Patient Reports: Other (Patient is intubated and sedated.) Objective Vital Signs: Vital Signs - 24 hr 02/09/25 10:00 02/09/25 10:25 02/09/25 11:00 Temperature 37.7 C Temperature Source Core Pulse Rate Pulse Rate [Monitoring electrodes] 117 H 118 H Respiratory Rate 12 13 Blood Pressure [Left Brachial artery] 103/78 105/75 Blood Pressure [Right Radial artery] 88/54 L 101/57 L O2 Saturation 95 95 O2 Source Mechanical ventilator Mechanical ventilator Fraction of Inspired Oxygen (FIO2) 30 FiO2 (%) 30 50 Sedation scale 02/09/25 11:16 02/09/25 12:00 02/09/25 12:29 Temperature 37.8 C Temperature Source Core Pulse Rate 115 H 124 H Pulse Rate [Monitoring electrodes] 124 H Respiratory Rate 14 Blood Pressure [Left Brachial artery] Blood Pressure [Right Radial artery] 98/57 L O2 Saturation 95 O2 Source Mechanical ventilator Fraction of Inspired Oxygen (FIO2) 30 40 FiO2 (%) Sedation scale 3-Responsive to vigorous 02/09/25 12:58 02/09/25 13:00 02/09/25 17:00 Temperature 37.9 C 37.1 C Temperature Source Core Core Pulse Rate Pulse Rate [Monitoring electrodes] 129 H 116 H Respiratory Rate 15 Blood Pressure [Left Brachial artery] 93/75 94/35 L Blood Pressure [Right Radial artery] 89/53 L 99/57 L O2 Saturation 96 95 O2 Source Mechanical ventilator Mechanical ventilator Fraction of Inspired Oxygen (FIO2) 40 FiO2 (%) 40 40 Sedation scale 3-Responsive to vigorous 02/09/25 17:00 02/09/25 17:09 02/09/25 17:29 Temperature Temperature Source Pulse Rate 113 H Pulse Rate [Monitoring electrodes] 112 H Respiratory Rate Blood Pressure [Left Brachial artery] 94/35 L Blood Pressure [Right Radial artery] O2 Saturation 83 L O2 Source Mechanical ventilator Fraction of Inspired Oxygen (FIO2) 40 40 FiO2 (%) Sedation scale 02/09/25 17:39 02/09/25 17:53 02/09/25 18:00 Temperature 37.2 C 37.3 C 37.4 C Temperature Source Core Core Core Pulse Rate Pulse Rate [Monitoring electrodes] 119 H 121 H 121 H Respiratory Rate 14 13 12 Blood Pressure [Left Brachial artery] 97/73 110/72 97/78 Blood Pressure [Right Radial artery] 97/49 L 95/59 L 96/63 O2 Saturation 94 94 94 O2 Source Mechanical ventilator Mechanical ventilator Mechanical ventilator Fraction of Inspired Oxygen (FIO2) FiO2 (%) 40 40 40 Sedation scale 02/09/25 19:00 02/09/25 19:39 02/09/25 20:00 Temperature 37.9 C 37.8 C Temperature Source Core Core Pulse Rate 119 H Pulse Rate [Monitoring electrodes] 120 H 128 H Respiratory Rate 13 15 Blood Pressure [Left Brachial artery] 79/66 L 112/70 Blood Pressure [Right Radial artery] 102/62 126/64 O2 Saturation 94 94 O2 Source Mechanical ventilator Mechanical ventilator Fraction of Inspired Oxygen (FIO2) FiO2 (%) 40 30 Sedation scale 5-Unresponsive 02/09/25 21:00 02/09/25 21:00 02/09/25 21:35 Temperature 37.9 C Temperature Source Core Pulse Rate 115 H Pulse Rate [Monitoring electrodes] 115 H Respiratory Rate 19 Blood Pressure [Left Brachial artery] 101/65 Blood Pressure [Right Radial artery] 96/54 L O2 Saturation 92 O2 Source Mechanical ventilator Fraction of Inspired Oxygen (FIO2) 30 30 FiO2 (%) 30 Sedation scale 5-Unresponsive 02/09/25 22:00 02/09/25 22:11 02/09/25 23:00 Temperature 38.1 C H 38.2 C H Temperature Source Core Core Pulse Rate 114 H Pulse Rate [Monitoring electrodes] 111 H 110 H Respiratory Rate 18 18 Blood Pressure [Left Brachial artery] 105/69 106/71 Blood Pressure [Right Radial artery] 102/58 L 117/65 O2 Saturation 92 92 O2 Source Mechanical ventilator Mechanical ventilator Fraction of Inspired Oxygen (FIO2) FiO2 (%) 30 30 Sedation scale 5-Unresponsive 5-Unresponsive 02/09/25 23:40 02/10/25 00:00 02/10/25 01:00 Temperature 38.2 C H 38.2 C H Temperature Source Core Core Pulse Rate 110 H Pulse Rate [Monitoring electrodes] 103 H 104 H Respiratory Rate 17 14 Blood Pressure [Left Brachial artery] 104/68 112/69 Blood Pressure [Right Radial artery] 109/59 L 99/54 L O2 Saturation 93 94 O2 Source Mechanical ventilator Mechanical ventilator Fraction of Inspired Oxygen (FIO2) 30 FiO2 (%) 30 30 Sedation scale 5-Unresponsive 5-Unresponsive 02/10/25 01:00 02/10/25 01:40 02/10/25 01:52 Temperature 38.1 C H 38.1 C H Temperature Source Core Core Pulse Rate 110 H Pulse Rate [Monitoring electrodes] 105 H 105 H Respiratory Rate 18 14 14 Blood Pressure [Left Brachial artery] 112/69 112/69 Blood Pressure [Right Radial artery] 107/55 L 109/56 L O2 Saturation 94 94 O2 Source vent Mechanical ventilator Mechanical ventilator Fraction of Inspired Oxygen (FIO2) FiO2 (%) 30 30 Sedation scale 4-Responsive to painful 4-Responsive to painful 02/10/25 02:00 02/10/25 02:02 02/10/25 02:40 Temperature 38.1 C H 38.1 C H Temperature Source Core Core Pulse Rate 18 L Pulse Rate [Monitoring electrodes] 105 H 104 H Respiratory Rate 14 14 Blood Pressure [Left Brachial artery] 104/70 104/70 Blood Pressure [Right Radial artery] 114/57 L 113/57 L O2 Saturation 94 94 O2 Source Mechanical ventilator Mechanical ventilator Fraction of Inspired Oxygen (FIO2) 30 FiO2 (%) 30 30 Sedation scale 5-Unresponsive 4-Responsive to painful 02/10/25 03:00 02/10/25 04:00 02/10/25 04:31 Temperature 37.9 C 37.7 C 37.7 C Temperature Source Core Core Core Pulse Rate Pulse Rate [Monitoring electrodes] 100 90 93 Respiratory Rate 15 15 14 Blood Pressure [Left Brachial artery] 114/73 93/64 93/64 Blood Pressure [Right Radial artery] 103/58 L 94/54 L O2 Saturation 92 92 92 O2 Source Mechanical ventilator Mechanical ventilator Mechanical ventilator Fraction of Inspired Oxygen (FIO2) FiO2 (%) 30 30 30 Sedation scale 5-Unresponsive 5-Unresponsive 4-Responsive to painful 02/10/25 04:51 02/10/25 05:00 02/10/25 05:19 Temperature 37.6 C 37.6 C Temperature Source Core Core Pulse Rate 95 Pulse Rate [Monitoring electrodes] 88 90 Respiratory Rate 15 14 Blood Pressure [Left Brachial artery] 90/72 90/72 Blood Pressure [Right Radial artery] 107/59 L 98/55 L O2 Saturation 93 92 O2 Source Mechanical ventilator Mechanical ventilator Fraction of Inspired Oxygen (FIO2) 30 FiO2 (%) 30 30 Sedation scale 5-Unresponsive 4-Responsive to painful 02/10/25 05:26 02/10/25 05:29 02/10/25 05:39 Temperature 37.6 C 37.6 C Temperature Source Core Core Pulse Rate 89 Pulse Rate [Monitoring electrodes] 88 88 Respiratory Rate 14 14 Blood Pressure [Left Brachial artery] 106/75 90/67 Blood Pressure [Right Radial artery] 108/59 L 95/55 L O2 Saturation 93 94 O2 Source Mechanical ventilator Mechanical ventilator Fraction of Inspired Oxygen (FIO2) 30 FiO2 (%) 30 30 Sedation scale 4-Responsive to painful 4-Responsive to painful 02/10/25 06:00 02/10/25 07:00 02/10/25 07:24 Temperature 37.5 C 37.4 C Temperature Source Core Core Pulse Rate 72 Pulse Rate [Monitoring electrodes] 81 72 Respiratory Rate 14 15 Blood Pressure [Left Brachial artery] 90/68 108/69 Blood Pressure [Right Radial artery] 101/57 L 109/59 L O2 Saturation 94 93 O2 Source Mechanical ventilator Mechanical ventilator Fraction of Inspired Oxygen (FIO2) 30 FiO2 (%) 30 30 Sedation scale 5-Unresponsive 5-Unresponsive 02/10/25 08:00 02/10/25 08:29 02/10/25 09:00 Temperature 37.3 C Temperature Source Core Pulse Rate Pulse Rate [Monitoring electrodes] 73 71 Respiratory Rate 15 15 Blood Pressure [Left Brachial artery] 96/69 131/70 H Blood Pressure [Right Radial artery] 106/67 129/64 O2 Saturation 93 96 O2 Source Mechanical ventilator Mechanical ventilator Fraction of Inspired Oxygen (FIO2) 30 FiO2 (%) 30 30 Sedation scale 5-Unresponsive 3-Responsive to vigorous 02/10/25 09:00 02/10/25 09:25 Temperature 37.3 C Temperature Source Core Pulse Rate 78 Pulse Rate [Monitoring electrodes] 79 Respiratory Rate 14 Blood Pressure [Left Brachial artery] 106/67 Blood Pressure [Right Radial artery] 110/56 L O2 Saturation 95 O2 Source Mechanical ventilator Fraction of Inspired Oxygen (FIO2) 30 FiO2 (%) 30 Sedation scale 5-Unresponsive Oxygen O2 Source Mechanical ventilator I&O (Last 24 Hrs): Intake and Output Totals x24h 02/08/25 02/09/25 02/10/25 23:59 23:59 23:59 Intake Total 3867 / 3867 03144 / 44056 4079 / 4079 Output Total 250 / 250 7155 / 7155 950 / 950 Balance 3617 / 3617 4093 / 4093 3129 / 3129 Comments/Notes: General: 54-year old male, appears older than stated age, intubated and sedated in room 2304 of [facility]'s intensive care unit HEENT: Mucous membranes pink and slightly dry with the mouth open and an endotracheal tube in place, nasogastric tube in place and bridled, sclera anicteric and not injected Neck: Supple, no bruit Cardiac: Regular rate and rhythm without rub, gallop, or murmur Chest: Fine crackles bilaterally Abdomen: Much softer than yesterday, no bowel sounds, midline incision dressed, ostomy pink with some "bowel sweat", drains in place left and right draining serosanguineous fluid (clear) Genitourinary: Mcleod in place draining light yellow but slightly hazy urine Rectal: Deferred Extremities: Cool to touch with no clubbing and minimal edema Gait: Not evaluated Psychiatric: Impossible to evaluate as patient is intubated and sedated Results Results: Laboratory Results WBC 28.0 x10^3/uL (4.8-10.8) H 02/10/25 04:25 RBC 3.47 10^6/uL (4.70-6.10) L 02/10/25 04:25 Hgb 9.0 g/dL (14.0-18.0) L 02/10/25 04:25 Hct 27.3 % (42.0-52.0) L 02/10/25 04:25 MCV 78.7 fL (80.0-94.0) L 02/10/25 04:25 MCH 25.9 pg (27.0-31.0) L 02/10/25 04:25 MCHC 33.0 g/dL (32.0-36.0) 02/10/25 04:25 RDW 21.4 % (12.0-15.0) H 02/10/25 04:25 Plt Count 482 10^3/uL (130-450) H 02/10/25 04:25 MPV 10.7 fL (7.4-11.4) 02/10/25 04:25 Neut # (Auto) Not Reportable 02/09/25 04:20 Lymph # (Auto) Not Reportable 02/09/25 04:20 Donley # (Auto) Not Reportable 02/09/25 04:20 Eos # (Auto) Not Reportable 02/09/25 04:20 Baso # (Auto) Not Reportable 02/09/25 04:20 Absolute Nucleated RBC Not Reportable 02/09/25 04:20 Total Counted 100 02/09/25 04:20 Band Neuts % (Manual) 55 % (0-10) H 02/09/25 04:20 Abnorm Lymph % (Manual) 0 % 02/09/25 04:20 Metamyelocytes % 8 % (-0) H 02/09/25 04:20 Myelocytes % 3 % (-0) H 02/08/25 04:23 Nucleated RBC % Not Reportable 02/09/25 04:20 Neutrophils # (Manual) 13.1 10^3/uL (1.5-6.6) H 02/09/25 04:20 Lymphocytes # (Manual) 0.9 10^3/uL (1.5-3.5) L 02/09/25 04:20 Monocytes # (Manual) 0.2 10^3/uL (0.0-1.0) 02/09/25 04:20 Eosinophils # (Manual) 0.0 10^3/uL (0-0.7) 02/09/25 04:20 Basophils # (Manual) 0.0 10^3/uL (0-0.1) 02/09/25 04:20 Nucleated RBCs 2 % 02/09/25 04:20 Differential Comment MANUAL DIFFERENTIAL 02/09/25 04:20 Manual Slide Review Indicated 02/09/25 04:20 WBC Morphology 1+ DOHLE BODIES (NORMAL) 1+ TOXIC GRANULATION (NORMAL) 02/09/25 04:20 WBC Morphology 1+ DOHLE BODIES (NORMAL) 1+ TOXIC GRANULATION (NORMAL) 02/09/25 04:20 Platelet Estimate NORMAL (130-450,000) (NORMAL) 02/09/25 04:20 Platelet Morphology NORMAL APPEARANCE (NORMAL) 02/09/25 04:20 RBC Morph Micro Appear 1+ ANISOCYTOSIS (NORMAL) 1+ MICROCYTOSIS (NORMAL) 02/09/25 04:20 RBC Morph Micro Appear 1+ ANISOCYTOSIS (NORMAL) 1+ MICROCYTOSIS (NORMAL) 02/09/25 04:20 PT 14.5 secs (9.9-12.6) H 02/02/25 Unknown INR 1.3 (0.8-1.2) H 02/02/25 Unknown D-Dimer > 1050.0 ng/mL (200.0-255.0) H 02/06/25 11:14 Bld Gas Analysis Time 51602/10/25 05:15 Sample Site A-LINE 02/10/25 05:15 ABG pH 7.30 (7.35-7.45) L 02/10/25 05:15 ABG pCO2 50 mmHg (34-45) H 02/10/25 05:15 ABG pO2 74 mmHg (83-108) L 02/10/25 05:15 ABG HCO3 25.0 mmol/L (22.0-26.0) 02/10/25 05:15 ABG Total CO2 26.5 mmol/L (21.0-29.0) 02/10/25 05:15 ABG O2 Saturation 95 % (95-98) 02/10/25 05:15 ABG Base Excess -1.6 mmol/L (-2.0-3.0) 02/10/25 05:15 Ananda Test Not Reportable 02/10/25 05:15 VBG pH 7.270 (7.31-7.41) L 02/10/25 04:25 VBG pCO2 42.1 mmHg (41-51) 02/08/25 04:23 VBG pO2 49.9 mmHg (25-47) H 02/08/25 04:23 VBG HCO3 30.6 mmol/L (23-28) H 02/08/25 04:23 VBG Total CO2 31.8 mmol/L (24-29) H 02/08/25 04:23 VBG O2 Saturation 79.0 % (60-80) 02/08/25 04:23 VBG Base Excess 6.6 mmol/L (-2 - +2) H 02/08/25 04:23 Ionized Calcium 1.05 mmol/L (1.09-1.30) L 02/10/25 04:25 Respiration Rate 14 b/min 02/10/25 05:15 O2 Delivery Device VENTILATOR 02/10/25 05:15 O2 Liters/Min 5.00 LPM 02/08/25 18:03 Vent Mode 02/09/25 21:10 FiO2 30.00 02/10/25 05:15 PEEP 5 cmH2O 02/10/25 05:15 Sodium 131 mmol/L (135-145) L 02/10/25 04:25 Potassium 5.5 mmol/L (3.5-4.5) H 02/10/25 04:25 Chloride 101 mmol/L (101-111) 02/10/25 04:25 Carbon Dioxide 26 mmol/L (21-32) 02/10/25 04:25 Anion Gap 4.0 (6-13) L 02/10/25 04:25 BUN 37 mg/dL (6-20) H 02/10/25 04:25 Creatinine 1.4 mg/dL (0.6-1.3) H 02/10/25 04:25 Estimated GFR (MDRD) 53 (>89) L 02/10/25 04:25 Glucose 241 mg/dL (74-104) H 02/10/25 04:25 POC Whole Bld Glucose 161 mg/dL (70-100) 02/10/25 06:00 Serum Osmolality 271 mOsmol/kg (275-295) L 02/01/25 10:03 Lactic Acid 0.9 mmol/L (0.5-2.2) 02/08/25 04:23 Calcium 6.6 mg/dL (8.5-10.3) L 02/10/25 04:25 Phosphorus 6.3 mg/dL (2.5-5.0) H 02/10/25 04:25 Magnesium 2.2 mg/dL (1.7-2.3) 02/10/25 04:25 Iron 82 ug/dL (50-212) 02/01/25 10:03 TIBC 473 ug/dL (250-450) H 02/01/25 10:03 % Saturation 17 % (20-50) L 02/01/25 10:03 Transferrin 338 mg/dL (203-362) 02/01/25 10:03 Total Bilirubin 0.4 mg/dL (0.2-1.0) 02/10/25 04:25 AST 29 IU/L (10-42) 02/10/25 04:25 ALT 12 IU/L (10-60) 02/10/25 04:25 Alkaline Phosphatase 58 IU/L (42-121) 02/10/25 04:25 Troponin I High Sens 5.7 ng/L (2.3-19.7) 02/08/25 04:23 Total Protein 3.5 g/dL (6.4-8.9) L 02/10/25 04:25 Albumin 1.7 g/dL (3.2-5.5) L 02/10/25 04:25 Globulin 1.8 g/dL (2.1-4.2) L 02/10/25 04:25 Albumin/Globulin Ratio 0.9 (1.0-2.2) L 02/10/25 04:25 Prealbumin 6 mg/dL (17-34) L 02/09/25 04:20 Triglycerides 153 mg/dL 02/09/25 04:20 Lipase 13 U/L (11-82) 01/31/25 19:06 Vitamin B12 1215 pg/mL (180-914) H 02/04/25 04:37 Folate 16.4 ng/mL (5.90 - >24.8) 02/04/25 04:37 Procalcitonin Immunoas 0.77 ng/mL (<0.5) H 02/07/25 01:15 Urine Sodium 17.7 mmol/L 02/01/25 14:42 Nasal Adenovirus (PCR) NOT DETECTED 02/07/25 01:35 Nasal B. parapertussis DNA (PCR) NOT DETECTED 02/07/25 01:35 Nasal Coronavir 229E PCR NOT DETECTED 02/07/25 01:35 Nasal Coronavir HKU1 PCR NOT DETECTED 02/07/25 01:35 Nasal Coronavir NL63 PCR NOT DETECTED 02/07/25 01:35 Nasal Coronavir OC43 PCR NOT DETECTED 02/07/25 01:35 Nasal Enterovir/Rhinovir PCR NOT DETECTED 02/07/25 01:35 Nasal Influenza B PCR NOT DETECTED 02/07/25 01:35 Nasal Influenza A PCR NOT DETECTED 02/07/25 01:35 Nasal Parainfluen 1 PCR NOT DETECTED 02/07/25 01:35 Nasal Parainfluen 2 PCR NOT DETECTED 02/07/25 01:35 Nasal Parainfluen 3 PCR NOT DETECTED 02/07/25 01:35 Nasal Parainfluen 4 PCR NOT DETECTED 02/07/25 01:35 Nasal RSV (PCR) NOT DETECTED 02/07/25 01:35 Nasal Screen MRSA (PCR) NEGATIVE (NEGATIVE) 02/08/25 11:05 Nasal B.pertussis DNA PCR NOT DETECTED 02/07/25 01:35 Nasal C.pneumoniae (PCR) NOT DETECTED 02/07/25 01:35 Moshe Human Metapneumo PCR NOT DETECTED 02/07/25 01:35 Nasal M.pneumoniae (PCR) NOT DETECTED 02/07/25 01:35 Nasal SARS-CoV-2 (PCR) NOT DETECTED 02/07/25 01:35 Last Dose Date 02/08/25 02/10/25 04:25 Last Dose Time 2100 02/10/25 04:25 Random Vancomycin 16.5 ug/mL 02/10/25 04:25 Blood Type O POSITIVE 02/09/25 22:57 Blood Type Recheck O POSITIVE 02/01/25 21:52 Antibody Screen NEGATIVE 02/09/25 22:57 Crossmatch IS Only See Detail 02/09/25 22:57 CPT 33357 Procedures Procedures: Postoperative day 1 s/p exploratory laparotomy with extensive adhesiolysis, resection of disrupted ileocolonic anastamosis, partial omentectomy, Mulu's, end ileostomy, abdominal washout, placement drain x2, placement of NG with bridle Sepsis Event Note (H) Evaluation Current Stage of Sepsis: Septic shock Confirmed Source and Organism (if known) of Sepsis: Intra-abdominal infection secondary to disrupted ileocolostomy -addressed with surgical excision and abdominal washout yesterday Sepsis Criteria Sepsis Criteria: Recorded Temperature greater than 38.3C or Less than 36C, Recorded Heart Rate greater than 90 bpm, WBC count greater than 10% bands, WBC count greater than 12,000 or less than 4000, SCREW MACHINE SET UP OPERATOR: altered consciousness (unrelated to primary neuro pathology), MAP less than 65 mmHg and SBP less than 90 mmHg ABX Reporting Has patient been on IV antibiotics over the past 48 hours?: Yes Current Medications Current Medications Current Medications: Current Medications Generic Name Dose Route Start Last Admin Trade Name Freq PRN Reason Stop Dose Admin Albuterol/Ipratropium 3 ml 02/06/25 14:52 02/08/25 07:27 Ipratropium/Albuterol 3 Ml Neb INH 3 ml RTQID PRN Administration Shortness of Air/Wheezing Chlorhexidine Gluconate 15 ml 02/08/25 21:00 02/10/25 09:25 Chlorhexidine Gluconate 15 Ml Udc PO 15 ml BID GADIEL Administration Enoxaparin Sodium 40 mg 02/03/25 21:00 02/10/25 09:25 Enoxaparin 40 Mg/0.4 Ml Syringe SUBQ 40 mg DAILY GADIEL Administration Acetaminophen 1,000 mg in 100 mls @ 400 mls/hr 02/08/25 12:00 02/10/25 06:45 Acetaminophen IV Infused Q6HR GADIEL Infusion Multivitamins 10 ml/ Zinc/ 2,011 mls @ 83 mls/hr 02/08/25 19:00 02/09/25 19:32 Copper/Manganese/Selenium 1 ml IV 83 mls/hr / Amino Acids/Electrolytes/ 1900 GADIEL Administration Dextrose Protocol Fat Emulsion Intravenous 250 mls @ 21 mls/hr 02/08/25 19:00 02/09/25 19:32 Intralipid 20% IV 21 mls/hr 1900 GADIEL Administration Propofol 1,000 mg in 100 mls @ 5.7 mls/hr 02/08/25 19:00 02/10/25 07:37 Diprivan IV 40 mcg/kg/min .[id number] GADIEL 22.8 mls/hr Administration Protocol 10 MCG/KG/MIN Norepinephrine/Sodium Chloride 8 mg in 250 mls @ 15 mls/hr 02/08/25 21:00 02/10/25 08:21 Levophed 8 Mg/250-0.9% Nacl IV 4 mcg/min .[id number] GADIEL 7.5 mls/hr Titration Protocol 8 MCG/MIN Fentanyl 2,500 mcg in 250 mls @ 10.5 mls/hr 02/09/25 08:00 02/10/25 04:09 Fentanyl IV 2 mcg/kg/hr .[id number] GADIEL 21 mls/hr Administration Protocol 1 MCG/KG/HR Dexmedetomidine HCl 1,000 mcg/ 250 mls @ 35.625 mls/hr 02/09/25 07:32 02/10/25 04:50 Sodium Chloride IV 1.3 mcg/kg/hr .Q7H2M PRN 30.88 mls/hr Agitation Administration Protocol 1.5 MCG/KG/HR Sodium Chloride 1,000 mls @ 125 mls/hr 02/09/25 19:00 02/10/25 07:36 Normal Saline 0.9% IV 125 mls/hr .Q8H GADIEL Administration Midazolam HCl 50 mg in 50 mls @ 4.32 mls/hr 02/09/25 20:00 02/10/25 08:20 Versed Drip 50 Mg/50 Ml IV 0.03 mg/kg/hr .[id number] GADIEL 3 mls/hr Titration Protocol 0.04 MG/KG/HR Phenylephrine HCl 20 mg/ 250 mls @ 75 mls/hr 02/10/25 02:40 02/10/25 09:28 Sodium Chloride IV 15 mcg/min .Q3H20M GADIEL 11.25 mls/hr Titration Protocol 100 MCG/MIN Vancomycin HCl 1.75 gm/ Sodium 500 mls @ 250 mls/hr 02/10/25 09:00 02/10/25 09:24 Chloride IV 250 mls/hr Q24H GADIEL Administration Insulin Human Regular 1 - 5 unit 02/09/25 00:00 02/10/25 06:48 Insulin Regular, Human 300 Unit/3 Ml Pen SUBQ 1 unit Q6HR GADIEL Administration Protocol Meropenem 1 gm 02/09/25 20:00 02/10/25 04:47 Meropenem 1 Gm Vial IVP 1 gm Q8H GADIEL Administration Nicotine 1 patch 02/03/25 09:00 02/10/25 09:24 Nicotine 21 Mg Patch TOP 1 patch DAILY GADIEL Administration Ondansetron HCl 4 mg 02/04/25 12:10 02/06/25 10:20 Ondansetron 4 Mg/2 Ml Vial IVP 4 mg Q6HR PRN Administration Nausea / Vomiting Pantoprazole Sodium 40 mg 02/09/25 07:00 02/10/25 06:18 Pantoprazole 40 Mg Vial IVP 40 mg QDAC GADIEL Administration Sodium Chloride 10 ml 02/01/25 10:12 02/04/25 21:05 Sodium Chloride Flush 0.9% 10 Ml Syringe IVP 10 ml PRN PRN Administration NEEDED PER PROVIDER ORDERS Sodium Chloride 10 ml 02/01/25 17:00 02/10/25 09:25 Sodium Chloride Flush 0.9% 10 Ml Syringe IVP 10 ml [id number],[id number],1700 GADIEL Administration
[2025-02-10 09:40] LABS: CALCIUM, IONIZED 1.09 mmol/L (1.09-1.30); MAGNESIUM 2.3 mg/dL (1.7-2.3); PHOSPHORUS 4.9 mg/dL (2.5-5.0); POTASSIUM 4.7 mmol/L (3.5-4.5)
[2025-02-10] MEDS ORDERED: MIDAZOLAM 2 MG/2 ML VIAL IVP PRN (09:44)
--- NOTE | 2025-02-10 09:58 | PROVIDER PROGRESS NOTE ---
Subjective Subjective Subjective: Patient appears comfortable, intubated and sedated. On the evening of 02/07, patient became very confused and delirious. He was expressing visual hallucinations, trying to get out of bed, pulling at all of his lines. He also had worsening shortness of breath. When patient was seen this morning, he appeared significantly short of breath. His antibiotics were escalated to cover hospital-acquired pneumonia with vancomycin and cefepime. He was also given another dose of IV Lasix to keep him euvolemic with the pleural effusions. His shortness of breath is likely due to compression with the dilatation of his bowels. NG tube was placed, placed to LIS. During the day, 02/08, he continued to worsen. His shortness of breath and his work of breathing increased to the point where he was tachypneic, tachycardic. As such, he was intubated for work of breathing. He was maintained on pressure control, with a PEEP of 5. His FiO2 was decreased to 100% to 30% throughout the evening. He then started spiking fevers. Flagyl was added. His blood pressure continued to drop. Central line and arterial line were placed. He was started on Levophed. On 02/09, patient had absent bowel tones. His abdomen was still soft, but there was not much output out of the NG tube. CT abdomen/pelvis was repeated at this time. This showed persistent and increasing free air under the right anterior abdominal wall, as well as the high-grade small bowel obstruction. CT shows free air. Patient taken to emergent surgery. General surgery completed ileostomy, complete abdominal washout. Initially, plan was to transfer the patient, and [facility] was spoken with, as well as [facility] and [facility], but we have held transfer plan due to need for emergent surgery. During his whole process, his was at bedside, and she was updated periodically. This morning his daughter was also at bedside, and she was updated. Current Medications Current Medications Current Medications: Current Medications Generic Name Dose Route Start Last Admin Trade Name Freq PRN Reason Stop Dose Admin Albuterol/Ipratropium 3 ml 02/06/25 14:52 02/08/25 07:27 Ipratropium/Albuterol 3 Ml Neb INH 3 ml RTQID PRN Administration Shortness of Air/Wheezing Chlorhexidine Gluconate 15 ml 02/08/25 21:00 02/10/25 09:25 Chlorhexidine Gluconate 15 Ml Udc PO 15 ml BID GADIEL Administration Enoxaparin Sodium 40 mg 02/03/25 21:00 02/10/25 09:25 Enoxaparin 40 Mg/0.4 Ml Syringe SUBQ 40 mg DAILY GADIEL Administration Acetaminophen 1,000 mg in 100 mls @ 400 mls/hr 02/08/25 12:00 02/10/25 06:45 Acetaminophen IV Infused Q6HR GADIEL Infusion Multivitamins 10 ml/ Zinc/ 2,011 mls @ 83 mls/hr 02/08/25 19:00 02/09/25 19:32 Copper/Manganese/Selenium 1 ml IV 83 mls/hr / Amino Acids/Electrolytes/ 1900 GADIEL Administration Dextrose Protocol Fat Emulsion Intravenous 250 mls @ 21 mls/hr 02/08/25 19:00 02/10/25 09:57 Intralipid 20% IV Infused 1900 GADIEL Infusion Propofol 1,000 mg in 100 mls @ 5.7 mls/hr 02/08/25 19:00 02/10/25 07:37 Diprivan IV 40 mcg/kg/min .[id number] GADIEL 22.8 mls/hr Administration Protocol 10 MCG/KG/MIN Norepinephrine/Sodium Chloride 8 mg in 250 mls @ 15 mls/hr 02/08/25 21:00 02/10/25 08:21 Levophed 8 Mg/250-0.9% Nacl IV 4 mcg/min .[id number] GADIEL 7.5 mls/hr Titration Protocol 8 MCG/MIN Fentanyl 2,500 mcg in 250 mls @ 10.5 mls/hr 02/09/25 08:00 02/10/25 04:09 Fentanyl IV 2 mcg/kg/hr .[id number] GADIEL 21 mls/hr Administration Protocol 1 MCG/KG/HR Dexmedetomidine HCl 1,000 mcg/ 250 mls @ 35.625 mls/hr 02/09/25 07:32 02/10/25 04:50 Sodium Chloride IV 1.3 mcg/kg/hr .Q7H2M PRN 30.88 mls/hr Agitation Administration Protocol 1.5 MCG/KG/HR Sodium Chloride 1,000 mls @ 125 mls/hr 02/09/25 19:00 02/10/25 07:36 Normal Saline 0.9% IV 125 mls/hr .Q8H GADIEL Administration Midazolam HCl 50 mg in 50 mls @ 4.32 mls/hr 02/09/25 20:00 02/10/25 08:20 Versed Drip 50 Mg/50 Ml IV 0.03 mg/kg/hr .[id number] GADIEL 3 mls/hr Titration Protocol 0.04 MG/KG/HR Phenylephrine HCl 20 mg/ 250 mls @ 75 mls/hr 02/10/25 02:40 02/10/25 09:28 Sodium Chloride IV 15 mcg/min .Q3H20M GADIEL 11.25 mls/hr Titration Protocol 100 MCG/MIN Vancomycin HCl 1.75 gm/ Sodium 500 mls @ 250 mls/hr 02/10/25 09:00 02/10/25 09:24 Chloride IV 250 mls/hr Q24H GADIEL Administration Insulin Human Regular 1 - 5 unit 02/09/25 00:00 02/10/25 06:48 Insulin Regular, Human 300 Unit/3 Ml Pen SUBQ 1 unit Q6HR GADIEL Administration Protocol Meropenem 1 gm 02/09/25 20:00 02/10/25 04:47 Meropenem 1 Gm Vial IVP 1 gm Q8H GADIEL Administration Midazolam HCl 2 mg 02/10/25 09:44 Midazolam 2 Mg/2 Ml Vial IVP Q4HR PRN Agitation Nicotine 1 patch 02/03/25 09:00 02/10/25 09:24 Nicotine 21 Mg Patch TOP 1 patch DAILY GADIEL Administration Ondansetron HCl 4 mg 02/04/25 12:10 02/06/25 10:20 Ondansetron 4 Mg/2 Ml Vial IVP 4 mg Q6HR PRN Administration Nausea / Vomiting Pantoprazole Sodium 40 mg 02/09/25 07:00 02/10/25 06:18 Pantoprazole 40 Mg Vial IVP 40 mg QDAC GADIEL Administration Sodium Chloride 10 ml 02/01/25 10:12 02/04/25 21:05 Sodium Chloride Flush 0.9% 10 Ml Syringe IVP 10 ml PRN PRN Administration NEEDED PER PROVIDER ORDERS Sodium Chloride 10 ml 02/01/25 17:00 02/10/25 09:25 Sodium Chloride Flush 0.9% 10 Ml Syringe IVP 10 ml 0100,0900,1700 GADIEL Administration Objective Vital Signs/Intake & Output Reviewed Vital Signs: Yes Vital Signs: Vital Signs x48h Temp Pulse Pulse Resp BP BP Pulse Ox 02/10/25 09:25 78 02/10/25 09:00 99.1 F 79 14 106/67 110/56 L 95 02/10/25 08:29 99.1 F 71 15 131/70 H 129/64 96 02/10/25 08:00 73 15 96/69 106/67 93 02/10/25 07:24 72 02/10/25 07:00 99.3 F 72 15 108/69 109/59 L 93 02/10/25 06:00 99.5 F 81 14 90/68 101/57 L 94 02/10/25 05:39 99.7 F 88 14 90/67 95/55 L 94 02/10/25 05:29 99.7 F 88 14 106/75 108/59 L 93 02/10/25 05:26 89 02/10/25 05:19 99.7 F 90 14 90/72 98/55 L 92 02/10/25 05:00 99.7 F 88 15 90/72 107/59 L 93 02/10/25 04:51 95 02/10/25 04:31 99.9 F 93 14 93/64 94/54 L 92 02/10/25 04:00 99.9 F 90 15 93/64 103/58 L 92 02/10/25 03:00 100.2 F 100 15 114/73 92 02/10/25 02:40 18 L 02/10/25 02:02 100.6 F H 104 H 14 104/70 113/57 L 94 02/10/25 02:00 100.6 F H 105 H 14 104/70 114/57 L 94 Intake & Output: Intake & Output 02/07/25 02/08/25 02/09/25 02/10/25 23:59 23:59 23:59 23:59 Intake Total 670 / 670 3867 / 3867 14946 / 56361 4329 / 4329 Output Total 175 / 175 250 / 250 7155 / 7155 950 / 950 Balance 495 / 495 3617 / 3617 4093 / 4093 3379 / 3379 Weight (kg) 108 kg 124 kg Objective General Appearance: positive No acute distress and Other (Intubated, sedated; appears comfortable) Eyes Bilateral: positive Normal inspection, PERRL (mildly dilated; brisk, reactive) and Conjunctivae nml ENT: positive ENT inspection nml, Pharynx nml, No signs of dehydration and Other (NG tube in place at this time) Neck: positive Thyroid nml and No JVD Respiratory: positive Chest non-tender and Other (Diminished breath sounds bilaterally, mild Rales noted in bilateral lungs, left worse than right) Cardiovascular: positive Tachycardia and Other (Heart rate ranging from 92- 120, EKG repeated, does show sinus tachycardia) Abdomen: positive Other (Abdominal distention is worse than yesterday. Surgical karthikeyan in place with some mild crusting and erythema noted around them. Absent bowel sounds. No rigidity on exam.) Skin: positive Color nml, No rash, Warm and Dry Extremities: positive Nml appearance and No pedal edema Neurologic/Psychiatric: positive Other (Sedated) Lab Results 02/10/25 10:55 02/10/25 09:00 Other Labs: Lab Results x24hrs 02/10/25 02/10/25 02/10/25 Range/Units 09:00 06:00 05:15 WBC (4.8-10.8) x10^3/uL RBC (4.70-6.10) 10^6/uL Hgb (14.0-18.0) g/dL Hct (42.0-52.0) % MCV (80.0-94.0) fL MCH (27.0-31.0) pg MCHC (32.0-36.0) g/dL RDW (12.0-15.0) % Plt Count (130-450) 10^3/uL MPV (7.4-11.4) fL Bld Gas Analysis Time 0517 Sample Site A-LINE ABG pH 7.30 L (7.35-7.45) ABG pCO2 50 H (34-45) mmHg ABG pO2 74 L (83-108) mmHg ABG HCO3 25.0 (22.0-26.0) mmol/L ABG Total CO2 26.5 (21.0-29.0) mmol/L ABG O2 Saturation 95 (95-98) % ABG Base Excess -1.6 (-2.0-3.0) mmol/L Ananda Test Not Reportable VBG pH 7.360 (7.31-7.41) Ionized Calcium 1.09 (1.09-1.30) mmol/L Respiration Rate 14 b/min O2 Delivery Device VENTILATOR Vent Mode FiO2 30.00 PEEP 5 cmH2O Sodium (135-145) mmol/L Potassium 4.7 H (3.5-4.5) mmol/L Chloride (101-111) mmol/L Carbon Dioxide (21-32) mmol/L Anion Gap (6-13) BUN (6-20) mg/dL Creatinine (0.6-1.3) mg/dL Estimated GFR (MDRD) (>89) Glucose (74-104) mg/dL POC Whole Bld Glucose 161 (70-100) mg/dL Calcium (8.5-10.3) mg/dL Phosphorus 4.9 (2.5-5.0) mg/dL Magnesium 2.3 (1.7-2.3) mg/dL Total Bilirubin (0.2-1.0) mg/dL AST (10-42) IU/L ALT (10-60) IU/L Alkaline Phosphatase (42-121) IU/L Total Protein (6.4-8.9) g/dL Albumin (3.2-5.5) g/dL Globulin (2.1-4.2) g/dL Albumin/Globulin Ratio (1.0-2.2) Last Dose Date Last Dose Time Random Vancomycin ug/mL Blood Type Antibody Screen Crossmatch IS Only 02/10/25 02/10/25 02/09/25 Range/Units 04:25 00:31 22:57 WBC 28.0 H (4.8-10.8) x10^3/uL RBC 3.47 L (4.70-6.10) 10^6/uL Hgb 9.0 L (14.0-18.0) g/dL Hct 27.3 L (42.0-52.0) % MCV 78.7 L (80.0-94.0) fL MCH 25.9 L (27.0-31.0) pg MCHC 33.0 (32.0-36.0) g/dL RDW 21.4 H (12.0-15.0) % Plt Count 482 H (130-450) 10^3/uL MPV 10.7 (7.4-11.4) fL Bld Gas Analysis Time Sample Site ABG pH (7.35-7.45) ABG pCO2 (34-45) mmHg ABG pO2 (83-108) mmHg ABG HCO3 (22.0-26.0) mmol/L ABG Total CO2 (21.0-29.0) mmol/L ABG O2 Saturation (95-98) % ABG Base Excess (-2.0-3.0) mmol/L Ananda Test VBG pH 7.270 L 7.294 L (7.31-7.41) Ionized Calcium 1.05 L 1.01 L (1.09-1.30) mmol/L Respiration Rate b/min O2 Delivery Device Vent Mode FiO2 PEEP cmH2O Sodium 131 L (135-145) mmol/L Potassium 5.5 H (3.5-4.5) mmol/L Chloride 101 (101-111) mmol/L Carbon Dioxide 26 (21-32) mmol/L Anion Gap 4.0 L (6-13) BUN 37 H (6-20) mg/dL Creatinine 1.4 H (0.6-1.3) mg/dL Estimated GFR (MDRD) 53 L (>89) Glucose 241 H (74-104) mg/dL POC Whole Bld Glucose 126 (70-100) mg/dL Calcium 6.6 L (8.5-10.3) mg/dL Phosphorus 6.3 H (2.5-5.0) mg/dL Magnesium 2.2 (1.7-2.3) mg/dL Total Bilirubin 0.4 (0.2-1.0) mg/dL AST 29 (10-42) IU/L ALT 12 (10-60) IU/L Alkaline Phosphatase 58 (42-121) IU/L Total Protein 3.5 L (6.4-8.9) g/dL Albumin 1.7 L (3.2-5.5) g/dL Globulin 1.8 L (2.1-4.2) g/dL Albumin/Globulin Ratio 0.9 L (1.0-2.2) Last Dose Date 02/08/25 Last Dose Time 2100 Random Vancomycin 16.5 ug/mL Blood Type O POSITIVE Antibody Screen NEGATIVE Crossmatch IS Only See Detail 04/26/25 04/26/25 04/26/25 Range/Units 22:20 21:10 21:05 WBC (4.8-10.8) x10^3/uL RBC (4.70-6.10) 10^6/uL Hgb 8.0 L (14.0-18.0) g/dL Hct 25.1 L (42.0-52.0) % MCV (80.0-94.0) fL MCH (27.0-31.0) pg MCHC (32.0-36.0) g/dL RDW (12.0-15.0) % Plt Count (130-450) 10^3/uL MPV (7.4-11.4) fL Bld Gas Analysis Time 2111 Sample Site A-LINE ABG pH 7.31 L (7.35-7.45) ABG pCO2 42 (34-45) mmHg ABG pO2 83 (83-108) mmHg ABG HCO3 21.0 L (22.0-26.0) mmol/L ABG Total CO2 22.2 (21.0-29.0) mmol/L ABG O2 Saturation 95 (95-98) % ABG Base Excess -5.5 L (-2.0-3.0) mmol/L Ananda Test NOT APPLICABLE VBG pH (7.31-7.41) Ionized Calcium (1.09-1.30) mmol/L Respiration Rate 14 b/min O2 Delivery Device VENTILATOR Vent Mode FiO2 30.00 PEEP cmH2O Sodium 133 L (135-145) mmol/L Potassium 5.1 H (3.5-4.5) mmol/L Chloride 105 (101-111) mmol/L Carbon Dioxide 23 (21-32) mmol/L Anion Gap 5.0 L (6-13) BUN 40 H (6-20) mg/dL Creatinine 1.6 H (0.6-1.3) mg/dL Estimated GFR (MDRD) 45 L (>89) Glucose 173 H (74-104) mg/dL POC Whole Bld Glucose 84 (70-100) mg/dL Calcium 6.5 L* (8.5-10.3) mg/dL Phosphorus (2.5-5.0) mg/dL Magnesium (1.7-2.3) mg/dL Total Bilirubin (0.2-1.0) mg/dL AST (10-42) IU/L ALT (10-60) IU/L Alkaline Phosphatase (42-121) IU/L Total Protein (6.4-8.9) g/dL Albumin (3.2-5.5) g/dL Globulin (2.1-4.2) g/dL Albumin/Globulin Ratio (1.0-2.2) Last Dose Date UNKNOWN Last Dose Time UNKNOWN Random Vancomycin 22.7 ug/mL Blood Type Antibody Screen Crossmatch IS Only 02/09/25 02/09/25 02/09/25 Range/Units 19:15 18:05 17:58 WBC 18.2 H (4.8-10.8) x10^3/uL RBC 3.57 L (4.70-6.10) 10^6/uL Hgb 8.9 L (14.0-18.0) g/dL Hct 26.7 L (42.0-52.0) % MCV 74.8 L (80.0-94.0) fL MCH 24.9 L (27.0-31.0) pg MCHC 33.3 (32.0-36.0) g/dL RDW 20.3 H (12.0-15.0) % Plt Count 483 H (130-450) 10^3/uL MPV 10.7 (7.4-11.4) fL Bld Gas Analysis Time 1918 Sample Site A-LINE ABG pH 7.33 L (7.35-7.45) ABG pCO2 29 L (34-45) mmHg ABG pO2 87 (83-108) mmHg ABG HCO3 15.5 L (22.0-26.0) mmol/L ABG Total CO2 16.4 L (21.0-29.0) mmol/L ABG O2 Saturation 98 (95-98) % ABG Base Excess -10.6 L (-2.0-3.0) mmol/L Ananda Test NOT APPLICABLE VBG pH (7.31-7.41) Ionized Calcium (1.09-1.30) mmol/L Respiration Rate 14 b/min O2 Delivery Device VENTILATOR Vent Mode FiO2 30.00 PEEP 5 cmH2O Sodium 131 L (135-145) mmol/L Potassium 5.6 H (3.5-4.5) mmol/L Chloride 105 (101-111) mmol/L Carbon Dioxide 19 L (21-32) mmol/L Anion Gap 7.0 (6-13) BUN 40 H (6-20) mg/dL Creatinine 1.6 H (0.6-1.3) mg/dL Estimated GFR (MDRD) 45 L (>89) Glucose 119 H (74-104) mg/dL POC Whole Bld Glucose 115 (70-100) mg/dL Calcium 6.7 L (8.5-10.3) mg/dL Phosphorus (2.5-5.0) mg/dL Magnesium (1.7-2.3) mg/dL Total Bilirubin 0.5 (0.2-1.0) mg/dL AST 35 (10-42) IU/L ALT 14 (10-60) IU/L Alkaline Phosphatase 76 (42-121) IU/L Total Protein 3.9 L (6.4-8.9) g/dL Albumin 2.0 L (3.2-5.5) g/dL Globulin 1.9 L (2.1-4.2) g/dL Albumin/Globulin Ratio 1.1 (1.0-2.2) Last Dose Date Last Dose Time Random Vancomycin ug/mL Blood Type Antibody Screen Crossmatch IS Only 02/09/25 02/09/25 02/09/25 Range/Units 11:46 05:50 00:01 WBC (4.8-10.8) x10^3/uL RBC (4.70-6.10) 10^6/uL Hgb (14.0-18.0) g/dL Hct (42.0-52.0) % MCV (80.0-94.0) fL MCH (27.0-31.0) pg MCHC (32.0-36.0) g/dL RDW (12.0-15.0) % Plt Count (130-450) 10^3/uL MPV (7.4-11.4) fL Bld Gas Analysis Time Sample Site ABG pH (7.35-7.45) ABG pCO2 (34-45) mmHg ABG pO2 (83-108) mmHg ABG HCO3 (22.0-26.0) mmol/L ABG Total CO2 (21.0-29.0) mmol/L ABG O2 Saturation (95-98) % ABG Base Excess (-2.0-3.0) mmol/L Ananda Test VBG pH (7.31-7.41) Ionized Calcium (1.09-1.30) mmol/L Respiration Rate b/min O2 Delivery Device Vent Mode FiO2 PEEP cmH2O Sodium (135-145) mmol/L Potassium (3.5-4.5) mmol/L Chloride (101-111) mmol/L Carbon Dioxide (21-32) mmol/L Anion Gap (6-13) BUN (6-20) mg/dL Creatinine (0.6-1.3) mg/dL Estimated GFR (MDRD) (>89) Glucose (74-104) mg/dL POC Whole Bld Glucose 122 116 100 (70-100) mg/dL Calcium (8.5-10.3) mg/dL Phosphorus (2.5-5.0) mg/dL Magnesium (1.7-2.3) mg/dL Total Bilirubin (0.2-1.0) mg/dL AST (10-42) IU/L ALT (10-60) IU/L Alkaline Phosphatase (42-121) IU/L Total Protein (6.4-8.9) g/dL Albumin (3.2-5.5) g/dL Globulin (2.1-4.2) g/dL Albumin/Globulin Ratio (1.0-2.2) Last Dose Date Last Dose Time Random Vancomycin ug/mL Blood Type Antibody Screen Crossmatch IS Only Diagnostic Imaging Diagnostic Imaging Results: positive Final report reviewed Assessment/Plan Problem List (1) Pneumoperitoneum: Impression: Repeat CT abdomen this morning demonstrates increasing free air, high-grade small bowel obstruction. She underwent exploratory laparotomy on 02/09 with resection of ileocolostomy, Blackwood's, partial omentectomy, placement of drains x 2, as well as extensive abdominal washout. Two JORGE drains remain in place. General surgery following, appreciate assistance and recommendations. (2) Septic shock: Impression: Patient febrile, leukocytosis, and now intubated. CT abdomen did show hematoma in pelvic region, there is concern for infection around the site. He also has some patchy infiltrates in the lungs. Blood cultures from 02/07 showed no growth to date. These were repeated, no growth to date. Continue broad-spectrum IV antibiotic coverage. Escalated to meropenem and vancomycin. Was on Ceasar, which has been weaned off. Continue to wean Levophed. Continue to titrate down as able. Continue PPN and IV fluids at this time. (3) Acute hypoxic respiratory failure: Impression: Patient intubated 02/08 due to increased work of breathing. PEEP of 5, FiO2 of 30%, inspiratory pressure of 11. He is breathing comfortably now after being sedated with Precedex, propofol, fentanyl. Had some junctional bradycardia, will wean off Precedex. Requiring Versed drip occasionally, with pushes. Will try to minimize fentanyl use with adynamic ileus, as well as small bowel obstruction. Large part of this is compression due to his large dilatation of his bowels, imaging shows atelectasis. CTA was done, negative for PE (4) Acute metabolic encephalopathy: Impression: Patient currently intubated and sedated. (5) Hyponatremia: Impression: Resolving, continue to monitor. (6) Alcohol abuse, in remission: Impression: Patient has remote history of alcohol abuse, but has been sober for about 3 to 4 months. (7) Anemia associated with acute blood loss: Impression: Hemoglobin is stable. (8) Nicotine addiction: Impression: Continue nicotine patch while inpatient. Qualifiers: Nicotine product type: cigarettes Substance use status: unspecified nicotine-induced disorder Qualified Code(s): F17.219 - Nicotine dependence, cigarettes, with unspecified nicotine-induced disorders (9) Small bowel obstruction due to postoperative adhesions: Impression: See above. 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 He also has a history of gastric bypass was discharged from inpatient alcohol rehab about 6 weeks ago. See complication as above. General surgery following. (11) Hemorrhagic shock: Impression: Hemoglobin stable.
[2025-02-10 11:17] LABS: BASOPHILS % (AUTO) 0.8 %; EOSINOPHILS % (AUTO) 0.1 %; HCT - HEMATOCRIT 26.3 % (42.0-52.0); HGB - HEMOGLOBIN 8.7 g/dL (14.0-18.0); LYMPHOCYTES % (AUTO) 3.9 %; MEAN CORPUSCULAR HGB CONC 33.1 g/dL (32.0-36.0); MEAN CORPUSCULAR VOLUME 78.7 fL (80.0-94.0); MEAN PLATELET VOLUME 10.6 fL (7.4-11.4); MONOCYTES % (AUTO) 2.9 %; NEUTROPHILS % (AUTO) 84.1 %; PLT - PLATELET COUNT 358 10^3/uL (130-450); RED BLOOD COUNT 3.34 10^6/uL (4.70-6.10); RED CELL DISTRIBUTION WIDTH 20.5 % (12.0-15.0); WHITE BLOOD COUNT 23.9 x10^3/uL (4.8-10.8)
[2025-02-10 11:18] LABS: SLIDE REVIEW? Indicated
[2025-02-10 11:19] LABS: ABNORMAL LYMPHS % (MANUAL) 0 %
[2025-02-10 11:55] LABS: BAND NEUTROPHILS % (MANUAL) 63 %; LYMPHOCYTES # (MANUAL) 0.2 10^3/uL (1.5-3.5); LYMPHOCYTES % (MANUAL) 1 %; METAMYELOCYTES % (MANUAL) 11 %; MONOCYTES # (MANUAL) 0.2 10^3/uL (0.0-1.0); MYELOCYTES % (MANUAL) 4 %; NEUTROPHILS # (MANUAL) 19.8 10^3/uL (1.5-6.6); NUCLEATED RBC (MANUAL) 3 %
[2025-02-10 11:57] LABS: PLATELET MORPHOLOGY NORMAL APPEARANCE (NORMAL)
[2025-02-10 11:58] LABS: DIFFERENTIAL COMMENT MANUAL DIFFERENTIAL; PLATELET ESTIMATE, MANUAL NORMAL (130-450,000) (NORMAL)
[2025-02-10] MEDS ORDERED: DEXMEDETOMIDINE 400 MCG/100 ML 100 ML IV PRN (14:02)
[2025-02-10 14:28] LABS: CALCIUM 6.8 mg/dL (8.5-10.3); CREATININE 1.2 mg/dL (0.6-1.3); MAGNESIUM 2.3 mg/dL (1.7-2.3); PHOSPHORUS 4.5 mg/dL (2.5-5.0); POTASSIUM 4.6 mmol/L (3.5-4.5)
[2025-02-10 14:34] LABS: HCT - HEMATOCRIT 25.7 % (42.0-52.0); HGB - HEMOGLOBIN 8.5 g/dL (14.0-18.0)
[2025-02-10 14:38] LABS: CALCIUM, IONIZED 1.09 mmol/L (1.09-1.30); VBG PH 7.379 (7.31-7.41)
--- NOTE | 2025-02-10 15:22 | PHARMACY PROGRESS NOTE ---
Vancomycin Therapy Monitoring Patient Information Concurrent Antibiotics: meropenem Vancomycin Therapy Goals Treatment Indication: emperic Vancomycin Target Range: Vancomycin AUC Target Range 400-600 mcg*h/ml Assessment of Current Therapy Current Vancomycin Maintenance Regimen (if applicable): Initally dosed as a 2 gram IV loading dose, then 1.75 grams IV every 12 hours. Due to declining renal function, Random levels were obtained prior to steady state. Restarted following a level 16.5, reducing frequency to every 24 hours. Plan: Pharmacy recommendation: Decrease dose New Regimen (Enter new dose and interval): 1.75g iv q24h Vancomycin Level Recommendation: Obtain Random Level (morning of 02/11 depending on if and how renal function changes.)
[2025-02-10] MEDS: SODIUM CHLORIDE 0.9% 500 ML IV ONE (20:41)
[2025-02-11] MEDS ORDERED: SODIUM CHLORIDE 0.9% 500 ML IV ONE ×3 (00:14→04:12)
[2025-02-11 05:21] LABS: BASOPHILS % (AUTO) 0.5 %; EOSINOPHILS % (AUTO) 0.3 %; LYMPHOCYTES % (AUTO) 4.3 %; MEAN CORPUSCULAR HEMOGLOBIN 27.5 pg (27.0-31.0); MEAN CORPUSCULAR HGB CONC 34.8 g/dL (32.0-36.0); MEAN PLATELET VOLUME 10.7 fL (7.4-11.4); MONOCYTES % (AUTO) 2.9 %; NEUTROPHILS % (AUTO) 78.7 %; PLT - PLATELET COUNT 312 10^3/uL (130-450); RED BLOOD COUNT 2.91 10^6/uL (4.70-6.10); RED CELL DISTRIBUTION WIDTH 20.9 % (12.0-15.0); WHITE BLOOD COUNT 23.7 x10^3/uL (4.8-10.8)
[2025-02-11 05:26] LABS: CALCIUM, IONIZED 1.11 mmol/L (1.09-1.30); VBG PH 7.384 (7.31-7.41)
[2025-02-11 05:32] LABS: MAGNESIUM 2.4 mg/dL (1.7-2.3)
[2025-02-11] MEDS: METOPROLOL 5 MG/5 ML VIAL IVP PRN ×3 (05:32→06:46)
[2025-02-11 05:37] LABS: CALCIUM 7.1 mg/dL (8.5-10.3); PHOSPHORUS 3.8 mg/dL (2.5-5.0); POTASSIUM 4.6 mmol/L (3.5-4.5); SLIDE REVIEW? Indicated
[2025-02-11 05:38] LABS: ABNORMAL LYMPHS % (MANUAL) 0 %
[2025-02-11] MEDS: SODIUM CHLORIDE 0.9% 500 ML IV ONE (06:05)
[2025-02-11 06:14] LABS: ABG PCO2 43 mmHg (34-45); ABG PH 7.39 (7.35-7.45)
[2025-02-11 06:15] LABS: ABG BASE EXCESS 1.2 mmol/L (-2.0-3.0); ABG HCO3 26.4 mmol/L (22.0-26.0); ABG MODE OF VENTILATION PC16; ABG OXYGEN SATURATION 98 % (95-98); ABG PO2 92 mmHg (83-108); ABG RESPIRATORY RATE 14 b/min; ABG TCO2 27.7 mmol/L (21.0-29.0)
[2025-02-11] MEDS: PANTOPRAZOLE 40 MG VIAL IVP SCH (06:25)
[2025-02-11 06:27] LABS: BAND NEUTROPHILS % (MANUAL) 3 %; LYMPHOCYTES # (MANUAL) 0.9 10^3/uL (1.5-3.5); LYMPHOCYTES % (MANUAL) 4 %; MONOCYTES # (MANUAL) 0.7 10^3/uL (0.0-1.0); MYELOCYTES % (MANUAL) 10 %; NEUTROPHILS # (MANUAL) 19.7 10^3/uL (1.5-6.6)
[2025-02-11 06:28] LABS: DIFFERENTIAL COMMENT MANUAL DIFFERENTIAL; PLATELET ESTIMATE, MANUAL NORMAL (130-450,000) (NORMAL); PLATELET MORPHOLOGY NORMAL APPEARANCE (NORMAL); WBC MORPHOLOGY (MULTIPLE) NORMAL APPEARANCE (NORMAL)
[2025-02-11] MEDS ORDERED: AMIODARONE 360 MG/200 ML 200 ML IV SCH (07:00)
[2025-02-11 07:33] LABS: VANCOMYCIN,RANDOM 15.9 ug/mL
[2025-02-11] MEDS: AMIODARONE 150 MG/100 ML 100 ML IV ONE (07:37)
[2025-02-11] MEDS ORDERED: LACTATED RINGERS 0 ML ONE (07:37)
[2025-02-11] MEDS: SODIUM CHLORIDE 0.9% 1,000 ML IV ONE (07:38)
[2025-02-11] MEDS: AMIODARONE 360 MG/200 ML IV ONE (07:51)
--- NOTE | 2025-02-11 08:59 | PROVIDER PROGRESS NOTE ---
Subjective Subjective Subjective: Patient appears comfortable, intubated and sedated. On the evening of 02/07, patient became very confused and delirious. He was expressing visual hallucinations, trying to get out of bed, pulling at all of his lines. He also had worsening shortness of breath. When patient was seen this morning, he appeared significantly short of breath. His antibiotics were escalated to cover hospital-acquired pneumonia with vancomycin and cefepime. He was also given another dose of IV Lasix to keep him euvolemic with the pleural effusions. His shortness of breath is likely due to compression with the dilatation of his bowels. NG tube was placed, placed to LIS. During the day, 02/08, he continued to worsen. His shortness of breath and his work of breathing increased to the point where he was tachypneic, tachycardic. As such, he was intubated for work of breathing. He was maintained on pressure control, with a PEEP of 5. His FiO2 was decreased to 100% to 30% throughout the evening. He then started spiking fevers. Flagyl was added. His blood pressure continued to drop. Central line and arterial line were placed. He was started on Levophed. On 02/09, patient had absent bowel tones. His abdomen was still soft, but there was not much output out of the NG tube. CT abdomen/pelvis was repeated at this time. This showed persistent and increasing free air under the right anterior abdominal wall, as well as the high-grade small bowel obstruction. CT shows free air. Patient taken to emergent surgery. General surgery completed ileostomy, complete abdominal washout. Initially, plan was to transfer the patient, and [facility] was spoken with, as well as [facility] and [place] [facility], but we have held transfer plans due to need for emergent surgery. On 02/10, he received transfusions to support his Hb, his pressors were weaned down to just Levophed (phenylephrine was stopped). He continues to be intubated and sedated. On 02/11, he went into new onset atrial fibrillation with RVR. Received IV metoprolol pushes, was started on IV amiodarone. Will attempt to avoid cardioversion as patient is going to be a very poor candidate for anticoagulation with ongoing bleeding, recent surgeries. During his whole process, his was at bedside, and she was updated periodically. This morning his daughter was also at bedside, and she was updated. Current Medications Current Medications Current Medications: Current Medications Generic Name Dose Route Start Last Admin Trade Name Freq PRN Reason Stop Dose Admin Albuterol/Ipratropium 3 ml 02/06/25 14:52 02/08/25 07:27 Ipratropium/Albuterol 3 Ml Neb INH 3 ml RTQID PRN Administration Shortness of Air/Wheezing Chlorhexidine Gluconate 15 ml 02/08/25 21:00 02/11/25 08:50 Chlorhexidine Gluconate 15 Ml Udc PO 15 ml BID GADIEL Administration Enoxaparin Sodium 40 mg 02/03/25 21:00 02/11/25 08:51 Enoxaparin 40 Mg/0.4 Ml Syringe SUBQ 40 mg DAILY GADIEL Administration Acetaminophen 1,000 mg in 100 mls @ 400 mls/hr 02/08/25 12:00 02/11/25 07:25 Acetaminophen IV Infused Q6HR GADIEL Infusion Multivitamins 10 ml/ Zinc/ 2,011 mls @ 83 mls/hr 02/08/25 19:00 02/10/25 18:36 Copper/Manganese/Selenium 1 ml IV 83 mls/hr / Amino Acids/Electrolytes/ 1900 GADIEL Administration Dextrose Protocol Fat Emulsion Intravenous 250 mls @ 21 mls/hr 02/08/25 19:00 02/11/25 08:30 Intralipid 20% IV Infused 1900 GADIEL Infusion Propofol 1,000 mg in 100 mls @ 5.7 mls/hr 02/08/25 19:00 02/11/25 04:52 Diprivan IV 40 mcg/kg/min .[id number] GADIEL 22.8 mls/hr Administration Protocol 10 MCG/KG/MIN Norepinephrine/Sodium Chloride 8 mg in 250 mls @ 15 mls/hr 02/08/25 21:00 02/11/25 07:24 Levophed 8 Mg/250-0.9% Nacl IV 8 mcg/min .[id number] GADIEL 15 mls/hr Administration Protocol 8 MCG/MIN Fentanyl 2,500 mcg in 250 mls @ 10.5 mls/hr 02/09/25 08:00 02/11/25 01:40 Fentanyl IV 0.75 mcg/kg/hr .[id number] GADIEL 7.88 mls/hr Administration Protocol 1 MCG/KG/HR Sodium Chloride 1,000 mls @ 125 mls/hr 02/09/25 19:00 02/11/25 06:57 Normal Saline 0.9% IV 125 mls/hr .Q8H GADIEL Infusion Midazolam HCl 50 mg in 50 mls @ 4.32 mls/hr 02/09/25 20:00 02/10/25 12:11 Versed Drip 50 Mg/50 Ml IV 0.01 mg/kg/hr .[id number] GADIEL 1 mls/hr Titration Protocol 0.04 MG/KG/HR Vancomycin HCl 1.75 gm/ Sodium 500 mls @ 250 mls/hr 02/10/25 09:00 02/11/25 08:50 Chloride IV 250 mls/hr Q24H GADIEL Administration Amiodarone HCl/Dextrose 200 mls @ 33.333 mls/hr 02/11/25 08:00 02/11/25 07:51 Nexterone 360 Mg/200 Ml IV 02/11/25 13:59 33.33 mls/hr ONCE ONE Administration Protocol Amiodarone HCl/Dextrose 200 mls @ 16.667 mls/hr 02/11/25 14:00 Nexterone 360 Mg/200 Ml IV .Q12H GADIEL 0.5 MG/MIN Insulin Human Regular 1 - 5 unit 02/09/25 00:00 02/11/25 06:10 Insulin Regular, Human 300 Unit/3 Ml Pen SUBQ Not Given Q6HR GADIEL Protocol Meropenem 1 gm 02/09/25 20:00 02/11/25 04:44 Meropenem 1 Gm Vial IVP 1 gm Q8H GADIEL Administration Metoprolol Tartrate 5 mg 02/11/25 05:26 02/11/25 05:32 Metoprolol 5 Mg/5 Ml Vial IVP 5 mg Q6H PRN Administration Tachycardia Metoprolol Tartrate 5 mg 02/11/25 05:57 02/11/25 06:04 Metoprolol 5 Mg/5 Ml Vial IVP 02/12/25 05:56 5 mg ONCE PRN Administration Tachycardia Metoprolol Tartrate 5 mg 02/11/25 06:34 02/11/25 06:46 Metoprolol 5 Mg/5 Ml Vial IVP 02/11/25 09:00 5 mg ONCE PRN Administration Tachycardia Midazolam HCl 2 mg 02/10/25 09:44 Midazolam 2 Mg/2 Ml Vial IVP Q4HR PRN Agitation Nicotine 1 patch 02/03/25 09:00 02/11/25 08:50 Nicotine 21 Mg Patch TOP 1 patch DAILY GADIEL Administration Ondansetron HCl 4 mg 02/04/25 12:10 02/06/25 10:20 Ondansetron 4 Mg/2 Ml Vial IVP 4 mg Q6HR PRN Administration Nausea / Vomiting Pantoprazole Sodium 40 mg 02/09/25 07:00 02/11/25 06:22 Pantoprazole 40 Mg Vial IVP 40 mg QDAC GADIEL Administration Sodium Chloride 10 ml 02/01/25 10:12 02/04/25 21:05 Sodium Chloride Flush 0.9% 10 Ml Syringe IVP 10 ml PRN PRN Administration NEEDED PER PROVIDER ORDERS Sodium Chloride 10 ml 02/01/25 17:00 02/11/25 00:26 Sodium Chloride Flush 0.9% 10 Ml Syringe IVP 10 ml [id number],[id number],1700 GADIEL Administration Objective Vital Signs/Intake & Output Reviewed Vital Signs: Yes Vital Signs: Vital Signs x48h Temp Pulse Pulse Resp BP BP BP 02/11/25 08:11 131 H 02/11/25 08:00 98.6 F 144 H 14 93/59 L 109/57 L 02/11/25 07:57 129 H 14 96/55 L 99/57 L 02/11/25 07:30 146 H 14 97/61 103/57 L 02/11/25 07:00 98.6 F 144 H 14 82/52 L 93/51 L 02/11/25 06:50 149 H 91/52 L 02/11/25 06:46 155 H 97/51 L 02/11/25 06:40 136 H 97/57 L 02/11/25 06:30 152 H 99/55 L 02/11/25 06:20 144 H 96/59 L 02/11/25 06:10 147 H 96/58 L 02/11/25 06:04 150 H 104/58 L 02/11/25 06:00 98.2 F 155 H 14 92/59 L 98/59 L 02/11/25 05:54 168 H 02/11/25 05:50 141 H 107/65 02/11/25 05:40 143 H 97/60 02/11/25 05:32 169 H 99/56 L 02/11/25 05:30 181 H 103/54 L 02/11/25 05:20 168 H 107/63 02/11/25 05:10 81 92/46 L 02/11/25 05:00 97.9 F 76 17 121/69 126/59 L 02/11/25 04:00 97.9 F 78 17 107/67 02/11/25 03:30 171 H 02/11/25 03:00 98.1 F 82 17 115/65 123/57 L 02/11/25 02:00 98.2 F 83 16 115/64 111/53 L 02/11/25 01:00 98.6 F 73 16 102/63 114/52 L Pulse Ox 02/11/25 08:11 02/11/25 08:00 91 L 02/11/25 07:57 95 02/11/25 07:30 96 02/11/25 07:00 95 02/11/25 06:50 02/11/25 06:46 02/11/25 06:40 02/11/25 06:30 02/11/25 06:20 02/11/25 06:10 02/11/25 06:04 02/11/25 06:00 95 02/11/25 05:54 02/11/25 05:50 02/11/25 05:40 02/11/25 05:32 02/11/25 05:30 02/11/25 05:20 02/11/25 05:10 02/11/25 05:00 96 02/11/25 04:00 96 02/11/25 03:30 02/11/25 03:00 94 02/11/25 02:00 93 02/11/25 01:00 94 Intake & Output: Intake & Output 02/08/25 02/09/25 02/10/25 02/11/25 23:59 23:59 23:59 23:59 Intake Total 3867 / 3867 25990 / 93619 94602 / 86923 1948 / 1948 Output Total 250 / 250 7155 / 7155 2895 / 2895 2445 / 2445 Balance 3617 / 3617 4093 / 4093 7483 / 7483 -496 / -496 Weight (kg) 108 kg 124 kg 127 kg Objective General Appearance: positive No acute distress and Other (Intubated, sedated; appears comfortable) Eyes Bilateral: positive Normal inspection, PERRL (mildly dilated; brisk, reactive) and Conjunctivae nml ENT: positive ENT inspection nml, Pharynx nml, No signs of dehydration and Other (NG tube in place at this time) Neck: positive Thyroid nml and No JVD Respiratory: positive Chest non-tender and Other (Diminished breath sounds bilaterally, mild Rales noted in bilateral lungs, left worse than right) Cardiovascular: positive Tachycardia and Other (Heart rate ranging from 92- 120, EKG repeated, does show sinus tachycardia) Abdomen: positive Other (Abdominal distention is worse than yesterday. Surgical karthikeyan in place with some mild crusting and erythema noted around them. Absent bowel sounds. No rigidity on exam.) Skin: positive Color nml, No rash, Warm and Dry Extremities: positive Nml appearance and No pedal edema Neurologic/Psychiatric: positive Other (Sedated) Lab Results 02/11/25 05:10 02/11/25 05:10 Other Labs: Lab Results x24hrs 02/11/25 02/11/25 02/11/25 Range/Units 06:07 05:40 05:10 WBC (4.8-10.8) x10^3/uL RBC (4.70-6.10) 10^6/uL Hgb (14.0-18.0) g/dL Hct (42.0-52.0) % MCV (80.0-94.0) fL MCH (27.0-31.0) pg MCHC (32.0-36.0) g/dL RDW (12.0-15.0) % Plt Count (130-450) 10^3/uL MPV (7.4-11.4) fL Neut # (Auto) Lymph # (Auto) [place] # (Auto) Eos # (Auto) Baso # (Auto) Absolute Nucleated RBC Total Counted Band Neuts % (Manual) (0 - 10) % Abnorm Lymph % (Manual) % Metamyelocytes % ( - 0) % Myelocytes % ( - 0) % Nucleated RBC % Neutrophils # (Manual) (1.5-6.6) 10^3/uL Lymphocytes # (Manual) (1.5-3.5) 10^3/uL Monocytes # (Manual) (0.0-1.0) 10^3/uL Eosinophils # (Manual) (0-0.7) 10^3/uL Basophils # (Manual) (0-0.1) 10^3/uL Nucleated RBCs % Differential Comment Manual Slide Review WBC Morphology (NORMAL) Platelet Estimate (NORMAL) Platelet Morphology (NORMAL) RBC Morph Micro Appear 1+ TEARDROP CELLS (NORMAL) Bld Gas Analysis Time 0540 Sample Site A-LINE ABG pH 7.39 (7.35-7.45) ABG pCO2 43 (34-45) mmHg ABG pO2 92 (83-108) mmHg ABG HCO3 26.4 H (22.0-26.0) mmol/L ABG Total CO2 27.7 (21.0-29.0) mmol/L ABG O2 Saturation 98 (95-98) % ABG Base Excess 1.2 (-2.0-3.0) mmol/L Ananda Test Not Reportable VBG pH 7.384 (7.31-7.41) Ionized Calcium 1.11 (1.09-1.30) mmol/L Respiration Rate 14 b/min O2 Delivery Device VENTILATOR Vent Mode PC16 FiO2 30.00 PEEP 5 cmH2O Sodium 133 L (135-145) mmol/L Potassium 4.6 H (3.5-4.5) mmol/L Chloride 105 (101-111) mmol/L Carbon Dioxide 25 (21-32) mmol/L Anion Gap 3.0 L (6-13) BUN 30 H (6-20) mg/dL Creatinine 1.0 (0.6-1.3) mg/dL Estimated GFR (MDRD) 78 L (>89) Glucose 120 H (74-104) mg/dL POC Whole Bld Glucose 92 (70-100) mg/dL Lactic Acid 1.1 (0.5-2.2) mmol/L Calcium 7.1 L (8.5-10.3) mg/dL Phosphorus 3.8 (2.5-5.0) mg/dL Magnesium 2.4 H (1.7-2.3) mg/dL Last Dose Date UNK Last Dose Time UNK Random Vancomycin 15.9 ug/mL Blood Type Antibody Screen Crossmatch IS Only 04/28/25 04/28/25 04/28/25 Range/Units 05:10 05:10 00:06 WBC 23.7 H (4.8-10.8) x10^3/uL RBC 2.91 L (4.70-6.10) 10^6/uL Hgb 8.0 L (14.0-18.0) g/dL Hct 23.0 L (42.0-52.0) % MCV 79.0 L (80.0-94.0) fL MCH 27.5 (27.0-31.0) pg MCHC 34.8 (32.0-36.0) g/dL RDW 20.9 H (12.0-15.0) % Plt Count 312 (130-450) 10^3/uL MPV 10.7 (7.4-11.4) fL Neut # (Auto) Not Reportable Lymph # (Auto) Not Reportable [place] # (Auto) Not Reportable Eos # (Auto) Not Reportable Baso # (Auto) Not Reportable Absolute Nucleated RBC Not Reportable Total Counted 100 Band Neuts % (Manual) 3 (0 - 10) % Abnorm Lymph % (Manual) 0 % Metamyelocytes % ( - 0) % Myelocytes % 10 H ( - 0) % Nucleated RBC % Not Reportable Neutrophils # (Manual) 19.7 H (1.5-6.6) 10^3/uL Lymphocytes # (Manual) 0.9 L (1.5-3.5) 10^3/uL Monocytes # (Manual) 0.7 (0.0-1.0) 10^3/uL Eosinophils # (Manual) 0.0 (0-0.7) 10^3/uL Basophils # (Manual) 0.0 (0-0.1) 10^3/uL Nucleated RBCs % Differential Comment MANUAL DIFFERENTIAL Manual Slide Review Indicated WBC Morphology NORMAL APPEARANCE (NORMAL) Platelet Estimate NORMAL (130-450,000) (NORMAL) Platelet Morphology NORMAL APPEARANCE (NORMAL) RBC Morph Micro Appear 1+ HYPOCHROMASIA 2+ ANISOCYTOSIS (NORMAL) Bld Gas Analysis Time Sample Site ABG pH (7.35-7.45) ABG pCO2 (34-45) mmHg ABG pO2 (83-108) mmHg ABG HCO3 (22.0-26.0) mmol/L ABG Total CO2 (21.0-29.0) mmol/L ABG O2 Saturation (95-98) % ABG Base Excess (-2.0-3.0) mmol/L Ananda Test VBG pH (7.31-7.41) Ionized Calcium (1.09-1.30) mmol/L Respiration Rate b/min O2 Delivery Device Vent Mode FiO2 PEEP cmH2O Sodium (135-145) mmol/L Potassium (3.5-4.5) mmol/L Chloride (101-111) mmol/L Carbon Dioxide (21-32) mmol/L Anion Gap (6-13) BUN (6-20) mg/dL Creatinine (0.6-1.3) mg/dL Estimated GFR (MDRD) (>89) Glucose (74-104) mg/dL POC Whole Bld Glucose 113 (70-100) mg/dL Lactic Acid (0.5-2.2) mmol/L Calcium (8.5-10.3) mg/dL Phosphorus (2.5-5.0) mg/dL Magnesium (1.7-2.3) mg/dL Last Dose Date Last Dose Time Random Vancomycin ug/mL Blood Type Antibody Screen Crossmatch IS Only 02/10/25 02/10/25 02/10/25 Range/Units 18:07 14:00 12:09 WBC (4.8-10.8) x10^3/uL RBC (4.70-6.10) 10^6/uL Hgb 8.5 L (14.0-18.0) g/dL Hct 25.7 L (42.0-52.0) % MCV (80.0-94.0) fL MCH (27.0-31.0) pg MCHC (32.0-36.0) g/dL RDW (12.0-15.0) % Plt Count (130-450) 10^3/uL MPV (7.4-11.4) fL Neut # (Auto) Lymph # (Auto) [place] # (Auto) Eos # (Auto) Baso # (Auto) Absolute Nucleated RBC Total Counted Band Neuts % (Manual) (0 - 10) % Abnorm Lymph % (Manual) % Metamyelocytes % ( - 0) % Myelocytes % ( - 0) % Nucleated RBC % Neutrophils # (Manual) (1.5-6.6) 10^3/uL Lymphocytes # (Manual) (1.5-3.5) 10^3/uL Monocytes # (Manual) (0.0-1.0) 10^3/uL Eosinophils # (Manual) (0-0.7) 10^3/uL Basophils # (Manual) (0-0.1) 10^3/uL Nucleated RBCs % Differential Comment Manual Slide Review WBC Morphology (NORMAL) Platelet Estimate (NORMAL) Platelet Morphology (NORMAL) RBC Morph Micro Appear (NORMAL) Bld Gas Analysis Time Sample Site ABG pH (7.35-7.45) ABG pCO2 (34-45) mmHg ABG pO2 (83-108) mmHg ABG HCO3 (22.0-26.0) mmol/L ABG Total CO2 (21.0-29.0) mmol/L ABG O2 Saturation (95-98) % ABG Base Excess (-2.0-3.0) mmol/L Ananda Test VBG pH 7.379 (7.31-7.41) Ionized Calcium 1.09 (1.09-1.30) mmol/L Respiration Rate b/min O2 Delivery Device Vent Mode FiO2 PEEP cmH2O Sodium 132 L (135-145) mmol/L Potassium 4.6 H (3.5-4.5) mmol/L Chloride 104 (101-111) mmol/L Carbon Dioxide 24 (21-32) mmol/L Anion Gap 4.0 L (6-13) BUN 34 H (6-20) mg/dL Creatinine 1.2 (0.6-1.3) mg/dL Estimated GFR (MDRD) 63 L (>89) Glucose 163 H (74-104) mg/dL POC Whole Bld Glucose 120 149 (70-100) mg/dL Lactic Acid (0.5-2.2) mmol/L Calcium 6.8 L (8.5-10.3) mg/dL Phosphorus 4.5 (2.5-5.0) mg/dL Magnesium 2.3 (1.7-2.3) mg/dL Last Dose Date Last Dose Time Random Vancomycin ug/mL Blood Type Antibody Screen Crossmatch IS Only 02/10/25 02/10/25 02/10/25 Range/Units 11:10 10:55 10:55 WBC (4.8-10.8) x10^3/uL RBC (4.70-6.10) 10^6/uL Hgb (14.0-18.0) g/dL Hct (42.0-52.0) % MCV (80.0-94.0) fL MCH (27.0-31.0) pg MCHC (32.0-36.0) g/dL RDW (12.0-15.0) % Plt Count (130-450) 10^3/uL MPV (7.4-11.4) fL Neut # (Auto) Lymph # (Auto) [place] # (Auto) Eos # (Auto) Baso # (Auto) Absolute Nucleated RBC Total Counted Band Neuts % (Manual) (0 - 10) % Abnorm Lymph % (Manual) % Metamyelocytes % ( - 0) % Myelocytes % ( - 0) % Nucleated RBC % Neutrophils # (Manual) (1.5-6.6) 10^3/uL Lymphocytes # (Manual) (1.5-3.5) 10^3/uL Monocytes # (Manual) (0.0-1.0) 10^3/uL Eosinophils # (Manual) (0-0.7) 10^3/uL Basophils # (Manual) (0-0.1) 10^3/uL Nucleated RBCs % Differential Comment Manual Slide Review WBC Morphology (NORMAL) Platelet Estimate (NORMAL) Platelet Morphology (NORMAL) RBC Morph Micro Appear 2+ ELIZABETH CELLS 1+ SCHISTOCYTES (NORMAL) Bld Gas Analysis Time Sample Site ABG pH (7.35-7.45) ABG pCO2 (34-45) mmHg ABG pO2 (83-108) mmHg ABG HCO3 (22.0-26.0) mmol/L ABG Total CO2 (21.0-29.0) mmol/L ABG O2 Saturation (95-98) % ABG Base Excess (-2.0-3.0) mmol/L Ananda Test VBG pH (7.31-7.41) Ionized Calcium (1.09-1.30) mmol/L Respiration Rate b/min O2 Delivery Device Vent Mode FiO2 PEEP cmH2O Sodium (135-145) mmol/L Potassium (3.5-4.5) mmol/L Chloride (101-111) mmol/L Carbon Dioxide (21-32) mmol/L Anion Gap (6-13) BUN (6-20) mg/dL Creatinine (0.6-1.3) mg/dL Estimated GFR (MDRD) (>89) Glucose (74-104) mg/dL POC Whole Bld Glucose (70-100) mg/dL Lactic Acid 1.4 (0.5-2.2) mmol/L Calcium (8.5-10.3) mg/dL Phosphorus (2.5-5.0) mg/dL Magnesium (1.7-2.3) mg/dL Last Dose Date Last Dose Time Random Vancomycin ug/mL Blood Type Antibody Screen Crossmatch IS Only 02/10/25 02/10/25 02/10/25 Range/Units 10:55 10:55 10:55 WBC 23.9 H (4.8-10.8) x10^3/uL RBC 3.34 L (4.70-6.10) 10^6/uL Hgb 8.7 L (14.0-18.0) g/dL Hct 26.3 L (42.0-52.0) % MCV 78.7 L (80.0-94.0) fL MCH 26.0 L (27.0-31.0) pg MCHC 33.1 (32.0-36.0) g/dL RDW 20.5 H (12.0-15.0) % Plt Count 358 (130-450) 10^3/uL MPV 10.6 (7.4-11.4) fL Neut # (Auto) Not Reportable Lymph # (Auto) Not Reportable [place] # (Auto) Not Reportable Eos # (Auto) Not Reportable Baso # (Auto) Not Reportable Absolute Nucleated RBC Not Reportable Total Counted 100 Band Neuts % (Manual) 63 H (0 - 10) % Abnorm Lymph % (Manual) 0 % Metamyelocytes % 11 H ( - 0) % Myelocytes % 4 H ( - 0) % Nucleated RBC % Not Reportable Neutrophils # (Manual) 19.8 H (1.5-6.6) 10^3/uL Lymphocytes # (Manual) 0.2 L (1.5-3.5) 10^3/uL Monocytes # (Manual) 0.2 (0.0-1.0) 10^3/uL Eosinophils # (Manual) 0.0 (0-0.7) 10^3/uL Basophils # (Manual) 0.0 (0-0.1) 10^3/uL Nucleated RBCs 3 % Differential Comment MANUAL DIFFERENTIAL Manual Slide Review Indicated WBC Morphology 1+ TOXIC GRANULATION 1+ DOHLE BODIES (NORMAL) Platelet Estimate NORMAL (130-450,000) (NORMAL) Platelet Morphology NORMAL APPEARANCE (NORMAL) RBC Morph Micro Appear 2+ HYPOCHROMASIA 2+ ANISOCYTOSIS (NORMAL) Bld Gas Analysis Time Sample Site ABG pH (7.35-7.45) ABG pCO2 (34-45) mmHg ABG pO2 (83-108) mmHg ABG HCO3 (22.0-26.0) mmol/L ABG Total CO2 (21.0-29.0) mmol/L ABG O2 Saturation (95-98) % ABG Base Excess (-2.0-3.0) mmol/L Ananda Test VBG pH (7.31-7.41) Ionized Calcium (1.09-1.30) mmol/L Respiration Rate b/min O2 Delivery Device Vent Mode FiO2 PEEP cmH2O Sodium (135-145) mmol/L Potassium (3.5-4.5) mmol/L Chloride (101-111) mmol/L Carbon Dioxide (21-32) mmol/L Anion Gap (6-13) BUN (6-20) mg/dL Creatinine (0.6-1.3) mg/dL Estimated GFR (MDRD) (>89) Glucose (74-104) mg/dL POC Whole Bld Glucose (70-100) mg/dL Lactic Acid (0.5-2.2) mmol/L Calcium (8.5-10.3) mg/dL Phosphorus (2.5-5.0) mg/dL Magnesium (1.7-2.3) mg/dL Last Dose Date Last Dose Time Random Vancomycin ug/mL Blood Type Antibody Screen Crossmatch IS Only 02/10/25 02/09/25 Range/Units 09:00 22:57 WBC (4.8-10.8) x10^3/uL RBC (4.70-6.10) 10^6/uL Hgb (14.0-18.0) g/dL Hct (42.0-52.0) % MCV (80.0-94.0) fL MCH (27.0-31.0) pg MCHC (32.0-36.0) g/dL RDW (12.0-15.0) % Plt Count (130-450) 10^3/uL MPV (7.4-11.4) fL Neut # (Auto) Lymph # (Auto) [place] # (Auto) Eos # (Auto) Baso # (Auto) Absolute Nucleated RBC Total Counted Band Neuts % (Manual) (0 - 10) % Abnorm Lymph % (Manual) % Metamyelocytes % ( - 0) % Myelocytes % ( - 0) % Nucleated RBC % Neutrophils # (Manual) (1.5-6.6) 10^3/uL Lymphocytes # (Manual) (1.5-3.5) 10^3/uL Monocytes # (Manual) (0.0-1.0) 10^3/uL Eosinophils # (Manual) (0-0.7) 10^3/uL Basophils # (Manual) (0-0.1) 10^3/uL Nucleated RBCs % Differential Comment Manual Slide Review WBC Morphology (NORMAL) Platelet Estimate (NORMAL) Platelet Morphology (NORMAL) RBC Morph Micro Appear (NORMAL) Bld Gas Analysis Time Sample Site ABG pH (7.35-7.45) ABG pCO2 (34-45) mmHg ABG pO2 (83-108) mmHg ABG HCO3 (22.0-26.0) mmol/L ABG Total CO2 (21.0-29.0) mmol/L ABG O2 Saturation (95-98) % ABG Base Excess (-2.0-3.0) mmol/L Ananda Test VBG pH 7.360 (7.31-7.41) Ionized Calcium 1.09 (1.09-1.30) mmol/L Respiration Rate b/min O2 Delivery Device Vent Mode FiO2 PEEP cmH2O Sodium (135-145) mmol/L Potassium 4.7 H (3.5-4.5) mmol/L Chloride (101-111) mmol/L Carbon Dioxide (21-32) mmol/L Anion Gap (6-13) BUN (6-20) mg/dL Creatinine (0.6-1.3) mg/dL Estimated GFR (MDRD) (>89) Glucose (74-104) mg/dL POC Whole Bld Glucose (70-100) mg/dL Lactic Acid (0.5-2.2) mmol/L Calcium (8.5-10.3) mg/dL Phosphorus 4.9 (2.5-5.0) mg/dL Magnesium 2.3 (1.7-2.3) mg/dL Last Dose Date Last Dose Time Random Vancomycin ug/mL Blood Type O POSITIVE Antibody Screen NEGATIVE Crossmatch IS Only See Detail Diagnostic Imaging Diagnostic Imaging Results: positive Final report reviewed Sepsis Event Note (H) Evaluation Current Stage of Sepsis: Septic shock Sepsis Criteria Sepsis Criteria: Recorded Temperature greater than 38.3C or Less than 36C, Recorded Heart Rate greater than 90 bpm, WBC count greater than 10% bands, WBC count greater than 12,000 or less than 4000, SAWMILLING OPERATOR: altered consciousness (unrelated to primary neuro pathology), MAP less than 65 mmHg and SBP less than 90 mmHg Assessment/Plan Problem List (1) Pneumoperitoneum: Impression: Repeat CT abdomen this morning demonstrated increasing free air, high-grade small bowel obstruction. Underwent exploratory laparotomy on 02/09 with resection of ileocolostomy, Blackwood's, partial omentectomy, placement of drains x 2, as well as extensive abdominal washout. Two JORGE drains remain in place with output noted. NG tube in place with bilious output. General surgery following, appreciate assistance and recommendations. Plan to transfer to SICU at [facility] for higher level of care (and more specialist help including cardiology, infectious disease). (2) New onset atrial fibrillation: Impression: Overnight, on 02/10, patient went into new onset atrial fibrillation, with RVR. He has no history of this in the past. May be exacerbated by vasopressor usage and hypovolemia. Continue aggressive IVF rehydration. Received IV pushes of metoprolol overnight with no relief. Amiodarone drip started. Loaded with digoxin as well. Off Levophed at this time so will hold off on cardioversion. Spoke with general surgery - [place] for anticoagulation, will start therapeutic Lovenox, BID. ECHO ordered, pending. (3) Septic shock: Impression: Patient has been afebrile for over 24 hours. Continued leukocytosis. Blood cultures from 02/07 showed no growth to date. These were repeated, no growth to date. Continue broad-spectrum IV antibiotic coverage. Escalated to meropenem and vancomycin. Was on Ceasar, which has been weaned off. Continue to wean Levophed. Continue to titrate down as able. Continue PPN and IV fluids at this time. Will switch to TPN. (4) Acute hypoxic respiratory failure: Impression: Patient intubated 02/08 due to increased work of breathing. PEEP of 5, FiO2 of 30%, inspiratory pressure of 11. He is breathing comfortably now after being sedated with Precedex, propofol, fentanyl. Had some junctional bradycardia, will wean off Precedex. Requiring Versed drip occasionally, with pushes. Will try to minimize fentanyl use with adynamic ileus, as well as small bowel obstruction. Large part of this is compression due to his large dilatation of his bowels, imaging shows atelectasis. CTA was done, negative for PE (5) Acute metabolic encephalopathy: Impression: Patient currently intubated and sedated. (6) Hyponatremia: Impression: Resolving, continue to monitor. (7) Alcohol abuse, in remission: Impression: Patient has remote history of alcohol abuse, but has been sober for about 3 to 4 months. (8) Anemia associated with acute blood loss: Impression: Hemoglobin is stable. Has required some transfusions. (9) Nicotine addiction: Impression: Continue nicotine patch while inpatient. Qualifiers: Nicotine product type: cigarettes Substance use status: unspecified nicotine-induced disorder Qualified Code(s): F17.219 - Nicotine dependence, cigarettes, with unspecified nicotine-induced disorders (10) Small bowel obstruction due to postoperative adhesions: Impression: See above. 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 He also has a history of gastric bypass was discharged from inpatient alcohol rehab about 6 weeks ago. See complication as above. General surgery following. (12) Hemorrhagic shock: Impression: Hemoglobin stable.
[2025-02-11] MEDS ORDERED: CHLORHEXIDINE GLUCONATE 15 ML UDC PO SCH (09:00)
[2025-02-11] MEDS: METOPROLOL 5 MG/5 ML VIAL IVP STA (09:13)
--- NOTE | 2025-02-11 10:54 | PROVIDER PROGRESS NOTE ---
Assessment/Plan Problem List (1) New onset atrial fibrillation: (2) Septic shock: Assessment/Plan: Postoperative day 2 s/p exploratory laparotomy with extensive adhesiolysis, resection of disrupted ileocolonic anastamosis, partial omentectomy, Mulu's, end ileostomy, abdominal washout, placement drain x2, placement of NG with bridle New onset atrial fibrillation with rapid ventricular response FEN The patient's input/output is [id number] and the patient is receiving a unit of PRBCs. He is currently receiving PPN, IV fluids, IV antibiotics, pressors, sedation all IV we have and are continuing to decrease his intake. He has not required electrolyte replacement in the last 24 hours and his lactate indicates that we are and continue to appropriately manage his fluids. Again, I wholeheartedly agree with the transfusion of blood in this critically ill patient and septic shock. Everything can and should be done to support his oxygen transportation, blood pressure and splanchnic O2 delivery. ID There is no doubt that this patient is in septic shock necessitating pressor support. He is currently on meropenem and vancomycin. Day 2/ of meropenem 1 g IV piggyback every 8 hours and day 2/10 of vancomycin 1.75 g every 24 hours. Vancomycin levels have been checked and are appropriate. His white blood cell count is lower today and his bands are lower as well. I did explain to the patient's mother that he is at risk for an infection other deep or superficial. Respiratory Patient will continue on the ventilator today and O2 delivery can be decreased as the patient's oxygenation allows. Patient is currently too critically ill to consider extubation. Once the pressors are decreased or even stopped and the patient is clinically more stable we will extubate. Proper respiratory and mouth care is in order. As the patient continues to improve will look towards a weaning trial tomorrow. Cardiac Early this morning this patient went into atrial fibrillation with rapid ventricular response and as to the treatment of this I will defer to Dr. Julio. If he cannot be converted into sinus soon I have no problem with anticoagulation as long as it is done "gently." Wound Will start wound VAC today. 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: (11) Hemorrhagic shock: Current Meds Current Meds: Current Medications Generic Name Dose Route Start Last Admin Trade Name Freq PRN Reason Stop Dose Admin Albuterol/Ipratropium 3 ml 02/06/25 14:52 02/08/25 07:27 Ipratropium/Albuterol 3 Ml Neb INH 3 ml RTQID PRN Administration Shortness of Air/Wheezing Chlorhexidine Gluconate 15 ml 02/08/25 21:00 02/11/25 08:50 Chlorhexidine Gluconate 15 Ml Udc PO 15 ml BID GADIEL Administration Digoxin 250 mcg 02/11/25 11:00 Digoxin 500 Mcg/2 Ml Amp IVP ONCE GADIEL Enoxaparin Sodium 40 mg 02/03/25 21:00 02/11/25 08:51 Enoxaparin 40 Mg/0.4 Ml Syringe SUBQ 40 mg DAILY GADIEL Administration Acetaminophen 1,000 mg in 100 mls @ 400 mls/hr 02/08/25 12:00 02/11/25 07:25 Acetaminophen IV Infused Q6HR GADIEL Infusion Multivitamins 10 ml/ Zinc/ 2,011 mls @ 83 mls/hr 02/08/25 19:00 02/10/25 18:36 Copper/Manganese/Selenium 1 ml IV 83 mls/hr / Amino Acids/Electrolytes/ 1900 GADIEL Administration Dextrose Protocol Fat Emulsion Intravenous 250 mls @ 21 mls/hr 02/08/25 19:00 02/11/25 08:30 Intralipid 20% IV Infused 1900 GADIEL Infusion Propofol 1,000 mg in 100 mls @ 5.7 mls/hr 02/08/25 19:00 02/11/25 09:21 Diprivan IV 40 mcg/kg/min .[id number] GADIEL 22.8 mls/hr Administration Protocol 10 MCG/KG/MIN Norepinephrine/Sodium Chloride 8 mg in 250 mls @ 15 mls/hr 02/08/25 21:00 02/11/25 09:57 Levophed 8 Mg/250-0.9% Nacl IV 4 mcg/min .[id number] GADIEL 7.5 mls/hr Titration Protocol 8 MCG/MIN Fentanyl 2,500 mcg in 250 mls @ 10.5 mls/hr 02/09/25 08:00 02/11/25 01:40 Fentanyl IV 0.75 mcg/kg/hr .[id number] GADIEL 7.88 mls/hr Administration Protocol 1 MCG/KG/HR Sodium Chloride 1,000 mls @ 125 mls/hr 02/09/25 19:00 02/11/25 06:57 Normal Saline 0.9% IV 125 mls/hr .Q8H GADIEL Infusion Midazolam HCl 50 mg in 50 mls @ 4.32 mls/hr 02/09/25 20:00 02/11/25 10:03 Versed Drip 50 Mg/50 Ml IV Not Given .[id number] GADIEL Protocol 0.04 MG/KG/HR Vancomycin HCl 1.75 gm/ Sodium 500 mls @ 250 mls/hr 02/10/25 09:00 02/11/25 08:50 Chloride IV 250 mls/hr Q24H GADIEL Administration Amiodarone HCl/Dextrose 200 mls @ 33.333 mls/hr 02/11/25 08:00 02/11/25 07:51 Nexterone 360 Mg/200 Ml IV 02/11/25 13:59 33.33 mls/hr ONCE ONE Administration Protocol Amiodarone HCl/Dextrose 200 mls @ 16.667 mls/hr 02/11/25 14:00 Nexterone 360 Mg/200 Ml IV .Q12H GADIEL 0.5 MG/MIN Insulin Human Regular 1 - 5 unit 02/09/25 00:00 02/11/25 06:10 Insulin Regular, Human 300 Unit/3 Ml Pen SUBQ Not Given Q6HR GADIEL Protocol Meropenem 1 gm 02/09/25 20:00 02/11/25 04:44 Meropenem 1 Gm Vial IVP 1 gm Q8H GADIEL Administration Metoprolol Tartrate 5 mg 02/11/25 05:57 02/11/25 06:04 Metoprolol 5 Mg/5 Ml Vial IVP 02/12/25 05:56 5 mg ONCE PRN Administration Tachycardia Metoprolol Tartrate 5 mg 02/11/25 12:00 Metoprolol 5 Mg/5 Ml Vial IVP Q6H GADIEL Midazolam HCl 2 mg 02/10/25 09:44 Midazolam 2 Mg/2 Ml Vial IVP Q4HR PRN Agitation Nicotine 1 patch 02/03/25 09:00 02/11/25 08:50 Nicotine 21 Mg Patch TOP 1 patch DAILY GADIEL Administration Ondansetron HCl 4 mg 02/04/25 12:10 02/06/25 10:20 Ondansetron 4 Mg/2 Ml Vial IVP 4 mg Q6HR PRN Administration Nausea / Vomiting Pantoprazole Sodium 40 mg 02/09/25 07:00 02/11/25 06:22 Pantoprazole 40 Mg Vial IVP 40 mg QDAC GADIEL Administration Sodium Chloride 10 ml 02/01/25 10:12 02/04/25 21:05 Sodium Chloride Flush 0.9% 10 Ml Syringe IVP 10 ml PRN PRN Administration NEEDED PER PROVIDER ORDERS Sodium Chloride 10 ml 02/01/25 17:00 02/11/25 10:04 Sodium Chloride Flush 0.9% 10 Ml Syringe IVP 10 ml 0100,0900,1700 GADIEL Administration Lab Result 02/11/25 05:10 02/11/25 05:10 Additional Planning My Orders: My Active Orders 02/12/25 05:00 LACTIC ACID, VENOUS [CHEM] DAILYLAB 02/13/25 05:00 LACTIC ACID, VENOUS [CHEM] DAILYLAB 02/14/25 05:00 LACTIC ACID, VENOUS [CHEM] DAILYLAB Subjective Subjective Patient Reports: Other (Patient remains intubated and sedated.) Objective Vital Signs: Vital Signs - 24 hr 02/10/25 10:51 02/10/25 11:00 02/10/25 11:15 Temperature 37.0 C Temperature Source Core Pulse Rate Pulse Rate [Monitoring electrodes] 70 73 72 Respiratory Rate 14 Blood Pressure Blood Pressure [Left Brachial artery] 133/82 H 108/72 Blood Pressure [Right Radial artery] 142/69 H 116/59 L 125/63 O2 Saturation 94 O2 Source Mechanical ventilator If not protocol: Oxygen Flow, liters/minute Fraction of Inspired Oxygen (FIO2) FiO2 (%) 30 Sedation scale 5-Unresponsive 02/10/25 12:00 02/10/25 12:00 02/10/25 12:15 Temperature 37.0 C Temperature Source Core Pulse Rate 76 Pulse Rate [Monitoring electrodes] 71 Respiratory Rate 14 Blood Pressure Blood Pressure [Left Brachial artery] 124/73 82/54 L Blood Pressure [Right Radial artery] 117/59 L 85/45 L O2 Saturation 93 O2 Source Mechanical ventilator If not protocol: Oxygen Flow, liters/minute Fraction of Inspired Oxygen (FIO2) 30 FiO2 (%) 30 Sedation scale 5-Unresponsive 02/10/25 12:22 02/10/25 13:00 02/10/25 13:00 Temperature 37.0 C Temperature Source Core Pulse Rate Pulse Rate [Monitoring electrodes] 75 Respiratory Rate 14 Blood Pressure Blood Pressure [Left Brachial artery] 112/72 88/62 L Blood Pressure [Right Radial artery] 124/61 101/51 L O2 Saturation 94 O2 Source Mechanical ventilator If not protocol: Oxygen Flow, liters/minute Fraction of Inspired Oxygen (FIO2) 30 FiO2 (%) 30 Sedation scale 5-Unresponsive 02/10/25 13:30 02/10/25 13:45 02/10/25 14:00 Temperature 37.1 C Temperature Source Core Pulse Rate Pulse Rate [Monitoring electrodes] 73 75 75 Respiratory Rate 14 Blood Pressure Blood Pressure [Left Brachial artery] 99/67 98/69 100/68 Blood Pressure [Right Radial artery] 112/57 L 105/53 L 106/54 L O2 Saturation O2 Source Mechanical ventilator If not protocol: Oxygen Flow, liters/minute 94 Fraction of Inspired Oxygen (FIO2) FiO2 (%) 30 Sedation scale 5-Unresponsive 02/10/25 15:00 02/10/25 15:49 02/10/25 16:00 Temperature 37.2 C 37.3 C Temperature Source Core Core Pulse Rate 79 Pulse Rate [Monitoring electrodes] 76 79 Respiratory Rate 14 16 Blood Pressure Blood Pressure [Left Brachial artery] 86/60 L 90/57 L Blood Pressure [Right Radial artery] 100/50 L 105/52 L O2 Saturation 91 L 93 O2 Source Mechanical ventilator Mechanical ventilator If not protocol: Oxygen Flow, liters/minute Fraction of Inspired Oxygen (FIO2) 30 FiO2 (%) 30 30 Sedation scale 5-Unresponsive 5-Unresponsive 02/10/25 16:59 02/10/25 17:00 02/10/25 17:02 Temperature 37.2 C Temperature Source Core Pulse Rate 77 Pulse Rate [Monitoring electrodes] 78 Respiratory Rate 14 Blood Pressure Blood Pressure [Left Brachial artery] 91/60 Blood Pressure [Right Radial artery] 102/50 L O2 Saturation 92 O2 Source Mechanical ventilator If not protocol: Oxygen Flow, liters/minute Fraction of Inspired Oxygen (FIO2) 30 30 FiO2 (%) 30 Sedation scale 5-Unresponsive 02/10/25 18:00 02/10/25 19:00 02/10/25 19:29 Temperature 37.3 C 37.3 C Temperature Source Core Core Pulse Rate 75 Pulse Rate [Monitoring electrodes] 78 76 Respiratory Rate 14 15 Blood Pressure Blood Pressure [Left Brachial artery] 87/56 L 101/60 Blood Pressure [Right Radial artery] 100/49 L 109/49 L O2 Saturation 94 94 O2 Source Mechanical ventilator Mechanical ventilator If not protocol: Oxygen Flow, liters/minute Fraction of Inspired Oxygen (FIO2) 30 FiO2 (%) 30 30 Sedation scale 5-Unresponsive 02/10/25 20:00 02/10/25 21:00 02/10/25 21:00 Temperature 37.4 C 37.5 C Temperature Source Core Core Pulse Rate Pulse Rate [Monitoring electrodes] 76 77 Respiratory Rate 14 15 Blood Pressure Blood Pressure [Left Brachial artery] 91/55 L 98/56 L Blood Pressure [Right Radial artery] 106/47 L 113/48 L O2 Saturation 93 93 O2 Source Mechanical ventilator Mechanical ventilator If not protocol: Oxygen Flow, liters/minute Fraction of Inspired Oxygen (FIO2) 30 FiO2 (%) 30 30 Sedation scale 5-Unresponsive 02/10/25 22:00 02/10/25 22:00 02/10/25 22:00 Temperature 37.5 C Temperature Source Core Pulse Rate 79 Pulse Rate [Monitoring electrodes] 77 Respiratory Rate 14 Blood Pressure Blood Pressure [Left Brachial artery] 102/62 Blood Pressure [Right Radial artery] 110/52 L O2 Saturation 93 O2 Source Mechanical ventilator If not protocol: Oxygen Flow, liters/minute Fraction of Inspired Oxygen (FIO2) 30 30 FiO2 (%) 30 Sedation scale 5-Unresponsive 02/10/25 23:00 02/10/25 23:01 02/11/25 00:00 Temperature 37.3 C 37.1 C Temperature Source Core Core Pulse Rate 80 Pulse Rate [Monitoring electrodes] 81 78 Respiratory Rate 16 15 Blood Pressure Blood Pressure [Left Brachial artery] 99/57 L 110/67 Blood Pressure [Right Radial artery] 105/49 L 117/59 L O2 Saturation 93 93 O2 Source Mechanical ventilator Mechanical ventilator If not protocol: Oxygen Flow, liters/minute Fraction of Inspired Oxygen (FIO2) 30 FiO2 (%) 30 30 Sedation scale 02/11/25 00:34 02/11/25 01:00 02/11/25 01:00 Temperature 37.0 C Temperature Source Core Pulse Rate 81 Pulse Rate [Monitoring electrodes] 73 Respiratory Rate 16 Blood Pressure Blood Pressure [Left Brachial artery] 102/63 Blood Pressure [Right Radial artery] 114/52 L O2 Saturation 94 O2 Source Mechanical ventilator If not protocol: Oxygen Flow, liters/minute Fraction of Inspired Oxygen (FIO2) 40 40 FiO2 (%) 40 Sedation scale 02/11/25 02:00 02/11/25 03:00 02/11/25 03:30 Temperature 36.8 C 36.7 C Temperature Source Core Core Pulse Rate 171 H Pulse Rate [Monitoring electrodes] 83 82 Respiratory Rate 16 17 Blood Pressure Blood Pressure [Left Brachial artery] 115/64 115/65 Blood Pressure [Right Radial artery] 111/53 L 123/57 L O2 Saturation 93 94 O2 Source Mechanical ventilator Mechanical ventilator If not protocol: Oxygen Flow, liters/minute Fraction of Inspired Oxygen (FIO2) 30 FiO2 (%) 40 40 Sedation scale 02/11/25 04:00 02/11/25 05:00 02/11/25 05:00 Temperature 36.6 C 36.6 C Temperature Source Core Pulse Rate Pulse Rate [Monitoring electrodes] 78 76 Respiratory Rate 17 17 Blood Pressure Blood Pressure [Left Brachial artery] 107/67 121/69 Blood Pressure [Right Radial artery] 126/59 L O2 Saturation 96 96 O2 Source Mechanical ventilator Mechanical ventilator If not protocol: Oxygen Flow, liters/minute Fraction of Inspired Oxygen (FIO2) 30 FiO2 (%) 40 40 Sedation scale 02/11/25 05:10 02/11/25 05:20 02/11/25 05:30 Temperature Temperature Source Pulse Rate Pulse Rate [Monitoring electrodes] 81 168 H 181 H Respiratory Rate Blood Pressure Blood Pressure [Left Brachial artery] Blood Pressure [Right Radial artery] 92/46 L 107/63 103/54 L O2 Saturation O2 Source If not protocol: Oxygen Flow, liters/minute Fraction of Inspired Oxygen (FIO2) FiO2 (%) Sedation scale 02/11/25 05:32 02/11/25 05:40 02/11/25 05:50 Temperature Temperature Source Pulse Rate 169 H Pulse Rate [Monitoring electrodes] 143 H 141 H Respiratory Rate Blood Pressure 99/56 L Blood Pressure [Left Brachial artery] Blood Pressure [Right Radial artery] 97/60 107/65 O2 Saturation O2 Source If not protocol: Oxygen Flow, liters/minute Fraction of Inspired Oxygen (FIO2) FiO2 (%) Sedation scale 02/11/25 05:54 02/11/25 06:00 02/11/25 06:04 Temperature 36.8 C Temperature Source Core Pulse Rate 168 H 150 H Pulse Rate [Monitoring electrodes] 155 H Respiratory Rate 14 Blood Pressure 104/58 L Blood Pressure [Left Brachial artery] 92/59 L Blood Pressure [Right Radial artery] 98/59 L O2 Saturation 95 O2 Source Mechanical ventilator If not protocol: Oxygen Flow, liters/minute Fraction of Inspired Oxygen (FIO2) 30 FiO2 (%) 30 Sedation scale 02/11/25 06:10 02/11/25 06:20 02/11/25 06:30 Temperature Temperature Source Pulse Rate Pulse Rate [Monitoring electrodes] 147 H 144 H 152 H Respiratory Rate Blood Pressure Blood Pressure [Left Brachial artery] Blood Pressure [Right Radial artery] 96/58 L 96/59 L 99/55 L O2 Saturation O2 Source If not protocol: Oxygen Flow, liters/minute Fraction of Inspired Oxygen (FIO2) FiO2 (%) Sedation scale 02/11/25 06:40 02/11/25 06:46 02/11/25 06:50 Temperature Temperature Source Pulse Rate 155 H Pulse Rate [Monitoring electrodes] 136 H 149 H Respiratory Rate Blood Pressure 97/51 L Blood Pressure [Left Brachial artery] Blood Pressure [Right Radial artery] 97/57 L 91/52 L O2 Saturation O2 Source If not protocol: Oxygen Flow, liters/minute Fraction of Inspired Oxygen (FIO2) FiO2 (%) Sedation scale 02/11/25 07:00 02/11/25 07:30 02/11/25 07:57 Temperature 37.0 C Temperature Source Core Pulse Rate Pulse Rate [Monitoring electrodes] 144 H 146 H 129 H Respiratory Rate 14 14 14 Blood Pressure Blood Pressure [Left Brachial artery] 82/52 L 97/61 96/55 L Blood Pressure [Right Radial artery] 93/51 L 103/57 L 99/57 L O2 Saturation 95 96 95 O2 Source Mechanical ventilator If not protocol: Oxygen Flow, liters/minute Fraction of Inspired Oxygen (FIO2) FiO2 (%) 30 30 Sedation scale 02/11/25 08:00 02/11/25 08:11 02/11/25 08:52 Temperature 37.0 C 36.9 C Temperature Source Core Core Pulse Rate 131 H Pulse Rate [Monitoring electrodes] 144 H 144 H Respiratory Rate 14 14 Blood Pressure Blood Pressure [Left Brachial artery] 93/59 L 100/69 Blood Pressure [Right Radial artery] 109/57 L 109/63 O2 Saturation 91 L 90 L O2 Source Mechanical ventilator Mechanical ventilator If not protocol: Oxygen Flow, liters/minute Fraction of Inspired Oxygen (FIO2) 30 FiO2 (%) 30 30 Sedation scale 5-Unresponsive 5-Unresponsive 02/11/25 09:00 02/11/25 09:00 02/11/25 09:05 Temperature 36.9 C 37 C Temperature Source Core Core Pulse Rate Pulse Rate [Monitoring electrodes] 158 H 144 H Respiratory Rate 14 14 Blood Pressure Blood Pressure [Left Brachial artery] 100/74 Blood Pressure [Right Radial artery] 106/45 L 102/63 O2 Saturation 89 L 90 L O2 Source Mechanical ventilator Mechanical ventilator If not protocol: Oxygen Flow, liters/minute Fraction of Inspired Oxygen (FIO2) 40 FiO2 (%) 30 40 Sedation scale 5-Unresponsive 5-Unresponsive 02/11/25 09:13 02/11/25 09:15 02/11/25 10:00 Temperature 37 C 37.1 C Temperature Source Core Core Pulse Rate 144 H Pulse Rate [Monitoring electrodes] 126 H 138 H Respiratory Rate 15 14 Blood Pressure 104/56 L Blood Pressure [Left Brachial artery] 117/91 H 84/59 L Blood Pressure [Right Radial artery] 110/68 94/50 L O2 Saturation 90 L 94 O2 Source Mechanical ventilator Mechanical ventilator If not protocol: Oxygen Flow, liters/minute Fraction of Inspired Oxygen (FIO2) FiO2 (%) 30 40 Sedation scale 5-Unresponsive 5-Unresponsive 02/11/25 10:02 02/11/25 10:03 Temperature Temperature Source Pulse Rate 140 H 133 H Pulse Rate [Monitoring electrodes] Respiratory Rate Blood Pressure 94/53 L 97/54 L Blood Pressure [Left Brachial artery] Blood Pressure [Right Radial artery] O2 Saturation O2 Source If not protocol: Oxygen Flow, liters/minute Fraction of Inspired Oxygen (FIO2) FiO2 (%) Sedation scale Oxygen O2 Source Mechanical ventilator I&O (Last 24 Hrs): Intake and Output Totals x24h 02/09/25 02/10/25 02/11/25 23:59 23:59 23:59 Intake Total 69671 / 82901 31779 / 53015 2226 / 2226 Output Total 7155 / 7155 2895 / 2895 2825 / 2825 Balance 4093 / 4093 7483 / 7483 -599 / -599 Comments/Notes: General: 54-year old male, appears older than stated age, intubated and sedated in room 2304 of [facility]'s intensive care unit HEENT: Mucous membranes pink and slightly dry with the mouth open and an endotracheal tube in place, nasogastric tube in place and bridled, sclera anicteric and not injected, pupils small but reactive Neck: Supple, no bruit Cardiac: Regular rate and rhythm without rub, gallop, or murmur Chest: Clear bilaterally - anterolaterally Abdomen: Soft, no bowel sounds, midline incision clean as I removed the bandage and packing, no granulation tissue yet, fascia intact, ostomy pink with some "bowel sweat", drains in place left and right draining serosanguineous fluid (clear) Genitourinary: Mcleod in place draining light yellow urine Rectal: Deferred Extremities: Cool to touch with no clubbing and minimal edema Gait: Not evaluated Psychiatric: Impossible to evaluate as patient is intubated and sedated Results Results: Laboratory Results WBC 23.7 x10^3/uL (4.8-10.8) H 02/11/25 05:10 RBC 2.91 10^6/uL (4.70-6.10) L 02/11/25 05:10 Hgb 8.0 g/dL (14.0-18.0) L 02/11/25 05:10 Hct 23.0 % (42.0-52.0) L 02/11/25 05:10 MCV 79.0 fL (80.0-94.0) L 02/11/25 05:10 MCH 27.5 pg (27.0-31.0) 02/11/25 05:10 MCHC 34.8 g/dL (32.0-36.0) 02/11/25 05:10 RDW 20.9 % (12.0-15.0) H 02/11/25 05:10 Plt Count 312 10^3/uL (130-450) 02/11/25 05:10 MPV 10.7 fL (7.4-11.4) 02/11/25 05:10 Neut # (Auto) Not Reportable 02/11/25 05:10 Lymph # (Auto) Not Reportable 02/11/25 05:10 Amador # (Auto) Not Reportable 02/11/25 05:10 Eos # (Auto) Not Reportable 02/11/25 05:10 Baso # (Auto) Not Reportable 02/11/25 05:10 Absolute Nucleated RBC Not Reportable 02/11/25 05:10 Total Counted 100 02/11/25 05:10 Band Neuts % (Manual) 3 % (0-10) 02/11/25 05:10 Abnorm Lymph % (Manual) 0 % 02/11/25 05:10 Metamyelocytes % 11 % (-0) H 02/10/25 10:55 Myelocytes % 10 % (-0) H 02/11/25 05:10 Nucleated RBC % Not Reportable 02/11/25 05:10 Neutrophils # (Manual) 19.7 10^3/uL (1.5-6.6) H 02/11/25 05:10 Lymphocytes # (Manual) 0.9 10^3/uL (1.5-3.5) L 02/11/25 05:10 Monocytes # (Manual) 0.7 10^3/uL (0.0-1.0) 02/11/25 05:10 Eosinophils # (Manual) 0.0 10^3/uL (0-0.7) 02/11/25 05:10 Basophils # (Manual) 0.0 10^3/uL (0-0.1) 02/11/25 05:10 Nucleated RBCs 3 % 02/10/25 10:55 Differential Comment MANUAL DIFFERENTIAL 02/11/25 05:10 Manual Slide Review Indicated 02/11/25 05:10 WBC Morphology NORMAL APPEARANCE (NORMAL) 02/11/25 05:10 Platelet Estimate NORMAL (130-450,000) (NORMAL) 02/11/25 05:10 Platelet Morphology NORMAL APPEARANCE (NORMAL) 02/11/25 05:10 RBC Morph Micro Appear 2+ ANISOCYTOSIS (NORMAL) 1+ HYPOCHROMASIA (NORMAL) 1+ TEARDROP CELLS (NORMAL) 02/11/25 05:10 RBC Morph Micro Appear 2+ ANISOCYTOSIS (NORMAL) 1+ HYPOCHROMASIA (NORMAL) 1+ TEARDROP CELLS (NORMAL) 02/11/25 05:10 RBC Morph Micro Appear 2+ ANISOCYTOSIS (NORMAL) 1+ HYPOCHROMASIA (NORMAL) 1+ TEARDROP CELLS (NORMAL) 02/11/25 05:10 PT 14.5 secs (9.9-12.6) H 02/02/25 Unknown INR 1.3 (0.8-1.2) H 02/02/25 Unknown D-Dimer > 1050.0 ng/mL (200.0-255.0) H 02/06/25 11:14 Bld Gas Analysis Time 0540 02/11/25 05:40 Sample Site A-LINE 02/11/25 05:40 ABG pH 7.39 (7.35-7.45) 02/11/25 05:40 ABG pCO2 43 mmHg (34-45) 02/11/25 05:40 ABG pO2 92 mmHg (83-108) 02/11/25 05:40 ABG HCO3 26.4 mmol/L (22.0-26.0) H 02/11/25 05:40 ABG Total CO2 27.7 mmol/L (21.0-29.0) 02/11/25 05:40 ABG O2 Saturation 98 % (95-98) 02/11/25 05:40 ABG Base Excess 1.2 mmol/L (-2.0-3.0) 02/11/25 05:40 Ananda Test Not Reportable 02/11/25 05:40 VBG pH 7.384 (7.31-7.41) 02/11/25 05:10 VBG pCO2 42.1 mmHg (41-51) 02/08/25 04:23 VBG pO2 49.9 mmHg (25-47) H 02/08/25 04:23 VBG HCO3 30.6 mmol/L (23-28) H 02/08/25 04:23 VBG Total CO2 31.8 mmol/L (24-29) H 02/08/25 04:23 VBG O2 Saturation 79.0 % (60-80) 02/08/25 04:23 VBG Base Excess 6.6 mmol/L (-2 - +2) H 02/08/25 04:23 Ionized Calcium 1.11 mmol/L (1.09-1.30) 02/11/25 05:10 Respiration Rate 14 b/min 02/11/25 05:40 O2 Delivery Device VENTILATOR 02/11/25 05:40 O2 Liters/Min 5.00 LPM 02/08/25 18:03 Vent Mode PC16 02/11/25 05:40 FiO2 30.00 02/11/25 05:40 PEEP 5 cmH2O 02/11/25 05:40 Sodium 133 mmol/L (135-145) L 02/11/25 05:10 Potassium 4.6 mmol/L (3.5-4.5) H 02/11/25 05:10 Chloride 105 mmol/L (101-111) 02/11/25 05:10 Carbon Dioxide 25 mmol/L (21-32) 02/11/25 05:10 Anion Gap 3.0 (6-13) L 02/11/25 05:10 BUN 30 mg/dL (6-20) H 02/11/25 05:10 Creatinine 1.0 mg/dL (0.6-1.3) 02/11/25 05:10 Estimated GFR (MDRD) 78 (>89) L 02/11/25 05:10 Glucose 120 mg/dL (74-104) H 02/11/25 05:10 POC Whole Bld Glucose 92 mg/dL (70-100) 02/11/25 06:07 Serum Osmolality 271 mOsmol/kg (275-295) L 02/01/25 10:03 Lactic Acid 1.1 mmol/L (0.5-2.2) 02/11/25 05:10 Calcium 7.1 mg/dL (8.5-10.3) L 02/11/25 05:10 Phosphorus 3.8 mg/dL (2.5-5.0) 02/11/25 05:10 Magnesium 2.4 mg/dL (1.7-2.3) H 02/11/25 05:10 Iron 82 ug/dL (50-212) 02/01/25 10:03 TIBC 473 ug/dL (250-450) H 02/01/25 10:03 % Saturation 17 % (20-50) L 02/01/25 10:03 Transferrin 338 mg/dL (203-362) 02/01/25 10:03 Total Bilirubin 0.4 mg/dL (0.2-1.0) 02/10/25 04:25 AST 29 IU/L (10-42) 02/10/25 04:25 ALT 12 IU/L (10-60) 02/10/25 04:25 Alkaline Phosphatase 58 IU/L (42-121) 02/10/25 04:25 Troponin I High Sens 5.7 ng/L (2.3-19.7) 02/08/25 04:23 Total Protein 3.5 g/dL (6.4-8.9) L 02/10/25 04:25 Albumin 1.7 g/dL (3.2-5.5) L 02/10/25 04:25 Globulin 1.8 g/dL (2.1-4.2) L 02/10/25 04:25 Albumin/Globulin Ratio 0.9 (1.0-2.2) L 02/10/25 04:25 Prealbumin 6 mg/dL (17-34) L 02/09/25 04:20 Triglycerides 483 mg/dL 02/11/25 05:10 Lipase 13 U/L (11-82) 01/31/25 19:06 Vitamin B12 1215 pg/mL (180-914) H 02/04/25 04:37 Folate 16.4 ng/mL (5.90 - >24.8) 02/04/25 04:37 Procalcitonin Immunoas 0.77 ng/mL (<0.5) H 02/07/25 01:15 Urine Sodium 17.7 mmol/L 02/01/25 14:42 Nasal Adenovirus (PCR) NOT DETECTED 02/07/25 01:35 Nasal B. parapertussis DNA (PCR) NOT DETECTED 02/07/25 01:35 Nasal Coronavir 229E PCR NOT DETECTED 02/07/25 01:35 Nasal Coronavir HKU1 PCR NOT DETECTED 02/07/25 01:35 Nasal Coronavir NL63 PCR NOT DETECTED 02/07/25 01:35 Nasal Coronavir OC43 PCR NOT DETECTED 02/07/25 01:35 Nasal Enterovir/Rhinovir PCR NOT DETECTED 02/07/25 01:35 Nasal Influenza B PCR NOT DETECTED 02/07/25 01:35 Nasal Influenza A PCR NOT DETECTED 02/07/25 01:35 Nasal Parainfluen 1 PCR NOT DETECTED 02/07/25 01:35 Nasal Parainfluen 2 PCR NOT DETECTED 02/07/25 01:35 Nasal Parainfluen 3 PCR NOT DETECTED 02/07/25 01:35 Nasal Parainfluen 4 PCR NOT DETECTED 02/07/25 01:35 Nasal RSV (PCR) NOT DETECTED 02/07/25 01:35 Nasal Screen MRSA (PCR) NEGATIVE (NEGATIVE) 02/08/25 11:05 Nasal B.pertussis DNA PCR NOT DETECTED 02/07/25 01:35 Nasal C.pneumoniae (PCR) NOT DETECTED 02/07/25 01:35 Moshe Human Metapneumo PCR NOT DETECTED 02/07/25 01:35 Nasal M.pneumoniae (PCR) NOT DETECTED 02/07/25 01:35 Nasal SARS-CoV-2 (PCR) NOT DETECTED 02/07/25 01:35 Last Dose Date UNK 02/11/25 05:10 Last Dose Time UNK 02/11/25 05:10 Random Vancomycin 15.9 ug/mL 02/11/25 05:10 Blood Type O POSITIVE 02/09/25 22:57 Blood Type Recheck O POSITIVE 02/01/25 21:52 Antibody Screen NEGATIVE 02/09/25 22:57 Crossmatch IS Only See Detail 02/09/25 22:57 Sepsis Event Note (H) Evaluation Current Stage of Sepsis: Septic shock Sepsis Criteria Sepsis Criteria: Recorded Temperature greater than 38.3C or Less than 36C, Recorded Heart Rate greater than 90 bpm, WBC count greater than 10% bands, WBC count greater than 12,000 or less than 4000, SECRET SERVICE AGENT: altered consciousness (unrelated to primary neuro pathology), MAP less than 65 mmHg and SBP less than 90 mmHg ABX Reporting Has patient been on IV antibiotics over the past 48 hours?: Yes Current Medications Current Medications Current Medications: Current Medications Generic Name Dose Route Start Last Admin Trade Name Freq PRN Reason Stop Dose Admin Albuterol/Ipratropium 3 ml 02/06/25 14:52 02/08/25 07:27 Ipratropium/Albuterol 3 Ml Neb INH 3 ml RTQID PRN Administration Shortness of Air/Wheezing Chlorhexidine Gluconate 15 ml 02/08/25 21:00 02/11/25 08:50 Chlorhexidine Gluconate 15 Ml Udc PO 15 ml BID GADIEL Administration Digoxin 250 mcg 02/11/25 11:00 Digoxin 500 Mcg/2 Ml Amp IVP ONCE GADIEL Enoxaparin Sodium 40 mg 02/03/25 21:00 02/11/25 08:51 Enoxaparin 40 Mg/0.4 Ml Syringe SUBQ 40 mg DAILY GADIEL Administration Acetaminophen 1,000 mg in 100 mls @ 400 mls/hr 02/08/25 12:00 02/11/25 07:25 Acetaminophen IV Infused Q6HR GADIEL Infusion Multivitamins 10 ml/ Zinc/ 2,011 mls @ 83 mls/hr 02/08/25 19:00 02/10/25 18:36 Copper/Manganese/Selenium 1 ml IV 83 mls/hr / Amino Acids/Electrolytes/ 1900 GADIEL Administration Dextrose Protocol Fat Emulsion Intravenous 250 mls @ 21 mls/hr 02/08/25 19:00 02/11/25 08:30 Intralipid 20% IV Infused 1900 GADIEL Infusion Propofol 1,000 mg in 100 mls @ 5.7 mls/hr 02/08/25 19:00 02/11/25 09:21 Diprivan IV 40 mcg/kg/min .[id number] GADIEL 22.8 mls/hr Administration Protocol 10 MCG/KG/MIN Norepinephrine/Sodium Chloride 8 mg in 250 mls @ 15 mls/hr 02/08/25 21:00 02/11/25 09:57 Levophed 8 Mg/250-0.9% Nacl IV 4 mcg/min .[id number] GADIEL 7.5 mls/hr Titration Protocol 8 MCG/MIN Fentanyl 2,500 mcg in 250 mls @ 10.5 mls/hr 02/09/25 08:00 02/11/25 01:40 Fentanyl IV 0.75 mcg/kg/hr .[id number] GADIEL 7.88 mls/hr Administration Protocol 1 MCG/KG/HR Sodium Chloride 1,000 mls @ 125 mls/hr 02/09/25 19:00 02/11/25 06:57 Normal Saline 0.9% IV 125 mls/hr .Q8H GADIEL Infusion Midazolam HCl 50 mg in 50 mls @ 4.32 mls/hr 02/09/25 20:00 02/11/25 10:03 Versed Drip 50 Mg/50 Ml IV Not Given .[id number] GADIEL Protocol 0.04 MG/KG/HR Vancomycin HCl 1.75 gm/ Sodium 500 mls @ 250 mls/hr 02/10/25 09:00 02/11/25 08:50 Chloride IV 250 mls/hr Q24H GADIEL Administration Amiodarone HCl/Dextrose 200 mls @ 33.333 mls/hr 02/11/25 08:00 02/11/25 07:51 Nexterone 360 Mg/200 Ml IV 02/11/25 13:59 33.33 mls/hr ONCE ONE Administration Protocol Amiodarone HCl/Dextrose 200 mls @ 16.667 mls/hr 02/11/25 14:00 Nexterone 360 Mg/200 Ml IV .Q12H GADIEL 0.5 MG/MIN Insulin Human Regular 1 - 5 unit 02/09/25 00:00 02/11/25 06:10 Insulin Regular, Human 300 Unit/3 Ml Pen SUBQ Not Given Q6HR GADIEL Protocol Meropenem 1 gm 02/09/25 20:00 02/11/25 04:44 Meropenem 1 Gm Vial IVP 1 gm Q8H GADIEL Administration Metoprolol Tartrate 5 mg 02/11/25 05:57 02/11/25 06:04 Metoprolol 5 Mg/5 Ml Vial IVP 02/12/25 05:56 5 mg ONCE PRN Administration Tachycardia Metoprolol Tartrate 5 mg 02/11/25 12:00 Metoprolol 5 Mg/5 Ml Vial IVP Q6H GADIEL Midazolam HCl 2 mg 02/10/25 09:44 Midazolam 2 Mg/2 Ml Vial IVP Q4HR PRN Agitation Nicotine 1 patch 02/03/25 09:00 02/11/25 08:50 Nicotine 21 Mg Patch TOP 1 patch DAILY GADIEL Administration Ondansetron HCl 4 mg 02/04/25 12:10 02/06/25 10:20 Ondansetron 4 Mg/2 Ml Vial IVP 4 mg Q6HR PRN Administration Nausea / Vomiting Pantoprazole Sodium 40 mg 02/09/25 07:00 02/11/25 06:22 Pantoprazole 40 Mg Vial IVP 40 mg QDAC GADIEL Administration Sodium Chloride 10 ml 02/01/25 10:12 02/04/25 21:05 Sodium Chloride Flush 0.9% 10 Ml Syringe IVP 10 ml PRN PRN Administration NEEDED PER PROVIDER ORDERS Sodium Chloride 10 ml 02/01/25 17:00 02/11/25 10:04 Sodium Chloride Flush 0.9% 10 Ml Syringe IVP 10 ml 0100,0900,1700 GADIEL Administration
[2025-02-11] MEDS: DIGOXIN 500 MCG/2 ML AMP IVP ONE (11:03)
[2025-02-11] MEDS: LACTATED RINGERS 1,000 ML IV ONE (11:50)
[2025-02-11] MEDS: METOPROLOL 5 MG/5 ML VIAL IVP SCH (12:18)
--- NOTE | 2025-02-11 12:44 | Discharge Summary ---
"Discharge Summary Admit Date: 02/01/25 Discharge Date: 02/11/25 Discharging Provider: Dr. Joel Julio Primary Care Provider: Armand Saldana Code Status: Attempt Resuscitation Discharge Facility Name: [facility] DIAGNOSES Admission Diagnoses: Cecal volvulus Hyponatremia Alcohol abuse, in remission Elevated blood pressure reading Iron deficiency Discharge Diagnoses with Status of Each Condition: Pneumoperitoneum Repeat CT abdomen this morning demonstrated increasing free air, high-grade small bowel obstruction. Underwent exploratory laparotomy on 02/09 with resection of ileocolostomy, Blackwood's, partial omentectomy, placement of drains x 2, as well as extensive abdominal washout. Two JORGE drains remain in place with output noted. NG tube in place with bilious output. Plan to transfer to SICU at [facility] for higher level of care (and more specialist help including cardiology, infectious disease). New onset atrial fibrillation Overnight, on 02/10, patient went into new onset atrial fibrillation, with RVR. He has no history of this in the past. May be exacerbated by vasopressor usage and hypovolemia. Continue aggressive IVF rehydration. Received IV pushes of metoprolol overnight with no relief. Amiodarone drip started. Loaded with digoxin as well. Off Levophed at this time so will hold off on cardioversion. Spoke with general surgery - [place] for anticoagulation, will start therapeutic Lovenox, BID. ECHO ordered, pending. Septic shock Patient has been afebrile for over 24 hours. Continued leukocytosis. Blood cultures from 02/07 showed no growth to date. These were repeated, no growth to date. Continue broad-spectrum IV antibiotic coverage. Escalated to meropenem and vancomycin. Was on Ceasar, which has been weaned off. Continue to wean Levophed. Continue to titrate down as able. Continue PPN and IV fluids at this time. Will switch to TPN. Acute hypoxic respiratory failure Patient intubated 02/08 due to increased work of breathing. PEEP of 5, FiO2 of 30%, inspiratory pressure of 11. He is breathing comfortably now after being sedated with Precedex, propofol, fentanyl. Had some junctional bradycardia, will wean off Precedex. Requiring Versed drip occasionally, with pushes. Will try to minimize fentanyl use with adynamic ileus, as well as small bowel obstruction. Large part of this is compression due to his large dilatation of his bowels, imaging shows atelectasis. CTA was done, negative for PE. Hyponatremia Resolving, continue to monitor. Alcohol abuse, in remission Patient has remote history of alcohol abuse, but has been sober for about 3 to 4 months. Anemia associated with acute blood loss Hemoglobin is stable. Has required some transfusions. Nicotine addiction Continue nicotine patch while inpatient. Small bowel obstruction due to postoperative adhesions See above. 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 He also has a history of gastric bypass. HPI History of Present Illness: Chuy CORTEZ Karena: 54 yo male who presented to ED yesterday with abdominal pain that had been present for a bit less than 12 hours. Had a BM about a half hour after pain started. associated with nausea, vomiting and decreased appetite. hx Tenzin n Y GB years ago. problems with alcohol use, but sober since Nov of this year. doing well with that. 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 reading through PCP notes, it is stated that he presented to the PCP office with a cup of ice with him. hx sz disorder, thought to be related to alcohol withdrawal. not on any sz meds. post operatively, he is well. no belching or nausea, not passing gas. abdominal pain is well controlled with epidural in place. Lives with , independent in the community normally. CONSULTS | PROCEDURES Consultations: General surgery Procedures: Exploratory laparotomy with colectomy and anastomosis02/01 Exploratory laparotomy with ileostomy, abdominal washout02/09 Abdomen/pelvis CT, chest x-ray, abdominal x-ray HOSPITAL COURSE Hospital Course: Patient is a 54-year-old male with history of a Tenzin-en-Y gastric bypass multiple years ago who presented with abdominal pain. Initial CT did show cecal volvulus. He was taken for surgery on 02/01, and completed a colectomy as well as an anastomosis. Initially, he was recovering well, passing gas, having bowel movements. On the evening of 02/07, patient became very confused and delirious. He was expressing visual hallucinations, trying to get out of bed, pulling at all of his lines. He also had worsening shortness of breath. When patient was seen this morning, he appeared significantly short of breath. His antibiotics were escalated to cover hospital-acquired pneumonia with vancomycin and cefepime. He was also given another dose of IV Lasix to keep him euvolemic with the pleural effusions. His shortness of breath is likely due to compression with the dilatation of his bowels. NG tube was placed, placed to LIS. During the day, 02/08, he continued to worsen. His shortness of breath and his work of breathing increased to the point where he was tachypneic, tachycardic. As such, he was intubated for work of breathing. He was maintained on pressure control, with a PEEP of 5. His FiO2 was decreased to 100% to 30% throughout the evening. He then started spiking fevers. Flagyl was added. His blood pressure continued to drop. Central line and arterial line were placed. He was started on Levophed. On 02/09, patient had absent bowel tones. His abdomen was still soft, but there was not much output out of the NG tube. CT abdomen/pelvis was repeated at this time. This showed persistent and increasing free air under the right anterior abdominal wall, as well as the high-grade small bowel obstruction. CT shows free air. Patient taken to emergent surgery. General surgery completed ileostomy, complete abdominal washout. Initially, plan was to transfer the patient, and [facility] was spoken with, as well as [facility] and [facility], but we have held transfer plans due to need for emergent surgery. On 02/10, he received transfusions to support his Hb, his pressors were weaned down to just Levophed (phenylephrine was stopped). He continues to be intubated and sedated. On 02/11, he went into new onset atrial fibrillation with RVR. Received IV metoprolol pushes, was started on IV amiodarone. Will attempt to avoid cardioversion. Decision was made to transfer patient to an acute care hospital with more specialists support including cardiology, infectious disease, colorectal surgery. Patient was transferred to [facility]. ALLERGIES Allergies Allergy/AdvReac Type Severity Reaction Status Date / Time doxycycline AdvReac Severe Nausea Verified 01/31/25 18:52 NSAIDS (Non-Steroidal AdvReac Severe Unknown Verified 01/31/25 18:52 Anti-Inflamma MEDICATIONS Ambulatory Orders Medication Instructions Recorded Confirmed naltrexone 50 mg tablet 50 mg PO QDAY #30 tabs 08/04/24 02/01/25 acetaminophen 500 mg tablet 1,000 mg PO Q6H PRN fever or pain 08/08/24 02/01/25 ascorbic acid (vitamin C) 1,000 mg 1 g PO QDAY 08/08/24 02/01/25 capsule duloxetine 30 mg capsule,delayed 90 mg PO QDAY 08/08/24 02/01/25 release trazodone 100 mg tablet 100 mg PO HS 08/08/24 02/01/25 clonidine HCl 0.1 mg tablet 0.1 mg PO Q6H PRN anxiety 01/08/25 02/01/25 hydroxyzine pamoate 50 mg capsule 100 mg PO DAILY 01/08/25 02/01/25 ibuprofen 200 mg capsule 200 mg PO Q6H PRN fever or pain 01/08/25 02/01/25 mecobalamin (vitamin B12) 2,500 2,500 mcg PO QDAY 01/08/25 02/01/25 mcg chewable tablet metoprolol succinate 25 mg capsule 25 mg PO QDAY 01/08/25 02/01/25 sprinkle, ext. release 24 hr (Kapspargo Sprinkle) multivitamin 1 tab PO QAM 01/08/25 02/01/25 quetiapine 50 mg tablet 50 mg PO BID 01/08/25 02/01/25 folic acid 1 mg tablet 1 mg PO DAILY 02/01/25 02/01/25 melatonin 1 mg tablet 1 mg PO HS PRN sleep 02/01/25 02/01/25 PHYSICAL EXAM AT DISCHARGE Vital Signs: Vital Signs x48h Temp Pulse Pulse Resp BP BP BP 02/11/25 14:30 98.2 F 116 H 14 96/67 96/57 L 02/11/25 14:30 97.9 F 110 H 14 85/49 L 90/52 L 02/11/25 14:00 98.2 F 115 H 14 78/67 L 87/54 L 02/11/25 13:00 98.4 F 130 H 14 86/71 L 93/58 L 02/11/25 12:18 148 H 113/63 02/11/25 12:15 98.4 F 130 H 15 81/68 L 90/58 L 02/11/25 12:00 98.6 F 145 H 15 106/68 105/62 02/11/25 11:03 132 H 02/11/25 11:00 98.8 F 134 H 14 92/72 106/60 02/11/25 10:03 133 H 97/54 L 02/11/25 10:02 140 H 94/53 L 02/11/25 10:00 98.8 F 138 H 14 84/59 L 94/50 L 02/11/25 09:15 98.6 F 126 H 15 117/91 H 110/68 02/11/25 09:13 144 H 104/56 L 02/11/25 09:05 98.6 F 144 H 14 102/63 02/11/25 09:00 98.4 F 158 H 14 100/74 106/45 L 02/11/25 08:52 98.4 F 144 H 14 100/69 109/63 02/11/25 08:11 131 H 02/11/25 08:00 98.6 F 144 H 14 93/59 L 109/57 L 02/11/25 07:57 129 H 14 96/55 L 99/57 L 02/11/25 07:30 146 H 14 97/61 103/57 L Pulse Ox 02/11/25 14:30 99 02/11/25 14:30 99 02/11/25 14:00 98 02/11/25 13:00 98 02/11/25 12:18 02/11/25 12:15 95 02/11/25 12:00 92 02/11/25 11:03 02/11/25 11:00 93 02/11/25 10:03 02/11/25 10:02 02/11/25 10:00 94 02/11/25 09:15 90 L 02/11/25 09:13 02/11/25 09:05 90 L 02/11/25 09:00 89 L 02/11/25 08:52 90 L 02/11/25 08:11 02/11/25 08:00 91 L 02/11/25 07:57 95 02/11/25 07:30 96 General Appearance: positive No acute distress and Other (Intubated and sedated); negative Alert or Anxious Eyes Bilateral: positive Normal inspection, PERRL (sluggish but reactive) and Conjunctivae nml ENT: positive ENT inspection nml, Pharynx nml and No signs of dehydration Neck: positive Nml inspection, Thyroid nml and No JVD Respiratory: positive Chest non-tender, No respiratory distress, Breath sounds nml, Rales and Other (Diminished air entry ) Cardiovascular: positive Irregularly irregular, Tachycardia and Other (AFib with RVR) Peripheral Pulses: positive 2+ Abdomen: positive No distention and Other (Large midline incision with skin opening, no active drainage noted. [address] with some serosanguineous drainage noted. NG tube in place with bilious output noted.) Back: positive Nml inspection; negative CVA tenderness (R) or CVA tenderness (L) Skin: positive Color nml, No rash, Warm and Dry Extremities: positive Non-tender, Full ROM, Nml appearance and No pedal edema Neurologic/Psychiatric: positive Other (Sedated) LABS 02/11/25 05:10 02/11/25 05:10 DIAGNOSTIC IMAGING Diagnostic Imaging Results: Final report reviewed SEPSIS Current Stage of Sepsis: Septic shock Sepsis Criteria: Recorded Temperature greater than 38.3C or Less than 36C, Recorded Heart Rate greater than 90 bpm, WBC count greater than 10% bands, WBC count greater than 12,000 or less than 4000, SPACE SYSTEMS OPERATIONS SUPERINTENDENT: altered consciousness (unrelated to primary neuro pathology), MAP less than 65 mmHg and SBP less than 90 mmHg FOLLOW UP Follow Up: Transfer to [facility]. TIME SPENT Time Spent in Discharge (Minutes): 65 Discharge Plan Discharge Patient Disposition: 02 Transfer Acute Care Hosp Prescriptions: Continued folic acid 1 mg tablet 1 mg PO DAILY melatonin 1 mg tablet 1 mg PO HS PRN (Reason: sleep) naltrexone 50 mg tablet 50 mg PO QDAY Qty: 30 3RF Rx Instructions: Take 1 tablet daily acetaminophen 500 mg tablet 1,000 mg PO Q6H PRN (Reason: fever or pain) ascorbic acid (vitamin C) 1,000 mg capsule 1 g PO QDAY duloxetine 30 mg capsule,delayed release(DR/EC) 90 mg PO QDAY trazodone 100 mg tablet 100 mg PO HS multivitamin Tablet 1 tab PO QAM mecobalamin (vitamin B12) 2,500 mcg tablet,chewable 2,500 mcg PO QDAY quetiapine 50 mg tablet 50 mg PO BID ibuprofen 200 mg capsule 200 mg PO Q6H PRN (Reason: fever or pain) Kapspargo Sprinkle 25 mg capsule,sprinkle,ER 24hr 25 mg PO QDAY clonidine HCl 0.1 mg tablet 0.1 mg PO Q6H PRN (Reason: anxiety) hydroxyzine pamoate 50 mg capsule 100 mg PO DAILY Activity Restrictions: Activity as Tolerated Diet: Regular Print Language: Khmer Stand Alone Forms: PCP List Follow-up Care: Armani Walter, COLLINS, BAKERY WORKER, TRANSITION PROGRAM MANAGER [Primary Care Provider] -"
[2025-02-11] MEDS: AMIODARONE 360 MG/200 ML 200 ML IV SCH (14:00)
[2025-02-11] MEDS: DIGOXIN 500 MCG/2 ML AMP IVP SCH (15:59)
[2025-02-11] MEDS: DEXTROSE 50% ABBOJECT 25 GM/50 ML SYRINGE IVP ONE (16:15)
--- NOTE | 2025-02-11 16:24 | ECHO Report ---
Version: 1 Study ID: [id number] [id number] Adult Echocardiogram Report Name: PRASANTH DIANA Study Date: 02/11/2025, 11: 33 AM BP : 96 / 57 mmHg Patient Location: ICU^2304^01 HR: 130 bpm : 1970 (MM/DD/YYYY) Gender: Male He ight: 71 in Age: 54 Years Weight: 279.987 lb Reason For Study: afib History: Septic shock, bowel obstruction, aute respiratory failure with hypoxia, nicotine addiction, alcohol abuse, DM2, seizures, cecal volvulus Procedure: A complete two-dimensional transthoracic echocardiogram was performed (2D, M-mode, Doppler and color flow Doppler). This study was requested as a STAT/emergent study. The patient was breathing on a ventilator. The study wa s done with the patient in the supine position, due to inability to lie on the left side. Wound dressing limited acce ss to the patient, so that images were obtained from only the parasternal and apical windows. The underlying rhythm was atrial fibrillation. Interpretation Summary The left ventricular cavity is small. There is mild concentric increase in the wall thickness of the left ventricle. The calculated ejection fraction, as determined by the biplane method of disks, is 53%. The right ventricle is moderately dilated. The right ventricular systolic function is mildly decreased. Mild tricuspid regurgitation present. There is mild mitral regurgitation. Left Ventricle: There is mild concentric increase in the wall thickness of the left ventricle. The left ventricular c avity is small. Global left ventricular function is lower limits of normal. The calculated ejection fraction, as dete rmined by the biplane method of disks, is 53%. Diastolic function could not be accurately assessed due to tachycard ia. Right Ventricle: The right ventricle is moderately dilated. The right ventricular systolic function is mildly decrease d. Right ventricular segmental wall motion abnormalities are present with decreased function of the mid and ap ical segments. Aortic Valve: The aortic valve is trileaflet. Aortic valve sclerosis is present without stenosis. No hemodynamicall y significant valvular aortic stenosis. No aortic regurgitation is present. Mitral Valve: The mitral valve leaflets appear thickened, but with normal motion. No evidence of mitral stenosis is seen. There is mild mitral regurgitation. Tricuspid Valve: The tricuspid valve is visually normal in structure and function. There is no tricuspid stenosis. Mil d tricuspid regurgitation present. Pulmonic Valve: The pulmonic valve is visually normal in structure and function. There is no pulmonic valvular stenos is. Trace pulmonic valvular regurgitation is present. Left Atrium: The left atrium is mildly dilated. The left atrial volume indexed to body surface area is 37 ml/m2. T his refers to the maximal volume measured prior to mitral valve opening. Right Atrium: The right atrium is mildly dilated. The inferior vena cava is not well visualized. The central venous pressure cannot be estimated on this study. Atrial Septum: The interatrial septum is not well seen. Interatrial shunt cannot be excluded. Aorta: The diameter of the ascending aorta is 3.1 cm. The aortic root measures 3.3 cm in diameter. Pulmonary Artery: The pulmonary artery is not well visualized, but is probably normal size. Unable to determine RVSP du e to poor visualization of IVC . Pericardium/Pleural Space: There is no pericardial effusion. No pleural effusion is seen. Doppler Measurements & Calculations Ao max P.2 mmHg Ao V2 max: 124.6 cm/sec LV V1 max: 93.0 cm/sec LV V1 max P.5 mmHg TR max P.9 mmHg TR max juan jose: 273.5 cm/sec MMode/2D Measurements & Calculations Ao root diam: 3.3 cm EDV(MOD-sp4): 118.0 ml EF (est.): 46.4 % ESV(MOD-sp4): 59.0 ml ESV(sp4-el): 91.6 ml Heart Rate: 130.0 BPM Height (metric): 180.3 cm IVSd: 1.33 cm LA A4C-A/L: 27.1 cm² LA dimension: 6.7 cm LA ESV-A/L: 86.8 ml LAV(MOD-sp2): 77.6 ml LAV(MOD-sp4): 82.9 ml LVIDd: 3.5 cm LVIDs: 2.6 cm LVLd ap4: 9.3 cm LVLs ap4: 7.8 cm LVPWd: 1.25 cm RA A4Cs: 23.3 cm² Systolic Pressure: 96.0 mmHg Other Measurements & Calculations Ao root diam: 3.3 cm Ao V2 max: 124.6 cm/sec BMI: 39.0 kilograms/m² BSA: 2.43 m² BSA([facility]): 2.6 m² Diastolic Pressure: 57.0 mmHg EDV(MOD-sp4): 118.0 ml EDV(Teich): 52.3 ml EF (est.): 46.4 % EF(MOD-sp4): 50.0 % EF(Teich): 54.0 % ESV(MOD-sp4): 59.0 ml ESV(sp4-el): 91.6 ml ESV(Teich): 24.0 ml FS: 27.3 % Heart Rate: 130.0 BPM Height (metric): 180.3 cm IVSd: 1.33 cm LA A4C-A/L: 27.1 cm² LA dimension: 6.7 cm LA ESV-A/L: 86.8 ml LAV(MOD-sp2): 77.6 ml LAV(MOD-sp4): 82.9 ml LV V1 max: 93.0 cm/sec LVIDd: 3.5 cm LVIDs: 2.6 cm LVLd ap4: 9.3 cm LVLs ap4: 7.8 cm LVPWd: 1.25 cm RA A4Cs: 23.3 cm² SV(MOD-sp4): 59.0 ml Systolic Pressure: 96.0 mmHg TR max P.9 mmHg TR max juan jose: 273.5 cm/sec TV max P.9 mmHg Weight (metric): 127.0 kg EDV(MOD-sp2): 99.9 ml EF Mod BP: 53.1 % ESV(MOD-sp2): 46.4 ml EF(MOD-sp2): 53.6 % EF(sp-el): 34.6 % Cristofer Coughlin MD 02/11/2025, 4: 23 PM Ordering Physician: Joel Julio Referring Physician: Komal Lawson Performed By: Tanesha Longo RDCS
[2025-02-11 17:56] LABS: ABG PH 7.25 (7.35-7.45)
[2025-02-11 17:57] LABS: ABG BASE EXCESS -0.4 mmol/L (-2.0-3.0); ABG OXYGEN SATURATION 95 % (95-98); ABG PO2 83 mmHg (83-108); ABG TCO2 28.9 mmol/L (21.0-29.0)
[2025-02-11 17:58] LABS: ABG MODE OF VENTILATION ASSIST/CONTROL; ABG RESPIRATORY RATE 14 b/min
[2025-02-11 18:00] LABS: ABG PCO2 61 mmHg (34-45)
[2025-02-11] MEDS ORDERED: DIGOXIN 500 MCG/2 ML AMP IVP SCH (18:00)
[2025-02-11 18:16] VITALS: BP 116/78; TEMP 98.2; O2SAT 94
[2025-02-11] MEDS ORDERED: TPN (CLINIMIX E 5/15) 2,000 ML with MULTIVITAMIN 10 ML, TRACE ELEMENTS 1 ML IV SCH (19:00)
[2025-02-11] MEDS ORDERED: ENOXAPARIN 120 MG/0.8 ML SYRINGE SUBQ SCH (21:00)
== END 2025-02-11 18:05 | disposition short-term general hospital (02) | DRG 329 ==
LOC: ED 18:51 → SDS 22:20 → MS2 02-01 01:04 → SDS 02-01 08:19 → MS2 02-01 10:19 → ICU 02-02 09:59 → MS3 02-05 15:19 → ICU 02-08 15:35
PROVIDERS: ADMIT Physician Assistant Medical; ATTEND Surgery